=== PATIENT | male | born 1965 | race Caucasian/White ===

== ENCOUNTER 2022-07-31 21:56 | Emergency (ER) | payer MEDICAID, SELFPAY ==
[2022-07-31 21:57] VITALS: BP 114/75; PULSE 79; RESP 15; TEMP 36.1; O2SAT 96; BMI 28.0
--- NOTE | 2022-07-31 22:12 | CT_ITS ---
EXAM: CT ABDOMEN AND PELVIS WITHOUT INTRAVENOUS CONTRAST CLINICAL INDICATION: Kidney Stone TECHNIQUE: Helically acquired images were obtained of the abdomen and pelvis without intravenous contrast. This CT exam was performed using one or more of the following dose reduction techniques: automated exposure control, adjustment of the mA and/or kV according to patient size, and/or use of iterative reconstruction technique. This report was created using [employer] report generation technology. RADIATION DOSE: Total DLP: 338.61 mGy-cm. COMPARISON: None. FINDINGS: LOWER THORAX: Evaluation of lung bases shows bilateral peribronchial cuffing indicating bronchial wall inflammation. No acute basilar pulmonary infiltrates or pleural effusions. No coronary artery calcification or significant pericardial effusion. Mild thickening of the distal esophageal wall due to hiatal hernia and/or mild reflux esophagitis. ABDOMEN: LIVER: Unremarkable. Homogeneous. GALLBLADDER AND BILE DUCTS: Rounded area of slightly increased attenuation within the dependent portion of the gallbladder. No gallbladder wall thickening or pericholecystic stranding. No biliary duct dilatation is visualized. PANCREAS: Unremarkable. No focal cystic mass. SPLEEN: Unremarkable. Normal size without focal cystic or solid mass. ADRENALS: 10 x 18 mm ovoid hypoattenuating right adrenal nodule showing CT attenuation near water, consistent with a benign adrenal adenoma which requires no follow-up. Unremarkable left adrenal gland. KIDNEYS AND URETERS: Unremarkable. Normal renal size and position. No hydronephrosis. No renal or ureteral stones. No perirenal stranding. STOMACH AND BOWEL: Unremarkable. No stomach or bowel distention. No focal inflammatory change. PELVIS: APPENDIX: Not well seen. No evidence of acute appendicitis. BLADDER: Urinary bladder is nearly empty. REPRODUCTIVE: Unremarkable as visualized. No mass. ABDOMEN and PELVIS: INTRAPERITONEAL SPACE: Unremarkable. No ascites or other fluid collection. No free air. BONES/JOINTS: Degenerative spurring about the lower thoracic and lumbar disc spaces. No compression fracture. Degenerative sclerosis about the SI joints, without erosions. No suspicious lytic or blastic abnormality. SOFT TISSUES: Minimal fat-filled left inguinal hernia. VASCULATURE: Mildly calcific abdominal aorta and its branches. Abdominal aorta is non-dilated. LYMPH NODES: Unremarkable. No enlarged lymph nodes. CT/Abdomen/Pelvis without Cont IMPRESSION: No renal or obstructing ureteral stones. Slightly increased density in the dependent portion of the gallbladder which could be due to sludge or noncalcified stones. Correlation with ultrasound may be of benefit, as clinically indicated. Mild thickening of the distal esophageal wall due to hiatal hernia and/or mild reflux esophagitis. No findings of diverticulitis, colitis or small bowel obstruction. Electronically Signed: Mitchel Reyes MD at 23:13 EDT ,
--- NOTE | 2022-07-31 22:13 | EDS_ITS ---
HPI History of Present Illness Chief Complaint: Flank Pain Narrative Narrative: Patient with past medical history of hypertension, coronary artery disease, hyperlipidemia, presents with left flank pain since yesterday evening. It is slowly progressed towards gotten worse. It is in his left flank and radiating towards his groin. He denies any fevers or chills. No loss of bowel or bladder. He did notice a pink tinge to his urine a few days ago. No exacerbating or alleviating factors. He currently denies any chest pain or shortness of breath. No other symptoms. No back pain. No injury. [facility] Medical History Anxiety and depression Atherosclerotic heart disease of [place] coronary artery without angina pectoris COPD (chronic obstructive pulmonary disease) Essential hypertension History of ST elevation myocardial infarction (STEMI) (05/11/11) Hyperlipidemia Tobacco abuse Home Medications albuterol sulfate 90 mcg/actuation aerosol inhaler (Ventolin HFA) 2 inh inhalation Q6H PRN 06/04/22 [History Last Taken Unknown] buspirone 10 mg tablet 10 mg PO BID 06/04/22 [History Last Taken Unknown] fluticasone propionate 230 mcg-salmeterol 21 mcg/actuation HFA inhaler 2 puff inhalation BID 06/04/22 [History Last Taken Unknown] lisinopril 2.5 mg tablet 2.5 mg PO DAILY 06/04/22 [History Last Taken Unknown] metoprolol succinate 25 mg tablet,extended release 24 hr 25 mg PO DAILY 06/04/22 [History Last Taken Unknown] nitroglycerin 0.4 mg sublingual tablet 0.4 mg sublingual Q5-15M PRN 06/04/22 [ History Last Taken Unknown] simvastatin 20 mg tablet 20 mg PO QHS 06/04/22 [History Last Taken Unknown] Allergy/AdvReac Type Severity Reaction Status Date / Time No Known Allergies Allergy Verified 07/31/22 22:00 Family History Other Heart disease Hypertension Surgical History History of appendectomy History of coronary artery stent placement (05/11/11) Social History Smoking Status: Current every day smoker tobacco type: cigarettes alcohol intake: current EXAM Physical Exam Narrative Exam Narrative: Afebrile. Vital signs noted. HEENT: Normocephalic. Atraumatic. PERRL, EOMI. Neck soft and supple. No point tenderness or step off. Cardiovascular: Regular rate and rhythm. No murmurs, rubs, or gallops appreciated. Respiratory: No tachypnea. Lungs clear to auscultation bilaterally. Gastrointestinal: Abdomen soft, nontender, with normoactive bowel sounds. No rebound or guarding. Neurological: Awake. Alert. Nonfocal, nonlateralizing. Skin: No rash. Normal color. No pallor. Musculoskeletal: No pedal edema. Full range of motion extremities. No lumbar tenderness. No vertebral point tenderness or bony step-off of lumbar spine. No CVA tenderness to percussion, left. Const Vital Signs: 07/31/22 21:57 Temperature 97.0 F L Temperature Source Temporal Pulse Rate 79 Respiratory Rate 15 Blood Pressure 114/75 Blood Pressure Mean 88 Pulse Ox 96 Oxygen Delivery Method Room Air MDM MDM MDM Narrative Medical decision making narrative: With suspicion for ureterolithiasis, comprehensive work-up was pursued. He was administered morphine and ondansetron along with a normal saline. CBC shows normal white count of 10.8, normal hemoglobin of 15.6, hematocrit 45.6, platelet count 313. Electrolyte panel is grossly unremarkable, glucose 84 with a normal anion gap of 6. Urinalysis shows no evidence of blood or infection. CT of the abdomen and pelvis shows no ureteral stone. Prior to discharge, I was informed that the patient had eloped before receiving any of his results, especially of the CT. He was in stable condition. Disposition is eloped from the emergency department Lab Data Attestation: I reviewed the patient's lab results. Labs: Laboratory Results - last 24 hr 07/31/22 07/31/22 07/31/22 22:14 22:15 22:15 WBC 10.8 RBC 4.96 Hgb 15.6 Hct 45.6 MCV 91.9 MCH 31.5 MCHC 34.2 RDW Std Deviation 42.6 RDW Coeff of Saul 12.6 Plt Count 313 MPV 9.4 Immature Gran % (Auto) 0.400 Neut % (Auto) 44.4 L Lymph % (Auto) 44.6 H Amelia % (Auto) 6.9 Eos % (Auto) 3.0 Baso % (Auto) 0.7 Absolute Neuts (auto) 4.8 Absolute Lymphs (auto) 4.83 H Nucleated RBC % 0 Sodium 140 Potassium 3.9 Chloride 103 Carbon Dioxide 31.0 Anion Gap 6 BUN 7 Creatinine 0.90 Estim Creat Clear Calc 88.38 Est GFR (MDRD) Af Amer 111 Est GFR (MDRD) Non-Af 92 BUN/Creatinine Ratio 7.8 L Glucose 84 Calcium 8.9 Urine Color Straw Urine Clarity Clear Urine pH 6.5 Ur Specific [place] 1.010 Urine Protein Negative Urine Glucose (UA) Normal Urine Ketones Negative Urine Occult Blood Negative Urine Nitrite Negative Urine Bilirubin Negative Urine Urobilinogen Normal Ur Leukocyte Esterase Negative Urine RBC 0 SEEN Urine WBC 0 SEEN Ur Squamous Epith Cells 0-5 SEEN Urine Bacteria RARE Urine Mucus 0 SEEN Radiography Diagnostic Testing: Clinical Impression(s) from Imaging Studies Abdomen/Pelvis CT 07/31/22 22:12 IMPRESSION: No renal or obstructing ureteral stones. Slightly increased density in the dependent portion of the gallbladder which could be due to sludge or noncalcified stones. Correlation with ultrasound may be of benefit, as clinically indicated. Mild thickening of the distal esophageal wall due to hiatal hernia and/or mild reflux esophagitis. No findings of diverticulitis, colitis or small bowel obstruction. Electronically Signed: Mitchel Reyes MD at 23:13 EDT Reading Location ID and State: [facility] / [place] Tel , Service support , Discharge Plan Triage Chief Complaint: Flank Pain ED Provider: Tylor Castillo Dx/Rx/DC Orders Clinical Impression: Acute left flank pain, Eloped from emergency department Instructions: ED Flank Pain, Uncertain Cause Prescriptions: No Action albuterol sulfate [Ventolin HFA] 90 mcg/actuation HFA aerosol inhaler 2 inh inhalation Q6H PRN simvastatin 20 mg tablet 20 mg PO QHS lisinopril 2.5 mg tablet 2.5 mg PO DAILY metoprolol succinate 25 mg tablet extended release 24 hr 25 mg PO DAILY buspirone 10 mg tablet 10 mg PO BID fluticasone propion-salmeterol 230-21 mcg/actuation HFA aerosol inhaler 2 puff inhalation BID nitroglycerin 0.4 mg tablet, sublingual 0.4 mg sublingual Q5-15M PRN Rx Instructions: do not exceed 3 doses per episode Primary Care Provider: Care Physician,No Primary Referrals: Care Physician,No Primary [Primary Care Provider] - Disposition Disposition: Elopement
[2022-07-31] MEDS: 0.9% Normal Saline 1,000 ML 250 ML IV (22:20)
[2022-07-31 22:26] LABS: Absolute Lymphocyte Count 4.83 X10^3/uL (0.83-4.51); Absolute Neutrophil Count 4.8 X10^3/uL (2.0-7.7); Basophil# 0.08 X10^3/uL; Basophil% 0.7 % (0-1); Eosinophil# 0.32 X10^3/uL; Hematocrit 45.6 % (40-54); Hemoglobin 15.6 g/dL (13.0-16.5); Lymphocyte # 4.83 X10^3/ul (0.83-4.51); Lymphocyte % 44.6 % (19-41); Mean Corp Hgb Conc 34.2 g/dL (32-36); Mean Corpuscular Hgb 31.5 pg (27.0-32.0); Mean Corpuscular Volume 91.9 fL (80-94); Mean Platelet Vol. 9.4 fl (6.2-12.0); Monocyte# 0.75 X10^3/uL; Monocyte% 6.9 % (0-10); NRBC Flagged by Analyzer 0 % (0-5); Neutrophil # 4.81 X10^3/uL (2.7-7.7); Neutrophil % 44.4 % (47-70); Platelet Count 313 K/mm3 (150-450); RBC Distribution Width CV 12.6 % (11.6-14.6); RBC Distribution Width SD 42.6 fl (35.1-43.9); Red Blood Count 4.96 M/mm3 (4.6-6.2); White Blood Count 10.8 K/mm3 (4.4-11.0)
[2022-07-31] MEDS: Ondansetron 4 MG/2 ML Vial IV (22:26)
[2022-07-31] MEDS: Morphine 4 MG/ML Syringe IV (22:26)
[2022-07-31 22:38] LABS: Color, Urine Straw (Yellow); Glucose, Dipstick Normal (Normal); Ketone-Dipstick Negative (Negative); Leukocyte Esterase-Dipstick Negative /ul (Negative); Mucous, Urine 0 SEEN /hpf (<or=2+); Nitrite-Dipstick Negative (Negative); Occult Blood-Urine Negative /ul (Negative); Protein-Dipstick Negative (Negative); Red Blood Cells-Urine 0 SEEN /hpf (0-5); Urine Bilirubin Dipstick Negative (Negative); Urine Clarity Clear (Clear); Urine Urobilinogen Normal (Normal); Urine pH 6.5 (5.0 - 8.0); White Blood Cells 0 SEEN /hpf (0-5)
[2022-07-31 22:52] LABS: Anion Gap 6 (5-15); BUN 7 mg/dL (7-18); BUN/Creat Ratio 7.8 RATIO (10-20); Calcium,Total 8.9 mg/dL (8.5-10.1); Chloride 103 mmol/L (98-107); EST Glomerular Filtration Rate 92 mL/min (>60); Est Glom Filt Rate - Afr Amer 111 mL/min (>60); Estimated Creatinine Clearance 88.38 ml/min; Glucose 84 mg/dL (74-106); Potassium 3.9 mmol/L (3.5-5.1); Sodium Level 140 mmol/L (136-145)
[2022-07-31 23:00] LABS: Bacteria RARE /hpf (None Seen); Squamous Epithelial Cells - UA 0-5 SEEN /hpf (0-5)
== END 2022-07-31 23:11 | disposition left against medical advice (07) ==
PROVIDERS: Emergency Provider Emergency Medicine; Visit Provider Emergency Medicine
DX: R10.9 Unspecified abdominal pain (principal); J44.9 Chronic obstructive pulmonary disease, unspecified; I25.10 Atherosclerotic heart disease of native coronary artery without angina pectoris; I25.2 Old myocardial infarction; I10 Essential (primary) hypertension; E78.5 Hyperlipidemia, unspecified; F17.210 Nicotine dependence, cigarettes, uncomplicated; Z95.5 Presence of coronary angioplasty implant and graft; Z90.49 Acquired absence of other specified parts of digestive tract; Z79.899 Other long term (current) drug therapy
CPT/HCPCS: 74176; 80048; 81001; 85025; 96361; 96374; 96375; 99283; J7030; A4216; J2405

== ENCOUNTER 2022-08-03 12:29 | Emergency (ER) | payer MEDICAID, SELFPAY ==
[2022-08-03 12:30] VITALS: BP 168/100; PULSE 57; RESP 16; TEMP 36.6; O2SAT 100; BMI 27.1
[2022-08-03] MEDS: 0.9% Normal Saline 1,000 ML 250 ML IV (13:16)
[2022-08-03] MEDS: Ketorolac 15 MG/ML Vial IV (13:17)
[2022-08-03] MEDS: Ondansetron 4 MG/2 ML Vial IV (13:18)
[2022-08-03] MEDS: Morphine 4 MG/ML Syringe IV (13:18)
[2022-08-03 13:22] LABS: Absolute Lymphocyte Count 2.55 X10^3/uL (0.83-4.51); Absolute Neutrophil Count 6.5 X10^3/uL (2.0-7.7); Basophil# 0.06 X10^3/uL; Basophil% 0.6 % (0-1); Eosinophil# 0.07 X10^3/uL; Eosinophils% 0.7 % (0-5); Hematocrit 49.8 % (40-54); Hemoglobin 16.9 g/dL (13.0-16.5); Lymphocyte # 2.55 X10^3/ul (0.83-4.51); Lymphocyte % 25.9 % (19-41); Mean Corp Hgb Conc 33.9 g/dL (32-36); Mean Corpuscular Hgb 31.1 pg (27.0-32.0); Mean Corpuscular Volume 91.7 fL (80-94); Mean Platelet Vol. 9.6 fl (6.2-12.0); Monocyte# 0.61 X10^3/uL; Monocyte% 6.2 % (0-10); NRBC Flagged by Analyzer 0 % (0-5); Neutrophil # 6.52 X10^3/uL (2.7-7.7); Neutrophil % 66.2 % (47-70); Platelet Count 262 K/mm3 (150-450); RBC Distribution Width CV 12.4 % (11.6-14.6); RBC Distribution Width SD 41.9 fl (35.1-43.9); Red Blood Count 5.43 M/mm3 (4.6-6.2); White Blood Count 9.9 K/mm3 (4.4-11.0)
[2022-08-03 13:27] LABS: Anion Gap 4 (5-15); BUN 8 mg/dL (7-18); BUN/Creat Ratio 8.6 RATIO (10-20); Calcium,Total 9.1 mg/dL (8.5-10.1); Chloride 105 mmol/L (98-107); Creatinine, Serum 0.93 mg/dL (0.70-1.30); EST Glomerular Filtration Rate 88 mL/min (>60); Est Glom Filt Rate - Afr Amer 107 mL/min (>60); Estimated Creatinine Clearance 85.52 ml/min; Glucose 108 mg/dL (74-106); Potassium 3.8 mmol/L (3.5-5.1); Sodium Level 139 mmol/L (136-145)
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
[2022-08-03 14:06] LABS: Bacteria 0 SEEN /hpf (None Seen); Mucous, Urine 0 SEEN /hpf (<or=2+); Red Blood Cells-Urine 0 SEEN /hpf (0-5)
[2022-08-03 14:12] LABS: Color, Urine Yellow (Yellow); Glucose, Dipstick Normal (Normal); Ketone-Dipstick Negative (Negative); Leukocyte Esterase-Dipstick Negative /ul (Negative); Nitrite-Dipstick Negative (Negative); Occult Blood-Urine Negative /ul (Negative); Protein-Dipstick Negative (Negative); Urine Bilirubin Dipstick Negative (Negative); Urine Clarity Clear (Clear); Urine Urobilinogen Normal (Normal)
[2022-08-03 14:31] VITALS: BP 152/86; PULSE 51; RESP 16; O2SAT 98
[2022-08-03 14:38] LABS: Squamous Epithelial Cells - UA 0-5 SEEN /hpf (0-5); White Blood Cells 0-5 SEEN /hpf (0-5)
[2022-08-03 14:57] VITALS: BP 162/102; PULSE 91; RESP 15; O2SAT 99
== END 2022-08-03 14:58 | disposition home or self-care (01) ==
PROVIDERS: Emergency Provider Emergency Medicine; Visit Provider Emergency Medicine
DX: N50.812 Left testicular pain (principal); J44.9 Chronic obstructive pulmonary disease, unspecified; I25.10 Atherosclerotic heart disease of native coronary artery without angina pectoris; I25.2 Old myocardial infarction; I10 Essential (primary) hypertension; E78.5 Hyperlipidemia, unspecified; F17.210 Nicotine dependence, cigarettes, uncomplicated; Z95.5 Presence of coronary angioplasty implant and graft; Z90.49 Acquired absence of other specified parts of digestive tract; Z79.899 Other long term (current) drug therapy
CPT/HCPCS: 80048; 81001; 85025; 96361; 96374; 96375; 99285; J7030; A4216; J2405

== ENCOUNTER 2024-02-23 12:31 | Emergency (ER) | payer MEDICAID, SELFPAY ==
[2024-02-23 12:33] VITALS: BP 152/94; PULSE 64; RESP 16; TEMP 36.7; O2SAT 97; BMI 23.3
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
[2024-02-23 14:39] VITALS: BP 152/99; PULSE 84; RESP 18; O2SAT 98
[2024-02-23 14:54] VITALS: BP 174/89; PULSE 59; RESP 14; TEMP 35.5; O2SAT 100
== END 2024-02-23 15:03 | disposition home or self-care (01) ==
PROVIDERS: Emergency Provider Emergency Medicine; Visit Provider Emergency Medicine
DX: S09.90XA Unspecified injury of head, initial encounter (principal); J44.9 Chronic obstructive pulmonary disease, unspecified; F17.200 Nicotine dependence, unspecified, uncomplicated; I25.10 Atherosclerotic heart disease of native coronary artery without angina pectoris; I25.2 Old myocardial infarction; Y04.8XXA Assault by other bodily force, initial encounter
CPT/HCPCS: 70450; 74176; 99282

== ENCOUNTER → 2025-02-01 | Outpatient (CLI) | payer MEDICAID, SELFPAY ==
[2025-02-01 08:51] LABS: Hematocrit 43.8 % (40-54); Hemoglobin 15.7 g/dL (13.0-16.5); Mean Corp Hgb Conc 35.8 g/dL (32-36); Mean Corpuscular Hgb 31.7 pg (27.0-32.0); Mean Corpuscular Volume 88.3 fL (80-94); Mean Platelet Vol. 9.9 fl (6.2-12.0); Platelet Count 196 K/mm3 (150-450); RBC Distribution Width CV 12.6 % (11.6-14.6); RBC Distribution Width SD 40.8 fl (35.1-43.9); Red Blood Count 4.96 M/mm3 (4.6-6.2); White Blood Count 7.2 K/mm3 (4.4-11.0)
[2025-02-01 12:20] LABS: AST(SGOT) 76 U/L (<=37); Alanine Aminotransfer ALT/SGPT 88 U/L (<=46); Albumin, Serum 3.8 g/dL (3.4-4.8); Alkaline Phosphatase 124 U/L (40-129); Anion Gap 12 (5-15); BUN 13 mg/dL (4-19); BUN/Creat Ratio 14.6 RATIO (10-20); Calcium,Total 9.2 mg/dL (7.6-11.0); Carbon Dioxide 21.8 mmol/L (21.0-32.0); Chloride 104 mmol/L (98-108); Cholesterol 146 mg/dL (<=200); Creatinine, Serum 0.89 mg/dL (0.70-1.20); EST Glomerular Filtration Rate 97 (>60); Globulin 3.7 g/dL (2.2-4.2); Glucose 124 mg/dL (70-99); High Density Lipoprotein 38 mg/dL; Low Density Lipoprotein Calc. 81 mg/dL; Potassium 4.3 mmol/L (3.3-5.1); Protein, Total 7.5 g/dL (5.9-8.4); Sodium Level 138 mmol/L (133-145); Total Bilirubin 0.49 mg/dL (0.00-1.30); Triglycerides 135 mg/dL; Very Low Density Lipoprotein 27 mg/dL (5-40); cholesterol:hdl ratio screen 3.86
== END | disposition home or self-care (01) ==
LOC: LAB 08:29
PROVIDERS: Referring Provider Internal Medicine Cardiovascular Disease; Visit Provider Internal Medicine Cardiovascular Disease
DX: R53.83 Other fatigue (principal); R06.09 Other forms of dyspnea
CPT/HCPCS: 36415; 80053; 80061; 84443; 85027

== ENCOUNTER 2025-04-15 19:27 | Emergency (ER) | payer MEDICAID, SELFPAY ==
[2025-04-15 19:28] VITALS: BP 136/78; PULSE 83; RESP 18; TEMP 36.2; O2SAT 99; BMI 26.3
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
--- OUTSIDE RECORDS SUMMARY | 2025-04-15 20:07 | XMS RPT_ITS | CCD ---
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 02-01-2025 Cholesterol.total/Choles terol in HDL [Mass ratio] 3.86 {ratio} [facility] Serum creatinine measurement (mass/volume)Ordered By: Nati Alston on 02-01-2025 Creatinine [Mass/Vol] 0.89 mg/dL 0.70-1.20 [facility] Serum globulin measurementOr dered By: Nati Alston on 02-01-2025 Globulin (S) [Mass/Vol] 3.7 g/dL 2.2-4.2 [facility] Serum glucose measurement (m ass/volume)Ordered By: Nati Alston on 02-01-2025 Glucose [Mass/Vol] 124 mg/dL High 70-99 [facility] Serum or plasma alanine rincon otransferase (ALT) measurementOrdered By: Nati Alston on 02-01-2025 ALT [Catalytic activity/Vol] 88 U/L High <47 [facility] Serum or plasma albumin kevin urement (mass/volume)Ordered By: Nati Alston on 02-01-2025 Albumin [Mass/Vol] 3.8 g/dL 3.4-4.8 [facility] Serum or plasma albumin/glob ulin mass ratioOrdered By: Nati Gamaliel on 02-01-2025 Albumin/Globulin [Mass ratio] 1.0 {ratio} 0.9-2.4 [facility] Serum or plasma alkaline axel sphatase measurementOrdered By: Nati Gamaliel on 02-01-2025 ALP [Catalytic activity/Vol] 124 U/L 40-129 [facility] Serum or plasma calcium kevin urement (mass/volume)Ordered By: Nati Alston on 02-01-2025 Calcium [Mass/Vol] 9.2 mg/dL 7.6-11.0 [facility] Serum or plasma cholesterol in HDL measurement (mass/volume)Ordered By: Nati Alston on 02-01-2025 Cholesterol in HDL [Mass/Vol] 38 mg/dL Low >40 [facility] Comment on above: National Cholesterol Education Program (NCEP) guidelines:<40 mg/dL: Low HDL-cholesterol (major risk factor for CHD)>= 60 mg/dL: High HDL-cholesterol (negative risk factor for CHD)HDL-cholesterol is affected by a number of factors, e.g. smoking, exercise, hormones, sex and age. Serum or plasma cholesterol measurement (mass/volume)Ordered By: Nati Alston on 02-01-2025 Cholesterol [Mass/Vol] 146 mg/dL <201 [facility] Comment on above: Cholesterol level, D esirable <200 mg/dLBorderline high cholesterol 200-239 mg/dLHigh cholesterol >=240 mg/dLRecommendations of the NCEP Adult Treatment Panel for the following risk-cutoff thresholds for the [place] population. Serum or plasma urea nitroge n measurement (mass/volume)Ordered By: Nati Alston on 02-01-2025 Urea nitrogen [Mass/Vol] 13 mg/dL 4-19 [facility] Sodium levelOrdered By: Juan Alston on 02-01-2025 Sodium [Moles/Vol] 138 mmol/L 133-145 [facility] TSH DL <= 0.005 mIU/L QnOrde red By: Nati Alston on 02-01-2025 Thyroid Stimulating Hormone (TSH) 1.140 uIU/mL 0.300-4.200 [facility] Thyroid Stim Hormone (TSH)on 02-01-2025 TSH 1.140 uIU/mL Normal 0.300-4.200 [facility] Comment on above: Performed By: #### L 500.4050, L501.9520, L500.4100 #### [facility] [address] [place], [address] TSH 1.140 uIU/mL Normal 0.300-4.200 [facility] Comment on above: Order Comment: will reorder Result Comment: will reorder Performed By: #### L 500.4100, L500.4050, L501.9520, L100.0500 #### [facility] [address] [place], [address] Total proteinOrdered By: Eleni Alston on 02-01-2025 Protein [Mass/Vol] 7.5 g/dL 5.9-8.4 [facility] Triglycerides measurementOrd ered By: Nati Alston on 02-01-2025 Triglyceride [Mass/Vol] 135 mg/dL <199 [facility] Comment on above: The drugs N-Acetylcy steine and Metamizole may falsely depress this assay. Normal range: <150 mg/dLBorderline High: 150-199 mg/dLHigh: 200-499 mg/dLVery High: >500 mg/dL White blood cell (WBC) count Ordered By: Nati Alston on 02-01-2025 WBC (Bld) [#/Vol] 7.2 10*3/uL 4.4-11.0 [facility] 12 Lead EKG performed by [facility] on 01-30-2025 12 Lead EKG performed by [facility] [address] [place] [address] 12 Lead EKG performed by [facility] 01/30/25 0833 MR#: [id number] Acct: [id number] Name: RAISA ESTRADA Rep #: [id number] : 1965 59 From: Nati Alston MD Attending Dr: Dr. Nati Alston MD Status: DEP AMB Ordering Dr: Nati Alston MD Date: 01/30/25 Location: [facility] Sex: M C Admitted: BMS/12 Lead EKG performed by [facility] ECG Report Interpretation -------Sinus Rhythm -Left axis -anterior fascicular block. ABNORMAL Electronically signed on 03/28/2025 at 13:[address] Nati Alston [employer] Version [id number] 03/28/25 1332 Date Nati Alston MD CC: No Primary Care Physician Date Dictated: 01/30/25832 Date Transcribed: 01/30/25832 [employer] Commun[employer] Designer: KENNETH Signed Normal [facility] Cardiology Visit Reporton Cardiology Visit Report [facility] [address] [place] [address] OFFICE VISIT Date of Service: 01/30/25 MR#: [id number] Acct: [id number] Name: RAISA ESTRADA Rep #: [id number] : 1965 Provider: Dr. Nati Alston MD Age/Sex: 59/M Location: [facility] Status: Signed HPI HPI History of Present Illness Details: This gentleman describes a past medical history significant for coronary artery disease. According to him, he has had percutaneous intervention done with 2 stents to his coronary arteries in 2018 at [facility]. He has not followed up with cardiology at least over the last 5 years. Here to establish care. Patient denies any chest pains either at rest or with exertion. Over the last 1 year, he has been complaining of increasing shortness of breath with exertion. Denies any palpitations. No orthopnea. No PND. No ankle edema. Patient complains of being tired and fatigued most of the time. According to his girlfriend, he snores loudly at night. No abdominal pain. Occasional lightheadedness. Patient continues to smoke. He has history of EtOH abuse in the past but has been abstinent over the last 4 or 5 months. 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 Required: No Accompanied by: Other Allergies No Known Allergies Allergy (Verified 01/30/25 09:05) Have you fallen in the past year?: No [facility] Medical History Anxiety and depression Atherosclerotic heart disease of [place] coronary artery without angina pectoris COPD (chronic obstructive pulmonary disease) Essential hypertension History of ST elevation myocardial infarction (STEMI) (05/11/11) Hyperlipidemia Tobacco abuse Surgical History History of appendectomy History of coronary artery stent placement (05/11/11) Family History Other Heart disease Hypertension Social History household members: significant other Smoking Status: Current every day smoker tobacco type: cigarettes alcohol intake: current substance use type: does not use ROS Const Const: Positive for fatigue, weakness, headache(s), daytime sleepiness and excessive sweating; Negative for weight gain ENT ENT: Positive for headache(s) and dizziness (positional); Negative for Nosebleed/epistaxis or balance problems Cardio Chest Pain: No Palpitations: No Muscle aches with walking: None Resp Respiratory: Positive for SOB with activity, SOB at rest and SOB orthopnea SOB lying down GI GI: Positive for heartburn (daily); Negative nausea or vomiting Musc Musc: Positive for muscle aches/ myalgia and joint pain; Negative for muscle weakness or balance problems Skin Skin: Positive for redness (extremities) and other (burning sensation on BUE) Neuro Neuro: Positive for dizziness (positional), lightheadedness (positional w/ dizziness), near syncope, headache(s), weakness and other (numbness/tingling in LLE); Negative for syncope Endo Endo: Positive for fatigue and excessive sweating Cardiology Exam Const Appearance: comfortable and no acute distress Nutritional Appearance: well nourished Neck Neck: no JVD Carotids: Negative bruit Chest Auscultation: Bilateral: Clear to Auscultation Cardio Rate: regular rate Rhythm: regular rhythm Heart sounds: S1 normal and S2 normal Neuro General: patient alert, patient awake and patient oriented x3 Extremities Lower Extremity Edema: None: Bilateral Supplemental Info Supplemental Information Stress Test 01/24/2015: Findings: Stress Protocol: 0.4mg Lexiscan Stress and rest tomographic images demonstrate normal activity throughout the LEFT ventricular myocardium. Left ventricle is normal in size. The gated portion examination demonstrates normal LEFT ventricular contractility, wall motion and thickening. Ejection fraction normal at 68%. Impression: No infract or stress-induced ischemia. CT Chest w/ Contrast 04/27/2018: Indications: Chest Pain Conclusions: 1. No pulmonary embolism or acute pulmonary parenchymal abnormality. 2. No hiatal hernia. 3. Indeterminate right Other: Negative Conclusion: 1. Mild hyperaeration of the lung [place]. Otherwise no acute pulmonary parenchymal abnormality. Assessment and Plan Assessment and Plan (1) Dyspnea on exertion: Status: Chronic Plan: Check exercise str (more content not included)... Normal [facility] Absolute lymphocyte counton 08-03-2022 Lymphocytes Auto (Unsp spec) [#/Vol] 2.55 10*3/uL 0.83-4.51 [facility] Work Phone: Basophil percentageon 2021 Basophil percentage 0-5 SEEN /hpf 0-5 [facility] Work Phone: Basophils/100 WBC (Bld) 0.6 % 0-1 [facility] Work Phone: Chloride [Moles/Vol] 105 mmol/L 98-107 [facility] Work Phone: Eosinophils/100 WBC (Bld) 0.7 % 0-5 [facility] Work Phone: Glucose [Mass/Vol] 108 mg/dL 74-106 [facility] Work Phone: Comment on above: Fasting Glucose resu lt from 100 to 125 mg/dL suggests IMPAIRED HOMEOSTASIS per A.D.A. criteria. Neutrophils (Bld) [#/Vol] 6.5 10*3/uL 2.0-7.7 [facility] Work Phone: Neutrophils/100 WBC (Bld) 66.2 % 47-70 [facility] Work Phone: Potassium [Moles/Vol] 3.8 mmol/L 3.5-5.1 [facility] Work Phone: Sodium [Moles/Vol] 139 mmol/L 136-145 [facility] Work Phone: WBC (Bld) [#/Vol] 9.9 10*3/uL 4.4-11.0 [facility] Work Phone: Bilirubin Test strip Ql (U)o n 08-03-2022 Bilirubin Ql (U) Negative Negative [facility] Work Phone: Blood erythrocytes count (nu mber/volume)on 08-03-2022 RBC (Bld) [#/Vol] 5.43 10*6/uL 4.6-6.2 [facility] Work Phone: Blood hemoglobin measurement (mass/volume)on 08-03-2022 Hemoglobin (Bld) [Mass/Vol] 16.9 g/dL 13.0-16.5 [facility] Work Phone: Blood lymphocytes/100 leukoc yteson 10-03-2022 Lymphocytes/100 WBC (Bld) 25.9 % 19-41 [facility] Work Phone: Blood monocytes/100 leukocyt eson 08-03-2022 Monocytes/100 WBC (Bld) 6.2 % 0-10 [facility] Work Phone: Blood platelet mean volumeon 08-03-2022 Platelet mean volume (Bld) [Entitic vol] 9.6 fL 6.2-12.0 [facility] Work Phone: Determination of erythrocyte mean corpuscular volume (MCV)on 08-03-2022 MCV (RBC) [Entitic vol] 91.7 fL 80-94 [facility] Work Phone: Hematocrit Auto (Bld) [Volum e fraction]on 08-03-2022 Hematocrit (Bld) [Volume fraction] 49.8 % 40-54 [facility] Work Phone: Ketones Test strip Ql (U)on 08-03-2022 Ketones Ql (U) Negative Negative [facility] Work Phone: Laboratory - Chemistry and C hemistry - challengeon 08-03-2022 CO2 [Moles/Vol] 30.0 mmol/L 21.0-32.0 [facility] Work Phone: Urea nitrogen/Creatinine [Mass ratio] 8.6 mg/mg 10-20 [facility] Work Phone: Laboratory - Hematology and Cell countson 08-03-2022 Erythrocyte distribution width (RBC) [Entitic vol] 41.9 fL 35.1-43.9 [facility] Work Phone: Erythrocyte distribution width (RBC) [Ratio] 12.4 % 11.6-14.6 [facility] Work Phone: Immature granulocytes/100 WBC (Bld) 0.400 % 0.0-0.9 [facility] Work Phone: Comment on above: IG% - Immature Granu locytes (promyelocytes, myelocytes and metamyelocytes) > 1% indicates that a LEFT SHIFT is Present. MCH (RBC) [Entitic mass] 31.1 pg 27.0-32.0 [facility] Work Phone: Nucleated RBC/100 WBC (Bld) [Ratio] 0 % 0-5 [facility] Work Phone: MCHC Auto (RBC) [Mass/Vol]on 08-03-2022 MCHC (RBC) [Mass/Vol] 33.9 g/dL 32-36 [facility] Work Phone: Mucus LM Ql (Urine sed)on Mucus Ql (Urine sed) 0 SEEN /hpf [facility] Work Phone: Nitrite Test strip Ql (U)on 08-03-2022 Nitrite Ql (U) Negative Negative [facility] Work Phone: No Panel Informationon 08-03 Estimated Creatinine Clearance Calc 85.52 ml/min [facility] Work Phone: Estimated GFR (MDRD) Amer 107 mL/min >60 [facility] Work Phone: Comment on above: GFR Calc Estimated GFR (MDRD) Non-Af Amer 88 mL/min >60 [facility] Work Phone: Comment on above: Non- GFR Calc Platelets bldon 08-03-2022 Platelets (Bld) [#/Vol] 262 10*3/uL 150-450 [facility] Work Phone: Protein Test strip Ql (U)on 08-03-2022 Protein Ql (U) Negative Negative [facility] Work Phone: Serum or plasma calcium kevin urement (mass/volume)on 08-03-2022 Calcium [Mass/Vol] 9.1 mg/dL 8.5-10.1 [facility] Work Phone: Serum or plasma creatinine m easurement (mass/volume)on 08-03-2022 Creatinine [Mass/Vol] 0.93 mg/dL 0.70-1.30 [facility] Work Phone: Comment on above: The validity of the calculated GFR & GFRAA in patients over 70 years has not been determined. Clinical correlation is essential. Serum or plasma urea nitroge n measurement (mass/volume)on 08-03-2022 Urea nitrogen [Mass/Vol] 8 mg/dL 7-18 [facility] Work Phone: Squamous epithelial cells de tection in urine sediment by light microscopyon 08-03-2022 Epithelial cells.squamous LM Ql (Urine sed) 0-5 SEEN /hpf 0-5 [facility] Work Phone: Thin prep Papanicolaou smear with manual screeningon 08-03-2022 Thin prep Papanicolaou smear with manual screening 4 5-15 [facility] Work Phone: Urine blood detectionon RBC Ql (U) Negative Negative [facility] Work Phone: RBC Ql (U) 0 SEEN /hpf 0-5 [facility] Work Phone: Urine clarityon 08-03-2022 Clarity (U) Clear Clear [facility] Work Phone: Urine color determinationon 08-03-2022 Color (U) Yellow Yellow [facility] Work Phone: Urine glucose detectionon Glucose Ql (U) Normal mg/dl Normal [facility] Work Phone: Urine leukocyte esterase det ection by dipstickon 08-03-2022 Leukocyte esterase Test strip Ql (U) Negative Negative [facility] Work Phone: Urine pHon 08-03-2022 pH (U) 7.0 [pH] 5.0 - 8.0 [facility] Work Phone: Urine sediment bacteria coun t by microscopy (number/high power field)on 08-03-2022 Bacteria LM.HPF (Urine sed) [#/Area] 0 /[HPF] None Seen [facility] Work Phone: Urine specific gravity measu rementon 08-03-2022 Specific gravity (U) [Rel density] 1.010 1.002-1.030 [facility] Work Phone: Urobilinogen Auto test strip Ql (U)on 08-03-2022 Urobilinogen Ql (U) Normal mg/dl Normal [facility] Work Phone: .Auto Diffon 08-01-2022 Basophil, Absolute 0.1 10 3/mcL Normal 0.0-0.2 [facility] ([place]) Comment on above: Performed By: #### B MP, GFR #### [address] [address] Basophils/100 WBC (Bld) 0.8 % Normal 0.0-2.5 A [facility] ([place]) Comment on above: Performed By: #### B MP, GFR #### [address] [address] Eosinophil, Absolute 0.2 10 3/mcL Normal 0.0-0.4 [facility] ([place]) Comment on above: Performed By: #### B MP, GFR #### [address] [address] Eosinophils/100 WBC (Bld) 1.6 % Normal 0.0-7.0 [facility] ([place]) Comment on above: Performed By: #### B MP, GFR #### [address] [address] Lymphocyte, Absolute 2.2 10 3/mcL Normal 0.8-3.9 [facility] ([place]) Comment on above: Performed By: #### B MP, GFR #### [address] [address] Lymphocytes/100 WBC (Bld) 21.8 % Normal 10.0-50.0 [facility] ([place]) Comment on above: Performed By: #### B MP, GFR #### [address] [address] Monocyte, Absolute 0.9 10 3/mcL Normal 0.2-1.0 [facility] ([place]) Comment on above: Performed By: #### B MP, GFR #### [address] [address] Monocytes/100 WBC (Bld) 9.2 % Normal 1.7-13.0 A [facility] ([place]) Comment on above: Performed By: #### B MP, GFR #### [address] [address] Neutrophils/100 WBC (Bld) 66.6 % Normal 37.0-80.0 [facility] ([place]) Comment on above: Performed By: #### B MP, GFR #### [address] [address] .GFRon 08-01-2022 GFR 90 ml/min/1.73sqm Normal [facility] ([place]) Comment on above: Result Comment: GFR Population mean for , Non- Americans Ages 20-29 = 116 mL/min/1.73 sq.m. Ages 30-39 = 107 mL/min/1.73 sq.m. Ages 40-49 = 99 mL/min/1.73 sq.m. Ages 50-59 = 93 mL/min/1.73 sq.m. Ages 60-69 = 85 mL/min/1.73 sq.m. Ages 70+ = 75 mL/min/1.73 sq.m. Chronic Kidney Disease: Less than 60 mL/min/1.73 square meters End Stage Renal Disease: Less than 15 mL/min/1.73 square meters Performed By: #### B MP, GFR #### [address] [address] GFR Non- 74 ml/min/1.73sqm Normal [facility] ([place]) Comment on above: Result Comment: GFR Population mean for , Non- Americans Ages 20-29 = 116 mL/min/1.73 sq.m. Ages 30-39 = 107 mL/min/1.73 sq.m. Ages 40-49 = 99 mL/min/1.73 sq.m. Ages 50-59 = 93 mL/min/1.73 sq.m. Ages 60-69 = 85 mL/min/1.73 sq.m. Ages 70+ = 75 mL/min/1.73 sq.m. Chronic Kidney Disease: Less than 60 mL/min/1.73 square meters End Stage Renal Disease: Less than 15 mL/min/1.73 square meters Performed By: #### B MP, GFR #### [address] [address] .MDWon 08-01-2022 Monocyte Distribution Width 20.30 High 0.00-20.00 [facility] ([place]) Comment on above: Result Comment: For adults in ED, MDW>20.0 may be associated with a higher risk of sepsis during the first 12hrs of hospital admission Performed By: #### B MP, GFR #### [place] [address] [address] .NEUABSon 08-01-2022 Neutrophil, Absolute 6.7 10 3/mcL High 2.9-6.2 [facility] ([place]) Comment on above: Performed By: #### B MP, GFR #### [address] [address] BMPon 08-01-2022 BUN/Creatinine Ratio 14 ratio Normal 7-27 [facility] ([place]) Comment on above: Performed By: #### B MP, GFR #### [address] [address] Calcium [Mass/Vol] 8.5 mg/dL Normal 8.4-10.2 [facility] ([place]) Comment on above: Performed By: #### B MP, GFR #### [address] [address] Chloride [Moles/Vol] 103 mmol/L Normal 98-107 [facility] ([place]) Comment on above: Performed By: #### B MP, GFR #### [address] [address] CO2 [Moles/Vol] 27 mmol/L Normal 22-29 [facility] ([place]) Comment on above: Performed By: #### B MP, GFR #### [address] [address] Creatinine [Mass/Vol] 1.03 mg/dL Normal 0.70-1.30 [facility] ([place]) Comment on above: Performed By: #### B MP, GFR #### [address] [address] Electrolyte Balance 10.0 mEq/L Normal 4.0-15.0 [facility] ([place]) Comment on above: Performed By: #### B MP, GFR #### [address] [address] Glucose [Mass/Vol] 102 mg/dL Normal 70-105 [facility] ([place]) Comment on above: Performed By: #### B MP, GFR #### [address] [address] Potassium [Moles/Vol] 4.1 mmol/L Normal 3.5-5.1 [facility] ([place]) Comment on above: Performed By: #### B MP, GFR #### [address] [address] Sodium [Moles/Vol] 140 mmol/L Normal 136-145 [facility] ([place]) Comment on above: Performed By: #### B MP, GFR #### [address] [address] Urea nitrogen [Mass/Vol] 14 mg/dL Normal 7-18 [facility] ([place]) Comment on above: Performed By: #### B MP, GFR #### [address] [address] CBCon 08-01-2022 Erythrocyte distribution width (RBC) [Ratio] 13.4 % Normal 11.5-14.5 [facility] ([place]) Comment on above: Performed By: #### B MP, GFR #### [address] [address] Hematocrit (Bld) [Volume fraction] 43.3 % Normal 42.0-52.0 [facility] ([place]) Comment on above: Performed By: #### B MP, GFR #### [place] [address] [address] Hgb 15.1 G/dL Normal 14.0-18.0 [facility] ([place]) Comment on above: Performed By: #### B MP, GFR #### [place] [address] [address] MCH (RBC) [Entitic mass] 31.6 pg High 27.0-31.2 [facility] ([place]) Comment on above: Performed By: #### B MP, GFR #### [place] [address] [address] MCHC 34.8 G/dL Normal 31.8-35.4 [facility] ([place]) Comment on above: Performed By: #### B MP, GFR #### [place] [address] [address] MCV (RBC) [Entitic vol] 90.8 fL Normal 80.0-94.0 [facility] ([place]) Comment on above: Performed By: #### B MP, GFR #### [address] [address] Platelet 246 10 3/mcL Normal 130-400 [facility] ([place]) Comment on above: Performed By: #### B MP, GFR #### [address] [address] Platelet mean volume (Bld) [Entitic vol] 7.3 fL Low 7.4-10.4 [facility] ([place]) Comment on above: Performed By: #### B MP, GFR #### [place] [address] [address] RBC 4.77 10 6/mcL Normal 4.04-6.13 [facility] ([place]) Comment on above: Performed By: #### B MP, GFR #### [place] [address] [address] WBC 10.0 10 3/mcL Normal 4.6-10.8 [facility] ([place]) Comment on above: Performed By: #### B MP, GFR #### [place] [id number] [place], [place] [address] LABORATORYOrdered By: Tiera Rehman on 08-01-2022 Basophil, Absolute 0.1 103/mcL Invalid Interpretation Code 0.0 - 0.2 10^3/mcL AO Workflow SS Basophils/100 WBC (Bld) 0.8 % Invalid Interpretation Code 0.0 - 2.5 % AO Workflow SS Calcium [Mass/Vol] 8.5 mg/dL Invalid Interpretation Code 8.4 - 10.2 mg/dL AO ADM SS Chloride [Moles/Vol] 103 mmol/L Invalid Interpretation Code 98 - 107 mmol/L AO ADM SS CO2 [Moles/Vol] 27 mmol/L Invalid Interpretation Code 22 - 29 mmol/L AO ADM SS Creatinine [Mass/Vol] 1.03 mg/dL Invalid Interpretation Code 0.70 - 1.30 mg/dL AO ADM SS Electrolyte Balance 10.0 mEq/L Invalid Interpretation Code 4.0 - 15.0 mEq/L AO ADM SS Eosinophil, Absolute 0.2 103/mcL Invalid Interpretation Code 0.0 - 0.4 10^3/mcL AO Workflow SS Eosinophils/100 WBC (Bld) 1.6 % Invalid Interpretation Code 0.0 - 7.0 % AO Workflow SS Erythrocyte distribution width (RBC) [Ratio] 13.4 % Invalid Interpretation Code 11.5 - 14.5 % AO Workflow SS Glucose [Mass/Vol] 102 mg/dL Invalid Interpretation Code 70 - 105 mg/dL AO ADM SS Hematocrit (Bld) [Volume fraction] 43.3 % Invalid Interpretation Code 42.0 - 52.0 % AO Workflow SS Hemoglobin (Bld) [Mass/Vol] 15.1 G/dL Invalid Interpretation Code 14.0 - 18.0 G/dL AO Workflow SS Lymphocyte, Absolute 2.2 103/mcL Invalid Interpretation Code 0.8 - 3.9 10^3/mcL AO Workflow SS Lymphocytes/100 WBC (Bld) 21.8 % Invalid Interpretation Code 10.0 - 50.0 % AO Workflow SS MCH (RBC) [Entitic mass] 31.6 pg Invalid Interpretation Code 27.0 - 31.2 pg AO Workflow SS MCHC 34.8 G/dL Invalid Interpretation Code 31.8 - 35.4 G/dL AO Workflow SS MCV (RBC) [Entitic vol] 90.8 fL Invalid Interpretation Code 80.0 - 94.0 fL AO Workflow SS Monocyte distribution width Auto (Bld) [Entitic vol] 20.30 Invalid Interpretation Code 0.00 - 20.00 AO Workflow SS Comment on above: Result Comment: For adults in ED, MDW>20.0 may be associated with a higher risk of sepsis during the first 12hrs of hospital admission Monocyte, Absolute 0.9 103/mcL Invalid Interpretation Code 0.2 - 1.0 10^3/mcL AO Workflow SS Monocytes/100 WBC (Bld) 9.2 % Invalid Interpretation Code 1.7 - 13.0 % AO Workflow SS Neutrophil, Absolute 6.7 103/mcL Invalid Interpretation Code 2.9 - 6.2 10^3/mcL AO Workflow SS Neutrophils/100 WBC (Bld) 66.6 % Invalid Interpretation Code 37.0 - 80.0 % AO Workflow SS Platelet mean volume (Bld) [Entitic vol] 7.3 fL Invalid Interpretation Code 7.4 - 10.4 fL AO Workflow SS Platelets (Bld) [#/Vol] 246 103/mcL Invalid Interpretation Code 130 - 400 10^3/mcL AO Workflow SS Potassium [Moles/Vol] 4.1 mmol/L Invalid Interpretation Code 3.5 - 5.1 mmol/L AO ADM SS RBC (Bld) [#/Vol] 4.77 106/mcL Invalid Interpretation Code 4.04 - 6.13 10^6/mcL AO Workflow SS Sodium [Moles/Vol] 140 mmol/L Invalid Interpretation Code 136 - 145 mmol/L AO ADM SS Urea nitrogen [Mass/Vol] 14 mg/dL Invalid Interpretation Code 7 - 18 mg/dL AO ADM SS Urea nitrogen/Creatinine [Mass ratio] 14 ratio Invalid Interpretation Code 7 - 27 ratio AO ADM SS WBC (Bld) [#/Vol] 10.0 103/mcL Invalid Interpretation Code 4.6 - 10.8 10^3/mcL AO Workflow SS LABORATORYOrdered By: SYSTEM SYSTEM on 08-01-2022 GFR 90 ml/min/1.73sqm Invalid Interpretation Code AO Chemistry S GFR Non- 74 ml/min/1.73sqm Inval id Interpretation Code AO Chemistry S US SCROTUM CONTENTSon 2021 US SCROTUM CONTENTS ORIGINAL EXAMINATION: ULTRASOUND OF THE SCROTUM/TESTICLES WITH COLOR DOPPLER FLOW [id number]/1/2022 2:53 pm Scrotal Ultrasound with Duplex Doppler evaluation TECHNIQUE: Duplex ultrasound using B-mode/cruz scaled imaging, Doppler spectral analysis and color flow Doppler was obtained of the testicles. Grayscale, color Doppler and spectral waveform evaluation COMPARISON: None HISTORY: ORDERING SYSTEM PROVIDED HISTORY: Reason for Exam: Left sided pain for 2-3 days FINDINGS: Right testicle: 4.7 x 2.8 x 2.7 cm Left testicle: 4.6 x 2.3 x 2.4 cm No focal nor diffuse abnormalities are seen. Color Doppler flow is seen in both testicles in a symmetric fashion. Spectral waveform analysis of the testicles shows arterial and venous waveforms in both testicles. Small left varicocele is suspected. Small bilateral hydroceles noted.. Prominent left venous system measuring up to 2 mm upon Valsalva. The epididymi are symmetric in size and echogenicity. There is a 2 mm simple left epididymal cyst. IMPRESSION: No acute sonographic abnormalities of the testes Suspected small left-sided varicocele and small bilateral hydroceles 2 mm left epididymal cyst. I have personally reviewed the images of this examination and agree with the resident's findings and interpretation. Interpreted by: Harjit Mak MD Preliminary Report By: Matthew Morris Electronically signed By Harjit Mak MD Dictated Date: 08/01/2022 3:05:19 PM Prelim Date: 08/01/2022 3:14:59 PM Sign Date: 08/01/2022 3:22:15 PM Ordering Provider: JANELLE QUACH [facility] ([place]) Absolute lymphocyte counton 07-31-2022 Lymphocytes Auto (Unsp spec) [#/Vol] 4.83 10*3/uL 0.83-4.51 [facility] Work Phone: Basophil percentageon 2021 Basophils/100 WBC (Bld) 0.7 % 0-1 [facility] Work Phone: Chloride [Moles/Vol] 103 mmol/L 98-107 [facility] Work Phone: [phone] Eosinophils/100 WBC (Bld) 3.0 % 0-5 [facility] Work Phone: Glucose [Mass/Vol] 84 mg/dL 74-106 [facility] Work Phone: [phone] Neutrophils (Bld) [#/Vol] 4.8 10*3/uL 2.0-7.7 [facility] Work Phone: Neutrophils/100 WBC (Bld) 44.4 % 47-70 [facility] Work Phone: Potassium [Moles/Vol] 3.9 mmol/L 3.5-5.1 [facility] Work Phone: [phone] Sodium [Moles/Vol] 140 mmol/L 136-145 [facility] Work Phone: [phone] WBC (Bld) [#/Vol] 10.8 10*3/uL 4.4-11.0 [facility] Work Phone: Basophil percentage 0 SEEN /hpf 0-5 [facility] Work Phone: Bilirubin Test strip Ql (U)o n 07-31-2022 Bilirubin Ql (U) Negative Negative [facility] Work Phone: Blood erythrocytes count (nu mber/volume)on 07-31-2022 RBC (Bld) [#/Vol] 4.96 10*6/uL 4.6-6.2 [facility] Work Phone: Blood hemoglobin measurement (mass/volume)on 07-31-2022 Hemoglobin (Bld) [Mass/Vol] 15.6 g/dL 13.0-16.5 [facility] Work Phone: Blood lymphocytes/100 leukoc yteson 07-31-2022 Lymphocytes/100 WBC (Bld) 44.6 % 19-41 [facility] Work Phone: Blood monocytes/100 leukocyt eson 07-31-2022 Monocytes/100 WBC (Bld) 6.9 % 0-10 [facility] Work Phone: Blood platelet mean volumeon 07-31-2022 Platelet mean volume (Bld) [Entitic vol] 9.4 fL 6.2-12.0 [facility] Work Phone: Determination of erythrocyte mean corpuscular volume (MCV)on 07-31-2022 MCV (RBC) [Entitic vol] 91.9 fL 80-94 [facility] Work Phone: Hematocrit Auto (Bld) [Volum e fraction]on 07-31-2022 Hematocrit (Bld) [Volume fraction] 45.6 % 40-54 [facility] Work Phone: Ketones Test strip Ql (U)on 07-31-2022 Ketones Ql (U) Negative Negative [facility] Work Phone: Laboratory - Chemistry and C hemistry - challengeon 07-31-2022 CO2 [Moles/Vol] 31.0 mmol/L 21.0-32.0 [facility] Work Phone: Urea nitrogen/Creatinine [Mass ratio] 7.8 mg/mg 10-20 [facility] Work Phone: Laboratory - Hematology and Cell countson 07-31-2022 Erythrocyte distribution width (RBC) [Entitic vol] 42.6 fL 35.1-43.9 [facility] Work Phone: Erythrocyte distribution width (RBC) [Ratio] 12.6 % 11.6-14.6 [facility] Work Phone: Immature granulocytes/100 WBC (Bld) 0.400 % 0.0-0.9 [facility] Work Phone: Comment on above: IG% - Immature Granu locytes (promyelocytes, myelocytes and metamyelocytes) > 1% indicates that a LEFT SHIFT is Present. MCH (RBC) [Entitic mass] 31.5 pg 27.0-32.0 [facility] Work Phone: Nucleated RBC/100 WBC (Bld) [Ratio] 0 % 0-5 [facility] Work Phone: MCHC Auto (RBC) [Mass/Vol]on 07-31-2022 MCHC (RBC) [Mass/Vol] 34.2 g/dL 32-36 [facility] Work Phone: Mucus LM Ql (Urine sed)on Mucus Ql (Urine sed) 0 SEEN /hpf [facility] Work Phone: Nitrite Test strip Ql (U)on 07-31-2022 Nitrite Ql (U) Negative Negative [facility] Work Phone: No Panel Informationon 07-31 Estimated Creatinine Clearance Calc 88.38 ml/min [facility] Work Phone: Estimated GFR (MDRD) Amer 111 mL/min >60 [facility] Work Phone: Comment on above: GFR Calc Estimated GFR (MDRD) Non-Af Amer 92 mL/min >60 [facility] Work Phone: Comment on above: Non- GFR Calc Platelets bldon 07-31-2022 Platelets (Bld) [#/Vol] 313 10*3/uL 150-450 [facility] Work Phone: Protein Test strip Ql (U)on 07-31-2022 Protein Ql (U) Negative Negative [facility] Work Phone: Serum or plasma calcium kevin urement (mass/volume)on 07-31-2022 Calcium [Mass/Vol] 8.9 mg/dL 8.5-10.1 [facility] Work Phone: Serum or plasma creatinine m easurement (mass/volume)on 07-31-2022 Creatinine [Mass/Vol] 0.90 mg/dL 0.70-1.30 [facility] Work Phone: Comment on above: The validity of the calculated GFR & GFRAA in patients over 70 years has not been determined. Clinical correlation is essential. Serum or plasma urea nitroge n measurement (mass/volume)on 07-31-2022 Urea nitrogen [Mass/Vol] 7 mg/dL 7-18 [facility] Work Phone: Squamous epithelial cells de tection in urine sediment by light microscopyon 07-31-2022 Epithelial cells.squamous LM Ql (Urine sed) 0-5 SEEN /hpf 0-5 [facility] Work Phone: Thin prep Papanicolaou smear with manual screeningon 07-31-2022 Thin prep Papanicolaou smear with manual screening 6 5-15 [facility] Work Phone: Urine blood detectionon 07-04 RBC Ql (U) Negative Negative [facility] Work Phone: RBC Ql (U) 0 SEEN /hpf 0-5 [facility] Work Phone: Urine clarityon 07-31-2022 Clarity (U) Clear Clear [facility] Work Phone: Urine color determinationon 07-31-2022 Color (U) Straw Yellow [facility] Work Phone: Urine glucose detectionon Glucose Ql (U) Normal mg/dl Normal [facility] Work Phone: Urine leukocyte esterase det ection by dipstickon 07-31-2022 Leukocyte esterase Test strip Ql (U) Negative Negative [facility] Work Phone: Urine pHon 07-31-2022 pH (U) 6.5 [pH] 5.0 - 8.0 [facility] Work Phone: Urine sediment bacteria coun t by microscopy (number/high power field)on 07-31-2022 Bacteria LM.HPF (Urine sed) [#/Area] RARE /hpf None Seen [facility] Work Phone: Urine specific gravity measu rementon 07-31-2022 Specific gravity (U) [Rel density] 1.010 1.002-1.030 [facility] Work Phone: Urobilinogen Auto test strip Ql (U)on 07-31-2022 Urobilinogen Ql (U) Normal mg/dl Normal [facility] Work Phone: [id number] 09-24-2020 COVID19 SEE SEPARATE REPORT [facility] Comment on above: Result Comment: SPEC IMEN SENT TO A MISCELLANEOUS LAB SEE SCANNED RESULTS FOR TESTING FACILITY INFORMATION [id number] 09-10-2020 COVID19 SEE SEPARATE REPORT [facility] Comment on above: Result Comment: SPEC IMEN SENT TO A MISCELLANEOUS LAB SEE SCANNED RESULTS FOR TESTING FACILITY INFORMATION EMERGENCY REPORTon 8 EMERGENCY REPORT [facility] EMERGENCY ROOM REPORT NAME ACCOUNT SEX AGE ADMIT DISCHARGE PT MED. RECORD# NUMBER DATE DATE TYPE SEAN, [id number] April 53 04/27/18 04/27/18 3 CHRISTINE Mittal [id number] ROOM: ER DATE OF : 1965 DICTATING PHYSICIAN: Marta Echevarria CHIEF COMPLAINT: Patient came in complaining of a lot of chest discomfort which started last night. HISTORY OF PRESENT ILLNESS: It felt like a burning tightness on top of his chest. It was a 4 out of 10. He has also had a cough for a couple of weeks. He has had no fever. He is just not feeling well and presents to the emergency department. He also vomited this morning, felt weak and tired. He has a history of coronary artery disease and LAD which he has had stenting in the past. His last stress test was over a year ago. PAST MEDICAL HISTORY: He has COPD, hypertension, hyperlipidemia. He also has as history of depression and stress anxiety. PAST SURGICAL HISTORY: He has had appendectomy. He has had 2 stents. SOCIAL HISTORY: He does occasionally drink alcohol. He smokes. REVIEW OF SYSTEMS: Ten systems were reviewed and negative except as mentioned above. PHYSICAL EXAMINATION: He is an awake, alert and oriented male in no acute distress. Patient is afebrile, blood pressure 140/88, pulse 66, respirations 20, pulse ox 99% on room air. Head is normocephalic, atraumatic. Eyes: Pupils are equal, round, and reactive to light. Extraocular muscles are intact. Nares are patent. Throat has adequate moisture. Uvula is midline. Neck is supple without petechiae or rash. Heart without murmur. S1 equal to S2. No S3 or S4 appreciated. Lungs are clear to auscultation bilaterally. No rales, rhonchi, or retractions. Abdomen is soft, nontender, nondistended. Skin is warm and dry. DIAGNOSTIC DATA: His EKG showed a rate of 57, left axis deviation. No ST elevation or depression. This was compared to an EKG from a couple of years ago showing no obvious changes. His CT shows he has an internal right adrenal nodule. No pulmonary embolism. He has hiatal hernia. His D-dimer was elevated and that is why we did the CT. Chemistries were unremarkable. Magnesium 1.8. Troponin was negative. Page 1 of 2 [facility] ESTRADA Emergency Room Report EMERGENCY DEPARTMENT COURSE AND TREATMENT: He will be discharged to home. I do want him to stay in the hospital. He was given a breathing treatment. With chest pain want to rule out myocardial infarction. Also, shortness of breath could also be COPD flare. He refused this, signing leaving against medical advice. Will give him the name of family physicians as he does not have a family physician. He has a nurse private duty, Dr. Grigsby, at [place] [facility]. DIAGNOSIS: PLAN/DISPOSITION: He will be discharged in stable condition. Dictated By: Marta Echevarria DO 05/06/18 21:44 JOB #: [id number] Transcribed By: ezio 05/06/18 21:56 Electronically signed by: LUIS FELIPE Echevarria D.O. 05/07/18 23:38 Page 2 of 2 [facility] ESTRADA Emergency Room Report Normal [facility] CBCon 04-27-2018 Basophils Auto #/vol (Bld) 0.00 x10EE3/UL Normal 0.00 - 0.10 [facility] Comment on above: Performed By: #### 2 [id number] ####[place] [address] Basophils/100 WBC Auto (Bld) 0.2 % Normal 0.0 - 2.0 [facility] Comment on above: Performed By: #### 2 [address]3352 ####[place] [address] Blood morphology N/A Normal [facility] Comment on above: Result Comment: {CD] Performed By: #### 2 39742 ####[facility],[address] [place] [address] CBC Normal [facility] Comment on above: Result Comment: CBC- COMPLETE BLOOD COUNT Performed By: #### 2 92949 ####[facility],[address] [place] [address] Eosinophils 0.30 x10EE3/UL Normal 0.00 - 0.50 [facility] Comment on above: Performed By: #### 2 62200 ####[facility],[address] [place] [address] Eosinophils/100 leukocytes 4.0 % Normal 0.0 - 7.0 [facility] Comment on above: Performed By: #### 2 12454 ####[facility],[address] [place] [address] Erythrocyte distribution width Auto Ratio (RBC) 13.6 % Normal 12.0 - 15.6 [facility] Comment on above: Performed By: #### 2 91625 ####[facility],[address] [place] [address] Erythrocytes (RBC) 4.58 x 10EE6/UL Normal 4.50 - 6.00 [facility] Comment on above: Performed By: #### 2 76709 ####[facility],[address] [place] [address] Hematocrit (HCT) 41.0 % Normal 40.0 - 52.0 [facility] Comment on above: Performed By: #### 2 31139 ####[facility],[address] [place] [address] Hemoglobin mass conc (Bld) 14.3 g/dL Normal 13.0 - 17.5 [facility] Comment on above: Performed By: #### 2 99115 ####[facility],[address] [place] [address] Lymphocytes 2.40 x10EE3/UL Normal 0.80 - 2.80 [facility] Comment on above: Performed By: #### 2 34930 ####[facility],[address],[place] [address] Lymphocytes/100 leukocytes 34.0 % Normal 20.0 - 45.0 [facility] Comment on above: Performed By: #### 2 50940 ####[facility],[address] [place] [address] MANUAL DIFF N/A Normal [facility] Comment on above: Performed By: #### 2 37781 ####[facility],[address] [place] [address] MCH 31 pg Normal 27 - 33 [facility] Comment on above: Performed By: #### 2 64840 ####[facility],[address] [place] [address] MCHC mass conc (RBC) 35 X10 3 Normal 32 - 36 [facility] Comment on above: Performed By: #### 2 73519 ####[facility],[address] [place], [place] [id number] MCV 90 fL Normal 81 - 98 [facility] Comment on above: Performed By: #### 2 02554 ####[facility],[address] [place] [address] Monocytes 0.80 x10EE3/UL Normal 0.20 - 1.00 [facility] Comment on above: Performed By: #### 2 53196 ####[facility],[address] [place], [place] [id number] MONOS % 11.4 % High 0.0 - 10.0 [facility] Comment on above: Performed By: #### 2 96265 ####[facility],[address] [place] [address] Neutrophils 3.60 x10EE3/UL Normal 1.50 - 7.10 [facility] Comment on above: Performed By: #### 2 09732 ####[facility],[address] [place] [address] Neutrophils/100 WBC Auto (Bld) 50.4 % Normal 46.0 - 76.0 [facility] Comment on above: Performed By: #### 2 37693 ####[facility],[address] [place] [address] Platelet mean volume (PMV) 7.8 fL Normal 6.4 - 10.5 [facility] Comment on above: Result Comment: AUTO MATED DIFFERENTIAL Performed By: #### 2 68941 ####[facility],[address] [place] [address] Platelets 254 x10EE3/UL Normal 150 - 450 [facility] Comment on above: Performed By: #### 2 [id number] ####[facility],[address] [place] [address] 70011 WBC (Leukocytes) 7.2 x 10EE3/UL Normal 4.5 - 10.8 [facility] Comment on above: Performed By: #### 2 [id number] ####[facility],[address] [place] [address] 60058 CHEST 1 VIEWon 04-27-2018 CHEST 1 VIEW [place] [address] Patient: CHRISTINE ESTRADA Phone#: : 1965 Age: 53 Gender: M Pt. Type: ER Account: [id number] Location: [facility] Ordering: MARTA ECHEVARRIA Exam Date: 04/27/2018/10:21 Family Phys: NO DOCTOR Charge Code: 484597 Physician: [place] Order #: [id number] DLP Dose#: PROCEDURE: X-RAY CHEST 1 VIEW COMPARISON: None. INDICATIONS: Cough FINDINGS: LUNGS: Mild hyperaeration of the lung fairchild. No significant pulmonary parenchymal abnormalities. VASCULATURE: Normal. Unremarkable pulmonary vasculature. CARDIAC: Normal. No cardiac silhouette abnormality or cardiomegaly. MEDIASTINUM: There are atherosclerotic calcifications of the aorta. PLEURA: Normal. No effusion or pleural thickening. BONES: There are degenerative changes of the spine. OTHER: Negative. CONCLUSION: 1. Mild hyperaeration of the lung fairchild. Otherwise no acute pulmonary parenchymal abnormality. Dictated by: Stefania Nicolas MD on 04/27/2018 at 10:50 Approved by: Stefania Nicolas MD on 04/27/2018 at 10:50 Normal [facility] CMP with eGFRon 04-27-2018 Age 53 years Normal [facility] Comment on above: Performed By: #### 2 [id number] ####[facility],[address] [place] [address] 34450 Albumin 4.1 g/dL Normal 3.4 - 4.8 [facility] Comment on above: Performed By: #### 2 21173 ####[facility],[address] [place] [address] 34458 Albumin/Globulin Ratio 1.1 {ratio} Normal 0.9 - 1.6 [facility] Comment on above: Performed By: #### 2 45285 ####[facility],[address] [place] [address] 79794 ALK PHOS 106 U/L Normal 38 - 126 [facility] Comment on above: Performed By: #### 2 18379 ####[facility],[address] [place] [address] 71449 ALT/SGPT 68 U/L High 10 - 40 [facility] Comment on above: Performed By: #### 2 05092 ####[facility],[address] [place] [address] 97182 Anion gap 4 mmol/L Low 10 - 20 [facility] Comment on above: Performed By: #### 2 57996 ####[facility],[address] [place] [address] 13228 AST/SGOT 60 U/L High 13 - 39 [facility] Comment on above: Performed By: #### 2 54254 ####[facility],[address] [place] [address] 20742 B/C RATIO 14 ratio Normal 0 - 30 [facility] Comment on above: Performed By: #### 2 [id number] ####[facility],[address] [place] [address] 94388 Bilirubin (total) 0.4 mg/dL Normal 0.0 - 1.5 [facility] Comment on above: Performed By: #### 2 33370 ####[facility],[address] [place] [address] 33575 Calcium 9.7 mg/dL Normal 8.6 - 10.2 [facility] Comment on above: Performed By: #### 2 15089 ####[facility],[address] [place] [address] 33011 Chloride 106 mmol/L Normal 98 - 107 [facility] Comment on above: Performed By: #### 2 59471 ####[facility],[address] [place], [place] [id number] CO2 28.9 mmol/L Normal 21.0 - 31.0 [facility] Comment on above: Performed By: #### 2 17628 ####[facility],[address] [place] [address] 28828 Creatinine 0.9 mg/dL Normal 0.7 - 1.3 [facility] Comment on above: Performed By: #### 2 39041 ####[facility],[address] [place] [address] 16512 eGFR (non-black) mL/min/{1.73_m2} Normal 60 - 999 [facility] Comment on above: Result Comment: ACCO RDING TO THE NATIONAL KIDNEY DISEASE EDUCATION PROGRAM(NKDE), A NORMAL eGFRIS A VALUE GREATER THAN OR EQUAL TO 60 ML/MIN/1.73 SQ METERS.CHRONIC KIDNEY DISEASE: <60mL/MIN/1.73 SQ METERSKIDNEY FAILURE: <15mL/MIN/1.73 SQ METERSTHIS TEST SHOULD ONLY BE USED FOR PATIENTS 18 YEARS OF AGE AND OLDER. Performed By: #### 2 53890 ####[facility],[address] [place] [address] 21795 eGFR (non-black) Normal [facility] Comment on above: Result Comment: COMP REHENSIVE METABOLIC PANEL Performed By: #### 2 78907 ####[facility],[address] [place] [address] 37811 Globulin 3.6 g/dL Normal 1.5 - 3.8 [facility] Comment on above: Performed By: #### 2 68307 ####[facility],[address] [place] [address] 13525 Glucose mass conc 123 mg/dL High 74 - 106 [facility] Comment on above: Performed By: #### 2 91112 ####[facility],[address] [place] [address] 14524 Potassium molar conc 4.0 mmol/L Normal 3.5 - 5.1 [facility] Comment on above: Performed By: #### 2 99483 ####[facility],[address] [place] [address] 80066 Protein 7.7 g/dL Normal 6.4 - 8.3 [facility] Comment on above: Performed By: #### 2 88025 ####[facility],[address] [place] [address] 62284 Sodium 135 mmol/L Low 136 - 145 [facility] Comment on above: Performed By: #### 2 86840 ####[facility],[address] [place] [address] 49618 Urea nitrogen 13 mg/dL Normal 6 - 20 [facility] Comment on above: Performed By: #### 2 46084 ####[facility],[address] [place] [address] CHEST (PE PROTOCOL)on [place] [address] Patient: CHRISTINE ESTRADA Phone#: : 1965 Age: 53 Gender: M Pt. Type: ER Account: [id number] Location: 052 Ordering: [facility] Exam Date: 04/27/2018/11:16 Family Phys: NO DOCTOR Charge Code: 795381 Physician: [place] Order #: [id number] DLP Dose#: 8.60 PROCEDURE: CT CHEST WITH CONTRAST FOR PE COMPARISON: None. INDICATIONS: Chest pain TECHNIQUE: After obtaining the patient's consent, CT images were obtained with non-ionic intravenous contrast material. Multi-planar images were created to optimize visualization of vascular anatomy with MPR/MIPS and 3D imaging. All CT scans at this facility use dose modulation, iterative reconstruction, and/or weight based dosing when appropriate to reduce radiation dose to as low as reasonably achievable. IV CONTRAST: Omnipaque 350,80ml TOTAL DOSE: 8.60 CTDIvol(mGy) FINDINGS: VASCULATURE: Normal. No visible pulmonary arterial thrombus or attenuation. AORTA: Normal. No aneurysm or dissection. LUNGS: Normal. No visible pulmonary disease. VALENCIA: Normal. No mass or adenopathy. MEDIASTINUM: Normal. No mass or adenopathy. CARDIAC: No enlargement, pericardial thickening. There are coronary artery calcifications. PLEURA: Normal. No mass or effusion. CHEST WALL: Normal. No mass or axillary adenopathy. LIMITED ABDOMEN: There is a moderate-sized hiatal hernia. Splenule is noted adjacent to the splenic hilum. There is a indeterminate nodule in the right adrenal gland measuring 1.1 x 1.6 cm. BONES: There is mild curvature of the thoracic spine with associated degenerative changes. There are bilateral remote rib fractures. OTHER: Negative. CONCLUSION: Continued Report - Page 2 of 2 Patient: CHRISTINE ESTRADA Phone#: : 1965 Age: 53 Gender: M Pt. Type: ER Account: [id number] Location: 052 Ordering: [facility] Exam Date: 04/27/2018/11:16 Family Phys: NO DOCTOR Charge Code: [id number] Physician: [place] Order #: [id number] DLP Dose#: 8.60 1. No pulmonary embolism or acute pulmonary parenchymal abnormality. 2. Hiatal hernia. 3. Indeterminate right adrenal nodule. Dictated by: Stefania Nicolas MD on 04/27/2018 at 12:06 Approved by: Stefania Nicolas MD on 04/27/2018 at 12:06 Normal [facility] D-DIMER, QUANTITATIVEon 04-02 D-DIMER QUANT 505 ng/ml High 0 - 230 [facility] Comment on above: Performed By: #### 2 87318 ####[facility],[address] [place] [address] 40473 D-DIMER, QUANTITATIVE Normal [facility] Comment on above: Result Comment: ELEONORA T D-DIMER Performed By: #### 2 75430 ####[facility],[address] [place] [address] 62172 MAGNESIUMon 04-27-2018 Magnesium 1.8 mg/dL Normal 1.6 - 2.6 [facility] Comment on above: Performed By: #### 2 06716 ####[facility],[address] [place] [address] 23350 TROPONINon 04-27-2018 Troponin I.cardiac mass conc ng/mL Normal 0.00 - 0.05 [facility] Comment on above: Result Comment: Elev ated troponin (above the 99th percentile) usually indicates myocardialischemia. Results must be interpreted within the clinical setting.1.Non-ischemic pathology can also cause elevated troponin levels (e.g., acute pulmonary embolism, myocarditis, pericarditis, heart failure, intracranial injury, rhabdomyolisis, sepsis, shock and renal insufficiency).2.Approximately 1% of healthy adults have elevated troponin levels.3.Analytical false positive results rarely occur(due to multiple interferences such as heterophile antibodies). Performed By: #### 2 84435 ####[facility],[address] [place] [address] 66332 Vital Signs Date Time Vital Sign Value Performing Clinician Facility 01-30-2025 08:32-0400 Body height 175.26 cm No Primary Care Physician [facility] 01-30-2025 08:32-0400 Body mass index (BMI) [Ratio] 29.9 kg/m2 No Primary Care Physician [facility] 01-30-2025 08:32-0400 Body weight 92.07 kg No Primary Care Physician [facility] 01-30-2025 08:32-0400 Diastolic blood pressure 75 mm[Hg] No Primary Care Physician [facility] 01-30-2025 08:32-0400 Heart rate 63 /min No Primary Care Physician [facility] 01-30-2025 08:32-0400 Respiratory rate 18 /min No Primary Care Physician [facility] 01-30-2025 08:32-0400 SaO2% (BldA) [Mass fraction] 98 % No Primary Care Physician [facility] 01-30-2025 08:32-0400 Systolic blood pressure 125 mm[Hg] No Primary Care Physician [facility] 02-23-2024 14:54-0400 Body temperature 96 [degF] [facility] 02-23-2024 14:54-0400 Diastolic blood pressure 89 mm[Hg] [facility] 02-23-2024 14:54-0400 Heart rate 59 /min [facility] 02-23-2024 14:54-0400 Respiratory rate 14 /min [facility] 02-23-2024 14:54-0400 SaO2% (BldA) [Mass fraction] 100 % [facility] 02-23-2024 14:54-0400 Systolic blood pressure 174 mm[Hg] [facility] 02-23-2024 12:33-0400 Body height 175.26 cm [facility] 02-23-2024 12:33-0400 Body mass index (BMI) [Ratio] 23.3 kg/m2 [facility] 02-23-2024 12:33-0400 Body weight 71.66 kg [facility] 08-03-2022 14:57-0400 Diastolic blood pressure 102 mm[Hg] [facility] Work Phone: 08-03-2022 14:57-0400 Heart rate 91 /min [facility] Work Phone: 08-03-2022 14:57-0400 Respiratory rate 15 /min [facility] Work Phone: 08-03-2022 14:57-0400 SaO2% (BldA) [Mass fraction] 99 % [facility] Work Phone: 08-03-2022 14:57-0400 Systolic blood pressure 162 mm[Hg] [facility] Work Phone: 08-03-2022 12:30-0400 Body height 175.26 cm [facility] Work Phone: 08-03-2022 12:30-0400 Body mass index (BMI) [Ratio] 27.1 kg/m2 [facility] Work Phone: 08-03-2022 12:30-0400 Body temperature 97.9 [degF] [facility] Work Phone: 08-03-2022 12:30-0400 Body weight 83.4 kg [facility] Work Phone: 08-01-2022 12:58-0400 Body temperature 97.52 [degF] JANELLE QUACH MD [facility] 08-01-2022 12:58-0400 Diastolic blood pressure 79 mm[Hg] JANELLE QUACH MD [facility] 08-01-2022 12:58-0400 Heart rate 61 /min JANELLE QUACH MD [facility] 08-01-2022 12:58-0400 Respiratory rate 16 /min JANELLE QUACH MD [facility] 08-01-2022 12:58-0400 Systolic blood pressure 171 mm[Hg] JANELLE QUACH MD [facility] 07-31-2022 21:57-0400 Body height 175.26 cm [facility] Work Phone: 07-31-2022 21:57-0400 Body mass index (BMI) [Ratio] 28 kg/m2 [facility] Work Phone: 07-31-2022 21:57-0400 Body temperature 97 [degF] [facility] Work Phone: 07-31-2022 21:57-0400 Body weight 86.18 kg [facility] Work Phone: 07-31-2022 21:57-0400 Diastolic blood pressure 75 mm[Hg] [facility] Work Phone: 07-31-2022 21:57-0400 Heart rate 79 /min [facility] Work Phone: 07-31-2022 21:57-0400 Respiratory rate 15 /min [facility] Work Phone: 07-31-2022 21:57-0400 SaO2% (BldA) [Mass fraction] 96 % [facility] Work Phone: 07-31-2022 21:57-0400 Systolic blood pressure 114 mm[Hg] [facility] Work Phone: Encounters Encounter Date Encounter Type Care Provider Facility [facility]: [facility] Start: 02-12-2025 ambulatory No Primary Car e Physician Facility:[facility] Start: 02-01-2025 End: 02-01-2025 ambulatory No Primary Care Physician [facility] Work Phone: Start: 02-01-2025 End: 02-01-[address] Nati Alston MD -Laboratory Work Phone: Start: 02-01-2025 End: 02-01-2025 ambulatory Nati Gamaliel Facility:[facility] Start: 01-30-2025 End: 01-30-[address] 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 Comment on above: Referral Request Start: 08-03-2022 End: 08-03-2022 Emergency department patient visit [facility]gency [facility] Start: 08-01-2022 End: 08-01-2022 Emergency department patient visit JANELLE QUACH MD Facility:B Start: 08-01-2022 End: 08-01-2022 Emergency department patient visit JANELLE QUACH MD [facility] Start: 07-31-2022 End: 07-31-2022 Emergency department patient visit [facility]Emergency Department Start: 04-27-2018 End: 04-27-2018 Emergency department patient visit [facility] Carlos Eduardo [facility] Procedures Date Procedure Procedure Detail Performing Clinician Start: 02-23-2024 CT of abdomen and pelvis without contrast Start: 02-23-2024 CT of head without contrast Start: 07-31-2022 CT of abdomen and pelvis without contrast Start: 05-11-2011 History of placement of stent for coronary artery disease History of coronary artery stent placement Dr. Nati Alston MD Placement of stent JANELLE FLETCHER MD Plan of Treatment Date Care Activity Detail Author Start: 01-30-2025 Evaluation of diagno stic study results 12 Lead EKG performed by [facility] Start: 02-23-2024 [facility] Start: 02-23-2024 Consultation [facility] Bilirubin measuremen t, urine [facility] Hemoglobin [Presence ] in Urine [facility] Measurement of keton es in urine using dipstick [facility] Microscopic urinalysis [facility] Patient Education [facility] Work Phone: Patient referral [facility] Work Phone: pH of Urine [facility] Radionuclide imaging of perfusion of myocardium under exercise stress [facility] Specific gravity of Urine [facility] Urinalysis, blood, qualitative [facility] Urine dipstick for glucose [facility] Urine dipstick for leukocyte esterase [facility] Urine dipstick for nitrite [facility] Urine dipstick for protein [facility] Urine examination [facility] Urine microscopy: epithelial cells [facility] Urine Microscopy: wh ite cells [facility] Urobilinogen [Presen ce] in Urine [facility] Payers Date Payer Category Payer Self-pay 2020 Medicaid [employer] [id number] 2020-Present [phone] [address] [place] [address] Medicaid [id number] 2014 Unknown [id number] 1965 Unknown [id number] Unknown [employer] [id number] Unknown [id number] Unknown [id number] Unknown [id number] Unknown [id number] Unknown [id number] Social History Date Type Detail Facility Start: 07-31-2022 End: 02-23-2024 Tobacco smoking status DCIS Unknown if ever smoked [facility] Start: 1965 Sex Assigned At Male [facility] Tobacco smoking status [facility] Start: 1965 Sex Assigned At Not on file [facility] Start: 02-23-2024 [facility] Start: 02-07-2025 Sex Male (finding) [facility] Functional Status Date Assessment Result Facility 08-01-2022 Functional Status Independent [facility] Mental Status Date Assessment Result Facility 02-23-2024 Cognitive function Level Of Cons ciousness Awake;Alert;Appropriate;Follow s Commands [facility] Work Phone: 08-01-2022 Mental Status Orientation Oriented x 4 [facility] Clinical Notes 08-01-2022 to 01-30-2025 Note Date & Type Note Facility 01-30-2025 Evaluation note Diagnosis Onset Date Resolution Coronary artery disease chronic January 30, 2025 8:52am Dyspnea on exertion chronic January 30, 2025 8:52am Fatigue chronic January 30 8:52am History of coronary artery stent placement May 11, 2011 chronic January 30, 2025 8:52am Nicotine dependence chronic January 30, 2025 8:52am [facility] Work Phone: [phone] 509-761910-04-2022 Miscellaneous Notes* Telephone Encounter - Alice Fernandes RN - 08/04/2022 11:24 AM EDT Reason for call: Patient calling with request for physician referral: Patient referred to urology Department. . Patient denies any new or worsening symptoms of which a provider is not aware: Yes. Patient was seen in local ED multiple times for left flank and groin pain and was told he needs to be seen in Urology for Kidney stone. Outcome: Conferenced to appointment center for scheduling [facility] Discharge instructions Additional Instructions 1. Recommend drinking as much fluid as possible 2. Take 4 Advil tablets every 8 hours or 2 Aleve tablets every 12 hours for the next 3 to 5 days for your pain. 3. Because your pain is unknown. Your work-up was negative. Records from July 31 were reviewed as well as CAT scan and no abdomen was noted. They do have a negative work-up at [facility] on July 31 and negative work-up at outside facility the cause of your pain is unknown. Because of the symptoms you are reported you were referred to a urologist.[facility] Work Phone: 1([phone]) 376-588810-01-2022 Hospital Discharge instructions Patient Education 08/01/2022 15:22:55 Abdominal Pain Abdominal Pain Abdominal pain is pain in the stomach or belly area. Everyone has this pain from time to time. In many cases it goes away on its own. But abdominal pain can sometimes be due to a serious problem, such as appendicitis. So it s important to know when to get help. Causes of abdominal pain There are many possible causes of abdominal pain. Common causes in adults include: Constipation, diarrhea, or gas Stomach acid flowing back up into the esophagus (acid reflux or heartburn) Severe acid reflux, called GERD (gastroesophageal reflux disease) A sore in the lining of the stomach or small intestine (peptic ulcer) Inflammation of the gallbladder, liver, or pancreas Gallstones or kidney stones Appendicitis Intestinal blockage An internal organ pushing through a muscle or other tissue (hernia) Urinary tract infections In women, menstrual cramps, fibroids, ovarian cysts, pelvic inflammatory disease, or endometriosis Inflammation or infection of the intestines, including Crohn's disease and ulcerative colitis Irritable bowel syndrome Diagnosing the cause of abdominal pain Your healthcare provider will give you a physical exam help find the cause of your pain. If needed,you will have tests. Belly pain has many possible causes. So it can be hard to find the reason for your pain. Giving details about your pain can help. Tell your provider where and when you feel the pain, and what makes it better or worse. Also let your provider know if you have other symptoms such as: Fever Tiredness Upset stomach (nausea) Vomiting Changes in bathroom habits Blood in the stool or black, tarry stool Weight loss that you can't explain (involuntary weight loss?) Also report any family history of stomach or intestinal problems, or cancers. Tell your provider about all your alcohol use and drug use. Tell your provider about all medicines you use, including herbs, vitamins, and supplements. Treating abdominal pain Some causes of pain need emergency medical treatment right away. These include appendicitis or a bowel blockage. Other problems can be treated with rest, fluids, or medicines. Your healthcare provider can give you specific instructions for treatment or self-care based on what is causing your pain. If you have vomiting or diarrhea, sip water or other clear fluids. When you are ready to eat solid foods again, start with small amounts of veqg-og-bjuref, low- fat foods. These include apple sauce, toast, or crackers. When to get medical care Call 911 or go to the hospital right away if you: Can t pass stool and are vomiting Are vomiting blood or have bloody diarrhea or black, tarry diarrhea Have chest, neck, or shoulder pain Feel like you might pass out Have pain in your shoulder blades with nausea Have sudden, severe belly pain Have new, severe pain unlike any you have felt before Have a belly that is rigid, hard, and hurts to touch Call your healthcare provider if you have: Pain for more than 5 days Bloating for more than 2 days Diarrhea for more than 5 days A fever of 100.4 F (38 C) or higher, or as directed by your healthcare provider Pain that gets worse Weight loss for no reason Continued lack of appetite Blood in your stool How to prevent abdominal pain Here are some tips to help prevent abdominal pain: Eat smaller amounts of food at each meal. Don't eat greasy, fried, or other high-fat foods. Don't eat foods that give you gas. Exercise regularly. Drink plenty of fluids. To help prevent GERD symptoms: Quit smoking. Reduce alcohol and foods that increase stomach acid. Don't use aspirin or atwz-iyx-utvhrdx pain and fever medicines, if possible. This includes nonsteroidal anti-inflammatory drugs (NSAIDs). Lose excess weight. Finish eating at least 2 hours before you go to bed or lie down. Raise the head of your bed. [id number] [employer]. [address] [place] [address]. All rights reserved. This information is not intended as a substitute for professional medical care. Always follow yourhealthcare professional's instructions. Follow Up Care 08/01/2022 12:39:59 With:MAEVE TURNER DO Address: [address] [place] [address] [place] [address]- [phone] When:2-4 days [facility] 10-01-2022 Note Discharge Instructions Thank you for allowing [facility] to assist you with your healthcare needs. The following is importantdischarge information regarding your hospital visit. Diagnosis from Today's Visit Abdominal pain Abdominal pain/groin pain What to Do Next Instructions from Your Care Team No qualifying data available. Post Acute Orders No qualifying data available. You Need to Schedule the Following Appointments Follow Up with MAEVE TURNER DO When Within 2-4 days Where: [address] [facility] [place] [address] [phone] Allergies NKA Medications Please ask your primary doctor or pharmacist before taking any other medication not listed, including over the counter drugs, herbal medications, vitamins and or supplements as they may interact withyour home medications. What How Much When Instructions Last Dose Unchanged aspirin (aspirin 81 mg oral tablet) 1 tab(s) by mouth Every day Unchanged carvedilol (Coreg 3.125 mg oral tablet) 1 tab(s) by mouth Two (2) times a day Unchanged clopidogrel (Plavix 75 mg oral tablet) 1 tab(s) by mouth Once a day Unchanged lisinopril (Zestril 2.5 mg oral tablet) 1 tab(s) by mouth Once a day Unchanged LORAZEPam (Ativan) 0.25 Milligram by mouth Every 6 hours as needed for as needed for anxiety Unchanged nitroGLYcerin (Nitrostat 0.4 mg sublingual tablet) 1 tab(s) under the tongue Every 5 minutes as needed for for chest pain (not to exceed 3 doses/ 15 min--if pain persists, seek medical attention) Unchanged pantoprazole (Protonix) 40 Milligram by mouth Once a day Unchanged simvastatin (Zocor 20 mg oral tablet) 1 tab(s) by mouth Daily at bedtime Please take this list to your next doctor s visit. Bring all medications you take, including over the counter medications, herbals and other supplements with you to your doctor s visit. Patients and families are reminded to discard old lists and to update any records with all medication providers or retail pharmacies. Education Materials Abdominal Pain Abdominal pain is pain in the stomach or belly area. Everyone has this pain from time to time. In many cases it goes away on its own. But abdominal pain can sometimes be due to a serious problem, such as appendicitis. So it s important to know when to get help. Causes of abdominal pain There are many possible causes of abdominal pain. Common causes in adults include: Constipation, diarrhea, or gas Stomach acid flowing back up into the esophagus (acid reflux or heartburn) Severe acid reflux, called GERD (gastroesophageal reflux disease) A sore in the lining of the stomach or small intestine (peptic ulcer) Inflammation of the gallbladder, liver, or pancreas Gallstones or kidney stones Appendicitis Intestinal blockage An internal organ pushing through a muscle or other tissue (hernia) Urinary tract infections In women, menstrual cramps, fibroids, ovarian cysts, pelvic inflammatory disease, or endometriosis Inflammation or infection of the intestines, including Crohn's disease and ulcerative colitis Irritable bowel syndrome Diagnosing the cause of abdominal pain Your healthcare provider will give you a physical exam help find the cause of your pain. If needed,you will have tests. Belly pain has many possible causes. So it can be hard to find the reason for your pain. Giving details about your pain can help. Tell your provider where and when you feel the pain, and what makes it better or worse. Also let your provider know if you have other symptoms such as: Fever Tiredness Upset stomach (nausea) Vomiting Changes in bathroom habits Blood in the stool or black, tarry stool Weight loss that you can't explain (involuntary weight loss?) Also report any family history of stomach or intestinal problems, or cancers. Tell your provider about all your alcohol use and drug use. Tell your provider about all medicines you use, including herbs, vitamins, and supplements. Treating abdominal pain Some causes of pain need emergency medical treatment right away. These include appendicitis or a bowel blockage. Other problems can be treated with rest, fluids, or medicines. Your healthcare provider can give you specific instructions for treatment or self-care based on what is causing your pain. If you have vomiting or diarrhea, sip water or other clear fluids. When you are ready to eat solid foods again, start with small amounts of eefu-dj-fsqdnr, low- fat foods. These include apple sauce, toast, or crackers. When to get medical care Call 911 or go to the hospital right away if you: Can t pass stool and are vomiting Are vomiting blood or have bloody diarrhea or black, tarry diarrhea Have chest, neck, or shoulder pain Feel like you might pass out Have pain in your shoulder blades with nausea Have sudden, severe belly pain Have new, severe pain unlike any you have felt before Have a belly that is rigid, hard, and hurts to touch Call your healthcare provider if you have: Pain for more than 5 days Bloating for more than 2 days Diarrhea for more than 5 days A fever of 100.4 F (38 C) or higher, or as directed by your healthcare provider Pain that gets worse Weight loss for no reason Continued lack of appetite Blood in your stool How to prevent abdominal pain Here are some tips to help prevent abdominal pain: Eat smaller amounts of food at each meal. Don't eat greasy, fried, or other high-fat foods. Don't eat foods that give you gas. Exercise regularly. Drink plenty of fluids. To help prevent GERD symptoms: Quit smoking. Reduce alcohol and foods that increase stomach acid. Don't use aspirin or fiyy-tsf-yxdtxhe pain and fever medicines, if possible. This includes nonsteroidal anti-inflammatory drugs (NSAIDs). Lose excess weight. Finish eating at least 2 hours before you go to bed or lie down. Raise the head of your bed. [phone] [employer]. [address] [place] [address]. All rights reserved. This information is not intended as a substitute for professional medical care. Always follow yourhealthcare professional's instructions. Additional Information VACCINATE! IT SAVES LIVES! Members of the community who have not yet received the COVID-19 vaccine and would like to receive it can visit one of [facility] vaccine clinics. There are many vaccine clinic locations within the [facility]. For locations and available times, please visit [email or web address]. It is important to note that some COVID mobile vaccine clinics are held outdoors and may be canceled in rainy orstormy conditions. To learn more about pediatric vaccinations (ages 5-11), we invite you to visit the [facility] webpage. [email or web address]/[email or web address] [email or web address] learn more about the COVID-19 vaccine, we invite you to visit the [facility] website for a list of frequently asked questions. [email or web address] [email or web address].pdf [facility] Patient Portal Access Instructions: Stay connected with your healthcare team and access your personal medical information anytime with the [facility] Patient Portal. If you would like a full copy of your medical records please contact the [facility] Medical Records Department Wednesday through Wednesday between 8a.m. and 4:30p.m. Please follow the directions below to access the portal: 1.Access the email account you provided upon registration to the [facility].2.Look for an invitation email from [facility].3.Open the email and access the invitation link: Accept Invitation to [facility]4.Fill in the required fairchild to create your account. Sign into [email or web address] with your username and password that you created in the above steps to stay up to date. You can then view a summary of results, a summary of your visits, and the ability to download your summaries to your computer or send the information securely to a physician. Remember that your healthcare information is confidential, so carefully consider who you will allow to register on the [facility] Patient Portal for access to your information. You can also access the [facility] Patient Portal on the [employer]. Simply click on Health Records under [employer] and then click on the [facility] logo. HOW TO SAFELY DISPOSE OF PRESCRIPTION MEDICATIONS Please use one of the following methods to safely dispose of your unused medications. 1.Use a drug disposal kit: the drug disposal pouch allows you to safely discard your old and unuseddrugs. Ask your nurse to give you one when you are discharged.2.Visit a local take-back location: Many local pharmacies and police departments have programs that collect old and unwanted prescriptiondrugs. Call your local pharmacy or go to http://Epyon.GetMaid/5P1Ss7g to find one close to you.3.Make use of household items: Use cat litter or old coffee grounds to dispose medications if other options arenot available. Mix your drugs with these household products, seal them in an airtight container andthrow it into the garbage. Call [facility]: [phone] to be sure your drugs can be disposed of in this way. Some medicines may require a different approach.4.Never flush your medications down the toilet. IF YOU HAVE BEEN PRESCRIBED AN OPIOIDS FOR PAIN If you have been prescribed an opioid (such as hydrocodone, oxycodone or morphine), it is critical to understand the possible side effects and risks of opioid pain medications. Even when taken as directed, opioids can have several side effects including: Tolerance, meaning you might need to take more of a medication for the same pain relief. Nausea, vomiting and/or constipation. Sleepiness, dizziness, dry mouth, confusion, depression or itching. Physical dependence, meaning you have withdrawal symptoms when a medication is stopped ? this can develop within a few days. KNOW YOUR RESPONSIBILITIES It is important to know exactly how much and how often to take the opioid pain medications you are prescribed. Never take opioids in higher amounts or more often than prescribed. Do not combine opioids with alcohol or other drugs that cause drowsiness, such as benzodiazepines, also known as benzos,including diazepam and alprazolam, muscle relaxants or sleep aids. Never sell or share prescriptionopioids. This is illegal. Store opioids in a secure place and out of reach of others (including children, family, friends and visitors). The last page(s) of this document has been signed and retained as a CHART COPY Signatures Patient Education Materials Abdominal Pain Medication Leaflets My discharge plan and instructions have been reviewed and explained to me and I,CHRISTINE ESTRADA understand my current condition and have read and understand these discharge instructions. I have received a written copy of the plan/instructions. If I have questions, I am aware that I should contact my doctor. 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 Grayscale, color Doppler and spectral waveform evaluation COMPARISON: None HISTORY: ORDERING SYSTEM PROVIDED HISTORY: Reason for Exam: Left sided pain for 2-3 days FINDINGS: Right testicle: 4.7 x 2.8 x 2.7 cm Left testicle: 4.6 x 2.3 x 2.4 cm No focal nor diffuse abnormalities are seen. Color Doppler flow is seen in both testicles in a symmetric fashion. Spectral waveform analysis of the testicles shows arterial and venous waveforms in both testicles. Small left varicocele is suspected. Small bilateral hydroceles noted.. Prominent left venous system measuring up to 2 mm upon Valsalva. The epididymi are symmetric in size and echogenicity. There is a 2 mm simple left epididymal cyst. IMPRESSION: No acute sonographic abnormalities of the testes Suspected small left-sided varicocele and small bilateral hydroceles 2 mm left epididymal cyst. I have personally reviewed the images of this examination and agree with the resident's findings and interpretation. Interpreted by: Harjit Mak MD Preliminary Report By: Matthew Morris Electronically signed By Harjit Mak MD Dictated Date: 08/01/2022 3:05:19 PM Prelim Date: 08/01/2022 3:14:59 PM Sign Date: 08/01/2022 3:22:15 PM [facility]ing [facility] Note ORIGINAL EXAMINATION: ULTRASOUND OF THE SCROTUM/TESTICLES WITH COLOR DOPPLER FLOW [id number]/1/2022 2:53 pm Scrotal Ultrasound with Duplex Doppler evaluation TECHNIQUE: Duplex ultrasound using B-mode/cruz scaled imaging, Doppler spectral analysis and color flow Doppler was obtained of the testicles. Grayscale, color Doppler and spectral waveform evaluation COMPARISON: None HISTORY: ORDERING SYSTEM PROVIDED HISTORY: Reason for Exam: Left sided pain for 2-3 days FINDINGS: Right testicle: 4.7 x 2.8 x 2.7 cm Left testicle: 4.6 x 2.3 x 2.4 cm No focal nor diffuse abnormalities are seen. Color Doppler flow is seen in both testicles in a symmetric fashion. Spectral waveform analysis of the testicles shows arterial and venous waveforms in both testicles. Small left varicocele is suspected. Small bilateral hydroceles noted.. Prominent left venous system measuring up to 2 mm upon Valsalva. The epididymi are symmetric in size and echogenicity. There is a 2 mm simple left epididymal cyst. IMPRESSION: No acute sonographic abnormalities of the testes Suspected small left-sided varicocele and small bilateral hydroceles 2 mm left epididymal cyst. I have personally reviewed the images of this examination and agree with the resident's findings and interpretation. Interpreted by: Harjit Mak MD Preliminary Report By: Matthew Morris Electronically signed By Harjit Mak MD Dictated Date: 08/01/2022 3:05:19 PM Prelim Date: 08/01/2022 3:14:59 PM Sign Date: 08/01/2022 3:22:15 PM Ordering Provider[facility] No data available for this section [facility] Evaluation noteNo assessment information available [facility] Work Phone: Hospital Discharge instructions Additional Instructions Social work has also given you information regarding local primary care physicians in the area that you can establish with for further care.[facility] Work Phone: Reason for referral (narrative)No reason for referral information availableWLancaster Municipal Hospital Work Phone: Summary Purpose Family History No Family History Records Found Relationship Condition Age at Onset Recorded Date/T ashish Not Specified Cardiac disease Unknown Hypertension Unknown Advance Directives No Advanced Directives Records Found Advance Directive Response Recorded Date/ Time Living Will No July 31, 2022 10:14pm Power of Back Tufter No July 10:14pm Advance Directive Response Recorded Date/ Time Living Will No August 03 12:33pm Power of Back Tufter No August 03 12:33pm Advance Directive Response Recorded Date/ Time Living Will No February 23, 2024 12:39pm Power of Back Tufter No February 22 12:39pm Chief Complaint and Reason for Visit Chief Complaint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
[2025-04-15 20:15] LABS: Absolute Lymphocyte Count 3.03 X10^3/uL (0.83-4.51); Absolute Neutrophil Count 6.9 X10^3/uL (2.0-7.7); Basophil# 0.07 X10^3/uL; Basophil% 0.6 % (0-1); Eosinophil# 0.23 X10^3/uL; Hematocrit 41.7 % (40-54); Hemoglobin 14.5 g/dL (13.0-16.5); Lymphocyte # 3.03 X10^3/ul (0.83-4.51); Lymphocyte % 26.4 % (19-41); Mean Corp Hgb Conc 34.8 g/dL (32-36); Mean Corpuscular Hgb 31.7 pg (27.0-32.0); Mean Platelet Vol. 9.7 fl (6.2-12.0); Monocyte# 1.25 X10^3/uL; Monocyte% 10.9 % (0-10); NRBC Flagged by Analyzer 0 % (0-5); Neutrophil # 6.85 X10^3/uL (2.7-7.7); Neutrophil % 59.8 % (47-70); Platelet Count 214 K/mm3 (150-450); RBC Distribution Width CV 13.2 % (11.6-14.6); RBC Distribution Width SD 44.2 fl (35.1-43.9); Red Blood Count 4.58 M/mm3 (4.6-6.2); White Blood Count 11.5 K/mm3 (4.4-11.0)
[2025-04-15] MEDS: Cefazolin 1 GM/50 ML BAG IV (20:18)
[2025-04-15 20:24] LABS: International Normalized Ratio 1.1; Partial Thromboplast Time 28.4 Seconds (24.1-36.2); Prothrombin Time (Protime)PT. 14.1 SECONDS (11.7-14.9)
[2025-04-15 20:43] LABS: Lactic Acid 1.7 mmol/L (0.0-2.0)
[2025-04-15 20:44] LABS: Anion Gap 14 (5-15); BUN 8 mg/dL (4-19); BUN/Creat Ratio 10.4 RATIO (10-20); Calcium,Total 8.9 mg/dL (7.6-11.0); Carbon Dioxide 21.5 mmol/L (21.0-32.0); Chloride 97 mmol/L (98-108); Creatinine, Serum 0.76 mg/dL (0.70-1.20); EST Glomerular Filtration Rate 102 (>60); Estimated Creatinine Clearance 102.07 ml/min (50-250); Glucose 84 mg/dL (70-99); Potassium 4.3 mmol/L (3.3-5.1); Sodium Level 132 mmol/L (133-145)
[2025-04-15] MEDS: Diphth,Pertuss(Acell),Tet Vac 0.5 ML Vial IM (21:06)
[2025-04-15] MEDS: Morphine 4 MG/ML Syringe IV (21:07)
--- NOTE | 2025-04-15 21:10 | RAD_ITS ---
PROCEDURE: KNEE 4 OR MORE VIEWS 04/15/2025 REASON FOR EXAM: INJURY/PAIN TECHNIQUE: KNEE 4 OR MORE VIEWS COMPARISON: None. FINDINGS: Well-defined benign chronic osteochondroma arising from the proximal/medial aspect of the tibial diaphysis measuring 1.8 cm. Mild osteopenia of the visualized bones. Degenerative joint disease. No fracture or dislocation is seen. No lytic or blastic bone lesion is noted. RAD/Knee 4 or More Views IMPRESSION: No evidence for acute abnormality. Reading [facility]
[2025-04-15 21:21] VITALS: TEMP 36.7
[2025-04-15 21:45] VITALS: BP 177/87; PULSE 68; RESP 16; TEMP 36.7; O2SAT 100
[2025-04-15 23:04] VITALS: BP 153/78; PULSE 67; RESP 16; TEMP 36.7; O2SAT 100
== END 2025-04-15 23:10 | disposition home or self-care (01) ==
PROVIDERS: Emergency Provider Emergency Medicine; PCP Internal Medicine; Visit Provider Emergency Medicine
DX: L03.115 Cellulitis of right lower limb (principal); J44.9 Chronic obstructive pulmonary disease, unspecified; S80.211A Abrasion, right knee, initial encounter; V18.4XXA Pedal cycle driver injured in noncollision transport accident in traffic accident, initial encounter; Y93.55 Activity, bike riding; E78.5 Hyperlipidemia, unspecified; I10 Essential (primary) hypertension; I25.10 Atherosclerotic heart disease of native coronary artery without angina pectoris; F17.210 Nicotine dependence, cigarettes, uncomplicated; I25.2 Old myocardial infarction; Z79.82 Long term (current) use of aspirin; Z79.899 Other long term (current) drug therapy; Z23 Encounter for immunization
CPT/HCPCS: 73564; 80048; 83605; 85025; 85610; 85730; 90715; 96365; 96375; 99283

== ENCOUNTER 2025-08-14 16:06 | Inpatient (IN) | payer MEDICAID, SELFPAY ==
[2025-08-14 16:07] VITALS: BP 130/103; PULSE 80; RESP 18; TEMP 36.6; O2SAT 98; BMI 27.0
--- NOTE | 2025-08-14 16:27 | EDS_ITS ---
HPI History of Present Illness Chief Complaint: ETOH Intox Informant: patient Narrative Narrative: Patient is a 60-year-old male with a history of CAD and polysubstance use presenting for assistance with alcohol detoxification. - Reports daily alcohol consumption, starting at [id number] each morning; typically consumes a 6-pack of Budweiser Ice - Last consumed alcohol today prior to arrival. - Experiences tremors in the mornings. - Denies use of liquor, methamphetamines, cocaine, or crack. - Reports feeling weak and fatigued. Typically feels shaky in the mornings. - Denies hematemesis, melena, or hemorrhoids. - Has not been taking cardiac medications for several years due to homelessness and difficulty managing multiple prescriptions. - Has 4 coronary stents placed by Dr. Grigsby in [place], [place]; denies history of CABG. - Denies chest pain or dyspnea. [facility] Medical History History of ST elevation myocardial infarction (STEMI) (05/11/11) Anxiety and depression Atherosclerotic heart disease of [place] coronary artery without angina pectoris Essential hypertension Hyperlipidemia COPD (chronic obstructive pulmonary disease) Tobacco abuse Home Medications ?Medication ?Instructions ?Recorded ?Last Taken ?Type NK 08/14/25 Unknown History Allergy/AdvReac Type Severity Reaction Status Date / Time No Known Allergies Allergy Verified 08/14/25 16:09 Family History Other Heart disease Hypertension Surgical History History of appendectomy History of coronary artery stent placement (05/11/11) Social History household members: significant other Smoking Status: Current every day smoker tobacco type: cigarettes alcohol intake: current substance use type: does not use ROS ROS ED Constitutional Constitutional ED: Denies chills or fever(s) Eyes Eyes: Denies change in vision or diplopia ENT ENT ED: Denies rhinorrhea or sore throat Cardiovascular Cardiovascular: Denies chest pain or palpitations Respiratory/Chest Respiratory/Chest: Denies cough or dyspnea Gastrointestinal Gastrointestinal: Denies abdominal pain, diarrhea, nausea or vomiting Genitourinary Genitourinary ED: Denies dysuria or hematuria Musculoskeletal Musculoskeletal: Denies back pain or neck pain Integumentary Denies abscess or rash Neurologic Neurologic: Denies headache(s), paresthesias or weakness Psychiatric Psychiatric: Reports anxiety; Denies suicidal thoughts EXAM Physical Exam Const Vital Signs: 08/14/25 16:07 08/14/25 16:44 Temperature 97.9 F 97.9 F Temperature Source Oral Temporal Pulse Rate 80 80 Respiratory Rate 18 18 Blood Pressure 130/103 H 130/103 H Blood Pressure Mean 112 112 Blood Pressure Source Monitor Blood Pressure Position Semi-Fowlers Blood Pressure Location Right Arm Pulse Ox 98 98 Oxygen Delivery Method Room Air Room Air Positive well nourished and well developed Constitutional Narrative: Pleasantly intoxicated. Ambulatory. General Appearance ED: well developed and NAD HEENT Reports moist mucous membranes normocephalic and atraumatic Eyes PERRL and EOMs intact bilaterally Neck full ROM and supple Resp normal respiratory effort and clear to auscultation bilaterally Cardio regular rate, regular rhythm and no murmurs GI non-tender and non-distended Auscultation: normoactive bowel sounds Palpation: soft Back/Spine no CVA tenderness General Back: other FROM Extremity normal to inspection General Extremety ED: Negative for edema, pulses abnormal or tenderness General Extremity: Negative for edema or pulses abnormal Neuro oriented x3, CN's II-XII intact bilaterally and no sensory deficits noted Sensorium / Orientation: awake and alert Motor Exam: strength 5/5 throughout Skin no rashes or lesions noted and no wounds MDM MDM MDM Narrative Medical decision making narrative: Assessment: The patient is a 60-year-old male with PMH of coronary artery disease status post four stents presenting for assistance with alcohol cessation/detox. He reports daily beer consumption beginning early each morning with morning shakes and intense cravings, last drink shortly before arrival; denies chest pain, GI bleeding, or other acute complaints. Labs show mild AST/ALT elevation consistent with chronic alcohol use, normal PT/INR, ethanol level 248, urine drug screen positive only for THC. Vital signs are stable and he appears anxious but clinically sober enough for interview. Given the clinical picture and lab results, uncomplicated alcohol dependence with acute intoxication is the primary diagnosis; no evidence of withdrawal complications or acute cardiac issues. He states he dumped all of his medications in a dumpster due to being homeless couple years ago, and is interested in getting back on his medications so that he does not have any further heart issues. Gave him an aspirin here today while he was waiting for admission as well. Plan: - Administered phenobarbital for cravings/anxiolysis in ED - Accepted for inpatient medical detox under hospitalist service - Discussed risks/benefits and patient agrees to admission for supervised withdrawal Diagnostics: - Labs: mild elevation AST/ALT; PT/INR normal; ethanol level 248; urine drug screen positive for THC, otherwise negative Consultations: - Hospitalist consulted for admission; agreed to accept patient for inpatient detox Diagnoses: Alcohol dependence, uncomplicated; Cannabis use, uncomplicated; Alcohol use Lab Data Attestation: I reviewed the patient's lab results. Labs: Laboratory Results - last 24 hr 08/14/25 16:18 WBC 11.8 H RBC 4.80 Hgb 15.7 Hct 43.9 MCV 91.5 MCH 32.7 H MCHC 35.8 RDW Std Deviation 43.1 RDW Coeff of Saul 12.8 Plt Count 218 MPV 9.6 Immature Gran % (Auto) 0.400 Neut % (Auto) 44.8 L Lymph % (Auto) 43.6 H [place] % (Auto) 9.4 Eos % (Auto) 1.0 Baso % (Auto) 0.8 Absolute Neuts (auto) 5.3 Absolute Lymphs (auto) 5.14 H Nucleated RBC % 0 Sodium 133 Potassium 3.8 Chloride 96 L Carbon Dioxide 21.0 Anion Gap 16 H BUN 5 Creatinine 0.75 Estim Creat Clear Calc 102.12 Est GFR (MDRD) Non-Af 102 BUN/Creatinine Ratio 7.0 L Glucose 99 Calcium 8.9 Total Bilirubin 0.57 AST 80 H ALT 54 H Alkaline Phosphatase 88 Total Protein 7.8 Albumin 4.3 Globulin 3.4 Albumin/Globulin Ratio 1.3 Urine Opiates Screen NEGATIVE U Buprenorphine Qual NEGATIVE Ur Oxycodone Screen NEGATIVE Urine Methadone Screen NEGATIVE Urine Fentanyl Screen NEGATIVE Ur Barbiturates Screen NEGATIVE Ur Phencyclidine Scrn NEGATIVE Ur Amphetamines Screen NEGATIVE U Benzodiazepines Scrn NEGATIVE Urine Cocaine Screen NEGATIVE U Cannabinoids Screen PRESUMPTIVE POSITIVE Ethyl Alcohol 248.0 H Management Discussion w/another healthcare provider: Hospitalist Discharge Plan Dx/Rx/DC Orders Clinical Impression: Alcohol dependence with acute intoxication, continuous, Cannabis use, uncomplicated, Noncompliance with medication regimen, History of coronary artery stent placement, Atherosclerotic heart disease of [place] coronary artery without angina pectoris Disposition Disposition: Acute Care Hospital [facility]
[2025-08-14 16:40] LABS: Hematocrit 43.9 % (40-54); Hemoglobin 15.7 g/dL (13.0-16.5); Immature Granulocytes Count 0.050 X10^3/uL (0.0-0.0); Mean Corp Hgb Conc 35.8 g/dL (32-36); Mean Corpuscular Volume 91.5 fL (80-94); Mean Platelet Vol. 9.6 fl (6.2-12.0); NRBC Flagged by Analyzer 0 % (0-5); POSITIVE DIFFERENTIAL YES; Platelet Count 218 K/mm3 (150-450); RBC Distribution Width CV 12.8 % (11.6-14.6); RBC Distribution Width SD 43.1 fl (35.1-43.9); Red Blood Count 4.80 M/mm3 (4.6-6.2); White Blood Count 11.8 K/mm3 (4.4-11.0)
[2025-08-14 16:41] LABS: Differential Indicated SCAN CRITERIA MET
[2025-08-14 16:44] VITALS: BP 130/103; PULSE 80; RESP 18; TEMP 36.6; O2SAT 98
[2025-08-14 17:05] LABS: Barbiturate Urine NEGATIVE (< 200 ng/mL); Benzodiazepine Urine NEGATIVE (< 200 ng/mL); PCP Urine NEGATIVE (< 25 ng/mL); THC Urine PRESUMPTIVE POSITIVE (< 50 ng/mL)
[2025-08-14 17:07] VITALS: BP 103/64; PULSE 63; RESP 15; O2SAT 97
[2025-08-14 17:20] LABS: Alcohol, Blood (Medical)-Serum 248.0 mg/dL (<=10.0)
[2025-08-14 17:21] LABS: AST(SGOT) 80 U/L (<=37); Alanine Aminotransfer ALT/SGPT 54 U/L (<=46); Albumin, Serum 4.3 g/dL (3.4-4.8); Alkaline Phosphatase 88 U/L (40-129); Anion Gap 16 (5-15); BUN 5 mg/dL (4-19); BUN/Creat Ratio 7.0 RATIO (10-20); Calcium,Total 8.9 mg/dL (7.6-11.0); Carbon Dioxide 21.0 mmol/L (21.0-32.0); Chloride 96 mmol/L (98-108); Estimated Creatinine Clearance 102.12 ml/min (50-250); Globulin 3.4 g/dL (2.2-4.2); Glucose 99 mg/dL (70-99); Potassium 3.8 mmol/L (3.3-5.1)
[2025-08-14 17:40] LABS: Differential Comment SCANNED
[2025-08-14 17:41] LABS: Prothrombin Time (Protime)PT. 15.9 SECONDS (11.7-14.9)
[2025-08-14 18:22] VITALS: BP 117/67; PULSE 60; RESP 15; TEMP 36.9; O2SAT 97
--- NOTE | 2025-08-14 18:22 | PCM.HP.STD ---
HPI - General General Date of Admission: 08/14/25 Date of Service: 08/14/25 Chief Complaint: Alcohol detox HPI Narrative RAISA ESTRADA, is a 60 M who presented to the emergency department on 08/14/2025 requesting detox from alcohol. Patient states has been a longtime drinker but over the past couple years he has been drinking pretty excessively at least a 12 pack of beer daily. He states he has tremors in the morning and drinks to take care of his tremors. He is currently unemployed. He states he had STEMI x 2 previously and is on disability for this. He does smoke but declines nicotine patch. He also smokes a considerable amount of marijuana. He has never been through alcohol detox before. Complains of some mild tremors at this time. His last drink was just before arrival. Vital signs on presentation Vital signs on presentation showed temperature of 97.9, heart rate 80, blood pressure 130/103, respiratory rate 18 and pulse ox was 98% room air. CBC showed a mild leukocytosis with a white count of 11.8 but was otherwise unremarkable. He does have a mild lymphocytosis. Coags were essentially unremarkable. Chemistry panel was essentially unremarkable. LFTs were mildly elevated with an AST of 80 and a ALT of 54 bilirubin was normal. Toxicology screen was positive for cannabinoids and his alcohol level was 248. He will be admitted for expected greater than 2 midnights for alcohol detox. In the emergency department he was given IV fluids and phenobarb. [facility] Medical History History of ST elevation myocardial infarction (STEMI) (05/11/11) Anxiety and depression Atherosclerotic heart disease of [place] coronary artery without angina pectoris Essential hypertension Hyperlipidemia COPD (chronic obstructive pulmonary disease) Tobacco abuse Home Medications ?Medication ?Instructions ?Recorded ?Last Taken ?Type NK 08/14/25 Unknown History Allergy/AdvReac Type Severity Reaction Status Date / Time No Known Allergies Allergy Verified 08/14/25 16:09 Family History Other Heart disease Hypertension Surgical History History of appendectomy History of coronary artery stent placement (05/11/11) Social History (Updated 08/14/25 @ 21:[address] Belinda Hensley DO) household members: significant other Smoking Status: Current every day smoker tobacco type: cigarettes alcohol intake: current alcohol intake frequency: 3 or more drinks per day Alcohol type: beer substance use type: marijuana ROS Constitutional Constitutional: Denies anorexia, change in weight, chills, fatigue, fever(s), malaise, night sweats, weakness or other Eyes Eyes: Denies blurry vision, change in eye color, change in vision, discharge from eye(s), double vision, erythema, eye pain, loss of vision or other ENT HEENT: Denies abnormal hearing, dysphagia, ear pain, epistaxis, headache(s), hearing loss, nasal congestion, nasal discharge, post nasal drip, sinus pressure, sore throat or other Cardiovascular Cardiovascular: Denies chest pain, claudication, dyspnea on exertion, edema, lightheadedness, orthopnea, palpitations, paroxysmal nocturnal dyspnea, rapid heart rate, syncope or other Respiratory/Chest Respiratory/Chest: Denies cough, dyspnea, excessive phlegm production, hemoptysis, productive cough, shortness of breath at rest, shortness of breath with exertion, wheezing or other Gastrointestinal Gastrointestinal: Denies abdominal pain, coffee ground emesis, constipation, diarrhea, dyspepsia, hematemesis, hematochezia, loose stools, melena, nausea, vomiting or other Genitourinary Genitourinary: Denies burning urination, difficulty urinating, dysuria, hematuria, nocturia, urinary frequency, urinary hesitancy, urinary incontinence, urinary urgency or other Musculoskeletal Musculoskeletal: Denies arthralgias, back pain, joint pain, joint stiffness, joint swelling, myalgias, neck pain or other Neurologic Neurologic: Reports tremor(s); Denies abnormal gait, abnormal speech, confusion, disequilibrium, dizziness, focal weakness, headache(s), numbness, paresthesias, seizure-like activity, seizures, syncope, tingling or other Psychiatric Psychiatric: Denies anxiety, depression, homicidal ideation, suicidal ideation or other Endocrine Endocrinology: Denies change in body appearance, cold intolerance, excessive sweating, heat intolerance, polydipsia, polyuria or other Hematologic/Lymphatic Hematologic/Lymphatic: Denies anemia, easy bleeding, easy bruising, lymphadenopathy or other Allergic/Immunologic Allergic/Immunologic: Denies rhinitis, hives, eczemia, asthma or other Vital Signs Vital Signs Vital Signs: 08/14/25 16:07 08/14/25 16:44 08/14/25 17:07 Temperature 97.9 F 97.9 F Temperature Source Oral Temporal Pulse Rate 80 80 63 Respiratory Rate 18 18 15 Blood Pressure 130/103 H 130/103 H 103/64 Blood Pressure Mean 112 112 77 Blood Pressure Source Monitor Blood Pressure Position Semi-Fowlers Blood Pressure Location Right Arm Pulse Ox 98 98 97 Oxygen Delivery Method Room Air Room Air Room Air Weight Weight: 82.962 kg Body Mass Index (BMI) 27.0 Physical Exam Const alert, oriented x3, no apparent distress, average body habitus and well nourished; Negative for healthy appearing Constitutional Narrative: Upper middle-aged, white male, sitting up in bed, appears older than stated age, appears comfortable currently nontoxic General Appearance: cooperative HEENT normocephalic, head/scalp atraumatic, hearing grossly normal bilaterally and moist oral mucous membranes HEENT Narrative: Edentulous, Mallampati is 2, no thrush Resp normal respiratory effort, no retractions, no use of accessory muscles and clear to auscultation bilaterally Resp Narrative: Diminished but clear Auscultation: Negative for crackles, rhonchi or wheezes Cardio regular rate, regular rhythm, S1 normal heart sound, S2 normal heart sound, no murmurs, no rub, no gallops and no clicks GI normal to inspection, nondistended, normoactive bowel sounds, soft to palpation and non-tender Extremity no clubbing, cyanosis or edema Extremity Narrative: Pedal pulses are 1+, radial pulses are 2+ Neuro moves all extremities and no focal motor deficits Neuro Narrative: Mild fine tremor Speech: speech normal Psych Psych Narrative: Affect is flat the patient interacts appropriately Results Lab / Micro Data 08/14/25 16:18 08/14/25 16:18 Labs: Laboratory Results - last 24 hr 08/14/25 16:18: WBC 11.8 H, RBC 4.80, Hgb 15.7, Hct 43.9, MCV 91.5, MCH 32.7 H, MCHC 35.8, RDW Std Deviation 43.1, RDW Coeff of Saul 12.8, Plt Count 218, MPV 9.6, Immature Gran % (Auto) 0.400, Neut % (Auto) 44.8 L, Lymph % (Auto) 43.6 H, [place] % (Auto) 9.4, Eos % (Auto) 1.0, Baso % (Auto) 0.8, Absolute Neuts (auto) 5.3, Absolute Lymphs (auto) 5.14 H, Nucleated RBC % 0, Differential Comment SCANNED, Platelet Estimate ADEQUATE, PT 15.9 H, INR 1.3, Sodium 133, Potassium 3.8, Chloride 96 L, Carbon Dioxide 21.0, Anion Gap 16 H, BUN 5, Creatinine 0.75, Estim Creat Clear Calc 102.12, Est GFR (MDRD) Non-Af 102, BUN/Creatinine Ratio 7.0 L, Glucose 99, Calcium 8.9, Total Bilirubin 0.57, AST 80 H, ALT 54 H, Alkaline Phosphatase 88, Total Protein 7.8, Albumin 4.3, Globulin 3.4, Albumin/Globulin Ratio 1.3, Urine Opiates Screen NEGATIVE, U Buprenorphine Qual NEGATIVE, Ur Oxycodone Screen NEGATIVE, Urine Methadone Screen NEGATIVE, Urine Fentanyl Screen NEGATIVE, Ur Barbiturates Screen NEGATIVE, Ur Phencyclidine Scrn NEGATIVE, Ur Amphetamines Screen NEGATIVE, U Benzodiazepines Scrn NEGATIVE, Urine Cocaine Screen NEGATIVE, U Cannabinoids Screen PRESUMPTIVE POSITIVE, Ethyl Alcohol 248.0 H Assessment & Plan Assessment/Plan (1) Cannabis use, uncomplicated: (2) Alcohol dependence with acute intoxication, continuous: (3) Admitted to alcohol detoxification center: (4) Transaminitis: (5) Intoxication: PLAN: Plan Alcohol abuse with acute intoxication requesting detox - Last drink was just prior to arrival - Drinks about a 12 pack of beer daily - Start phenobarbital taper - Thiamine and folate - Supportive medication for assistance with managing withdrawal symptoms - Case management consultation for assistance with discharge planning - 180 consultation for assistance with discharge planning Transaminitis - Consistent with alcohol abuse - Mild - Should trend down with cessation - No need for consistent follow-up Cannabis abuse - Recommend cessation CAD/HPL/essential hypertension - Patient is noncompliant with home medication regiment - Will start aspirin 81 mg daily - Recently saw [facility] and continue to recommend ongoing outpatient follow-up - No acute issues at this time - Monitor blood pressure Tobacco abuse - Recommend cessation - Patch offered and patient declined DVT prophylaxis - Low risk - Encouraged frequent and early ambulation CODE STATUS - Full code Charges/Coding Visit Charges Inpatient E&M: 73685 Init Hosp L2
--- NOTE | 2025-08-14 18:23 | CM.ED ---
Social Work Patient had called prior to coming to ED to ask about the RAMP program, patient states he promised his he would be in today. Patient reports he has never tried to detox in the past. Patient presents to the ED wishing to detox from alcohol. Treatment navigator notified of patient being admitted to RAMP. Jina Robert, DRESSING ROOM PORTER, CREDIT NEGOTIATOR
[2025-08-14 19:24] VITALS: BMI 25.4
[2025-08-14 20:45] VITALS: BP 123/82; PULSE 67; RESP 18; TEMP 36.7; O2SAT 97
[2025-08-14] MEDS: 0.9% Saline Lock 10 ML Syringe IV (20:48)
[2025-08-15 00:23] VITALS: BP 146/83; PULSE 61; RESP 18; TEMP 36.6; O2SAT 67
[2025-08-15 04:18] VITALS: BP 123/63; PULSE 64; RESP 18; TEMP 36.6; O2SAT 98
[2025-08-15 06:00] VITALS: BMI 25.5
[2025-08-15 07:38] LABS: Hematocrit 45.4 % (40-54); Hemoglobin 15.6 g/dL (13.0-16.5); Immature Granulocytes Count 0.030 X10^3/uL (0.0-0.0); Mean Corp Hgb Conc 34.4 g/dL (32-36); Mean Corpuscular Volume 92.5 fL (80-94); Mean Platelet Vol. 10.0 fl (6.2-12.0); NRBC Flagged by Analyzer 0 % (0-5); Platelet Count 188 K/mm3 (150-450); RBC Distribution Width CV 12.9 % (11.6-14.6); RBC Distribution Width SD 44.0 fl (35.1-43.9); Red Blood Count 4.91 M/mm3 (4.6-6.2); White Blood Count 7.1 K/mm3 (4.4-11.0)
[2025-08-15 08:25] VITALS: BP 140/89; PULSE 54; RESP 16; TEMP 36.6; O2SAT 98
[2025-08-15] MEDS: Thiamine Hydrochloride 100 MG Tablet PO (08:36)
[2025-08-15 08:42] LABS: AST(SGOT) 81 U/L (<=37); Alanine Aminotransfer ALT/SGPT 50 U/L (<=46); Albumin, Serum 4.0 g/dL (3.4-4.8); Alkaline Phosphatase 78 U/L (40-129); Anion Gap 10 (5-15); BUN 7 mg/dL (4-19); BUN/Creat Ratio 8.6 RATIO (10-20); Calcium,Total 9.1 mg/dL (7.6-11.0); Carbon Dioxide 25.2 mmol/L (21.0-32.0); Chloride 102 mmol/L (98-108); Estimated Creatinine Clearance 95.74 ml/min (50-250); Globulin 3.3 g/dL (2.2-4.2); Glucose 109 mg/dL (70-99); Magnesium 2.0 mg/dL (1.5-2.2); Potassium 4.3 mmol/L (3.3-5.1)
--- NOTE | 2025-08-15 09:42 | PCM.PN.HOSP ---
Subjective Subjective CIWA score of 2 Objective Data Objective Data Vital Signs: Vital Signs Temp Pulse Resp BP Pulse Ox O2 Del Method 98 F 54 L 16 140/89 H 98 Room Air 08/15/25 08:25 08/15/25 08:25 08/15/25 08:25 08/15/25 08:25 08/15/25 08:25 08/15/25 08:42 Oxygen Delivery Method Room Air Weight: 172 lb 6.424 oz Body Mass Index (BMI) 25.5 Intake & Output: Intake and Output for Last 24 Hours 08/14/25 08/15/25 08/16/25 03:59 03:59 03:59 Intake Total 150 / 150 200 / 200 Balance 150 / 150 200 / 200 Lab / Micro Data 08/15/25 07:01 08/15/25 07:01 Labs: Laboratory Results - last 24 hr 08/14/25 16:18: WBC 11.8 H, RBC 4.80, Hgb 15.7, Hct 43.9, MCV 91.5, MCH 32.7 H, MCHC 35.8, RDW Std Deviation 43.1, RDW Coeff of Saul 12.8, Plt Count 218, MPV 9.6, Immature Gran % (Auto) 0.400, Neut % (Auto) 44.8 L, Lymph % (Auto) 43.6 H, [place] % (Auto) 9.4, Eos % (Auto) 1.0, Baso % (Auto) 0.8, Absolute Neuts (auto) 5.3, Absolute Lymphs (auto) 5.14 H, Nucleated RBC % 0, Differential Comment SCANNED, Platelet Estimate ADEQUATE, PT 15.9 H, INR 1.3, Sodium 133, Potassium 3.8, Chloride 96 L, Carbon Dioxide 21.0, Anion Gap 16 H, BUN 5, Creatinine 0.75, Estim Creat Clear Calc 102.12, Est GFR (MDRD) Non-Af 102, BUN/Creatinine Ratio 7.0 L, Glucose 99, Calcium 8.9, Total Bilirubin 0.57, AST 80 H, ALT 54 H, Alkaline Phosphatase 88, Total Protein 7.8, Albumin 4.3, Globulin 3.4, Albumin/Globulin Ratio 1.3, Urine Opiates Screen NEGATIVE, U Buprenorphine Qual NEGATIVE, Ur Oxycodone Screen NEGATIVE, Urine Methadone Screen NEGATIVE, Urine Fentanyl Screen NEGATIVE, Ur Barbiturates Screen NEGATIVE, Ur Phencyclidine Scrn NEGATIVE, Ur Amphetamines Screen NEGATIVE, U Benzodiazepines Scrn NEGATIVE, Urine Cocaine Screen NEGATIVE, U Cannabinoids Screen PRESUMPTIVE POSITIVE, Ethyl Alcohol 248.0 H 08/15/25 07:01: WBC 7.1, RBC 4.91, Hgb 15.6, Hct 45.4, MCV 92.5, MCH 31.8, MCHC 34.4, RDW Std Deviation 44.0 H, RDW Coeff of Saul 12.9, Plt Count 188, MPV 10.0, Immature Gran % (Auto) 0.400, Neut % (Auto) 47.3, Lymph % (Auto) 37.5, [place] % (Auto) 11.4 H, Eos % (Auto) 2.0, Baso % (Auto) 1.4 H, Absolute Neuts (auto) 3.4, Absolute Lymphs (auto) 2.66, Nucleated RBC % 0, Sodium 136, Potassium 4.3, Chloride 102, Carbon Dioxide 25.2, Anion Gap 10, BUN 7, Creatinine 0.80, Estim Creat Clear Calc 95.74, Est GFR (MDRD) Non-Af 100, BUN/Creatinine Ratio 8.6 L, Glucose 109 H, Calcium 9.1, Phosphorus 3.4, Magnesium 2.0, Total Bilirubin 0.82, AST 81 H, ALT 50 H, Alkaline Phosphatase 78, Total Protein 7.3, Albumin 4.0, Globulin 3.3, Albumin/Globulin Ratio 1.2 Physical Exam Narrative general: Alert, Oriented x3, Cooperative, No apparent distress HEENT: Atraumatic, PERRLA, EOMI, Normocephalic Oral: Moist Mucosa Neck: Supple, No JVD Lungs: Clear to auscultation, Normal air movement, No rhonchi, No wheeze, No rales Cardiovascular: Regular rate, Regular Rhythm, Normal S1, Normal S2, No murmurs Abdomen: Soft, Non Tender, Non-Distended, No Hepato-splenomegaly Extremities: No edema, Capillary Refill Less than 3 Seconds Skin: No rashes, No breakdown Musculoskeletal: No Tenderness to Palpation of Joints or Extremities Neurological: No focal neurological deficits, moves all extremities Psych/Mental Status: Normal Affect, Appropriate Assessment & Plan Assessment/Plan (1) Alcohol dependence with acute intoxication, continuous: (2) Transaminitis: PLAN: Plan 1. Alcohol abuse requesting detox with transaminitis/cannabis use/tobacco abuse ? Elevated LFTs due to alcohol use can follow as an outpatient ? Continue with the alcohol withdrawal protocol ? Will have him follow-up with 180 to develop a discharge plan ? Discussed cessation of cannabis and tobacco 2. Essential HTN/HLD/CAD status post stent ? Continue with his home medications ? Blood pressures stable ? She was started on aspirin on this admission, stent was placed in 2010 DVT: Ambulation Charges/Coding Visit Charges Inpatient E&M: 16653 Subs Hosp L2
--- NOTE | 2025-08-15 11:20 | ADDICTION ---
Met with pt to complete RAMP assessments and discuss d/c planning. Pt reports this is the first time attempting to quit. He was open to discussing tx options. [facility] Clinician offered other resources and will follow up again tomorrow 08/16.
[2025-08-15 14:10] VITALS: BP 144/74; PULSE 53; RESP 18; TEMP 37.1; O2SAT 99
--- NOTE | 2025-08-15 14:38 | CASEMGMT ---
Social Work- SW met with pt to complete SDOH assessment. SW introduced self and role; pt agreeable to meeting. Pt reports that he lives with girlfriend in residence. Pt reports new roof, furnace, etc. Pt reports that transportation is an issue. Pt reports that he utilizes food pantries and will be losing his food card next month due to allowing his girlfriend to use the card while pt was in detention. Pt reports no utilities issues and no safety issues. Pt reports no PCP and has not seen a dr since 2018 when he had stents placed. Pt provided with PCP list and Alicia Newberry information. Pt will review and if interested, will let SW know to set appointment and transportation for initial visit. SW provided with printables for: [facility], PCP, [facility] [employer], Alicia Dumont, [place], food list, [facility] transportation list, [employer], [facility] [employer] transportation. Pt reports no other needs or concerns. SW remains available to follow. EMMANUEL Matthews
[2025-08-15 20:55] VITALS: BP 145/73; PULSE 52; RESP 16; TEMP 36.6; O2SAT 98
[2025-08-15] MEDS: 0.9% Saline Lock 10 ML Syringe IV (20:59)
[2025-08-15 23:34] VITALS: BP 134/66; PULSE 53; RESP 16; TEMP 36.6; O2SAT 97
[2025-08-16 03:53] VITALS: BP 154/79; PULSE 54; RESP 16; TEMP 36.5; O2SAT 98
[2025-08-16 06:00] VITALS: BMI 25.3
[2025-08-16 07:40] VITALS: PULSE 50
[2025-08-16] MEDS: Thiamine Hydrochloride 100 MG Tablet PO (07:43)
[2025-08-16 07:45] VITALS: BP 157/88; PULSE 50; RESP 17; TEMP 36.4; O2SAT 98
--- NOTE | 2025-08-16 10:48 | PCM.PN.HOSP ---
Subjective Subjective CIWA score of 1 Objective Data Objective Data Vital Signs: Vital Signs Temp Pulse Resp BP Pulse Ox O2 Del Method 97.6 F L 50 L 17 157/88 H 98 Room Air 08/16/25 07:45 08/16/25 07:45 08/16/25 07:45 08/16/25 07:45 08/16/25 07:45 08/16/25 07:45 Oxygen Delivery Method Room Air Weight: 171 lb 4.787 oz Body Mass Index (BMI) 25.3 Intake & Output: Intake and Output for Last 24 Hours 08/15/25 08/16/25 08/17/25 03:59 03:59 03:59 Intake Total 150 / 150 560 / 560 240 / 240 Balance 150 / 150 560 / 560 240 / 240 Lab / Micro Data 08/15/25 07:01 08/15/25 07:01 Physical Exam Narrative general: Alert, Oriented x3, Cooperative, No apparent distress HEENT: Atraumatic, PERRLA, EOMI, Normocephalic Oral: Moist Mucosa Neck: Supple, No JVD Lungs: Clear to auscultation, Normal air movement, No rhonchi, No wheeze, No rales Cardiovascular: Regular rate, Regular Rhythm, Normal S1, Normal S2, No murmurs Abdomen: Soft, Non Tender, Non-Distended, No Hepato-splenomegaly Extremities: No edema, Capillary Refill Less than 3 Seconds Skin: No rashes, No breakdown Musculoskeletal: No Tenderness to Palpation of Joints or Extremities Neurological: No focal neurological deficits, moves all extremities Psych/Mental Status: Normal Affect, Appropriate Assessment & Plan Assessment/Plan (1) Alcohol dependence with acute intoxication, continuous: (2) Transaminitis: PLAN: Plan 1. Alcohol abuse requesting detox with transaminitis/cannabis use/tobacco abuse ? Elevated LFTs due to alcohol use can follow as an outpatient ? Continue with the alcohol withdrawal protocol ? Will have him follow-up with 180 to develop a discharge plan ? Discussed cessation of cannabis and tobacco 2. Essential HTN/HLD/CAD status post stent ? Continue with his home medications ? Blood pressures stable ? Continue with aspirin DVT: Ambulation Charges/Coding Visit Charges Inpatient E&M: 31154 Subs Hosp L2
--- NOTE | 2025-08-16 12:48 | NURSING ---
aware primary EMMANUEL Manuel informed Dr. Dukes patient leaving AMA
--- NOTE | 2025-08-16 12:53 | NURSING ---
This RN was notified that pt called out and said he needed to leave. This RN talked to pt and verified that pt was aware that it would be considered AMA since pt had not completed RAMP program yet. Pt agreeable to leaving AMA. Forms signed and belongings tote unlocked.
== END 2025-08-16 13:15 | disposition left against medical advice (07) | DRG 770 ==
LOC: ED 16:35 → MS3 18:38
PROVIDERS: Admitting Provider Internal Medicine; Emergency Provider Emergency Medicine; Visit Provider Family Medicine
DX: F10.229 Alcohol dependence with intoxication, unspecified (principal); E78.5 Hyperlipidemia, unspecified; J44.9 Chronic obstructive pulmonary disease, unspecified; I25.10 Atherosclerotic heart disease of native coronary artery without angina pectoris; F12.90 Cannabis use, unspecified, uncomplicated; F17.210 Nicotine dependence, cigarettes, uncomplicated; I25.2 Old myocardial infarction; R74.01 Elevation of levels of liver transaminase levels; Z79.82 Long term (current) use of aspirin; Z79.899 Other long term (current) drug therapy; Z95.5 Presence of coronary angioplasty implant and graft; Y90.8 Blood alcohol level of 240 mg/100 ml or more; Z53.29 Procedure and treatment not carried out because of patient's decision for other reasons
CPT/HCPCS: 36415; 80053; 80307; 82077; 83735; 84100; 85025; 85610; 99285; 99406; A4216

== ENCOUNTER 2025-09-24 17:48 | Emergency (ER) | payer MEDICAID, SELFPAY ==
[2025-09-24 17:49] VITALS: BP 109/78; PULSE 76; RESP 16; TEMP 36.3; O2SAT 97; BMI 27.2
--- NOTE | 2025-09-24 18:20 | EDS_ITS ---
HPI History of Present Illness Chief Complaint: Rash Informant: patient Narrative Narrative: Very pleasant 60-year-old male history of coronary artery disease presenting to the emergency room with chief complaint of rash and eczema. Patient states that on Wednesday he woke and had a stiff neck. He states that he began to feel some bumps on the back of his head and wondered if he had razor burn from shaving his head. He had his significant other take a photo of the rash today as it seems worse and he developed a headache and he wonders if he has shingles. He denies any fevers. He denies any ocular symptoms. He denies any ear symptoms. [facility] Medical History History of ST elevation myocardial infarction (STEMI) (05/11/11) Anxiety and depression Atherosclerotic heart disease of [place] coronary artery without angina pectoris Essential hypertension Hyperlipidemia COPD (chronic obstructive pulmonary disease) Tobacco abuse Home Medications Medication Instructions Recorded Last Taken Type aspirin 81 mg tablet,delayed 81 mg PO DAILY heart heal th 08/15/25 Unknown History release atorvastatin 20 mg tablet 20 mg PO DAILY cholesterol 1 Unknown History pantoprazole 20 mg tablet,delayed 20 mg PO DAILY gerd 08/15/25 Unknown History release oxycodone-acetaminophen 5 mg-325 1 tab PO Q6H PRN PRN Pain 3 days 09/24/25 Unknown Rx mg tablet #12 TABLETS prednisone 20 mg tablet 60 mg (3 x 20 mg) PO DAILY # 15 09/24/25 Unknown Rx TABLETS valacyclovir 1 gram tablet 1,000 mg PO TID 7 days #21 tabs 09/24/25 Unknown Rx Allergy/AdvReac Type Severity Reaction Status Date / Time No Known Allergies Allergy Verified 09/24/25 17:52 Family History Other Heart disease Hypertension Surgical History History of appendectomy History of coronary artery stent placement (05/11/11) Social History household members: significant other Smoking Status: Current every day smoker tobacco type: cigarettes alcohol intake: current alcohol intake frequency: 3 or more drinks per day [place] type: beer substance use type: marijuana ROS ROS ED Constitutional Constitutional ED: Denies chills, fever(s) or weight loss Eyes Eyes: Denies blurry vision, change in vision or diplopia ENT ENT ED: Denies ear pain, rhinorrhea or sore throat Cardiovascular Cardiovascular: Denies chest pain, orthopnea, palpitations or racing heartbeat Respiratory/Chest Respiratory/Chest: Denies cough, dyspnea or orthopnea Gastrointestinal Gastrointestinal: Denies abdominal pain, diarrhea, nausea or vomiting Genitourinary Genitourinary ED: Denies dysuria, hematuria or urinary frequency Musculoskeletal Musculoskeletal: Reports neck pain; Denies arthralgias or myalgias Integumentary Reports rash; Denies abscess Neurologic Neurologic: Reports headache(s) and paresthesias; Denies weakness Psychiatric Psychiatric: Denies anxiety, depression, suicidal ideation or suicidal thoughts Endocrine Endocrinology: Denies polydipsia, polyphagia or polyuria Allergic/Immunologic Allergic/Immunologic ED: Denies mouth swelling, tongue swelling or urticaria EXAM Physical Exam Const Vital Signs: 09/24/25 17:49 Temperature 97.3 F L Temperature Source Temporal Pulse Rate 76 Respiratory Rate 16 Blood Pressure 109/78 Blood Pressure Mean 88 Pulse Ox 97 Oxygen Delivery Method Room Air Positive well nourished and well developed General Appearance ED: well developed and NAD HEENT Reports normocephalic, head/scalp atraumatic, TM's clear and moist mucous membranes Tympanic Membrane ED: Yes TM's clear Eyes PERRL and EOMs intact bilaterally Neck no lymphadenopathy, supple and no JVD Neck Narrative: No meningeal signs Resp normal respiratory effort and clear to auscultation bilaterally Cardio regular rate, regular rhythm and no murmurs GI normal to inspection, nondistended, normoactive bowel sounds and non-tender Palpation: soft Back/Spine no CVA tenderness and normal ROM Extremity normal to inspection General Extremety ED: Negative for edema General Extremity: Negative for edema Neuro oriented x3 and CN's II-XII intact bilaterally Sensorium / Orientation: alert Motor Exam: strength 5/5 throughout Psych mental status grossly normal Mood & Affect: Negative for depressed or tearful Skin no wounds Skin Narrative: There is a vesicular rash starting in the midline at the occiput extending into the preauricular area and down onto the lateral neck. This can be described as a dewdrop on agnes petal rash. Complaints are isolated lesions. Few lesions are right next to others. This appears consistent with shingles. MDM MDM MDM Narrative Medical decision making narrative: Differential diagnosis includes but not limited to shingles, folliculitis dermatitis allergic reaction meningitis herpes zoster ophthalmicus. I do not see any lesions on the tympanic membranes or around the eye or on the eye. I do not see any lesions on the nose. Patient I believe has shingles. I do not believe he was in acute meningitis or encephalitis. Patient to be started on prednisone valacyclovir as well as Percocet. Patient understands home care. He understands return instructions. Follow-up as needed History & Record Review Discussion w/independent historian: Patient Discharge Plan Triage Chief Complaint: Rash ED Provider: José Antonio Serrano Dx/Rx/DC Orders Clinical Impression: Shingles outbreak, Neck pain Instructions: ED Shingles (Herpes Zoster) Prescriptions: New oxycodone-acetaminophen 5-325 mg tablet 1 tab PO Q6H PRN PRN (Reason: Pain) 3 Days Qty: 12 0RF prednisone 20 mg tablet 60 mg PO DAILY Qty: 15 0RF valacyclovir 1 gram tablet 1,000 mg PO TID 7 Days Qty: 21 0RF No Action aspirin 81 mg tablet,delayed release (DR/EC) 81 mg PO DAILY atorvastatin 20 mg tablet 20 mg PO DAILY pantoprazole 20 mg tablet,delayed release (DR/EC) 20 mg PO DAILY Primary Care Provider: Care Physician,No Primary Referrals: Care Physician,No Primary [Primary Care Provider, Medical] Print Language: Citizen Of [place] Disposition Disposition: Home, Self Care
[2025-09-24 18:23] VITALS: BP 106/71; PULSE 75; RESP 16; TEMP 36.6; O2SAT 97
== END 2025-09-24 18:28 | disposition home or self-care (01) ==
LOC: ED 18:25
PROVIDERS: Emergency Provider Emergency Medicine; Visit Provider Emergency Medicine
DX: B02.9 Zoster without complications (principal); J44.9 Chronic obstructive pulmonary disease, unspecified; M54.2 Cervicalgia; F17.210 Nicotine dependence, cigarettes, uncomplicated; I25.10 Atherosclerotic heart disease of native coronary artery without angina pectoris; I25.2 Old myocardial infarction; Z95.5 Presence of coronary angioplasty implant and graft
CPT/HCPCS: 99282

== ENCOUNTER 2025-10-09 11:30 | Emergency (ER) | payer MEDICAID, SELFPAY ==
[2025-10-09 11:32] VITALS: BP 137/85; PULSE 67; RESP 16; TEMP 36.9; O2SAT 99; BMI 27.3
--- NOTE | 2025-10-09 15:27 | EDS_ITS ---
HPI History of Present Illness Chief Complaint: Rash Informant: patient Narrative Narrative: 60-year-old male recently diagnosed with shingles of the scalp. He states that he took valacyclovir and prednisone had been doing much better. Today he woke and he has burning pain same distribution as his rash was again. He is worried that his shingles is coming back. He states that the lesions did infect crust over and were improving. He does not recall us talking about postherpetic neuralgia during his last visit. He does not have a PCP. [facility] Medical History History of ST elevation myocardial infarction (STEMI) (05/11/11) Anxiety and depression Atherosclerotic heart disease of [place] coronary artery without angina pectoris Essential hypertension Hyperlipidemia COPD (chronic obstructive pulmonary disease) Tobacco abuse Medical History no medical history Home Medications ?Medication ?Instructions ?Recorded ?Last Taken ?Type aspirin 81 mg tablet,delayed 81 mg PO DAILY heart heal th 08/15/25 Unknown History release atorvastatin 20 mg tablet 20 mg PO DAILY cholesterol 1 Unknown History pantoprazole 20 mg tablet,delayed 20 mg PO DAILY gerd 08/15/25 Unknown History release oxycodone-acetaminophen 5 mg-325 1 tab PO Q6H PRN PRN Pain 3 days 09/24/25 Unknown Rx mg tablet #12 TABLETS prednisone 20 mg tablet 60 mg (3 x 20 mg) PO DAILY # 15 09/24/25 Unknown Rx TABLETS valacyclovir 1 gram tablet 1,000 mg PO TID 7 days #21 tabs 09/24/25 Unknown Rx gabapentin 300 mg capsule 300 mg PO TID pain 7 days #2 1 caps 10/09/25 Unknown Rx prednisone 20 mg tablet See Rx Instructions .Route 1 12/10/24 Unknown Rx .COMPLEX #24 tabs valacyclovir 1 gram tablet 1,000 mg PO TID 7 days #21 tabs 10/09/25 Unknown Rx Allergy/AdvReac Type Severity Reaction Status Date / Time No Known Allergies Allergy Verified 10/09/25 11:34 Family History Other Heart disease Hypertension Family History no significant family his Surgical History History of appendectomy History of coronary artery stent placement (05/11/11) Surgical History no surgical history Social History household members: significant other Smoking Status: Current every day smoker tobacco type: cigarettes alcohol intake: current alcohol intake frequency: 3 or more drinks per day Alcohol type: beer substance use type: marijuana ROS ROS ED Constitutional Constitutional ED: Denies chills or weight loss Eyes Eyes: Denies change in vision or diplopia ENT ENT ED: Denies ear pain, rhinorrhea or sore throat Cardiovascular Cardiovascular: Denies chest pain, orthopnea, palpitations or racing heartbeat Respiratory/Chest Respiratory/Chest: Denies cough, dyspnea or orthopnea Gastrointestinal Gastrointestinal: Denies abdominal pain, diarrhea, nausea or vomiting Genitourinary Genitourinary ED: Denies dysuria, hematuria or urinary frequency Musculoskeletal Musculoskeletal: Reports neck pain; Denies arthralgias or myalgias Integumentary Denies abscess or rash Neurologic Neurologic: Reports paresthesias; Denies headache(s) or weakness Psychiatric Psychiatric: Denies anxiety, depression, suicidal ideation or suicidal thoughts Endocrine Endocrinology: Denies polydipsia, polyphagia or polyuria Allergic/Immunologic Allergic/Immunologic ED: Denies mouth swelling, tongue swelling or urticaria EXAM Physical Exam Const Vital Signs: 10/09/25 11:32 Temperature 98.5 F Temperature Source Oral Pulse Rate 67 Respiratory Rate 16 Blood Pressure 137/85 H Blood Pressure Mean 102 Pulse Ox 99 Oxygen Delivery Method Room Air Positive well nourished and well developed General Appearance ED: well developed and NAD HEENT Reports normocephalic, head/scalp atraumatic and moist mucous membranes Eyes PERRL and EOMs intact bilaterally Neck no lymphadenopathy, supple and no JVD Resp normal respiratory effort and clear to auscultation bilaterally Cardio regular rate, regular rhythm and no murmurs GI normal to inspection, nondistended, normoactive bowel sounds and non-tender Palpation: soft Back/Spine no CVA tenderness and normal ROM Extremity normal to inspection General Extremety ED: Negative for edema General Extremity: Negative for edema Neuro oriented x3 and CN's II-XII intact bilaterally Sensorium / Orientation: alert Motor Exam: strength 5/5 throughout Psych mental status grossly normal Mood & Affect: Negative for depressed or tearful Skin no wounds Skin Narrative: There is a healing lesions in the occiput periauricular area on the left. I do not see any vesicular lesions. MDM MDM MDM Narrative Medical decision making narrative: Differential diagnosis includes but not limited to cellulitis folliculitis shingles postherpetic neuralgia I spoke with the patient and stated that this would remind me more of postherpetic neuralgia and the gabapentin may be a good option. He is concerned that his shingles is coming back and points to several lesions which I did again do not see a as vesicular and they appear to have already scabbed and are now in a healing state. He would like to try prednisone and valacyclovir again. I am going to refer him to primary care and he understands that postherpetic neuralgia can become chronic. History & Record Review Discussion w/independent historian: Patient Additional record(s) reviewed:: Prior ED visit Discharge Plan Triage Chief Complaint: Rash ED Provider: José Antonio Serrano Dx/Rx/DC Orders Clinical Impression: Post herpetic neuralgia Instructions: ED Shingles (Herpes Zoster) Prescriptions: New prednisone 20 mg tablet See Rx Instructions .ROUTE .COMPLEX Qty: 24 0RF Rx Instructions: 3 tabs p.o. daily x 4 days then 2 tabs p.o. daily x 4 days then 1 tab p.o. daily x 4 days gabapentin 300 mg capsule 300 mg PO TID 7 Days Qty: 21 0RF valacyclovir 1 gram tablet 1,000 mg PO TID 7 Days Qty: 21 0RF No Action oxycodone-acetaminophen 5-325 mg tablet 1 tab PO Q6H PRN PRN (Reason: Pain) 3 Days Qty: 12 0RF prednisone 20 mg tablet 60 mg PO DAILY Qty: 15 0RF valacyclovir 1 gram tablet 1,000 mg PO TID 7 Days Qty: 21 0RF aspirin 81 mg tablet,delayed release (DR/EC) 81 mg PO DAILY atorvastatin 20 mg tablet 20 mg PO DAILY pantoprazole 20 mg tablet,delayed release (DR/EC) 20 mg PO DAILY Primary Care Provider: Care Physician,No Primary Referrals: Laureano Zacarias MD [Med Staff - Active Staff, Family Practice] - 1-2 Weeks Care Physician,No Primary [Primary Care Provider, Medical] Print Language: [place] Disposition Disposition: Home, Self Care Discharge Date/Time: 12/09/25 12:44
== END 2025-10-09 12:44 | disposition home or self-care (01) ==
LOC: ED 12:14
PROVIDERS: Emergency Provider Emergency Medicine; Visit Provider Emergency Medicine
DX: B02.29 Other postherpetic nervous system involvement (principal); J44.9 Chronic obstructive pulmonary disease, unspecified; I10 Essential (primary) hypertension; I25.2 Old myocardial infarction; F32.A Depression, unspecified; F41.9 Anxiety disorder, unspecified; I25.10 Atherosclerotic heart disease of native coronary artery without angina pectoris; E78.5 Hyperlipidemia, unspecified; F17.210 Nicotine dependence, cigarettes, uncomplicated; Z95.5 Presence of coronary angioplasty implant and graft; Z79.82 Long term (current) use of aspirin; Z79.899 Other long term (current) drug therapy
CPT/HCPCS: 99283

== ENCOUNTER 2025-10-16 21:14 | Emergency (ER) | payer MEDICAID, SELFPAY ==
[2025-10-16 21:15] VITALS: BP 108/70; PULSE 69; RESP 18; TEMP 36.4; O2SAT 96; BMI 28.3
--- OUTSIDE RECORDS SUMMARY | 2025-10-16 22:57 | XMS RPT_ITS | CCD ---
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 [place], [id number] SMEAR COMMENT SCANNED Normal [facility] Comment on above: Performed By: #### L 500.4050, L100.0100, L501.9100, L505.5000, L300.3900 ####[facility] [address] [place], [address] Comprehensive Metabolic Prof ilon 08-14-2025 Albumin [Mass/Vol] 4.3 g/dL Normal 3.4-4.8 [facility] Comment on above: Performed By: #### L 500.4050, L100.0100, L501.9100, L505.5000, L300.3900 ####[facility] [address] [place], [address] Albumin/Globulin [Mass ratio] 1.3 {ratio} Normal 0.9-2.4 [facility] Comment on above: Performed By: #### L 500.4050, L100.0100, L501.9100, L505.5000, L300.3900 ####[facility] [address] [place], [address] ALK PHOS 88 U/L Normal 40-129 [facility] Comment on above: Performed By: #### L 500.4050, L100.0100, L501.9100, L505.5000, L300.3900 ####[facility] [address] [place], [address] ALT [Catalytic activity/Vol] 54 U/L High <=46 [facility] Comment on above: Performed By: #### L 500.4050, L100.0100, L501.9100, L505.5000, L300.3900 ####[facility] [address] [place], [address] AST [Catalytic activity/Vol] 80 U/L High <=37 [facility] Comment on above: Performed By: #### L 500.4050, L100.0100, L501.9100, L505.5000, L300.3900 ####[facility] [address] [place], [address] Bilirubin [Mass/Vol] 0.57 mg/dL Normal 0.00-1.30 [facility] Comment on above: Performed By: #### L 500.4050, L100.0100, L501.9100, L505.5000, L300.3900 ####[facility] [address] [place], [address] BUN/CRE 7.0 RATIO Low 10-20 [facility] Comment on above: Performed By: #### L 500.4050, L100.0100, L501.9100, L505.5000, L300.3900 ####[facility] [address] [place], [address] Calcium [Mass/Vol] 8.9 mg/dL Normal 7.6-11.0 [facility] Comment on above: Performed By: #### L 500.4050, L100.0100, L501.9100, L505.5000, L300.3900 ####[facility] [address] [place], [address] Chloride [Moles/Vol] 96 mmol/L Low 98-108 [facility] Comment on above: Performed By: #### L 500.4050, L100.0100, L501.9100, L505.5000, L300.3900 ####[facility] [address] [place], [address] CO2 [Moles/Vol] 21.0 mmol/L Normal 21.0-32.0 [facility] Comment on above: Performed By: #### L 500.4050, L100.0100, L501.9100, L505.5000, L300.3900 ####[facility] [address] [place], [address] Creatinine [Mass/Vol] 0.75 mg/dL Normal 0.70-1.20 [facility] Comment on above: Performed By: #### L 500.4050, L100.0100, L501.9100, L505.5000, L300.3900 ####[facility] [address] [place], [address] ECRCL 102.12 ml/min Normal 50-250 [facility] Comment on above: Performed By: #### L 500.4050, L100.0100, L501.9100, L505.5000, L300.3900 ####[facility] [address] [place], [address] GAP 16 High 5-15 [facility] Comment on above: Performed By: #### L 500.4050, L100.0100, L501.9100, L505.5000, L300.3900 ####[facility] [address] [place], [address] GFR/1.73 sq M.predicted among non-blacks MDRD (S/P/Bld) [Vol rate/Area] 102 mL/min/{1.73_m2} Normal >60 [facility] Comment on above: Result Comment: mL/m in/1.73m2 CKD-EPI Creatinine Equation (2020) Performed By: #### L 500.4050, L100.0100, L501.9100, L505.5000, L300.3900 ####[facility] [address] [place], [address] Globulin (S) [Mass/Vol] 3.4 g/dL Normal 2.2-4.2 [facility] Comment on above: Performed By: #### L 500.4050, L100.0100, L501.9100, L505.5000, L300.3900 ####[facility] [address] [place], [address] Glucose [Mass/Vol] 99 mg/dL Normal 70-99 [facility] Comment on above: Performed By: #### L 500.4050, L100.0100, L501.9100, L505.5000, L300.3900 ####[facility] [address] [place], [address] Potassium [Moles/Vol] 3.8 mmol/L Normal 3.3-5.1 [facility] Comment on above: Performed By: #### L 500.4050, L100.0100, L501.9100, L505.5000, L300.3900 ####[facility] [address] [place], [address] Sodium [Moles/Vol] 133 mmol/L Normal 133-145 [facility] Comment on above: Performed By: #### L 500.4050, L100.0100, L501.9100, L505.5000, L300.3900 ####[facility] [address] [place], [address] T PROT 7.8 g/dL Normal 5.9-8.4 [facility] Comment on above: Performed By: #### L 500.4050, L100.0100, L501.9100, L505.5000, L300.3900 ####[facility] [address] [place], [address] Urea nitrogen [Mass/Vol] 5 mg/dL Normal 4-19 [facility] Comment on above: Performed By: #### L 500.4050, L100.0100, L501.9100, L505.5000, L300.3900 ####[facility] [address] [place], [address] Emergency Department Summary on 08-14-2025 Emergency Department Summary [facility] Medical Records Department [address] [place] [address] Emergency Department Summary 08/14/25 MR#: [id number] Acct: [id number] Name: RAISA ESTRADA Rep #: [id number] : 1965 60 From: Shaquille Yung MD PCP: Care Physician,No Primary Status:REG ER Location: ED HPI History of Present Illness Chief Complaint: ETOH Intox Informant: patient Narrative Narrative: Patient is a 60-year-old male with a history of CAD and polysubstance use presenting for assistance with alcohol detoxification. - Reports daily alcohol consumption, starting at 5149-9091 each morning; typically consumes a 6-pack of Budweiser Ice - Last consumed alcohol today prior to arrival. - Experiences tremors in the mornings. - Denies use of liquor, methamphetamines, cocaine, or crack. - Reports feeling weak and fatigued. Typically feels shaky in the mornings. - Denies hematemesis, melena, or hemorrhoids. - Has not been taking cardiac medications for several years due to homelessness and difficulty managing multiple prescriptions. - Has 4 coronary stents placed by Dr. Grigsby in [place], [place]; denies history of CABG. - Denies chest pain or dyspnea. [facility] Medical History History of ST elevation myocardial infarction (STEMI) (05/11/11) Anxiety and depression Atherosclerotic heart disease of [place] coronary artery without angina pectoris Essential hypertension Hyperlipidemia COPD (chronic obstructive pulmonary disease) Tobacco abuse Home Medications ???Medication ???Instructions ???Recorded ???Last Taken ???Type NK 08/14/25 Unknown History Allergy/AdvReac Type Severity Reaction Status Date / Time No Known Allergies Allergy Verified 08/14/25 16:09 Family History Other Heart disease Hypertension Surgical History History of appendectomy History of coronary artery stent placement (05/11/11) Social History household members: significant other Smoking Status: Current every day smoker tobacco type: cigarettes alcohol intake: current substance use type: does not use ROS ROS ED Constitutional Constitutional ED: Denies chills or fever(s) Eyes Eyes: Denies change in vision or diplopia ENT ENT ED: Denies rhinorrhea or sore throat Cardiovascular Cardiovascular: Denies chest pain or palpitations Respiratory/Chest Respiratory/Chest: Denies cough or dyspnea Gastrointestinal Gastrointestinal: Denies abdominal pain, diarrhea, nausea or vomiting Genitourinary Genitourinary ED: Denies dysuria or hematuria Musculoskeletal Musculoskeletal: Denies back pain or neck pain Integumentary Denies abscess or rash Neurologic Neurologic: Denies headache(s), paresthesias or weakness Psychiatric Psychiatric: Reports anxiety; Denies suicidal thoughts EXAM Physical Exam Const Vital Signs: 08/14/25 16:07 08/14/25 16:44 Temperature 97.9 F 97.9 F Temperature Source Oral Temporal Pulse Rate 80 80 Respiratory Rate 18 18 Blood Pressure 130/103 H 130/103 H Blood Pressure Mean 112 112 Blood Pressure Source Monitor Blood Pressure Position Semi-Fowlers Blood Pressure Location Right Arm Pulse Ox 98 98 Oxygen Delivery Method Room Air Room Air Positive well nourished and well developed Constitutional Narrative: Pleasantly intoxicated. Ambulatory. General Appearance ED: well developed and NAD HEENT Reports moist mucous membranes normocephalic and atraumatic Eyes PERRL and EOMs intact bilaterally Neck full ROM and supple Resp normal respiratory effort and clear to auscultation bilaterally Cardio regular rate, regular rhythm and no murmurs GI non-tender and non-distended Auscultation: normoactive bowel sounds Palpation: soft Back/Spine no CVA tenderness General Back: other FROM Extremity normal to inspection General Extremety ED: Negative for edema, pulses abnormal or tenderness General Extremity: Negative for edema or pulses abnormal Neuro oriented x3, CN's II-XII intact bilaterally and no sensory deficits noted Sensorium / Orientation: awake and alert Motor Exam: strength 5/5 throughout Skin no rashes or lesions noted and no wounds MDM MDM MDM Narrative Medical decision making narrative: Assessment: The patient is a 60-year-old male with PMH of coronary artery disease status post four stents presenting for assistance with alcohol cessation/detox. He reports daily beer consumption beginning early each morning with morning shakes and intense cravings, last drink shortly before arrival; denies chest pain, GI bleeding, or other acute complaints. Labs show (more content not included)... Normal [facility] H AND P Exam - Hospitaliston 08-14-2025 H&P Exam - Hospitalist [facility] Medical Records Department [address] [place] [address] H P Exam - Hospitalist 08/14/25 1822 MR#: [id number] Acct: [id number] Name: RAISA ESTRADA Rep #: [id number] : 1965 60 From: Belinda Hensley DO PCP: Care Physician,No Primary Status:ADM [place] [facility] [id number] HPI - General General Date of Admission: 08/14/25 Date of Service: 08/14/25 Chief Complaint: Alcohol detox HPI Narrative RAISA ESTRADA, is a 60 M who presented to the emergency department on 08/14/2025 requesting detox from alcohol. Patient states has been a longtime drinker but over the past couple years he has been drinking pretty excessively at least a 12 pack of beer daily. He states he has tremors in the morning and drinks to take care of his tremors. He is currently unemployed. He states he had STEMI x 2 previously and is on disability for this. He does smoke but declines nicotine patch. He also smokes a considerable amount of marijuana. He has never been through alcohol detox before. Complains of some mild tremors at this time. His last drink was just before arrival. Vital signs on presentation Vital signs on presentation showed temperature of 97.9, heart rate 80, blood pressure 130/103, respiratory rate 18 and pulse ox was 98% room air. CBC showed a mild leukocytosis with a white count of 11.8 but was otherwise unremarkable. He does have a mild lymphocytosis. Coags were essentially unremarkable. Chemistry panel was essentially unremarkable. LFTs were mildly elevated with an AST of 80 and a ALT of 54 bilirubin was normal. Toxicology screen was positive for cannabinoids and his alcohol level was 248. He will be admitted for expected greater than 2 midnights for alcohol detox. In the emergency department he was given IV fluids and phenobarb. [facility] Medical History History of ST elevation myocardial infarction (STEMI) (05/11/11) Anxiety and depression Atherosclerotic heart disease of [place] coronary artery without angina pectoris Essential hypertension Hyperlipidemia COPD (chronic obstructive pulmonary disease) Tobacco abuse Home Medications ???Medication ???Instructions ???Recorded ???Last Taken ???Type NK 08/14/25 Unknown History Allergy/AdvReac Type Severity Reaction Status Date / Time No Known Allergies Allergy Verified 08/14/25 16:09 Family History Other Heart disease Hypertension Surgical History History of appendectomy History of coronary artery stent placement (05/11/11) Social History (Updated 08/14/25 @ 21:[address] Belinda Hensley DO) household members: significant other Smoking Status: Current every day smoker tobacco type: cigarettes alcohol intake: current alcohol intake frequency: 3 or more drinks per day Alcohol type: beer substance use type: marijuana ROS Constitutional Constitutional: Denies anorexia, change in weight, chills, fatigue, fever(s), malaise, night sweats, weakness or other Eyes Eyes: Denies blurry vision, change in eye color, change in vision, discharge from eye(s), double vision, erythema, eye pain, loss of vision or other ENT HEENT: Denies abnormal hearing, dysphagia, ear pain, epistaxis, headache(s), hearing loss, nasal congestion, nasal discharge, post nasal drip, sinus pressure, sore throat or other Cardiovascular Cardiovascular: Denies chest pain, claudication, dyspnea on exertion, edema, lightheadedness, orthopnea, palpitations, paroxysmal nocturnal dyspnea, rapid heart rate, syncope or other Respiratory/Chest Respiratory/Chest: Denies cough, dyspnea, excessive phlegm production, hemoptysis, productive cough, shortness of breath at rest, shortness of breath with exertion, wheezing or other Gastrointestinal Gastrointestinal: Denies abdominal pain, coffee ground emesis, constipation, diarrhea, dyspepsia, hematemesis, hematochezia, loose stools, melena, nausea, vomiting or other Genitourinary Genitourinary: Denies burning urination, difficulty urinating, dysuria, hematuria, nocturia, urinary frequency, urinary hesitancy, urinary incontinence, urinary urgency or other Musculoskeletal Musculoskeletal: Denies arthralgias, back pain, joint pain, joint stiffness, joint swelling, myalgias, neck pain or other Neurologic Neurologic: Reports tremor(s); Denies abnormal gait, abnormal speech, confusion, disequilibrium, dizziness, focal weakness, headache(s), numbness, paresthesias, seizure-like activity, seizures, syncope, tingling or other Psychiatric Psychiatric: Denies anxiety, depression, homicidal ideation, suicidal ideation or other Endocrine Endocrinology: Denies change in body appearance, cold intolerance, excessive sweating, heat intolerance, polydipsia, polyuria (more content not included)... Normal [facility] International normalized rat io (INR) calculationOrdered By: Shaquille Yung on 08-14-2025 INR Coag (Bld) [Relative time] 1.3 {INR} [facility] No Panel InformationOrdered By: Shaquille Yung on 08-14-2025 Urine Buprenorphine Qualitative Negative < 200 ng/mL [facility] Urine Oxycodone Screen Negative < 100 ng/mL [facility] Platelet estimateOrdered By: Shaquille Yung on 08-14-2025 Platelets LM Ql (Bld) ADEQUATE ADEQ [facility] Prothrombin Time w/INRon INR Coag (PPP) [Relative time] 1.3 {INR} Normal [facility] Comment on above: Performed By: #### L 500.4050, L100.0100, L501.9100, L505.5000, L300.3900 ####[facility] [address] [place], [address] PT Coag (PPP) [Time] 15.9 s High 11.7-14.9 [facility] Comment on above: Performed By: #### L 500.4050, L100.0100, L501.9100, L505.5000, L300.3900 ####[facility] [address] [place], [address] Prothrombin timeOrdered By: Shaquille Yung on 08-14-2025 PT Coag (PPP) [Time] 15.9 s High 11.7-14.9 [facility] Quantitative urine opiates m easurementOrdered By: Shaquille Yung on 08-14-2025 Opiates Ql (U) Negative < 300 ng/mL [facility] Screening urine fentanyl gianna surementOrdered By: Shaquille Yung on 08-14-2025 fentaNYL Screen Ql (U) Negative <5 ng/mL [facility] Comment on above: CONFIRMATORY TESTING FOR ALL POSITIVE URINE DRUG SCREENRESULTS WILL ONLY BE SENT OUT UPON PHYSICIAN ORDER. Cristian Pro Urine Drug Screen methods provide only preliminaryanalytical test results. A more specific alternate chemicalmethod must be used in order to obtain a confirmedanalytical result. Gas chromatography/mass spectrometery(GC/MS) is the preferred confirmatory method. Clinicalconsideration and professional judgement should be appliedto any drug of abuse test result, particularly whenpreliminary positive results are used. Urine TCA testing must be ordered separately. Use test mnemonic: UTCA Serum or plasma ethanol kevin urement (mass/volume)Ordered By: Shaquille Yung on 08-14-2025 Ethanol [Mass/Vol] 248.0 mg/dL High <10.1 [facility] Comment on above: This test is for med ical purposes only. The legal definition of intoxication varies according to local law. Urine Drug Screen (VISTA)on 08-14-2025 AMPHETAMINES Negative Normal <1000 ng/mL [facility] Comment on above: Performed By: #### L 500.4050, L100.0100, L501.9100, L505.5000, L300.3900 ####[facility] [address] [place], [address] BARBITIURATES Negative Normal < 200 ng/mL [facility] Comment on above: Performed By: #### L 500.4050, L100.0100, L501.9100, L505.5000, L300.3900 ####[facility] [address] [place], [place], [phone] BENZODIAZIPINE Negative Normal < 200 ng/mL [facility] Comment on above: Performed By: #### L 500.4050, L100.0100, L501.9100, L505.5000, L300.3900 ####[facility] [address] [place], [place], [phone] BUP Ur Drug Scr Negative Normal < 200 ng/mL [facility] Comment on above: Performed By: #### L 500.4050, L100.0100, L501.9100, L505.5000, L300.3900 ####[facility] [address] [place], [phone] COCAINE Negative Normal < 300 ng/mL [facility] Comment on above: Performed By: #### L 500.4050, L100.0100, L501.9100, L505.5000, L300.3900 ####[facility] [address] [place], [place], [phone] Fentanyl Negative Normal <5 ng/mL [facility] Comment on above: Result Comment: CONF IRMATORY TESTING FOR ALL POSITIVE URINE DRUG SCREEN RESULTS WILL ONLY BE SENT OUT UPON PHYSICIAN ORDER. [facility] Urine Drug Screen methods provide only preliminary analytical test results. A more specific alternate chemical method must be used in order to obtain a confirmed analytical result. Gas chromatography/mass spectrometery (GC/MS) is the preferred confirmatory method. Clinical consideration and professional judgement should be applied to any drug of abuse test result, particularly when preliminary positive results are used. Urine TCA testing must be ordered separately. Use test mnemonic: UTCA Performed By: #### L 500.4050, L100.0100, L501.9100, L505.5000, L300.3900 ####[facility] [address] [place] [address] METHADONE Negative Normal < 300 ng/mL [facility] Comment on above: Performed By: #### L 500.4050, L100.0100, L501.9100, L505.5000, L300.3900 ####[facility] [address] [place] [address] OPIATES Negative Normal < 300 ng/mL [facility] Comment on above: Performed By: #### L 500.4050, L100.0100, L501.9100, L505.5000, L300.3900 ####[facility] [address] [place] [address] OXYCODONE Negative Normal < 100 ng/mL [facility] Comment on above: Performed By: #### L 500.4050, L100.0100, L501.9100, L505.5000, L300.3900 ####[facility] [address] [place] [address] PCP Negative Normal < 25 ng/mL [facility] Comment on above: Performed By: #### L 500.4050, L100.0100, L501.9100, L505.5000, L300.3900 ####[facility] [address] [place] [address] THC Positive Normal < 50 ng/mL [facility] Comment on above: Result Comment: If c onfirmation testing is needed, a separate order will be required to send out testing to the reference laboratory. Performed By: #### L 500.4050, L100.0100, L501.9100, L505.5000, L300.3900 ####[facility] [address] [place], [address] Urine benzodiazepine levelOr dered By: Shaquille Yung on 08-14-2025 Benzodiazepines Ql (U) Negative < 200 ng/mL [facility] Urine cocaine levelOrdered B y: Shaquille Yung on 08-14-2025 Cocaine Ql (U) Negative < 300 ng/mL [facility] Urine vhwiq-4-ojboowrhisznmd abinol (THC) measurementOrdered By: Shaquille Yung on 08-14-2025 Cannabinoids Screen Ql (U) Positive < 50 ng/mL [facility] Comment on above: If confirmation test ing is needed, a separate order will be required to send out testing to the reference laboratory. Urine phencyclidine (PCP) de tectionOrdered By: Shaquille Yung on 08-14-2025 Phencyclidine Ql (U) Negative < 25 ng/mL [facility] Absolute lymphocyte countOrd ered By: Nilson La on 04-15-2025 Lymphocytes Auto (Unsp spec) [#/Vol] 3.03 10*3/uL 0.83-4.51 [facility] Absolute neutrophil countOrd ered By: Nilson La on 04-15-2025 Neutrophils (Bld) [#/Vol] 6.9 10*3/uL 2.0-7.7 [facility] Activated partial thrombopla stin time (aPTT) in platelet poor plasma by coagulation aOrdered By: Nilson La on 04-15-2025 aPTT Coag (PPP) [Time] 28.4 s 24.1-36.2 [facility] Anion gap in Serum or Plasma Ordered By: Nilson La on 04-15-2025 Anion gap [Moles/Vol] 14 mmol/L 03-15 [facility] Automated lymphocyte count a s percentage of total leukocytesOrdered By: Nilson aL on 04-15-2025 Lymphocytes/100 WBC Auto (Unsp spec) 26.4 % 19-41 [facility] BUN/creatinine ratioOrdered By: Nilson La on 04-15-2025 Urea nitrogen/Creatinine [Mass ratio] 10.4 mg/mg 08-20 [facility] Basic Metabolic Profile (BMP )on 04-15-2025 BUN/CRE 10.4 RATIO Normal 08-20 [facility] Comment on above: Performed By: #### L 300.4310, L100.0100, L300.3900, L500.2500, L503.6005 ####[facility] [address] [place], [address] Calcium [Mass/Vol] 8.9 mg/dL Normal 7.6-11.0 [facility] Comment on above: Performed By: #### L 300.4310, L100.0100, L300.3900, L500.2500, L503.6005 ####[facility] [address] [place], [address] Chloride [Moles/Vol] 97 mmol/L Low 98-108 [facility] Comment on above: Performed By: #### L 300.4310, L100.0100, L300.3900, L500.2500, L503.6005 ####[facility] [address] [place], [address] CO2 [Moles/Vol] 21.5 mmol/L Normal 21.0-32.0 [facility] Comment on above: Performed By: #### L 300.4310, L100.0100, L300.3900, L500.2500, L503.6005 ####[facility] [address] [place], [address] Creatinine [Mass/Vol] 0.76 mg/dL Normal 0.70-1.20 [facility] Comment on above: Performed By: #### L 300.4310, L100.0100, L300.3900, L500.2500, L503.6005 ####[facility] [address] [place], [address] ECRCL 102.07 ml/min Normal 50-250 [facility] Comment on above: Performed By: #### L 300.4310, L100.0100, L300.3900, L500.2500, L503.6005 ####[facility] [address] [place], [address] GAP 14 Normal 5-15 [facility] Comment on above: Performed By: #### L 300.4310, L100.0100, L300.3900, L500.2500, L503.6005 ####[facility] [address] [place], [address] GFR/1.73 sq M.predicted among non-blacks MDRD (S/P/Bld) [Vol rate/Area] 102 mL/min/{1.73_m2} Normal >60 [facility] Comment on above: Result Comment: mL/m in/1.73m2 CKD-EPI Creatinine Equation (2020) Performed By: #### L 300.4310, L100.0100, L300.3900, L500.2500, L503.6005 ####[facility] [address] [place], [address] Glucose [Mass/Vol] 84 mg/dL Normal 70-99 [facility] Comment on above: Performed By: #### L 300.4310, L100.0100, L300.3900, L500.2500, L503.6005 ####[facility] [address] [place], [address] Potassium [Moles/Vol] 4.3 mmol/L Normal 3.3-5.1 [facility] Comment on above: Performed By: #### L 300.4310, L100.0100, L300.3900, L500.2500, L503.6005 ####[facility] [address] [place], [address] Sodium [Moles/Vol] 132 mmol/L Low 133-145 [facility] Comment on above: Performed By: #### L 300.4310, L100.0100, L300.3900, L500.2500, L503.6005 ####[facility] [address] [place], [address] Urea nitrogen [Mass/Vol] 8 mg/dL Normal 4-19 [facility] Comment on above: Performed By: #### L 300.4310, L100.0100, L300.3900, L500.2500, L503.6005 ####[facility] [address] [place], [address] Basophil percentageOrdered B y: Nilson La on 04-15-2025 Basophils/100 WBC (Bld) 0.6 % 0-1 [facility] CBC W/Diff, Automatedon 04-01 Absolute Lymph 3.03 X10 3/uL Normal 0.83-4.51 [facility] Comment on above: Performed By: #### L 300.4310, L100.0100, L300.3900, L500.2500, L503.6005 ####[facility] [address] [place], [address] Absolute Neut 6.9 X10 3/uL Normal 2.0-7.7 [facility] Comment on above: Performed By: #### L 300.4310, L100.0100, L300.3900, L500.2500, L503.6005 ####[facility] [address] [place], [address] Basophils/100 WBC (Bld) 0.6 % Normal 0-1 [facility] Comment on above: Performed By: #### L 300.4310, L100.0100, L300.3900, L500.2500, L503.6005 ####[facility] [address] [place], [address] Eosinophils/100 WBC (Bld) 2.0 % Normal 0-5 [facility] Comment on above: Performed By: #### L 300.4310, L100.0100, L300.3900, L500.2500, L503.6005 ####[facility] [address] [place], [address] Erythrocyte distribution width (RBC) [Ratio] 13.2 % Normal 11.6-14.6 [facility] Comment on above: Performed By: #### L 300.4310, L100.0100, L300.3900, L500.2500, L503.6005 ####[facility] [address] [place], [address] Hematocrit (Bld) [Volume fraction] 41.7 % Normal 40-54 [facility] Comment on above: Performed By: #### L 300.4310, L100.0100, L300.3900, L500.2500, L503.6005 ####[facility] [address] [place], [address] Hemoglobin (Bld) [Mass/Vol] 14.5 g/dL Normal 13.0-16.5 [facility] Comment on above: Performed By: #### L 300.4310, L100.0100, L300.3900, L500.2500, L503.6005 ####[facility] [address] [place], [address] IG% 0.300 Normal 0.0-0.9 [facility] Comment on above: Result Comment: IG% - Immature Granulocytes (promyelocytes, myelocytes and metamyelocytes) > 1% indicates that a LEFT SHIFT is Present. Performed By: #### L 300.4310, L100.0100, L300.3900, L500.2500, L503.6005 ####[facility] [address]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 Hemoglobin measurementOrdere d By: Nati Alston on 02-01-2025 Hemoglobin (Bld) [Mass/Vol] 15.7 g/dL 13.0-16.5 [facility] LDL calc ser/plasOrdered By: Nati Alston on 02-01-2025 Cholesterol in LDL [Mass/Vol] 81 mg/dL [facility] Comment on above: Wviblitloc=824-771 m g/dL & Higher Gmzk=724 mg/dL or greater LDL Cholesterol, Calculated 81 mg/dL [facility] Comment on above: Elaorktlvi=546-727 m g/dL & Higher Bczp=128 mg/dL or greater Laboratory - Chemistry and C hemistry - challengeOrdered By: Nati Alston on 02-01-2025 AST [Catalytic activity/Vol] 76 U/L High <38 [facility] Lipid Profileon 02-01-2025 CHOL:HDL 3.86 Normal [facility] Comment on above: Performed By: #### L 501.9520, L500.4100, L500.4050 ####[facility] [address] [place], [address] Cholesterol [Mass/Vol] 146 mg/dL Normal <=200 [facility] Comment on above: Result Comment: Chol esterol level, Desirable <200 mg/dL Borderline high cholesterol 200-239 mg/dL High cholesterol >=240 mg/dL Recommendations of the NCEP Adult Treatment Panel for the following risk-cutoff thresholds for the [place] population. Performed By: #### L 501.9520, L500.4100, L500.4050 ####[facility] [address] [place], [address] Cholesterol in HDL [Mass/Vol] 38 mg/dL Low [facility] Comment on above: Result Comment: Nessa onal Cholesterol Education Program (NCEP) guidelines: <40 mg/dL: Low HDL-cholesterol (major risk factor for CHD) >= 60 mg/dL: High HDL-cholesterol (negative risk factor for CHD) HDL-cholesterol is affected by a number of factors, e.g. smoking, exercise, hormones, sex and age. Performed By: #### L 501.9520, L500.4100, L500.4050 ####[facility] [address] [place], [address] Cholesterol in LDL [Mass/Vol] 81 mg/dL Normal [facility] Comment on above: Result Comment: Bord odbvgg=431-597 mg/dL Higher Yolz=206 mg/dL or greater Performed By: #### L 501.9520, L500.4100, L500.4050 ####[facility] [address] [place], [address] Cholesterol in VLDL [Mass/Vol] 27 mg/dL Normal 5-40 [facility] Comment on above: Performed By: #### L 501.9520, L500.4100, L500.4050 ####[facility] [address] [place], [address] Triglyceride [Mass/Vol] 135 mg/dL Normal [facility] Comment on above: Result Comment: The drugs N-Acetylcysteine and Metamizole may falsely depress this assay. Normal range: <150 mg/dL Borderline High: 150-199 mg/dL High: 200-499 mg/dL Very High: >500 mg/dL Performed By: #### L 501.9520, L500.4100, L500.4050 ####[facility] [address] [place], [address] CHOL:HDL 3.76 Normal [facility] Comment on above: Result Comment: will reorder Performed By: #### L 500.4050, L501.9520, L100.0500, L500.4100 ####[facility] [address] [place], [address] Cholesterol [Mass/Vol] 146 mg/dL Normal <=200 [facility] Comment on above: Result Comment: will reorder Cholesterol level, Desirable <200 mg/dL Borderline high cholesterol 200-239 mg/dL High cholesterol >=240 mg/dL Recommendations of the NCEP Adult Treatment Panel for the following risk-cutoff thresholds for the [place] population. Performed By: #### L 500.4050, L501.9520, L100.0500, L500.4100 ####[facility] [address] [place], [address] Cholesterol in HDL [Mass/Vol] 39 mg/dL Low [facility] Comment on above: Result Comment: will reorder National Cholesterol Education Program (NCEP) guidelines: <40 mg/dL: Low HDL-cholesterol (major risk factor for CHD) >= 60 mg/dL: High HDL-cholesterol (negative risk factor for CHD) HDL-cholesterol is affected by a number of factors, e.g. smoking, exercise, hormones, sex and age. Performed By: #### L 500.4050, L501.9520, L100.0500, L500.4100 ####[facility] [address] [place], [address] Cholesterol in LDL [Mass/Vol] 81 mg/dL Normal [facility] Comment on above: Result Comment: will reorder Fanskgzuiz=278-196 mg/dL Higher Mmpl=525 mg/dL or greater Performed By: #### L 500.4050, L501.9520, L100.0500, L500.4100 ####[facility] [address] [place], [address] Cholesterol in VLDL [Mass/Vol] 26 mg/dL Normal 5-40 [facility] Comment on above: Result Comment: will reorder Performed By: #### L 500.4050, L501.9520, L100.0500, L500.4100 ####[facility] [address] [place], [address] Triglyceride [Mass/Vol] 131 mg/dL Normal [facility] Comment on above: Result Comment: will reorder The drugs N-Acetylcysteine and Metamizole may falsely depress this assay. Normal range: <150 mg/dL Borderline High: 150-199 mg/dL High: 200-499 mg/dL Very High: >500 mg/dL Performed By: #### L 500.4050, L501.9520, L100.0500, L500.4100 ####[facility] [address] [place], [address] MCV (mean corpuscular volume ) determinationOrdered By: Nati Alston on 02-01-2025 MCV (RBC) [Entitic vol] 88.3 fL 80-94 [facility] Mean corpuscular hemoglobin (MCH) determinationOrdered By: Nati Alston on 02-01-2025 MCH (RBC) [Entitic mass] 31.7 pg 27.0-32.0 [facility] Mean corpuscular hemoglobin concentration (MCHC) determinationOrdered By: Nati Alston on 02-01-2025 MCHC (RBC) [Mass/Vol] 35.8 g/dL 32-36 [facility] Mean platelet volume determi nationOrdered By: Nati Alston on 02-01-2025 Platelet mean volume (Bld) [Entitic vol] 9.9 fL 6.2-12.0 [facility] Platelet countOrdered By: Kenneth Alston on 02-01-2025 Platelets (Bld) [#/Vol] 196 10*3/uL 150-450 [facility] Potassium (Unsp spec) [Mass/ Vol]Ordered By: Nati Alston on 02-01-2025 Potassium [Moles/Vol] 4.3 mmol/L 3.3-5.1 [facility] Potassium measurement (mass/ volume)Ordered By: Nati Alston on 02-01-2025 Potassium (Unsp spec) [Mass/Vol] 4.3 mmol/L 3.3-5.1 [facility] RBC Auto (Bld) [#/Vol]Ordere d By: Nati Alston on 02-01-2025 RBC (Bld) [#/Vol] 4.96 10*6/uL 4.6-6.2 [facility] Screening total cholesterol/ high density lipoprotein (HDL) cholesterol ratioOrdered By: Nati Alston on 02-01-2025 Cholesterol.total/Belinda sterol in HDL [Mass ratio] 3.86 {ratio} [facility] Serum creatinine measurement (mass/volume)Ordered By: aNti Alston on 02-01-2025 Creatinine [Mass/Vol] 0.89 mg/dL 0.70-1.20 [facility] Serum globulin measurementOr dered By: Nati Alston on 02-01-2025 Globulin (S) [Mass/Vol] 3.7 g/dL 2.2-4.2 [facility] Serum glucose measurement (m ass/volume)Ordered By: Nati Alston on 02-01-2025 Glucose [Mass/Vol] 124 mg/dL High 70-99 [facility] Serum or plasma alanine rincon otransferase (ALT) measurementOrdered By: Nati Alston on 02-01-2025 ALT [Catalytic activity/Vol] 88 U/L High <47 [facility] Serum or plasma albumin kevin urement (mass/volume)Ordered By: Nati Alston on 02-01-2025 Albumin [Mass/Vol] 3.8 g/dL 3.4-4.8 [facility] Serum or plasma albumin/glob ulin mass ratioOrdered By: Nati Alston on 02-01-2025 Albumin/Globulin [Mass ratio] 1.0 {ratio} 0.9-2.4 [facility] Serum or plasma alkaline axel sphatase measurementOrdered By: Nati Gamaliel on 02-01-2025 ALP [Catalytic activity/Vol] 124 U/L 40-129 [facility] Serum or plasma calcium kevin urement (mass/volume)Ordered By: Nati Alston on 02-01-2025 Calcium [Mass/Vol] 9.2 mg/dL 7.6-11.0 [facility] Serum or plasma cholesterol in HDL measurement (mass/volume)Ordered By: Nati Alston on 02-01-2025 Cholesterol in HDL [Mass/Vol] 38 mg/dL Low >40 [facility] Comment on above: National Cholesterol Education Program (NCEP) guidelines:<40 mg/dL: Low HDL-cholesterol (major risk factor for CHD)>= 60 mg/dL: High HDL-cholesterol (negative risk factor for CHD)HDL-cholesterol is affected by a number of factors, e.g. smoking, exercise, hormones, sex and age. Serum or plasma cholesterol measurement (mass/volume)Ordered By: Nati Alston on 02-01-2025 Cholesterol [Mass/Vol] 146 mg/dL <201 [facility] Comment on above: Cholesterol level, D esirable <200 mg/dLBorderline high cholesterol 200-239 mg/dLHigh cholesterol >=240 mg/dLRecommendations of the NCEP Adult Treatment Panel for the following risk-cutoff thresholds for the [place] population. Serum or plasma urea nitroge n measurement (mass/volume)Ordered By: Nati Alston on 02-01-2025 Urea nitrogen [Mass/Vol] 13 mg/dL 4-19 [facility] Sodium levelOrdered By: Juan Alston on 02-01-2025 Sodium [Moles/Vol] 138 mmol/L 133-145 [facility] TSH DL <= 0.005 mIU/L QnOrde red By: Nati Alston on 02-01-2025 Thyroid Stimulating Hormone (TSH) 1.140 uIU/mL 0.300-4.200 [facility] TSH Qn 1.140 uIU/mL 0.300-4.200 [facility] Thyroid Stim Hormone (TSH)on 02-01-2025 TSH 1.140 uIU/mL Normal 0.300-4.200 [facility] Comment on above: Performed By: #### L 501.9520, L500.4100, L500.4050 ####[facility] [address] [place], [address] TSH 1.140 uIU/mL Normal 0.300-4.200 [facility] Comment on above: Order Comment: will reorder Result Comment: will reorder Performed By: #### L 500.4050, L501.9520, L100.0500, L500.4100 ####[facility] [address] [place], [address] Total proteinOrdered By: Eleni Alston on 02-01-2025 Protein [Mass/Vol] 7.5 g/dL 5.9-8.4 [facility] Triglycerides measurementOrd ered By: Nati Alston on 02-01-2025 Triglyceride [Mass/Vol] 135 mg/dL <199 [facility] Comment on above: The drugs N-Acetylcy steine and Metamizole may falsely depress this assay. Normal range: <150 mg/dLBorderline High: 150-199 mg/dLHigh: 200-499 mg/dLVery High: >500 mg/dL White blood cell (WBC) count Ordered By: Nati Alston on 02-01-2025 WBC (Bld) [#/Vol] 7.2 10*3/uL 4.4-11.0 [facility] 12 Lead EKG performed by [facility] on 01-30-2025 12 Lead EKG performed by [facility] [address] [place] [address] 12 Lead EKG performed by [facility] 01/30/25832 MR#: [id number] Acct: [id number] Name: RAISA ESTRADA Rep #: [id number] : 1965 59 From: Nati Alston MD Attending Dr: Dr. Nati Alston MD Status: DEP AMB Ordering Dr: Nati Alston MD Date: 01/30/25 Location: [facility] Sex: M C Admitted: BMS/12 Lead EKG performed by [facility] ECG Report Interpretation ---Sinus Rhythm -Left axis -anterior fascicular block. ABNORMAL Electronically signed on 03/28/2025 at 13:[address] Nati Alston [employer] Version [id number] 03/28/25 1332 Date Nati Alston MD CC: No Primary Care Physician Date Dictated: 01/30/25832 Date Transcribed: 01/30/25832 Upsetter: KENNETH Signed Normal [facility] Cardiology Visit Reporton Cardiology Visit Report [facility] [address] [place] [address] OFFICE VISIT Date of Service: 01/30/25 MR#: [id number] Acct: [id number] Name: RAISA ESTRADA Rep #: [id number] : 1965 Provider: Dr. Nati Alston MD Age/Sex: 59/M Location: [facility] Status: Signed HPI HPI History of Present Illness Details: This gentleman describes a past medical history significant for coronary artery disease. According to him, he has had percutaneous intervention done with 2 stents to his coronary arteries in 2018 at [facility]. 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 Normal [facility] Absolute lymphocyte counton 08-03-2022 Lymphocytes Auto (Unsp spec) [#/Vol] 2.55 10*3/uL 0.83-4.51 [facility] Work Phone: Basophil percentageon 2021 Basophil percentage 0-5 SEEN /hpf 0-5 [facility] Work Phone: Basophils/100 WBC (Bld) 0.6 % 0-1 [facility] Work Phone: Chloride [Moles/Vol] 105 mmol/L 98-107 [facility] Work Phone: Eosinophils/100 WBC (Bld) 0.7 % 0-5 [facility] Work Phone: Glucose [Mass/Vol] 108 mg/dL 74-106 [facility] Work Phone: Comment on above: Fasting Glucose resu lt from 100 to 125 mg/dL suggests IMPAIRED HOMEOSTASIS per A.D.A. criteria. Neutrophils (Bld) [#/Vol] 6.5 10*3/uL 2.0-7.7 [facility] Work Phone: Neutrophils/100 WBC (Bld) 66.2 % 47-70 [facility] Work Phone: Potassium [Moles/Vol] 3.8 mmol/L 3.5-5.1 [facility] Work Phone: Sodium [Moles/Vol] 139 mmol/L 136-145 [facility] Work Phone: WBC (Bld) [#/Vol] 9.9 10*3/uL 4.4-11.0 [facility] Work Phone: Bilirubin Test strip Ql (U)o n 08-03-2022 Bilirubin Ql (U) Negative Negative [facility] Work Phone: Blood erythrocytes count (nu mber/volume)on 08-03-2022 RBC (Bld) [#/Vol] 5.43 10*6/uL 4.6-6.2 [facility] Work Phone: Blood hemoglobin measurement (mass/volume)on 08-03-2022 Hemoglobin (Bld) [Mass/Vol] 16.9 g/dL 13.0-16.5 [facility] Work Phone: Blood lymphocytes/100 leukoc yteson 08-03-2022 Lymphocytes/100 WBC (Bld) 25.9 % 19-41 [facility] Work Phone: Blood monocytes/100 leukocyt eson 08-03-2022 Monocytes/100 WBC (Bld) 6.2 % 0-10 [facility] Work Phone: [phone] Blood platelet mean volumeon 08-03-2022 Platelet mean volume (Bld) [Entitic vol] 9.6 fL 6.2-12.0 [facility] Work Phone: [phone] Determination of erythrocyte mean corpuscular volume (MCV)on 08-03-2022 MCV (RBC) [Entitic vol] 91.7 fL 80-94 [facility] Work Phone: [phone] Hematocrit Auto (Bld) [Volum e fraction]on 08-03-2022 Hematocrit (Bld) [Volume fraction] 49.8 % 40-54 [facility] Work Phone: [phone] Ketones Test strip Ql (U)on 08-03-2022 Ketones Ql (U) Negative Negative [facility] Work Phone: [phone] Laboratory - Chemistry and C hemistry - challengeon 08-03-2022 CO2 [Moles/Vol] 30.0 mmol/L 21.0-32.0 [facility] Work Phone: [phone] Urea nitrogen/Creatinine [Mass ratio] 8.6 mg/mg 10-20 [facility] Work Phone: [phone] Laboratory - Hematology and Cell countson 08-03-2022 Erythrocyte distribution width (RBC) [Entitic vol] 41.9 fL 35.1-43.9 [facility] Work Phone: [phone] Erythrocyte distribution width (RBC) [Ratio] 12.4 % 11.6-14.6 [facility] Work Phone: [phone] Immature granulocytes/100 WBC (Bld) 0.400 % 0.0-0.9 [facility] Work Phone: [phone] Comment on above: IG% - Immature Granu locytes (promyelocytes, myelocytes and metamyelocytes) > 1% indicates that a LEFT SHIFT is Present. MCH (RBC) [Entitic mass] 31.1 pg 27.0-32.0 [facility] Work Phone: [phone] Nucleated RBC/100 WBC (Bld) [Ratio] 0 % 0-5 [facility] Work Phone: MCHC Auto (RBC) [Mass/Vol]on 08-03-2022 MCHC (RBC) [Mass/Vol] 33.9 g/dL 32-36 [facility] Work Phone: Mucus LM Ql (Urine sed)on Mucus Ql (Urine sed) 0 SEEN /hpf [facility] Work Phone: [phone] Nitrite Test strip Ql (U)on 08-03-2022 Nitrite Ql (U) Negative Negative [facility] Work Phone: No Panel Informationon 08-03 Estimated Creatinine Clearance Calc 85.52 ml/min [facility] Work Phone: Estimated GFR (MDRD) Amer 107 mL/min >60 [facility] Work Phone: Comment on above: GFR Calc Estimated GFR (MDRD) Non-Af Amer 88 mL/min >60 [facility] Work Phone: Comment on above: Non- GFR Calc Platelets bldon 08-03-2022 Platelets (Bld) [#/Vol] 262 10*3/uL 150-450 [facility] Work Phone: Protein Test strip Ql (U)on 08-03-2022 Protein Ql (U) Negative Negative [facility] Work Phone: [phone] Serum or plasma calcium kevin urement (mass/volume)on 08-03-2022 Calcium [Mass/Vol] 9.1 mg/dL 8.5-10.1 [facility] Work Phone: [phone] Serum or plasma creatinine m easurement (mass/volume)on 08-03-2022 Creatinine [Mass/Vol] 0.93 mg/dL 0.70-1.30 [facility] Work Phone: Comment on above: The validity of the calculated GFR & GFRAA in patients over 70 years has not been determined. Clinical correlation is essential. Serum or plasma urea nitroge n measurement (mass/volume)on 08-03-2022 Urea nitrogen [Mass/Vol] 8 mg/dL 7-18 [facility] Work Phone: Squamous epithelial cells de tection in urine sediment by light microscopyon 08-03-2022 Epithelial cells.squamous LM Ql (Urine sed) 0-5 SEEN /hpf 0-5 [facility] Work Phone: Thin prep Papanicolaou smear with manual screeningon 08-03-2022 Thin prep Papanicolaou smear with manual screening 4 5-15 [facility] Work Phone: Urine blood detectionon RBC Ql (U) Negative Negative [facility] Work Phone: RBC Ql (U) 0 SEEN /hpf 0-5 [facility] Work Phone: Urine clarityon 08-03-2022 Clarity (U) Clear Clear [facility] Work Phone: Urine color determinationon 08-03-2022 Color (U) Yellow Yellow [facility] Work Phone: Urine glucose detectionon Glucose Ql (U) Normal mg/dl Normal [facility] Work Phone: Urine leukocyte esterase det ection by dipstickon 08-03-2022 Leukocyte esterase Test strip Ql (U) Negative Negative [facility] Work Phone: Urine pHon 08-03-2022 pH (U) 7.0 [pH] 5.0 - 8.0 [facility] Work Phone: Urine sediment bacteria coun t by microscopy (number/high power field)on 08-03-2022 Bacteria LM.HPF (Urine sed) [#/Area] 0 /[HPF] None Seen [facility] Work Phone: Urine specific gravity measu rementon 08-03-2022 Specific gravity (U) [Rel density] 1.010 1.002-1.030 [facility] Work Phone: [phone] Urobilinogen Auto test strip Ql (U)on 08-03-2022 Urobilinogen Ql (U) Normal mg/dl Normal [facility] Work Phone: .Auto Diffon 08-01-2022 Basophil, Absolute 0.1 10 3/mcL Normal 0.0-0.2 [facility] ([place]) Comment on above: Performed By: #### B MP, GFR #### [address] [address] Basophils/100 WBC (Bld) 0.8 % Normal 0.0-2.5 A [facility] ([place]) Comment on above: Performed By: #### B MP, GFR #### [address] [address] Eosinophil, Absolute 0.2 10 3/mcL Normal 0.0-0.4 [facility] ([place]) Comment on above: Performed By: #### B MP, GFR #### [address] [address] Eosinophils/100 WBC (Bld) 1.6 % Normal 0.0-7.0 [facility] ([place]) Comment on above: Performed By: #### B MP, GFR #### [address] [address] Lymphocyte, Absolute 2.2 10 3/mcL Normal 0.8-3.9 [facility] ([place]) Comment on above: Performed By: #### B MP, GFR #### [address] [address] Lymphocytes/100 WBC (Bld) 21.8 % Normal 10.0-50.0 [facility] ([place]) Comment on above: Performed By: #### B MP, GFR #### [address] [address] Monocyte, Absolute 0.9 10 3/mcL Normal 0.2-1.0 [facility] ([place]) Comment on above: Performed By: #### B MP, GFR #### [address] [address] Monocytes/100 WBC (Bld) 9.2 % Normal 1.7-13.0 A [facility] ([place]) Comment on above: Performed By: #### B MP, GFR #### [address] [address] Neutrophils/100 WBC (Bld) 66.6 % Normal 37.0-80.0 [facility] ([place]) Comment on above: Performed By: #### B MP, GFR #### Marlee [address] [address] .GFRon 08-01-2022 GFR 90 ml/min/1.73sqm Normal [facility] ([place]) Comment on above: Result Comment: GFR Population [...] Performed By: #### B MP, GFR #### [address] [address] GFR Non- 74 ml/min/1.73sqm Normal [facility] ([place]) Comment on above: Result Comment: GFR Population [...] Performed By: #### B MP, GFR #### [address] [address] .MDWon 08-01-2022 Monocyte Distribution Width 20.30 High 0.00-20.00 [facility] ([place]) Comment on above: Result Comment: For adults in ED, MDW>20.0 may be associated with a higher risk of sepsis during the first 12hrs of hospital admission Performed By: #### B MP, GFR #### [address] [address] .NEUABSon 08-01-2022 Neutrophil, Absolute 6.7 10 3/mcL High 2.9-6.2 [facility] ([place]) Comment on above: Performed By: #### B MP, GFR #### [address] [address] BMPon 08-01-2022 BUN/Creatinine Ratio 14 ratio Normal 7-27 [facility] ([place]) Comment on above: Performed By: #### B MP, GFR #### [address] [address] Calcium [Mass/Vol] 8.5 mg/dL Normal 8.4-10.2 [facility] ([place]) Comment on above: Performed By: #### B MP, GFR #### [address] [address] Chloride [Moles/Vol] 103 mmol/L Normal 98-107 [facility] ([place]) Comment on above: Performed By: #### B MP, GFR #### [address] [address] CO2 [Moles/Vol] 27 mmol/L Normal 22-29 [facility] ([place]) Comment on above: Performed By: #### B MP, GFR #### [address] [address] Creatinine [Mass/Vol] 1.03 mg/dL Normal 0.70-1.30 [facility] ([place]) Comment on above: Performed By: #### B MP, GFR #### [address] [address] Electrolyte Balance 10.0 mEq/L Normal 4.0-15.0 [facility] ([place]) Comment on above: Performed By: #### B MP, GFR #### [address] [address] Glucose [Mass/Vol] 102 mg/dL Normal 70-105 [facility] ([place]) Comment on above: Performed By: #### B MP, GFR #### [address] [address] Potassium [Moles/Vol] 4.1 mmol/L Normal 3.5-5.1 [facility] ([place]) Comment on above: Performed By: #### B MP, GFR #### [address] [address] Sodium [Moles/Vol] 140 mmol/L Normal 136-145 [facility] ([place]) Comment on above: Performed By: #### B MP, GFR #### [address] [address] Urea nitrogen [Mass/Vol] 14 mg/dL Normal 7-18 [facility] ([place]) Comment on above: Performed By: #### B MP, GFR #### [address] [address] CBCon 08-01-2022 Erythrocyte distribution width (RBC) [Ratio] 13.4 % Normal 11.5-14.5 [facility] ([place]) Comment on above: Performed By: #### B MP, GFR #### [address] [address] Hematocrit (Bld) [Volume fraction] 43.3 % Normal 42.0-52.0 [facility] ([place]) Comment on above: Performed By: #### B MP, GFR #### [address] [address] Hgb 15.1 G/dL Normal 14.0-18.0 [facility] ([place]) Comment on above: Performed By: #### B MP, GFR #### [address] [address] MCH (RBC) [Entitic mass] 31.6 pg High 27.0-31.2 [facility] ([place]) Comment on above: Performed By: #### B MP, GFR #### Marlee [address] [address] MCHC 34.8 G/dL Normal 31.8-35.4 [facility] ([place]) Comment on above: Performed By: #### B MP, GFR #### Marlee [address] [address] MCV (RBC) [Entitic vol] 90.8 fL Normal 80.0-94.0 A [facility] ([place]) Comment on above: Performed By: #### B MP, GFR #### [address] [address] Platelet 246 10 3/mcL Normal 130-400 [facility] ([place]) Comment on above: Performed By: #### B MP, GFR #### Marlee [address] [address] Platelet mean volume (Bld) [Entitic vol] 7.3 fL Low 7.4-10.4 [facility] ([place]) Comment on above: Performed By: #### B MP, GFR #### [address] [address] RBC 4.77 10 6/mcL Normal 4.04-6.13 [facility] ([place]) Comment on above: Performed By: #### B MP, GFR #### Marlee [address] [address] WBC 10.0 10 3/mcL Normal 4.6-10.8 [facility] ([place]) Comment on above: Performed By: #### B MP, GFR #### [address] [address] LABORATORYOrdered By: Tiera Rehman on 08-01-2022 Basophil, [...] AO Chemistry S GFR Non- 74 ml/min/1.73sqm Invalid Interpretation Code AO Chemistry S US SCROTUM CONTENTSon 2021 US SCROTUM CONTENTS ORIGINAL EXAMINATION: ULTRASOUND OF THE SCROTUM/TESTICLES WITH COLOR DOPPLER FLOW [id number]/1/2022 2:53 pm Scrotal Ultrasound with Duplex Doppler [...] 08/01/2022 3:22:15 PM Ordering Provider: JANELLE QUACH [facility] ([place]) Absolute lymphocyte counton 07-31-2022 Lymphocytes Auto (Unsp spec) [#/Vol] 4.83 10*3/uL 0.83-4.51 [facility] Work Phone: Basophil percentageon 2021 Basophils/100 WBC (Bld) 0.7 % 0-1 [facility] Work Phone: Chloride [Moles/Vol] 103 mmol/L 98-107 [facility]: Eosinophils/100 WBC (Bld) 3.0 % 0-5 [facility] Work Phone: Glucose [Mass/Vol] 84 mg/dL 74-106 [facility] Work Phone: Neutrophils (Bld) [#/Vol] 4.8 10*3/uL 2.0-7.7 [facility] Work Phone: Neutrophils/100 WBC (Bld) 44.4 % 47-70 [facility] Work Phone: Potassium [Moles/Vol] 3.9 mmol/L 3.5-5.1 [facility] Work Phone: Sodium [Moles/Vol] 140 mmol/L 136-145 [facility] Work Phone: WBC (Bld) [#/Vol] 10.8 10*3/uL 4.4-11.0 [facility] Work Phone: [phone] Basophil percentage 0 SEEN /hpf 0-[address] [facility] Work Phone: [phone] Bilirubin Test strip Ql (U)o n 07-31-2022 Bilirubin Ql (U) Negative Negative [facility] Work Phone: Blood erythrocytes count (nu mber/volume)on 07-31-2022 RBC (Bld) [#/Vol] 4.96 10*6/uL 4.6-6.2 [facility] Work [facility]: Blood hemoglobin measurement (mass/volume)on 07-31-2022 Hemoglobin (Bld) [Mass/Vol] 15.6 g/dL 13.0-16.5 [facility] Work Phone: Blood lymphocytes/100 leukoc yteson 07-31-2022 Lymphocytes/100 WBC (Bld) 44.6 % 19-41 [facility] Work Phone: [phone] Blood monocytes/100 leukocyt eson 07-31-2022 Monocytes/100 WBC (Bld) 6.9 % 0-10 [facility] Work Phone: Blood platelet mean volumeon 07-31-2022 Platelet mean volume (Bld) [Entitic vol] 9.4 fL 6.2-12.0 [facility] Work Phone: Determination of erythrocyte mean corpuscular volume (MCV)on 07-31-2022 MCV (RBC) [Entitic vol] 91.9 fL 80-94 [facility] Work Phone: Hematocrit Auto (Bld) [Volum e fraction]on 07-31-2022 Hematocrit (Bld) [Volume fraction] 45.6 % 40-54 [facility] Work Phone: [phone] Ketones Test strip Ql (U)on 07-31-2022 Ketones Ql (U) Negative Negative [facility] Work Phone: [phone] Laboratory - Chemistry and C hemistry - challengeon 07-31-2022 CO2 [Moles/Vol] 31.0 mmol/L 21.0-32.0 [facility] Work Phone: [phone] Urea nitrogen/Creatinine [Mass ratio] 7.8 mg/mg 10-20 [facility] Work Phone: [phone] Laboratory - Hematology and Cell countson 07-31-2022 Erythrocyte distribution width (RBC) [Entitic vol] 42.6 fL 35.1-43.9 [facility] Work Phone: [phone] Erythrocyte distribution width (RBC) [Ratio] 12.6 % 11.6-14.6 [facility] Work Phone: [phone] Immature granulocytes/100 WBC (Bld) 0.400 % 0.0-0.9 [facility] Work Phone: [phone] Comment on above: IG% - Immature Granu locytes (promyelocytes, myelocytes and metamyelocytes) > 1% indicates that a LEFT SHIFT is Present. MCH (RBC) [Entitic mass] 31.5 pg 27.0-32.0 [facility] Work Phone: [phone] Nucleated RBC/100 WBC (Bld) [Ratio] 0 % 0-5 [facility] Work Phone: [phone] MCHC Auto (RBC) [Mass/Vol]on 07-31-2022 MCHC (RBC) [Mass/Vol] 34.2 g/dL 32-36 [facility] Work Phone: [phone] Mucus LM Ql (Urine sed)on Mucus Ql (Urine sed) 0 SEEN /hpf [facility] Work Phone: [phone] Nitrite Test strip Ql (U)on 07-31-2022 Nitrite Ql (U) Negative Negative [facility] Work Phone: [phone] Panel Informationon 07-31 Estimated Creatinine Clearance Calc 88.38 ml/min [facility] Work Phone: Estimated GFR (MDRD) Amer 111 mL/min >60 [facility] Work Phone: Comment on above: GFR Calc Estimated GFR (MDRD) Non-Af Amer 92 mL/min >60 [facility] Work Phone: Comment on above: Non- GFR Calc Platelets bldon 07-31-2022 Platelets (Bld) [#/Vol] 313 10*3/uL 150-450 [facility] Work Phone: Protein Test strip Ql (U)on 07-31-2022 Protein Ql (U) Negative Negative [facility] Work Phone: [phone] Serum or plasma calcium kevin urement (mass/volume)on 07-31-2022 Calcium [Mass/Vol] 8.9 mg/dL 8.5-10.1 [facility] Work Phone: [phone] Serum or plasma creatinine m easurement (mass/volume)on 07-31-2022 Creatinine [Mass/Vol] 0.90 mg/dL 0.70-1.30 [facility] Work Phone: Comment on above: The validity of the calculated GFR & GFRAA in patients over 70 years has not been determined. Clinical correlation is essential. Serum or plasma urea nitroge n measurement (mass/volume)on 07-31-2022 Urea nitrogen [Mass/Vol] 7 mg/dL 7-18 [facility] Work Phone: [phone] Squamous epithelial cells de tection in urine sediment by light microscopyon 07-31-2022 Epithelial cells.squamous LM Ql (Urine sed) 0-5 SEEN /hpf 0-5 [facility] Work Phone: [phone] Thin prep Papanicolaou smear with manual screeningon 07-31-2022 Thin prep Papanicolaou smear with manual screening 6 5-15 [facility] Work Phone: [phone] Urine blood detectionon 07-04 RBC Ql (U) Negative Negative [facility] Work Phone: RBC Ql (U) 0 SEEN /hpf 0-5 [facility] Work Phone: Urine clarityon 07-31-2022 Clarity (U) Clear Clear [facility] Work Phone: Urine color determinationon 07-31-2022 Color (U) Straw Yellow [facility] Work Phone: Urine glucose detectionon Glucose Ql (U) Normal mg/dl Normal [facility] Work Phone: Urine leukocyte esterase det ection by dipstickon 07-31-2022 Leukocyte esterase Test strip Ql (U) Negative Negative [facility] Work Phone: Urine pHon 07-31-2022 pH (U) 6.5 [pH] 5.0 - 8.0 [facility] Work Phone: Urine sediment bacteria coun t by microscopy (number/high power field)on 07-31-2022 Bacteria LM.HPF (Urine sed) [#/Area] RARE /hpf None Seen [facility] Work Phone: Urine specific gravity measu rementon 07-31-2022 Specific gravity (U) [Rel density] 1.010 1.002-1.030 [facility] Work Phone: Urobilinogen Auto test strip Ql (U)on 07-31-2022 Urobilinogen Ql (U) Normal mg/dl Normal [facility] Work Phone: [id number] 09-24-2020 COVID19 SEE SEPARATE REPORT [facility] Comment on above: Result Comment: SPEC IMEN SENT TO A MISCELLANEOUS LAB SEE SCANNED RESULTS FOR TESTING FACILITY INFORMATION [id number] 09-10-2020 COVID19 SEE SEPARATE REPORT [facility] Comment on above: Result Comment: SPEC IMEN SENT TO A MISCELLANEOUS LAB SEE SCANNED RESULTS FOR TESTING FACILITY INFORMATION EMERGENCY REPORTon 8 EMERGENCY REPORT [facility] EMERGENCY ROOM REPORT NAME ACCOUNT SEX AGE ADMIT DISCHARGE PT MED. RECORD# NUMBER DATE DATE TYPE SEAN, [id number] M 53 04/27/18 04/27/18 3 CHRISTINE Mittal [id number] ROOM: ER DATE OF : 1965 DICTATING [...] have a family physician. He has a management instructor, Dr. Grigsby, at [place]. DIAGNOSIS: PLAN/DISPOSITION: He will be discharged in stable condition. Dictated By: Marta Echevarria DO 05/06/18 21:44 JOB #: [id number] Transcribed By: ezio 05/06/18 21:56 Electronically signed by: LUIS FELIPE Echevarria D.O. 05/07/18 23:38 Page 2 of 2 CHRISTINE ESTRDAA Emergency Room Report Normal [facility] CBCon 04-27-2018 Basophils Auto #/vol (Bld) 0.00 x10EE3/UL Normal 0.00 - 0.10 [facility] Comment on above: Performed By: #### 2 [id number] ####[facility],[address] [place], [place] [address] Basophils/100 WBC Auto (Bld) 0.2 % Normal 0.0 - 2.0 [facility] Comment on above: Performed By: #### 2 74145 ####[facility],[address] [place] [address] Blood morphology N/A Normal [facility] Comment on above: Result Comment: {CD] Performed By: #### 2 20012 ####[facility],[address] [place], [place] [id number] CBC Normal [facility] Comment on above: Result Comment: CBC- COMPLETE BLOOD COUNT Performed By: #### 2 57480 ####[facility],[address] [place], [place] [id number] Eosinophils 0.30 x10EE3/UL Normal 0.00 - 0.50 [facility] Comment on above: Performed By: #### 2 84278 ####[facility],[address] [place] [address] Eosinophils/100 leukocytes 4.0 % Normal 0.0 - 7.0 [facility] Comment on above: Performed By: #### 2 77269 ####[facility],[address] [place] [address] Erythrocyte distribution width Auto Ratio (RBC) 13.6 % Normal 12.0 - 15.6 [facility] Comment on above: Performed By: #### 2 78158 ####[facility],[address] [place] [address] Erythrocytes (RBC) 4.58 x 10EE6/UL Normal 4.50 - 6.00 [facility] Comment on above: Performed By: #### 2 [address]3541 ####[place] [address] Hematocrit (HCT) 41.0 % Normal 40.0 - 52.0 [facility] Comment on above: Performed By: #### 2 51742 ####[place] [address] Hemoglobin mass conc (Bld) 14.3 g/dL Normal 13.0 - 17.5 [facility] Comment on above: Performed By: #### 2 93515 ####[place] [address] Lymphocytes 2.40 x10EE3/UL Normal 0.80 - 2.80 [facility] Comment on above: Performed By: #### 2 61594 ####[place] [address] Lymphocytes/100 leukocytes 34.0 % Normal 20.0 - 45.0 [facility] Comment on above: Performed By: #### 2 84107 ####[place] [address] MANUAL DIFF N/A Normal [facility] Comment on above: Performed By: #### 2 32098 ####[place] [address] MCH 31 pg Normal 27 - 33 [facility] Comment on above: Performed By: #### 2 54773 ####[facility],[address] [place] [address] MCHC mass conc (RBC) 35 X10 3 Normal 32 - 36 [facility] Comment on above: Performed By: #### 2 63610 ####[facility],[address] [place] [address] MCV 90 fL Normal 81 - 98 [facility] Comment on above: Performed By: #### 2 88760 ####[facility],[address] [place] [address] Monocytes 0.80 x10EE3/UL Normal 0.20 - 1.00 [facility] Comment on above: Performed By: #### 2 40732 ####[facility],[address] [place] [address] MONOS % 11.4 % High 0.0 - 10.0 [facility] Comment on above: Performed By: #### 2 84974 ####[facility],[address] [place] [address] Neutrophils 3.60 x10EE3/UL Normal 1.50 - 7.10 [facility] Comment on above: Performed By: #### 2 92193 ####[facility],[address] [place] [address] Neutrophils/100 WBC Auto (Bld) 50.4 % Normal 46.0 - 76.0 [facility] Comment on above: Performed By: #### 2 63452 ####[facility],[address] [place] [address] Platelet mean volume (PMV) 7.8 fL Normal 6.4 - 10.5 [facility] Comment on above: Result Comment: AUTO MATED DIFFERENTIAL Performed By: #### 2 62704 ####[facility],[address] [place] [address] Platelets 254 x10EE3/UL Normal 150 - 450 [facility] Comment on above: Performed By: #### 2 86036 ####[facility],[address] [place] [address] WBC (Leukocytes) 7.2 x 10EE3/UL Normal 4.5 - 10.8 [facility] Comment on above: Performed By: #### 2 21650 ####[facility],[address] [place] [address] CHEST 1 VIEWon 04-27-2018 CHEST 1 VIEW [facility] [address] [place] [address] Patient: CHRISTINE ESTRADA Phone#: : 1965 Age: 53 Gender: M Pt. Type: ER Account: [id number] Location: [facility] Ordering: MARTA ECHEVARRIA Exam Date: 04/27/2018/10:21 Family Phys: NO DOCTOR Charge Code: 228762 Physician: [place] Order #: [id number] DLP Dose#: PROCEDURE: X-RAY CHEST 1 VIEW [...] Nicolas MD on 04/27/2018 at 10:50 Normal [facility] CMP with eGFRon 04-27-2018 Age 53 years Normal [facility] Comment on above: Performed By: #### 2 10369 ####[facility],[address] [place] [address] Albumin 4.1 g/dL Normal 3.4 - 4.8 [facility] Comment on above: Performed By: #### 2 98629 ####[facility],[address] [place] [address] Albumin/Globulin Ratio 1.1 {ratio} Normal 0.9 - 1.6 [facility] Comment on above: Performed By: #### 2 14300 ####[facility],[address] [place] [address] ALK PHOS 106 U/L Normal 38 - 126 [facility] Comment on above: Performed By: #### 2 85842 ####[facility],[address] [place] [address] ALT/SGPT 68 U/L High 10 - 40 [facility] Comment on above: Performed By: #### 2 47892 ####[facility],[address] [place] [address] Anion gap 4 mmol/L Low 10 - 20 [facility] Comment on above: Performed By: #### 2 01916 ####[facility],[address] [place] [address] AST/SGOT 60 U/L High 13 - 39 [facility] Comment on above: Performed By: #### 2 [id number] ####[facility],[address] [place] [address] 68863 B/C RATIO 14 ratio Normal 0 - 30 [facility] Comment on above: Performed By: #### 2 86292 ####[facility],[address] [place] [address] 63885 Bilirubin (total) 0.4 mg/dL Normal 0.0 - 1.5 [facility] Comment on above: Performed By: #### 2 57169 ####[facility],[address] [place] [address] 35303 Calcium 9.7 mg/dL Normal 8.6 - 10.2 [facility] Comment on above: Performed By: #### 2 04677 ####[facility],[address] [place] [address] 70111 Chloride 106 mmol/L Normal 98 - 107 [facility] Comment on above: Performed By: #### 2 35275 ####[facility],[address] [place] [address] 56997 CO2 28.9 mmol/L Normal 21.0 - 31.0 [facility] Comment on above: Performed By: #### 2 31327 ####[facility],[address] [place] [address] 01879 Creatinine 0.9 mg/dL Normal 0.7 - 1.3 [facility] Comment on above: Performed By: #### 2 56628 ####[facility],[address] [place] [address] 42832 eGFR (non-black) mL/min/{1.73_m2} Normal 60 - 999 [facility] Comment on above: Result Comment: ACCO RDING TO THE NATIONAL KIDNEY DISEASE EDUCATION PROGRAM(NKDE), A NORMAL eGFRIS A VALUE GREATER THAN OR EQUAL TO 60 ML/MIN/1.73 SQ METERS.CHRONIC KIDNEY DISEASE: <60mL/MIN/1.73 SQ METERSKIDNEY FAILURE: <15mL/MIN/1.73 SQ METERSTHIS TEST SHOULD ONLY BE USED FOR PATIENTS 18 YEARS OF AGE AND OLDER. Performed By: #### 2 97059 ####[facility],[address] [place] [address] 33870 eGFR (non-black) Normal [facility] Comment on above: Result Comment: COMP REHENSIVE METABOLIC PANEL Performed By: #### 2 93658 ####[facility],[address] [place] [address] 90962 Globulin 3.6 g/dL Normal 1.5 - 3.8 [facility] Comment on above: Performed By: #### 2 92250 ####[facility],[address] [place] [address] 01439 Glucose mass conc 123 mg/dL High 74 - 106 [facility] Comment on above: Performed By: #### 2 53772 ####[facility],[address] [place] [address] 95285 Potassium molar conc 4.0 mmol/L Normal 3.5 - 5.1 [facility] Comment on above: Performed By: #### 2 70570 ####[facility],[address] [place], [place] [id number] Protein 7.7 g/dL Normal 6.4 - 8.3 [facility] Comment on above: Performed By: #### 2 14520 ####[facility],[address] [place] [address] 82614 Sodium 135 mmol/L Low 136 - 145 [facility] Comment on above: Performed By: #### 2 43295 ####[facility],[address] [place], [place] [id number] Urea nitrogen 13 mg/dL Normal 6 - 20 [facility] Comment on above: Performed By: #### 2 02374 ####[facility],[address] [place] [address] CHEST (PE PROTOCOL)on [place] [address] Patient: CHRISTINE ESTRADA Phone#: : 1965 Age: 53 Gender: M Pt. Type: ER Account: [id number] Location: [facility] Ordering: MARTA ECHEVARRIA Exam Date: 04/27/2018/11:16 Family Phys: NO DOCTOR Charge Code: 807762 Physician: [place] Order #: [id number] DLP Dose#: [id number] PROCEDURE: CT CHEST WITH [...] 53 Gender: M Pt. Type: ER Account: [id number] Location: [facility] Ordering: MARTA ECHEVARRIA Exam Date: 04/27/2018/11:16 Family Phys: NO DOCTOR Charge Code: 497653 Physician: [place] Order #: [id number] DLP Dose#: [id number] 1. No pulmonary embolism or acute pulmonary parenchymal abnormality. 2. Hiatal hernia. 3. Indeterminate right adrenal nodule. Dictated by: Stefania Nicolas MD on 04/27/2018 at 12:06 Approved by: Stefania Nicolas MD on 04/27/2018 at 12:06 Normal [facility] D-DIMER, QUANTITATIVEon 04-02 D-DIMER QUANT 505 ng/ml High 0 - 230 [facility] Comment on above: Performed By: #### 2 71349 ####[facility],[address] [place] [address] D-DIMER, QUANTITATIVE Normal [facility] Comment on above: Result Comment: ELEONORA T D-DIMER Performed By: #### 2 33045 ####[facility],[address] [place] [address] 69085 MAGNESIUMon 04-27-2018 Magnesium 1.8 mg/dL Normal 1.6 - 2.6 [facility] Comment on above: Performed By: #### 2 42512 ####[facility],[address] [place] [address] 79008 TROPONINon 04-27-2018 Troponin I.cardiac mass conc ng/mL Normal 0.00 - 0.05 [facility] Comment on above: Result Comment: Elev [...] as heterophile antibodies). Performed By: #### 2 74158 ####[facility],[address] [place] [address] 41666 Vital Signs Date Time Vital Sign Value Performing Clinician Facility 08-16-2025 07:45-0400 Body temperature 97.6 [degF] Dr. Shaquille Yung MD Work Phone: [facility] 08-16-2025 07:45-0400 Diastolic blood pressure 88 mm[Hg] Dr. Shaquille Yung MD Work Phone: [facility] 08-16-2025 07:45-0400 Heart rate 50 /min Dr. Shaquille Yung MD Work Phone: [facility] 08-16-2025 07:45-0400 Respiratory rate 17 /min Dr. Shaquille Yung MD Work Phone: [facility] 08-16-2025 07:45-0400 SaO2% (BldA) [Mass fraction] 98 % Dr. Shaquille Yung MD Work Phone: [facility] 08-16-2025 07:45-0400 Systolic blood pressure 157 mm[Hg] Dr. Shaquille Yung MD Work Phone: [facility] 08-16-2025 06:00-0400 Body mass index (BMI) [Ratio] 25.3 kg/m2 Dr. Shaquille Yung MD Work Phone: [facility] 08-16-2025 06:00-0400 Body weight 77.[address] Shaquille Yung MD Work Phone: [facility] 08-15-2025 14:43-0400 Body height 175.[address] Shaquille Yung MD Work Phone: [facility] 04-15-2025 23:04-0400 Body temperature 98.1 [degF] No Primary Care Physician [facility] 04-15-2025 23:04-0400 Diastolic blood pressure 78 mm[Hg] No Primary Care Physician [facility] 04-15-2025 23:04-0400 Heart rate 67 /min No Primary Care Physician [facility] 04-15-2025 23:04-0400 Respiratory rate 16 /min No Primary Care Physician [facility] 04-15-2025 23:04-0400 SaO2% (BldA) [Mass fraction] 100 % No Primary Care Physician [facility] 04-15-2025 23:04-0400 Systolic blood pressure 153 mm[Hg] No Primary Care Physician [facility] 04-15-2025 19:28-0400 Body height 175.26 cm No Primary Care Physician [facility] 04-15-2025 19:28-0400 Body mass index (BMI) [Ratio] 26.3 kg/m2 No Primary Care Physician [facility] 04-15-2025 19:28-0400 Body weight 80.96 kg No Primary Care Physician [facility] 01-30-2025 08:32-0400 Body height 175.26 cm No Primary Care Physician [facility] 01-30-2025 08:32-0400 Body mass index (BMI) [Ratio] 29.9 kg/m2 No Primary Care Physician [facility] 01-30-2025 08:32-0400 Body weight 92.07 kg No Primary Care Physician [facility] 01-30-2025 08:32-0400 Diastolic blood pressure 75 mm[Hg] No Primary Care Physician [facility] 01-30-2025 08:32-0400 Heart rate 63 /min No Primary Care Physician [facility] 01-30-2025 08:32-0400 Respiratory rate 18 /min No Primary Care Physician [facility] 01-30-2025 08:32-0400 SaO2% (BldA) [Mass fraction] 98 % No Primary Care Physician [facility] 01-30-2025 08:32-0400 Systolic blood pressure 125 mm[Hg] No Primary Care Physician [facility] 02-23-2024 14:54-0400 Body temperature 96 [degF] [facility] 02-23-2024 14:54-0400 Diastolic blood pressure 89 mm[Hg] [facility] 02-23-2024 14:54-0400 Heart rate 59 /min [facility] 02-23-2024 14:54-0400 Respiratory rate 14 /min [facility] 02-23-2024 14:54-0400 SaO2% (BldA) [Mass fraction] 100 % [facility] 02-23-2024 14:54-0400 Systolic blood pressure 174 mm[Hg] [facility] 02-23-2024 12:33-0400 Body height 175.26 cm [facility] 02-23-2024 12:33-0400 Body mass index (BMI) [Ratio] 23.3 kg/m2 [facility] 02-23-2024 12:33-0400 Body weight 71.66 kg [facility] 08-03-2022 14:57-0400 Diastolic blood pressure 102 mm[Hg] [facility] Work Phone: 08-03-2022 14:57-0400 Heart rate 91 /min [facility] Work Phone: 08-03-2022 14:57-0400 Respiratory rate 15 /min [facility] Work Phone: 08-03-2022 14:57-0400 SaO2% (BldA) [Mass fraction] 99 % [facility] Work Phone: 08-03-2022 14:57-0400 Systolic blood pressure 162 mm[Hg] [facility] Work Phone: 08-03-2022 12:30-0400 Body height 175.26 cm [facility] Work Phone: 08-03-2022 12:30-0400 Body mass index (BMI) [Ratio] 27.1 kg/m2 [facility] Work Phone: 08-03-2022 12:30-0400 Body temperature 97.9 [degF] [facility] Work Phone: 08-03-2022 12:30-0400 Body weight 83.4 kg [facility] Work Phone: 08-01-2022 12:58-0400 Body temperature 97.52 [degF] JANELLE QUACH MD [facility] 08-01-2022 12:58-0400 Diastolic blood pressure 79 mm[Hg] JANELLE QUACH MD [facility] 08-01-2022 12:58-0400 Heart rate 61 /min JANELLE QUACH MD [facility] 08-01-2022 12:58-0400 Respiratory rate 16 /min JANELLE QUACH MD [facility] 08-01-2022 12:58-0400 Systolic blood pressure 171 mm[Hg] JANELLE QUACH MD [facility] 07-31-2022 21:57-0400 Body height 175.26 cm [facility] Work Phone: 07-31-2022 21:57-0400 Body mass index (BMI) [Ratio] 28 kg/m2 [facility] Work Phone: 07-31-2022 21:57-0400 Body temperature 97 [degF] [facility] Work Phone: 07-31-2022 21:57-0400 Body weight 86.18 kg [facility] Work Phone: 07-31-2022 21:57-0400 Diastolic blood pressure 75 mm[Hg] [facility] Work Phone: 07-31-2022 21:57-0400 Heart rate 79 /min [facility] Work Phone: 07-31-2022 21:57-0400 Respiratory rate 15 /min [facility] Work Phone: 07-31-2022 21:57-0400 SaO2% (BldA) [Mass fraction] 96 % [facility] Work Phone: 07-31-2022 21:57-0400 Systolic blood pressure 114 mm[Hg] [facility] Work Phone: Encounters Encounter Date Encounter Type Care Provider Facility Start: 08-16-2025 Non-patient / Non-visit Dr. Antoinette Dukes MD -[facility] Work Phone: Start: 08-15-2025 Non-patient / Non-visit Dr. Antoinette Dukes MD -[facility] Work Phone: Start: 08-14-2025 ambulatory Belinda Hensley Facility:[facility] Start: 08-14-2025 End: 08-16-2025 Evaluation and management of inpatient Belinda Ayden Facility:[facility] Start: 04-15-2025 End: 04-15-2025 Emergency department patient visit No Primary Care Physician -Emergency Department Work Phone: Start: 03-08-2025 ambulatory Nati Gamaliel Facility:[facility] Start: 02-12-2025 Non-patient / Non-visit Arminda myers -[facility] Work Phone: Start: 02-12-2025 ambulatory Arminda Vyas y:[facility] Start: 02-01-2025 End: 02-01-2025 ambulatory No Primary Care Physician [facility] Work Phone: Start: 02-01-2025 End: 02-01-[address] Nati Alston MD -Laboratory Work Phone: Start: 02-01-2025 End: 02-01-2025 ambulatory [facility] Facility:[facility] Start: 01-30-2025 End: 01-30-[address] Nati Alston MD -[facility] Work Phone: Start: 01-30-2025 End: 01-30-2025 ambulatory [facility] Facility[facility] Start: 02-23-2024 End: 02-23-2024 Emergency department patient visit [facility]-Emergency Department Work Phone: Start: 08-04-2022 ambulatory Alice Fernandes RN [facility] Start: 08-04-2022 Patient encounter procedure Alice Fernandes RN NURSE PARTS IDENTIFICATION TECHNICIAN Comment on above: Referral Request Start: 08-03-2022 End: 08-03-2022 Emergency department patient visit [facility]-Emergency Department Start: 08-01-2022 End: 08-01-2022 Emergency department patient visit JANELLE QUACH MD Facility:[facility] Start: 08-01-2022 End: 08-01-2022 Emergency department patient visit JANELLE QUACH MD [facility] Start: 07-31-2022 End: 07-31-2022 Emergency department patient visit [facility]-Emergency Department Start: 04-27-2018 End: 04-27-2018 Emergency department patient visit MARTA ECHEVARRIA [facility] Procedures Date Procedure Procedure Detail Performing Clinician Start: 08-15-[address] Shaquille Yung MD Work Phone: Start: 08-15-2025 Serum inorganic phosphate measurement Dr. Shaquille Yung MD Work Phone: Start: 08-14-2025 Methadone measuremen t, urine Dr. Shaquille Yung MD Work Phone: Start: 04-15-2025 Estimated creatinine clearance No Primary Care Physician Start: 01-30-2025 Evaluation of diagno stic study results No Primary Care Physician Start: 02-23-2024 CT of abdomen and pe lvis without contrast Start: 02-23-2024 CT of head without contrast Start: 07-31-2022 CT of abdomen and pe lvis without contrast Start: 05-11-2011 History of placement of stent for coronary artery disease History of coronary artery stent placement Dr. Nati Alston MD Placement of stent JANELLE FLETCHER MD Plan of Treatment Date Care Activity Detail Author Start: 08-16-2025 Patient discharge [facility] Start: 08-14-2025 Following clinical pathway protocol [facility] Start: 08-14-2025 Ambulation without limitation [facility] Start: 08-14-2025 Assessment of risk of venous thromboembolism [facility] Start: 08-14-2025 Catheterization of vein [facility] Start: 08-14-2025 Inhalation therapy procedure [facility] Start: 08-14-2025 Insertion of catheter into peripheral vein [facility] Start: 08-14-2025 Measuring intake and output [facility] Start: 08-14-2025 Providing care according to standard [facility] Start: 08-14-2025 Referral to service [facility] Start: 08-14-2025 [facility] Start: 08-14-2025 Admission procedure [facility] Start: 08-14-2025 Consultation [facility] Start: 08-14-2025 Patient referral to dietitian [facility] Start: 04-15-2025 [facility] Start: 04-15-2025 X-ray of knee, four or more views Knee 4 or More Views [facility] Start: 04-15-2025 XR Knee GE 4 Views [facility] Start: 01-30-2025 Evaluation of diagnostic study results 12 Lead EKG performed by B[facility] Start: 02-23-2024 [facility] Start: 02-23-2024 Consultation [facility] Bilirubin measuremen t, urine [facility] Hemoglobin [Presence ] in Urine [facility] Measurement of keton es in urine using dipstick [facility] Microscopic urinalysis [facility] Patient Education [facility] Work Phone: Patient referral [facility] Work Phone: pH of Urine [facility] Radionuclide imaging of perfusion of myocardium under exercise stress [facility] Specific gravity of Urine [facility] Urinalysis, blood, qualitative [facility] Urine dipstick for glucose [facility] Urine dipstick for leukocyte esterase [facility] Urine dipstick for nitrite [facility] Urine dipstick for protein [facility] Urine examination [facility] Urine microscopy: epithelial cells [facility] Urine Microscopy: wh ite cells [facility] Urobilinogen [Presen ce] in Urine [facility] Immunizations Immunization Date Immunization Notes Care Provider Fa sarity 04-15-2025 tetanus toxoid, redu win diphtheria toxoid, and acellular pertussis vaccine, adsorbed No Primary Care Physician [facility] Payers Date Payer Category Payer Self-pay 2020 Medicaid [employer] [place] [employer] [place] [employer] [id number] 2020-Present [phone] [address] [place] [address] Medicaid [id number] 2014 Unknown [id number] 1965 Unknown [id number] Unknown [employer] [id number] Unknown [id number] Unknown [id number] Unknown [id number] Unknown [id number] Unknown [id number] Unknown [id number] Unknown [id number] Unknown [id number] Unknown [id number] Unknown [id number] Social History Date Type Detail Facility Start: 07-31-2022 End: 02-23-2024 Tobacco smoking status NHIS Unknown if ever smoked [facility] Start: 1965 Sex Assigned At Male [facility] Tobacco smoking status [facility] Start: 1965 Sex Assigned At Not on file [facility] Start: 02-23-2024 End: 08-15-2025 Tobacco smoking status NHIS Smokes tobacco daily (finding) [facility] Start: 02-07-2025 Sex Male (finding) [facility] Sex Male [facility] Goals Date Patient Goal Desired Activity /State Functional Status Date Assessment Result Facility 08-16-2025 Functional status Ambulates [facility] Work Phone: 08-01-2022 Functional Status Independent [facility] Mental Status Date Assessment Result Facility 08-16-2025 Cognitive function Voice/Name [facility] Work Phone: 02-23-2024 Cognitive function Level Of Cons ciousness Awake;Alert;Appropriate;Follow s Commands [facility] Work Phone: 08-01-2022 Mental Status Orientation Oriented x 4 [facility] Clinical Notes 08-01-2022 to 08-16-2025 Note Date & Type Note Facility 08-16-2025 Progress note Note Date/Time August 16, 2025 11:23am [facility] Medical Records Department [address] [place] [address] Progress Note - Hospitalist 08/16/25 1048 MR#: [id number] Acct: [id number] Name: RAISA ESTRADA Rep #:[id number] 2 : 1965 60 From: Fredy bejarano MD PCP: Care Physician,No Primary Status :ADM IN Location: [place] [address] Subjective Subjective CIWA score of 1 Objective Data Objective Data Vital Signs: Vital Signs Temp Pulse Resp BP Pulse Ox O2 Del Method 97.6 F L 50 L 17 157/88 H 98 Room Air 08/16/25 07:45 08/16/25 07:45 08/16/25 07:45 08/16/25 07:45 08/16/25 07:45 08/16/25 07:45 Oxygen Delivery Method Room Air Weight: 171 lb 4.787 oz Body Mass Index (BMI) 25.3 Intake & Output: Intake and Output for Last 24 Hours 08/15/25 08/16/25 08/17/25 03:59 03:59 03:59 Intake Total 150 / 150 560 / 560 240 / 240 Balance 150 / 150 560 / 560 240 / 240 Lab / Micro Data 08/15/25 07:01 08/15/25 07:01 Physical Exam Narrative general: Alert, Oriented x3, Cooperative, No apparent distress HEENT: Atraumatic, PERRLA, EOMI, Normocephalic Oral: Moist Mucosa Neck: Supple, No JVD Lungs: Clear to auscultation, Normal air movement, No rhonchi, No wheeze, No rales Cardiovascular: Regular rate, Regular Rhythm, Normal S1, Normal S2, No murmurs Abdomen: Soft, Non Tender, Non-Distended, No Hepato-splenomegaly Extremities: No edema, Capillary Refill Less than 3 Seconds Skin: No rashes, No breakdown Musculoskeletal: No Tenderness to Palpation of Joints or Extremities Neurological: No focal neurological deficits, moves all extremities Psych/Mental Status: Normal Affect, Appropriate Assessment & Plan Assessment/Plan (1) Alcohol dependence with acute intoxication, continuous: (2) Transaminitis: PLAN: Plan 1. Alcohol abuse requesting detox with transaminitis/cannabis use/tobacco abuse ? Elevated LFTs due to alcohol use can follow as an outpatient ? Continue with the alcohol withdrawal protocol ? Will have him follow-up with 180 to develop a discharge plan ? Discussed cessation of cannabis and tobacco 2. Essential HTN/HLD/CAD status post stent ? Continue with his home medications ? Blood pressures stable ? Continue with aspirin DVT: Ambulation Charges/Coding Visit Charges Inpatient E&M: 61737 Subs Hosp L2 08/16/25 1123 <Electronically signed by Fredy Dukes MD> Cosigner Signature (if applicable): CC: ~ Signed [facility] Work Phone: 1(850) 227-899610-16-2025 Progress note [facility] Medical Records Department [address] [place] [address] Progress Note - Hospitalist 08/16/25 1048 MR#: [id number] Acct: [id number] Name: RAISA ESTRADA Rep #:[id number] 2 : 1965 60 From: Fredy bejarano MD PCP: Care Physician,No Primary Status :ADM IN Location: [place] [address] Subjective Subjective CIWA score of 1 Objective Data Objective Data Vital Signs: Vital Signs Temp Pulse Resp BP Pulse Ox O2 Del Method 97.6 F L 50 L 17 157/88 H 98 Room Air 08/16/25 07:45 08/16/25 07:45 08/16/25 07:45 08/16/25 07:45 08/16/25 07:45 08/16/25 07:45 Oxygen Delivery Method Room Air Weight: 171 lb 4.787 oz Body Mass Index (BMI) 25.3 Intake & Output: Intake and Output for Last 24 Hours 08/15/25 08/16/25 08/17/25 03:59 03:59 03:59 Intake Total 150 / 150 560 / 560 240 / 240 Balance 150 / 150 560 / 560 240 / 240 Lab / Micro Data 08/15/25 07:01 08/15/25 07:01 Physical Exam Narrative general: Alert, Oriented x3, Cooperative, No apparent distress HEENT: Atraumatic, PERRLA, EOMI, Normocephalic Oral: Moist Mucosa Neck: Supple, No JVD Lungs: Clear to auscultation, Normal air movement, No rhonchi, No wheeze, No rales Cardiovascular: Regular rate, Regular Rhythm, Normal S1, Normal S2, No murmurs Abdomen: Soft, Non Tender, Non-Distended, No Hepato-splenomegaly Extremities: No edema, Capillary Refill Less than 3 Seconds Skin: No rashes, No breakdown Musculoskeletal: No Tenderness to Palpation of Joints or Extremities Neurological: No focal neurological deficits, moves all extremities Psych/Mental Status: Normal Affect, Appropriate Assessment & Plan Assessment/Plan (1) Alcohol dependence with acute intoxication, continuous: (2) Transaminitis: PLAN: Plan 1. Alcohol abuse requesting detox with transaminitis/cannabis use/tobacco abuse ? Elevated LFTs due to alcohol use can follow as an outpatient ? Continue with the alcohol withdrawal protocol ? Will have him follow-up with 180 to develop a discharge plan ? Discussed cessation of cannabis and tobacco 2. Essential HTN/HLD/CAD status post stent ? Continue with his home medications ? Blood pressures stable ? Continue with aspirin DVT: Ambulation Charges/Coding Visit Charges Inpatient E&M: 24817 Subs Hosp L2 08/16/25 1123 Cosigner Signature (if applicable): CC: ~ Signed [facility]10-15-2025 Progress note Author Fredy Dukes [facility] Note Date/Time August 15, 2025 9 :45am [facility] Medical Records Department [address] [place] [address] Progress Note - Hospitalist 08/15/25 0942 MR#: [id number] Acct: [id number] Name: RAISA ESTRADA Rep #:[id number] 8 : 1965 60 From: Fredy bejarano MD PCP: Care Physician,No Primary Status :ADM IN Location: [place] [address] Subjective Subjective CIWA score of 2 Objective Data Objective Data Vital Signs: Vital Signs Temp Pulse Resp BP Pulse Ox O2 Del Method 98 F 54 L 16 140/89 H 98 Room Air 08/15/25 08:25 08/15/25 08:25 08/15/25 08:25 08/15/25 08:25 08/15/25 08:25 08/15/25 08:42 Oxygen Delivery Method Room Air Weight: 172 lb 6.424 oz Body Mass Index (BMI) 25.5 Intake & Output: Intake and Output for Last 24 Hours 08/14/25 08/15/25 08/16/25 03:59 03:59 03:59 Intake Total 150 / 150 200 / 200 Balance 150 / 150 200 / 200 Lab / Micro Data 08/15/25 07:01 08/15/25 07:01 Labs: Laboratory Results - last 24 hr 08/14/25 16:18: WBC 11.8 H, RBC 4.80, Hgb 15.7, Hct 43.9, MCV 91.5, MCH 32.7 H, MCHC 35.8, RDW Std Deviation 43.1, RDW Coeff of Saul 12.8, Plt Count 218, MPV 9.6, Immature Gran % (Auto) 0.400, Neut % (Auto) 44.8 L, Lymph % (Auto) 43.6 H, [place] % (Auto) 9.4, Eos % (Auto) 1.0, Baso % (Auto) 0.8, Absolute Neuts (auto) 5.3, Absolute Lymphs (auto) 5.14 H, Nucleated RBC % 0, Differential Comment SCANNED, Platelet Estimate ADEQUATE, PT 15.9 H, INR 1.3, Sodium 133, Potassium 3.8, Chloride 96 L, Carbon Dioxide 21.0, Anion Gap 16 H, BUN 5, Creatinine 0.75,Estim Creat Clear Calc 102.12, Est GFR (MDRD) Non-Af 102, BUN/Creatinine Ratio 7.0 L, Glucose 99, Calcium 8.9, Total Bilirubin 0.57, AST 80 H, ALT 54 H, Alkaline Phosphatase 88, Total Protein 7.8, Albumin 4.3, Globulin 3.4, Albumin/Globulin Ratio 1.3, Urine Opiates Screen NEGATIVE, U Buprenorphine Qual NEGATIVE, Ur Oxycodone Screen NEGATIVE, Urine Methadone Screen NEGATIVE, Urine Fentanyl Screen NEGATIVE, Ur Barbiturates Screen NEGATIVE, Ur Phencyclidine ScrnNEGATIVE, Ur Amphetamines Screen NEGATIVE, U Benzodiazepines Scrn NEGATIVE, Urine Cocaine Screen NEGATIVE, U Cannabinoids Screen PRESUMPTIVE POSITIVE, EthylAlcohol 248.0 H 08/15/25 07:01: WBC 7.1, RBC 4.91, Hgb 15.6, Hct 45.4, MCV 92.5, MCH 31.8, MCHC 34.4, RDW Std Deviation 44.0 H, RDW Coeff of Saul 12.9, Plt Count 188, MPV 10.0, Immature Gran % (Auto) 0.400, Neut % (Auto) 47.3, Lymph % (Auto) 37.5, [place] % (Auto) 11.4 H, Eos % (Auto) 2.0, Baso % (Auto) 1.4 H, Absolute Neuts (auto) 3.4,Absolute Lymphs (auto) 2.66, Nucleated RBC % 0, Sodium 136, Potassium 4.3, Chloride 102, Carbon Dioxide 25.2, Anion Gap 10, BUN 7, Creatinine 0.80, Estim Creat Clear Calc 95.74, Est GFR (MDRD) Non-Af 100, BUN/Creatinine Ratio 8.6 L, Glucose 109 H, Calcium 9.1, Phosphorus 3.4, Magnesium 2.0, Total Bilirubin 0.82, AST 81 H, ALT 50 H, Alkaline Phosphatase 78, Total Protein 7.3, Albumin 4.0, Globulin 3.3, Albumin/Globulin Ratio 1.2 Physical Exam Narrative general: Alert, Oriented x3, Cooperative, No apparent distress HEENT: Atraumatic, PERRLA, EOMI, Normocephalic Oral: Moist Mucosa Neck: Supple, No JVD Lungs: Clear to auscultation, Normal air movement, No rhonchi, No wheeze, No rales Cardiovascular: Regular rate, Regular Rhythm, Normal S1, Normal S2, No murmurs Abdomen: Soft, Non Tender, Non-Distended, No Hepato-splenomegaly Extremities: No edema, Capillary Refill Less than 3 Seconds Skin: No rashes, No breakdown Musculoskeletal: No Tenderness to Palpation of Joints or Extremities Neurological: No focal neurological deficits, moves all extremities Psych/Mental Status: Normal Affect, Appropriate Assessment & Plan Assessment/Plan (1) Alcohol dependence with acute intoxication, continuous: (2) Transaminitis: PLAN: Plan 1. Alcohol abuse requesting detox with transaminitis/cannabis use/tobacco abuse ? Elevated LFTs due to alcohol use can follow as an outpatient ? Continue with the alcohol withdrawal protocol ? Will have him follow-up with 180 to develop a discharge plan ? Discussed cessation of cannabis and tobacco 2. Essential HTN/HLD/CAD status post stent ? Continue with his home medications ? Blood pressures stable ? She was started on aspirin on this admission, stent was placed in 2010 DVT: Ambulation Charges/Coding Visit Charges Inpatient E&M: 63376 Subs Hosp L2 08/15/25 0945 <Electronically signed by Fredy Dukes MD> Cosigner Signature (if applicable): CC: ~ Signed [facility] Work Phone: 1(759) 710-493310-15-2025 Progress note [facility] Medical Records Department [address] [place] [address] Progress Note - Hospitalist 08/15/25 09 MR#: [id number] Acct: [id number] Name: RAISA ESTRADA Rep #:[id number] : 1965 60 From: Fredy bejarano MD PCP: Care Physician,No Primary Status :ADM IN Location: [place] [address] Subjective Subjective CIWA score of 2 Objective Data Objective Data Vital Signs: Vital Signs Temp Pulse Resp BP Pulse Ox O2 Del Method 98 F 54 L 16 140/89 H 98 Room Air 08/15/25 08:25 08/15/25 08:25 08/15/25 08:25 08/15/25 08:25 08/15/25 08:25 08/15/25 08:42 Oxygen Delivery Method Room Air Weight: 172 lb 6.424 oz Body Mass Index (BMI) 25.5 Intake & Output: Intake and Output for Last 24 Hours 08/14/25 08/15/25 08/16/25 03:59 03:59 03:59 Intake Total 150 / 150 200 / 200 Balance 150 / 150 200 / 200 Lab / Micro Data 08/15/25 07:01 08/15/25 07:01 Labs: Laboratory Results - last 24 hr 08/14/25 16:18: WBC 11.8 H, RBC 4.80, Hgb 15.7, Hct 43.9, MCV 91.5, MCH 32.7 H, MCHC 35.8, RDW Std Deviation 43.1, RDW Coeff of Saul 12.8, Plt Count 218, MPV 9.6, Immature Gran % (Auto) 0.400, Neut % (Auto) 44.8 L, Lymph % (Auto) 43.6 H, [place] % (Auto) 9.4, Eos % (Auto) 1.0, Baso % (Auto) 0.8, Absolute Neuts (auto) 5.3, Absolute Lymphs (auto) 5.14 H, Nucleated RBC % 0, Differential Comment SCANNED,Platelet Estimate ADEQUATE, PT 15.9 H, INR 1.3, Sodium 133, Potassium 3.8, Chloride 96 L, Carbon Dioxide 21.0, Anion Gap 16 H, BUN 5, Creatinine 0.75,Estim Creat Clear Calc 102.12, Est GFR (MDRD) Non-Af 102, BUN/Creatinine Ratio 7.0 L, Glucose 99, Calcium 8.9, Total Bilirubin 0.57, AST 80 H, ALT 54H, Alkaline Phosphatase 88, Total Protein 7.8, Albumin 4.3, Globulin 3.4, Albumin/Globulin Ratio 1.3, Urine Opiates Screen NEGATIVE, U Buprenorphine Qual NEGATIVE, Ur Oxycodone Screen NEGATIVE, UrineMethadone Screen NEGATIVE, Urine Fentanyl Screen NEGATIVE, Ur Barbiturates Screen NEGATIVE, Ur Phencyclidine ScrnNEGATIVE, Ur Amphetamines Screen NEGATIVE, U Benzodiazepines Scrn NEGATIVE, Urine Cocaine Screen NEGATIVE, U Cannabinoids Screen PRESUMPTIVE POSITIVE, EthylAlcohol 248.0 H 08/15/25 07:01: WBC 7.1, RBC 4.91, Hgb 15.6, Hct 45.4, MCV 92.5, MCH 31.8, MCHC 34.4, RDW Std Deviation 44.0 H, RDW Coeff of Saul 12.9, Plt Count 188, MPV 10.0, Immature Gran % (Auto) 0.400, Neut % (Auto) 47.3, Lymph % (Auto) 37.5, [place] % (Auto) 11.4 H, Eos % (Auto) 2.0, Baso % (Auto) 1.4 H, Absolute Neuts (auto) 3.4,Absolute Lymphs (auto) 2.66, Nucleated RBC % 0, Sodium 136, Potassium 4.3, Chloride 102, Carbon Dioxide 25.2, Anion Gap 10, BUN 7, Creatinine 0.80, Estim Creat Clear Calc 95.74, EstGFR (MDRD) Non-Af 100, BUN/Creatinine Ratio 8.6 L, Glucose 109 H, Calcium 9.1, Phosphorus 3.4, Magnesium 2.0, Total Bilirubin 0.82, AST 81 H, ALT 50 H, Alkaline Phosphatase 78, Total Protein 7.3, Albumin 4.0, Globulin 3.3, Albumin/Globulin Ratio 1.2 Physical Exam Narrative general: Alert, Oriented x3, Cooperative, No apparent distress HEENT: Atraumatic, PERRLA, EOMI, Normocephalic Oral: Moist Mucosa Neck: Supple, No JVD Lungs: Clear to auscultation, Normal air movement, No rhonchi, No wheeze, No rales Cardiovascular: Regular rate, Regular Rhythm, Normal S1, Normal S2, No murmurs Abdomen: Soft, Non Tender, Non-Distended, No Hepato-splenomegaly Extremities: No edema, Capillary Refill Less than 3 Seconds Skin: No rashes, No breakdown Musculoskeletal: No Tenderness to Palpation of Joints or Extremities Neurological: No focal neurological deficits, moves all extremities Psych/Mental Status: Normal Affect, Appropriate Assessment & Plan Assessment/Plan (1) Alcohol dependence with acute intoxication, continuous: (2) Transaminitis: PLAN: Plan 1. Alcohol abuse requesting detox with transaminitis/cannabis use/tobacco abuse ? Elevated LFTs due to alcohol use can follow as an outpatient ? Continue with the alcohol withdrawal protocol ? Will have him follow-up with 180 to develop a discharge plan ? Discussed cessation of cannabis and tobacco 2. Essential HTN/HLD/CAD status post stent ? Continue with his home medications ? Blood pressures stable ? She was started on aspirin on this admission, stent was placed in 2010 DVT: Ambulation Charges/Coding Visit Charges Inpatient E&M: 88629 Subs Hosp L2 08/15/25 0945 Cosigner Signature (if applicable): CC: ~ Signed [facility]10-14-2025 History and physical note Author Belinda Hensley [facility] Note Date/Time August 14, 2025 9 :09pm [facility] Medical Records Department [address] [place] [address] H&P Exam - Hospitalist 08/14/25 1822 MR#: [id number] Acct: [id number] Name: RAISA ESTRADA Rep #:[id number] : 1965 60 From: Belinda Hensley DO PCP: Care Physician,No Primary Status :ADM [place] [facility] [place] HPI - General General Date of Admission: 08/14/25 Date of Service: 08/14/25 Chief Complaint: Alcohol detox HPI Narrative RAISA ESTRADA, is a 60 M who presented to the emergency department on 08/14/2025 requesting detox from alcohol. Patient states has been a longtime drinker but over the past couple years he has been drinking pretty excessively at least a 12pack of beer daily. He states he has tremors in the morning and drinks to take care of his tremors. He is currently unemployed. He states he had STEMI x 2 previously and is on disability for this. He does smoke but declines nicotine patch. He also smokes a considerable amount of marijuana. He has never been through alcohol detox before. Complains of some mild tremors at this time. Hislast drink was just before arrival. Vital signs on presentation Vital signs on presentation showed temperature of 97.9, heart rate 80, blood pressure 130/103, respiratory rate 18 and pulse ox was 98% room air. CBC showeda mild leukocytosis with a white count of 11.8 but was otherwise unremarkable. He does have a mild lymphocytosis. Coags were essentially unremarkable. Chemistry panel was essentially unremarkable. LFTs were mildly elevated with anAST of 80 and a ALT of 54 bilirubin was normal. Toxicology screen was positive for cannabinoids and his alcohol level was 248. He will be admitted for expected greater than 2 midnights for alcohol detox. Inthe emergency department he was given IV fluids and phenobarb. [facility] Medical History History of ST elevation myocardial infarction (STEMI) (05/11/11) Anxiety and depression Atherosclerotic heart disease of [place] coronary artery without angina pectoris Essential hypertension Hyperlipidemia COPD (chronic obstructive pulmonary disease) Tobacco abuse Home Medications ?Medication ?Instructions ?Recorded ?Last Taken ?Type NK 08/14/25 Unknown History Allergy/AdvReac Type Severity Reaction Status Date / Time No Known Allergies Allergy Verified 08/14/25 16:09 Family History Other Heart disease Hypertension Surgical History History of appendectomy History of coronary artery stent placement (05/11/11) Social History (Updated 08/14/25 @ 21:[address] Belinda Hensley DO) household members: significant other Smoking Status: Current every day smoker tobacco type: cigarettes alcohol intake: current alcohol intake frequency: 3 or more drinks per day Alcohol type: beer substance use type: marijuana ROS Constitutional Constitutional: Denies anorexia, change in weight, chills, fatigue, fever(s), malaise, night sweats, weakness or other Eyes Eyes: Denies blurry vision, change in eye color, change in vision, discharge from eye(s), double vision, erythema, eye pain, loss of vision or other ENT HEENT: Denies abnormal hearing, dysphagia, ear pain, epistaxis, headache(s), hearing loss, nasal congestion, nasal discharge, post nasal drip, sinus pressure, sore throat or other Cardiovascular Cardiovascular: Denies chest pain, claudication, dyspnea on exertion, edema, lightheadedness, orthopnea, palpitations, paroxysmal nocturnal dyspnea, rapid heart rate, syncope or other Respiratory/Chest Respiratory/Chest: Denies cough, dyspnea, excessive phlegm production, hemoptysis, productive cough, shortness of breath at rest, shortness of breath with exertion, wheezing or other Gastrointestinal Gastrointestinal: Denies abdominal pain, coffee ground emesis, constipation, diarrhea, dyspepsia, hematemesis, hematochezia, loose stools, melena, nausea, vomiting or other Genitourinary Genitourinary: Denies burning urination, difficulty urinating, dysuria, hematuria, nocturia, urinary frequency, urinary hesitancy, urinary incontinence,urinary urgency or other Musculoskeletal Musculoskeletal: Denies arthralgias, back pain, joint pain, joint stiffness, joint swelling, myalgias, neck pain or other Neurologic Neurologic: Reports tremor(s); Denies abnormal gait, abnormal speech, confusion,disequilibrium, dizziness, focal weakness, headache(s), numbness, paresthesias, seizure-like activity, seizures, syncope, tingling or other Psychiatric Psychiatric: Denies anxiety, depression, homicidal ideation, suicidal ideation or other Endocrine Endocrinology: Denies change in body appearance, cold intolerance, excessive sweating, heat intolerance, polydipsia, polyuria or other Hematologic/Lymphatic Hematologic/Lymphatic: Denies anemia, easy bleeding, easy bruising, lymphadenopathy or other Allergic/Immunologic Allergic/Immunologic: Denies rhinitis, hives, eczemia, asthma or other Vital Signs Vital Signs Vital Signs: 08/14/25 16:07 08/14/25 16:44 08/14/25 17:07 Temperature 97.9 F 97.9 F Temperature Source Oral Temporal Pulse Rate 80 80 63 Respiratory Rate 18 18 15 Blood Pressure 130/103 H 130/103 H 103/64 Blood Pressure Mean 112 112 77 Blood Pressure Source Monitor Blood Pressure Position Semi-Fowlers Blood Pressure Location Right Arm Pulse Ox 98 98 97 Oxygen Delivery Method Room Air Room Air Room Air Weight Weight: 82.962 kg Body Mass Index (BMI) 27.0 Physical Exam Const alert, oriented x3, no apparent distress, average body habitus and well nourished; Negative for healthy appearing Constitutional Narrative: Upper middle-aged, white male, sitting up in bed, appears older than stated age,appears comfortable currently nontoxic General Appearance: cooperative HEENT normocephalic, head/scalp atraumatic, hearing grossly normal bilaterally and moist oral mucous membranes HEENT Narrative: Edentulous, Mallampati is 2, no thrush Resp normal respiratory effort, no retractions, no use of accessory muscles and clearto auscultation bilaterally Resp Narrative: Diminished but clear Auscultation: Negative for crackles, rhonchi or wheezes Cardio regular rate, regular rhythm, S1 normal heart sound, S2 normal heart sound, no murmurs, no rub, no gallops and no clicks GI normal to inspection, nondistended, normoactive bowel sounds, soft to palpation and non-tender Extremity no clubbing, cyanosis or edema Extremity Narrative: Pedal pulses are 1+, radial pulses are 2+ Neuro moves all extremities and no focal motor deficits Neuro Narrative: Mild fine tremor Speech: speech normal Psych Psych Narrative: Affect is flat the patient interacts appropriately Results Lab / Micro Data 08/14/25 16:18 08/14/25 16:18 Labs: Laboratory Results - last 24 hr 08/14/25 16:18: WBC 11.8 H, RBC 4.80, Hgb 15.7, Hct 43.9, MCV 91.5, MCH 32.7 H, MCHC 35.8, RDW Std Deviation 43.1, RDW Coeff of Saul 12.8, Plt Count 218, MPV 9.6, Immature Gran % (Auto) 0.400, Neut % (Auto) 44.8 L, Lymph % (Auto) 43.6 H, [place] % (Auto) 9.4, Eos % (Auto) 1.0, Baso % (Auto) 0.8, Absolute Neuts (auto) 5.3, Absolute Lymphs (auto) 5.14 H, Nucleated RBC % 0, Differential Comment SCANNED, Platelet Estimate ADEQUATE, PT 15.9 H, INR 1.3, Sodium 133, Potassium 3.8, Chloride 96 L, Carbon Dioxide 21.0, Anion Gap 16 H, BUN 5, Creatinine 0.75,Estim Creat Clear Calc 102.12, Est GFR (MDRD) Non-Af 102, BUN/Creatinine Ratio 7.0 L, Glucose 99, Calcium 8.9, Total Bilirubin 0.57, AST 80 H, ALT 54 H, Alkaline Phosphatase 88, Total Protein 7.8, Albumin 4.3, Globulin 3.4, Albumin/Globulin Ratio 1.3, Urine Opiates Screen NEGATIVE, U Buprenorphine Qual NEGATIVE, Ur Oxycodone Screen NEGATIVE, Urine Methadone Screen NEGATIVE, Urine Fentanyl Screen NEGATIVE, Ur Barbiturates Screen NEGATIVE, Ur Phencyclidine ScrnNEGATIVE, Ur Amphetamines Screen NEGATIVE, U Benzodiazepines Scrn NEGATIVE, Urine Cocaine Screen NEGATIVE, U Cannabinoids Screen PRESUMPTIVE POSITIVE, EthylAlcohol 248.0 H Assessment & Plan Assessment/Plan (1) Cannabis use, uncomplicated: (2) Alcohol dependence with acute intoxication, continuous: (3) Admitted to alcohol detoxification center: (4) Transaminitis: (5) Intoxication: PLAN: Plan Alcohol abuse with acute intoxication requesting detox - Last drink was just prior to arrival - Drinks about a 12 pack of beer daily - Start phenobarbital taper - Thiamine and folate - Supportive medication for assistance with managing withdrawal symptoms - Case management consultation for assistance with discharge planning - 180 consultation for assistance with discharge planning Transaminitis - Consistent with alcohol abuse - Mild - Should trend down with cessation - No need for consistent follow-up Cannabis abuse - Recommend cessation CAD/HPL/essential hypertension - Patient is noncompliant with home medication regiment - Will start aspirin 81 mg daily - Recently saw [facility] and continue to recommend ongoing outpatient follow-up - No acute issues at this time - Monitor blood pressure Tobacco abuse - Recommend cessation - Patch offered and patient declined DVT prophylaxis - Low risk - Encouraged frequent and early ambulation CODE STATUS - Full code Charges/Coding Visit Charges Inpatient E&M: 80618 Init Hosp L2 08/14/252108 <Electronically signed by Belinda Hensley DO> Cosigner Signature (if applicable): CC: Dr. Belinda Hensley DO; No Primary Care Physician~ Signed [facility] Work Phone: [phone]) 816-440310-14-2025 History and physical note [facility] Medical Records Department [address] [place] [address] H&P Exam - Hospitalist 08/14/25 1822 MR#: [id number] Acct: [id number] Name: RAISA ESTRADA Rep #:[id number] : 1965 60 From: Belinda Hensley DO PCP: Care Physician,No Primary Status :ADM [place] [facility] [id number] HPI - General General Date of Admission: 08/14/25 Date of Service: 08/14/25 Chief Complaint: Alcohol detox HPI Narrative RAISA ESTRADA, is a 60 M who presented to the emergency department on 08/14/2025 requesting detox from alcohol. Patient states has been a longtime drinker but over the past couple years he has been drinking pretty excessively at least a 12pack of beer daily. He states he has tremors in the morning and drinks to take care of his tremors. He is currently unemployed. He states he had STEMI x 2 previously and is on disability for this. He does smoke but declines nicotine patch. He also smokes a considerable amount of marijuana. He has never been through alcohol detox before. Complains of some mild tremors at this time. Hislast drink was just before arrival. Vital signs on presentation Vital signs on presentation showed temperature of 97.9, heart rate 80, blood pressure 130/103, respiratory rate 18 and pulse ox was 98% room air. CBC showeda mild leukocytosis with a white count of 11.8 but was otherwise unremarkable. He does have a mild lymphocytosis. Coags were essentially unremarkable. Chemistry panel was essentially unremarkable. LFTs were mildly elevated with anAST of 80 cornelius ALT of 54 bilirubin was normal. Toxicology screen was positive for cannabinoids and his alcohol level was 248. He will be admitted for expected greater than 2 midnights for alcohol detox. Inthe emergency department he was given IV fluids and phenobarb. [facility] Medical History History of ST elevation myocardial infarction (STEMI) (05/11/11) Anxiety and depression Atherosclerotic heart disease of [place] coronary artery without angina pectoris Essential hypertension Hyperlipidemia COPD (chronic obstructive pulmonary disease) Tobacco abuse Home Medications ?Medication ?Instructions ?Recorded ?Last Taken ?Type NK 08/14/25 Unknown History Allergy/AdvReac Type Severity Reaction Status Date / Time No Known Allergies Allergy Verified 08/14/25 16:09 Family History Other Heart disease Hypertension Surgical History History of appendectomy History of coronary artery stent placement (05/11/11) Social History (Updated 08/14/25 @ 21:[address] Belinda Hensley DO) household members: significant other Smoking Status: Current every day smoker tobacco type: cigarettes alcohol intake: current alcohol intake frequency: 3 or more drinks per day Alcohol type: beer substance use type: marijuana ROS Constitutional Constitutional: Denies anorexia, change in weight, chills, fatigue, fever(s), malaise, night sweats, weakness or other Eyes Eyes: Denies blurry vision, change in eye color, change in vision, discharge from eye(s), double vision, erythema, eye pain, loss of vision or other ENT HEENT: Denies abnormal hearing, dysphagia, ear pain, epistaxis, headache(s), hearing loss, nasal congestion, nasal discharge, post nasal drip, sinus pressure, sore throat or other Cardiovascular Cardiovascular: Denies chest pain, claudication, dyspnea on exertion, edema, lightheadedness, orthopnea, palpitations, paroxysmal nocturnal dyspnea, rapid heart rate, syncope or other Respiratory/Chest Respiratory/Chest: Denies cough, dyspnea, excessive phlegm production, hemoptysis, productive cough, shortness of breath at rest, shortness of breath with exertion, wheezing or other Gastrointestinal Gastrointestinal: Denies abdominal pain, coffee ground emesis, constipation, diarrhea, dyspepsia, hematemesis, hematochezia, loose stools, melena, nausea, vomiting or other Genitourinary Genitourinary: Denies burning urination, difficulty urinating, dysuria, hematuria, nocturia, urinary frequency, urinary hesitancy, urinary incontinence,urinary urgency or other Musculoskeletal Musculoskeletal: Denies arthralgias, back pain, joint pain, joint stiffness, joint swelling, myalgias, neck pain or other Neurologic Neurologic: Reports tremor(s); Denies abnormal gait, abnormal speech, confusion,disequilibrium, dizziness, focal weakness, headache(s), numbness, paresthesias, seizure-like activity, seizures, syncope, tingling or other Psychiatric Psychiatric: Denies anxiety, depression, homicidal ideation, suicidal ideation or other Endocrine Endocrinology: Denies change in body appearance, cold intolerance, excessive sweating, heat intolerance, polydipsia, polyuria or other Hematologic/Lymphatic Hematologic/Lymphatic: Denies anemia, easy bleeding, easy bruising, lymphadenopathy or other Allergic/Immunologic Allergic/Immunologic: Denies rhinitis, hives, eczemia, asthma or other Vital Signs Vital Signs Vital Signs: 08/14/25 16:07 08/14/25 16:44 08/14/25 17:07 Temperature 97.9 F 97.9 F Temperature Source Oral Temporal Pulse Rate 80 80 63 Respiratory Rate 18 18 15 Blood Pressure 130/103 H 130/103 H 103/64 Blood Pressure Mean 112 112 77 Blood Pressure Source Monitor Blood Pressure Position Semi-Fowlers Blood Pressure Location Right Arm Pulse Ox 98 98 97 Oxygen Delivery Method Room Air Room Air Room Air Weight Weight: 82.962 kg Body Mass Index (BMI) 27.0 Physical Exam Const alert, oriented x3, no apparent distress, average body habitus and well nourished; Negative for healthy appearing Constitutional Narrative: Upper middle-aged, white male, sitting up in bed, appears older than stated age,appears comfortablecurrently nontoxic General Appearance: cooperative HEENT normocephalic, head/scalp atraumatic, hearing grossly normal bilaterally and moist oral mucous membranes HEENT Narrative: Edentulous, Mallampati is 2, no thrush Resp normal respiratory effort, no retractions, no use of accessory muscles and clearto auscultation bilaterally Resp Narrative: Diminished but clear Auscultation: Negative for crackles, rhonchi or wheezes Cardio regular rate, regular rhythm, S1 normal heart sound, S2 normal heart sound, no murmurs, no rub, no gallops and no clicks GI normal to inspection, nondistended, normoactive bowel sounds, soft to palpation and non-tender Extremity no clubbing, cyanosis or edema Extremity Narrative: Pedal pulses are 1+, radial pulses are 2+ Neuro moves all extremities and no focal motor deficits Neuro Narrative: Mild fine tremor Speech: speech normal Psych Psych Narrative: Affect is flat the patient interacts appropriately Results Lab / Micro Data 08/14/25 16:18 08/14/25 16:18 Labs: Laboratory Results - last 24 hr 08/14/25 16:18: WBC 11.8 H, RBC 4.80, Hgb 15.7, Hct 43.9, MCV 91.5, MCH 32.7 H, MCHC 35.8, RDW Std Deviation 43.1, RDW Coeff of Saul 12.8, Plt Count 218, MPV 9.6, Immature Gran % (Auto) 0.400, Neut % (Auto) 44.8 L, Lymph % (Auto) 43.6 H, Chugach % (Auto) 9.4, Eos % (Auto) 1.0, Baso % (Auto) 0.8, Absolute Neuts (auto) 5.3, Absolute Lymphs (auto) 5.14 H, Nucleated RBC % 0, Differential Comment SCANNED,Platelet Estimate ADEQUATE, PT 15.9 H, INR 1.3, Sodium 133, Potassium 3.8, Chloride 96 L, Carbon Dioxide 21.0, Anion Gap 16 H, BUN 5, Creatinine 0.75,Estim Creat Clear Calc 102.12, Est GFR (MDRD) Non-Af 102, BUN/Creatinine Ratio 7.0 L, Glucose 99, Calcium 8.9, Total Bilirubin 0.57, AST 80 H, ALT 54H, Alkaline Phosphatase 88, Total Protein 7.8, Albumin 4.3, Globulin 3.4, Albumin/Globulin Ratio 1.3, Urine Opiates Screen NEGATIVE, U Buprenorphine Qual NEGATIVE, Ur Oxycodone Screen NEGATIVE, UrineMethadone Screen NEGATIVE, Urine Fentanyl Screen NEGATIVE, Ur Barbiturates Screen NEGATIVE, Ur Phencyclidine ScrnNEGATIVE, Ur Amphetamines Screen NEGATIVE, U Benzodiazepines Scrn NEGATIVE, Urine Cocaine Screen NEGATIVE, U Cannabinoids Screen PRESUMPTIVE POSITIVE, EthylAlcohol 248.0 H Assessment & Plan Assessment/Plan (1) Cannabis use, uncomplicated: (2) Alcohol dependence with acute intoxication, continuous: (3) Admitted to alcohol detoxification center: (4) Transaminitis: (5) Intoxication: PLAN: Plan Alcohol abuse with acute intoxication requesting detox - Last drink was just prior to arrival - Drinks about a 12 pack of beer daily - Start phenobarbital taper - Thiamine and folate - Supportive medication for assistance with managing withdrawal symptoms - Case management consultation for assistance with discharge planning - 180 consultation for assistance with discharge planning Transaminitis - Consistent with alcohol abuse - Mild - Should trend down with cessation - No need for consistent follow-up Cannabis abuse - Recommend cessation CAD/HPL/essential hypertension - Patient is noncompliant with home medication regiment - Will start aspirin 81 mg daily - Recently saw [facility] and continue to recommend ongoing outpatient follow-up - No acute issues at this time - Monitor blood pressure Tobacco abuse - Recommend cessation - Patch offered and patient declined DVT prophylaxis - Low risk - Encouraged frequent and early ambulation CODE STATUS - Full code Charges/Coding Visit Charges Inpatient E&M: 19969 Init Hosp L2 08/14/252108 Cosigner Signature (if applicable): CC: Dr. Belinda Hensley, DO; No Primary Care Physician~ Signed [facility]10-14-2025 Evaluation note* Diagnosis Onset Date Resolution Status Admit Date Admitted to alcohol detoxification center acute August 142024 6:24pm Alcohol dependence with acut e intoxication, continuous acute August 14, 2025 6:24pm Cannabis use, uncomplicated acute August 14, 2025 6:24pm Intoxication acute August 6:24pm Transaminitis acute August 6:24pm [facility] Work Phone: 1(643) 505-550310-14-2025 Discharge summary Author Shaquille Yung [facility] Note Date/Time August 14, 2025 5 :27pm [facility] Medical Records Department [address] [place] [address] Emergency Department Summary 08/14/25 MR#: [id number] Acct: [id number] Name: RAISA ESTRADA Rep #:[id number] 6 : 1965 60 From: Shaquille Yung MD PCP: Care Physician,No Primary Status :REG ER Location: ED HPI History of Present Illness Chief Complaint: ETOH Intox Informant: patient Narrative Narrative: Patient is a 60-year-old male with a history of CAD and polysubstance use presenting for assistance with alcohol detoxification. - Reports daily alcohol consumption, starting at 4587-1865 each morning; typically consumes a 6-pack of Budweiser Ice - Last consumed alcohol today prior to arrival. - Experiences tremors in the mornings. - Denies use of liquor, methamphetamines, cocaine, or crack. - Reports feeling weak and fatigued. Typically feels shaky in the mornings. - Denies hematemesis, melena, or hemorrhoids. - Has not been taking cardiac medications for several years due to homelessness and difficulty managing multiple prescriptions. - Has 4 coronary stents placed by Dr. Grigsby in [place], [place]; denies history of CABG. - Denies chest pain or dyspnea. [facility] Medical History History of ST elevation myocardial infarction (STEMI) (05/11/11) Anxiety and depression Atherosclerotic heart disease of [place] coronary artery without angina pectoris Essential hypertension Hyperlipidemia COPD (chronic obstructive pulmonary disease) Tobacco abuse Home Medications ?Medication ?Instructions ?Recorded ?Last Taken ?Type NK 08/14/25 Unknown History Allergy/AdvReac Type Severity Reaction Status Date / Time No Known Allergies Allergy Verified 08/14/25 16:09 Family History Other Heart disease Hypertension Surgical History History of appendectomy History of coronary artery stent placement (05/11/11) Social History household members: significant other Smoking Status: Current every day smoker tobacco type: cigarettes alcohol intake: current substance use type: does not use ROS ROS ED Constitutional Constitutional ED: Denies chills or fever(s) Eyes Eyes: Denies change in vision or diplopia ENT ENT ED: Denies rhinorrhea or sore throat Cardiovascular Cardiovascular: Denies chest pain or palpitations Respiratory/Chest Respiratory/Chest: Denies cough or dyspnea Gastrointestinal Gastrointestinal: Denies abdominal pain, diarrhea, nausea or vomiting Genitourinary Genitourinary ED: Denies dysuria or hematuria Musculoskeletal Musculoskeletal: Denies back pain or neck pain Integumentary Denies abscess or rash Neurologic Neurologic: Denies headache(s), paresthesias or weakness Psychiatric Psychiatric: Reports anxiety; Denies suicidal thoughts EXAM Physical Exam Const Vital Signs: 08/14/25 16:07 08/14/25 16:44 Temperature 97.9 F 97.9 F Temperature Source Oral Temporal Pulse Rate 80 80 Respiratory Rate 18 18 Blood Pressure 130/103 H 130/103 H Blood Pressure Mean 112 112 Blood Pressure Source Monitor Blood Pressure Position Semi-Fowlers Blood Pressure Location Right Arm Pulse Ox 98 98 Oxygen Delivery Method Room Air Room Air Positive well nourished and well developed Constitutional Narrative: Pleasantly intoxicated. Ambulatory. General Appearance ED: well developed and NAD HEENT Reports moist mucous membranes normocephalic and atraumatic Eyes PERRL and EOMs intact bilaterally Neck full ROM and supple Resp normal respiratory effort and clear to auscultation bilaterally Cardio regular rate, regular rhythm and no murmurs GI non-tender and non-distended Auscultation: normoactive bowel sounds Palpation: soft Back/Spine no CVA tenderness General Back: other FROM Extremity normal to inspection General Extremety ED: Negative for edema, pulses abnormal or tenderness General Extremity: Negative for edema or pulses abnormal Neuro oriented x3, CN's II-XII intact bilaterally and no sensory deficits noted Sensorium / Orientation: awake and alert Motor Exam: strength 5/5 throughout Skin no rashes or lesions noted and no wounds MDM MDM MDM Narrative Medical decision making narrative: Assessment: The patient is a 60-year-old male with PMH of coronary artery disease status post four stents presenting for assistance with alcohol cessation/detox. He reports daily beer consumption beginning early each morning with morning shakes and intense cravings, last drink shortly before arrival; denies chest pain, GI bleeding, or other acute complaints. Labs show mild AST/ALT elevation consistent with chronic alcohol use, normal PT/INR, ethanol level 248, urine drug screen positive only for THC. Vital signs are stable and he appears anxious but clinically sober enough for interview. Given the clinicalpicture and lab results, uncomplicated alcohol dependence with acute intoxication is the primary diagnosis; no evidence of withdrawal complications or acute cardiac issues. He states he dumped all of his medications in a dumpster due to being homeless couple years ago, and is interested in getting back on his medications so that he does not have any further heart issues. Gavehim an aspirin here today while he was waiting for admission as well. Plan: - Administered phenobarbital for cravings/anxiolysis in ED - Accepted for inpatient medical detox under hospitalist service - Discussed risks/benefits and patient agrees to admission for supervised withdrawal Diagnostics: - Labs: mild elevation AST/ALT; PT/INR normal; ethanol level 248; urine drug screen positive for THC, otherwise negative Consultations: - Hospitalist consulted for admission; agreed to accept patient for inpatient detox Diagnoses: Alcohol dependence, uncomplicated; Cannabis use, uncomplicated; Alcohol use Lab Data Attestation: I reviewed the patient's lab results. Labs: Laboratory Results - last 24 hr 08/14/25 16:18 WBC 11.8 H RBC 4.80 Hgb 15.7 Hct 43.9 MCV 91.5 MCH 32.7 H MCHC 35.8 RDW Std Deviation 43.1 RDW Coeff of Saul 12.8 Plt Count 218 MPV 9.6 Immature Gran % (Auto) 0.400 Neut % (Auto) 44.8 L Lymph % (Auto) 43.6 H Chugach % (Auto) 9.4 Eos % (Auto) 1.0 Baso % (Auto) 0.8 Absolute Neuts (auto) 5.3 Absolute Lymphs (auto) 5.14 H Nucleated RBC % 0 Sodium 133 Potassium 3.8 Chloride 96 L Carbon Dioxide 21.0 Anion Gap 16 H BUN 5 Creatinine 0.75 Estim Creat Clear Calc 102.12 Est GFR (MDRD) Non-Af 102 BUN/Creatinine Ratio 7.0 L Glucose 99 Calcium 8.9 Total Bilirubin 0.57 AST 80 H ALT 54 H Alkaline Phosphatase 88 Total Protein 7.8 Albumin 4.3 Globulin 3.4 Albumin/Globulin Ratio 1.3 Urine Opiates Screen NEGATIVE U Buprenorphine Qual NEGATIVE Ur Oxycodone Screen NEGATIVE Urine Methadone Screen NEGATIVE Urine Fentanyl Screen NEGATIVE Ur Barbiturates Screen NEGATIVE Ur Phencyclidine Scrn NEGATIVE Ur Amphetamines Screen NEGATIVE U Benzodiazepines Scrn NEGATIVE Urine Cocaine Screen NEGATIVE U Cannabinoids Screen PRESUMPTIVE POSITIVE Ethyl Alcohol 248.0 H Management Discussion w/another healthcare provider: Hospitalist Discharge Plan Dx/Rx/DC Orders Clinical Impression: Alcohol dependence with acute intoxication, continuous, Cannabis use, uncomplicated, Noncompliance with medication regimen, History of coronary arterystent placement, Atherosclerotic heart disease of [place] coronary artery withoutangina pectoris Disposition Disposition: Acute Care Hospital [facility] What to do if you have Problems For any increased pain, shortness of breath, bleeding, nausea or vomiting, chestpain, or any unexpected problems, contact your Primary Care Provider. Call [facility] ([phone]) or report to the closest Emergency Room. Call 911 if necessary. 08/14/25 1727 <Electronically signed by Shaquille Yung MD> Cosigner Signature (if applicable): CC: No Primary Care Physician ~ Signed [facility] Work Phone: 1(540) 238-766810-14-2025 Discharge summary [facility] Medical Records Department [address] [place] [address] Emergency Department Summary 08/14/25 MR#: [id number] Acct: [id number] Name: RAISA ESTRADA Rep #:[id number] 6 : 1965 60 From: Shaquille Yung MD PCP: Care Physician,No Primary Status :REG ER Location: ED HPI History of Present Illness Chief Complaint: ETOH Intox Informant: patient Narrative Narrative: Patient is a 60-year-old male with a history of CAD and polysubstance use presenting for assistancewith alcohol detoxification. - Reports daily alcohol consumption, starting at 9100-2873 each morning; typically consumes a 6-pack of Budweiser Ice - Last consumed alcohol today prior to arrival. - Experiences tremors in the mornings. - Denies use of liquor, methamphetamines, cocaine, or crack. - Reports feeling weak and fatigued. Typically feels shaky in the mornings. - Denies hematemesis, melena, or hemorrhoids. - Has not been taking cardiac medications for several years due to homelessness and difficulty managing multiple prescriptions. - Has 4 coronary stents placed by Dr. Grigsby in [place], [place]; denies history of CABG. - Denies chest pain or dyspnea. [facility] Medical History History of ST elevation myocardial infarction (STEMI) (05/11/11) Anxiety and depression Atherosclerotic heart disease of [place] coronary artery without angina pectoris Essential hypertension Hyperlipidemia COPD (chronic obstructive pulmonary disease) Tobacco abuse Home Medications ?Medication ?Instructions ?Recorded ?Last Taken ?Type NK 08/14/25 Unknown History Allergy/AdvReac Type Severity Reaction Status Date / Time No Known Allergies Allergy Verified 08/14/25 16:09 Family History Other Heart disease Hypertension Surgical History History of appendectomy History of coronary artery stent placement (05/11/11) Social History household members: significant other Smoking Status: Current every day smoker tobacco type: cigarettes alcohol intake: current substance use type: does not use ROS ROS ED Constitutional Constitutional ED: Denies chills or fever(s) Eyes Eyes: Denies change in vision or diplopia ENT ENT ED: Denies rhinorrhea or sore throat Cardiovascular Cardiovascular: Denies chest pain or palpitations Respiratory/Chest Respiratory/Chest: Denies cough or dyspnea Gastrointestinal Gastrointestinal: Denies abdominal pain, diarrhea, nausea or vomiting Genitourinary Genitourinary ED: Denies dysuria or hematuria Musculoskeletal Musculoskeletal: Denies back pain or neck pain Integumentary Denies abscess or rash Neurologic Neurologic: Denies headache(s), paresthesias or weakness Psychiatric Psychiatric: Reports anxiety; Denies suicidal thoughts EXAM Physical Exam Const Vital Signs: 08/14/25 16:07 08/14/25 16:44 Temperature 97.9 F 97.9 F Temperature Source Oral Temporal Pulse Rate 80 80 Respiratory Rate 18 18 Blood Pressure 130/103 H 130/103 H Blood Pressure Mean 112 112 Blood Pressure Source Monitor Blood Pressure Position Semi-Fowlers Blood Pressure Location Right Arm Pulse Ox 98 98 Oxygen Delivery Method Room Air Room Air Positive well nourished and well developed Constitutional Narrative: Pleasantly intoxicated. Ambulatory. General Appearance ED: well developed and NAD HEENT Reports moist mucous membranes normocephalic and atraumatic Eyes PERRL and EOMs intact bilaterally Neck full ROM and supple Resp normal respiratory effort and clear to auscultation bilaterally Cardio regular rate, regular rhythm and no murmurs GI non-tender and non-distended Auscultation: normoactive bowel sounds Palpation: soft Back/Spine no CVA tenderness General Back: other FROM Extremity normal to inspection General Extremety ED: Negative for edema, pulses abnormal or tenderness General Extremity: Negative for edema or pulses abnormal Neuro oriented x3, CN's II-XII intact bilaterally and no sensory deficits noted Sensorium / Orientation: awake and alert Motor Exam: strength 5/5 throughout Skin no rashes or lesions noted and no wounds MDM MDM MDM Narrative Medical decision making narrative: Assessment: The patient is a 60-year-old male with PMH of coronary artery disease status post four stents presenting for assistance with alcohol cessation/detox. He reports daily beer consumption beginning early each morning with morning shakes and intense cravings, last drink shortly before arrival; denies chest pain, GI bleeding, or other acute complaints. Labs show mild AST/ALT elevation consistent with chronic alcohol use, normal PT/INR, ethanol level 248, urine drug screen positive only for THC. Vital signs are stable and he appears anxious but clinically sober enough for interview. Given the clinicalpicture and lab results, uncomplicated alcohol dependence with acute intoxication is the primary diagnosis; no evidence of withdrawal complications or acute cardiac issues. He states he dumped all of his medications in a dumpster due to being homeless couple years ago, and is interested in getting back on his medications so that he does not have any further heart issues. Gavehim an aspirin here today while he was waiting for admission as well. Plan: - Administered phenobarbital for cravings/anxiolysis in ED - Accepted for inpatient medical detox under hospitalist service - Discussed risks/benefits and patient agrees to admission for supervised withdrawal Diagnostics: - Labs: mild elevation AST/ALT; PT/INR normal; ethanol level 248; urine drug screen positive for THC, otherwise negative Consultations: - Hospitalist consulted for admission; agreed to accept patient for inpatient detox Diagnoses: Alcohol dependence, uncomplicated; Cannabis use, uncomplicated; Alcohol use Lab Data Attestation: I reviewed the patient's lab results. Labs: Laboratory Results - last 24 hr 08/14/25 16:18 WBC 11.8 H RBC 4.80 Hgb 15.7 Hct 43.9 MCV 91.5 MCH 32.7 H MCHC 35.8 RDW Std Deviation 43.1 RDW Coeff of Saul 12.8 Plt Count 218 MPV 9.6 Immature Gran % (Auto) 0.400 Neut % (Auto) 44.8 L Lymph % (Auto) 43.6 H [place] % (Auto) 9.4 Eos % (Auto) 1.0 Baso % (Auto) 0.8 Absolute Neuts (auto) 5.3 Absolute Lymphs (auto) 5.14 H Nucleated RBC % 0 Sodium 133 Potassium 3.8 Chloride 96 L Carbon Dioxide 21.0 Anion Gap 16 H BUN 5 Creatinine 0.75 Estim Creat Clear Calc 102.12 Est GFR (MDRD) Non-Af 102 BUN/Creatinine Ratio 7.0 L Glucose 99 Calcium 8.9 Total Bilirubin 0.57 AST 80 H ALT 54 H Alkaline Phosphatase 88 Total Protein 7.8 Albumin 4.3 Globulin 3.4 Albumin/Globulin Ratio 1.3 Urine Opiates Screen NEGATIVE U Buprenorphine Qual NEGATIVE Ur Oxycodone Screen NEGATIVE Urine Methadone Screen NEGATIVE Urine Fentanyl Screen NEGATIVE Ur Barbiturates Screen NEGATIVE Ur Phencyclidine Scrn NEGATIVE Ur Amphetamines Screen NEGATIVE U Benzodiazepines Scrn NEGATIVE Urine Cocaine Screen NEGATIVE U Cannabinoids Screen PRESUMPTIVE POSITIVE Ethyl Alcohol 248.0 H Management Discussion w/another healthcare provider: Hospitalist Discharge Plan Dx/Rx/DC Orders Clinical Impression: Alcohol dependence with acute intoxication, continuous, Cannabis use, uncomplicated, Noncompliance with medication regimen, History of coronary arterystent placement, Atherosclerotic heart disease of[place] coronary artery withoutangina pectoris Disposition Disposition: Acute Care Hospital [facility] What to do if you have Problems For any increased pain, shortness of breath, bleeding, nausea or vomiting, chestpain, or any unexpected problems, contact your Primary Care Provider. Call [facility] ([phone]) or report tothe closest Emergency Room. Call 911 if necessary. 08/14/25 1727 Cosigner Signature (if applicable): CC: No Primary Care Physician ~ Signed [facility]04-01-2025 Evaluation note* Diagnosis Onset Date Resolution Status Admit Date Coronary artery disease chronic A pril 2024 8:52am Dyspnea on exertion chronic January 30, 2025 8:52am Fatigue chronic January 30 8:52am History of coronary artery stent placement May 11, 2011 chronic January 30, 2025 8:52am Nicotine dependence chronic January 30, 2025 8:52am [facility] Work Phone: 1([phone]) 234-805010-04-2022 Miscellaneous Notes* Telephone Encounter - Alice Fernandes [...] [facility] for [facility] Discharge instructions Additional Instructions 1. Recommend [...] They do have a negative work-up at [facility] on July 31 and negative work-up at outside facility the cause of your pain is unknown. Because of the symptoms you are reported you were referred to a urologist.[facility] Work Phone: 1(847) 244-311110-01-2022 Hospital Discharge instructions Patient Education 08/01/2022 15:22:55 [...] foods again, start with small amounts of sduc-sn-ihuohi, low- fat foods. These include apple sauce, [...] increase stomach acid. Don't use aspirin or xylq-rxl-yefaqiu pain and fever medicines, if possible. This includes nonsteroidal anti-inflammatory drugs (NSAIDs). Lose excess weight. Finish eating at least 2 hours before you go to bed or lie down. Raise the head of your bed. 5410-6182 [employer]. [address] [place] [address], [place] [address]. All rights reserved. This information is not intended as a substitute for professional medical care. Always follow yourhealthcare professional's instructions. Follow Up Care 08/01/2022 12:39:59 With:MAEVE TURNER DO Address: [address] [place] [phone] When:2-4 days [facility] 10-01-2022 Note Discharge Instructions Thank you for allowing [facility] to assist you with your healthcare needs. The following is importantdischarge information regarding your hospital visit. Diagnosis from Today's Visit Abdominal pain Abdominal pain/groin pain What to Do Next Instructions from Your Care Team No qualifying data available. Post Acute Orders No qualifying data available. You Need to Schedule the Following Appointments Follow Up with MAEVE TURNER DO When Within 2-4 days Where: [address] [place] [address] [phone] Allergies NKA Medications Please ask your primary [...] foods again, start with small amounts of geyc-lc-izbdnn, low- fat foods. These include apple sauce, [...] increase stomach acid. Don't use aspirin or dluo-xft-wttimvk pain and fever medicines, if possible. This includes nonsteroidal anti-inflammatory drugs (NSAIDs). Lose excess weight. Finish eating at least 2 hours before you go to bed or lie down. Raise the head of your bed. 2572-3091 [employer]. [address] [place] [address], [place] [address]. All rights reserved. This information is not intended as a substitute for professional medical care. Always follow yourhealthcare professional's instructions. Additional Information VACCINATE! IT SAVES LIVES! Members of the community who have not yet received the COVID-19 vaccine and would like to receive it can visit one of [facility] vaccine clinics. There are many vaccine clinic locations within the [facility]. For locations and available times, please visit [email or web address]. It is important to note that some COVID mobile vaccine clinics are held outdoors and may be canceled in rainy orstormy conditions. To learn more about pediatric vaccinations (ages 5-11), we invite you to visit the [facility] webpage. [email or web address] learn more about the COVID-19 vaccine, we invite you to visit the [facility] website for a list of frequently asked questions. [email or web address] [facility] Patient Portal Access Instructions: Stay connected with your healthcare team and access your personal medical information anytime with the [facility] Patient Portal. If you would like a full copy of your medical records please contact the [facility] Medical Records Department Wednesday through Wednesday between 8a.m. and 4:30p.m. Please follow the directions below to access the portal: 1.Access the email account you provided upon registration to the hospital.2.Look for an invitation email from [facility].3.Open the email and access the invitation link: Accept Invitation to [facility]4.Fill in the required fairchild to create your account. Sign into [email or web address] with your username and password that you [...] you will allow to register on the [facility] Patient Portal for access to your information. You can also access the [facility] Patient Portal on the Design [employer] chris. Simply click on Health Records under [employer] and then click on the [employer] logo. HOW TO SAFELY DISPOSE OF PRESCRIPTION [...] Call your local pharmacy or go to [email or web address] to find one close to you.3.Make use of household items: Use cat litter or old coffee grounds to dispose medications if other options arenot available. Mix your drugs with these household products, seal them in an airtight container andthrow it into the garbage. Call [facility]: [phone] to be sure your drugs can be [...] aware that I should contact my doctor. Patient/Medical Underwriter Signature: Date/Time: Relationship to Patient: Witness Name/Signature: Date/Time: [facility]10-01-2022 Note ORIGINAL EXAMINATION: ULTRASOUND OF THE SCROTUM/TESTICLES WITH COLOR DOPPLER FLOW [id number]/1/2022 2:53 pm Scrotal Ultrasound with Duplex Doppler [...] Date: 08/01/2022 3:22:15 PM Ordering Provider: JANELLE QUAHC [facility]10-01-2022 Note ORIGINAL EXAMINATION: ULTRASOUND OF THE SCROTUM/TESTICLES WITH COLOR DOPPLER FLOW [id number]/1/2022 2:53 pm Scrotal Ultrasound with Duplex Doppler [...] Date: 08/01/2022 3:22:15 PM Ordering Provider: [facility]Con[facility] Plan note No data available for this section [facility] Evaluation noteNo assessment information available [facility] Work Phone: Evaluation note* Diagnosis Onset Date Resolution Status Admit Date Admitted to alcohol detoxification center acute August 142024 6:24pm Alcohol dependence with acut e intoxication, continuous acute August 14, 2025 6:24pm Cannabis use, uncomplicated acute August 14, 2025 6:24pm Intoxication acute August 6:24pm Transaminitis acute August 6:24pm [facility] Work Phone: History and physical note Author Belinda Hensley [facility] Note Date/Time August 14, 2025 9 :09pm [facility] Medical Records Department [address] [place] [address] H&P Exam - Hospitalist 08/14/25 1822 MR#: [id number] Acct: [id number] Name: RAISA ESTRADA Rep #:[id number] : 1965 60 From: Belinda Hensley DO PCP: Care Physician,No Primary Status :AD[place] [facility] [id number] HPI - General General Date of Admission: 08/14/25 Date of Service: 08/14/25 Chief Complaint: Alcohol detox HPI Narrative RAISA ESTRADA, is a 60 M who presented to the emergency department on 08/14/2025 requesting detox from alcohol. Patient states has been a longtime drinker but over the past couple years he has been drinking pretty excessively at least a 12pack of beer daily. He states he has tremors in the morning and drinks to take care of his tremors. He is currently unemployed. He states he had STEMI x 2 previously and is on disability for this. He does smoke but declines nicotine patch. He also smokes a considerable amount of marijuana. He has never been through alcohol detox before. Complains of some mild tremors at this time. Hislast drink was just before arrival. Vital signs on presentation Vital signs on presentation showed temperature of 97.9, heart rate 80, blood pressure 130/103, respiratory rate 18 and pulse ox was 98% room air. CBC showeda mild leukocytosis with a white count of 11.8 but was otherwise unremarkable. He does have a mild lymphocytosis. Coags were essentially unremarkable. Chemistry panel was essentially unremarkable. LFTs were mildly elevated with anAST of 80 and a ALT of 54 bilirubin was normal. Toxicology screen was positive for cannabinoids and his alcohol level was 248. He will be admitted for expected greater than 2 midnights for alcohol detox. Inthe emergency department he was given IV fluids and phenobarb. [facility] Medical History History of ST elevation myocardial infarction (STEMI) (05/11/11) Anxiety and depression Atherosclerotic heart disease of [place] coronary artery without angina pectoris Essential hypertension Hyperlipidemia COPD (chronic obstructive pulmonary disease) Tobacco abuse Home Medications ?Medication ?Instructions ?Recorded ?Last Taken ?Type NK 08/14/25 Unknown History Allergy/AdvReac Type Severity Reaction Status Date / Time No Known Allergies Allergy Verified 08/14/25 16:09 Family History Other Heart disease Hypertension Surgical History History of appendectomy History of coronary artery stent placement (05/11/11) Social History (Updated 08/14/25 @ 21:[address] Belinda Hensley DO) household members: significant other Smoking Status: Current every day smoker tobacco type: cigarettes alcohol intake: current alcohol intake frequency: 3 or more drinks per day Alcohol type: beer substance use type: marijuana ROS Constitutional Constitutional: Denies anorexia, change in weight, chills, fatigue, fever(s), malaise, night sweats, weakness or other Eyes Eyes: Denies blurry vision, change in eye color, change in vision, discharge from eye(s), double vision, erythema, eye pain, loss of vision or other ENT HEENT: Denies abnormal hearing, dysphagia, ear pain, epistaxis, headache(s), hearing loss, nasal congestion, nasal discharge, post nasal drip, sinus pressure, sore throat or other Cardiovascular Cardiovascular: Denies chest pain, claudication, dyspnea on exertion, edema, lightheadedness, orthopnea, palpitations, paroxysmal nocturnal dyspnea, rapid heart rate, syncope or other Respiratory/Chest Respiratory/Chest: Denies cough, dyspnea, excessive phlegm production, hemoptysis, productive cough, shortness of breath at rest, shortness of breath with exertion, wheezing or other Gastrointestinal Gastrointestinal: Denies abdominal pain, coffee ground emesis, constipation, diarrhea, dyspepsia, hematemesis, hematochezia, loose stools, melena, nausea, vomiting or other Genitourinary Genitourinary: Denies burning urination, difficulty urinating, dysuria, hematuria, nocturia, urinary frequency, urinary hesitancy, urinary incontinence,urinary urgency or other Musculoskeletal Musculoskeletal: Denies arthralgias, back pain, joint pain, joint stiffness, joint swelling, myalgias, neck pain or other Neurologic Neurologic: Reports tremor(s); Denies abnormal gait, abnormal speech, confusion,disequilibrium, dizziness, focal weakness, headache(s), numbness, paresthesias, seizure-like activity, seizures, syncope, tingling or other Psychiatric Psychiatric: Denies anxiety, depression, homicidal ideation, suicidal ideation or other Endocrine Endocrinology: Denies change in body appearance, cold intolerance, excessive sweating, heat intolerance, polydipsia, polyuria or other Hematologic/Lymphatic Hematologic/Lymphatic: Denies anemia, easy bleeding, easy bruising, lymphadenopathy or other Allergic/Immunologic Allergic/Immunologic: Denies rhinitis, hives, eczemia, asthma or other Vital Signs Vital Signs Vital Signs: 08/14/25 16:07 08/14/25 16:44 08/14/25 17:07 Temperature 97.9 F 97.9 F Temperature Source Oral Temporal Pulse Rate 80 80 63 Respiratory Rate 18 18 15 Blood Pressure 130/103 H 130/103 H 103/64 Blood Pressure Mean 112 112 77 Blood Pressure Source Monitor Blood Pressure Position Semi-Fowlers Blood Pressure Location Right Arm Pulse Ox 98 98 97 Oxygen Delivery Method Room Air Room Air Room Air Weight Weight: 82.962 kg Body Mass Index (BMI) 27.0 Physical Exam Const alert, oriented x3, no apparent distress, average body habitus and well nourished; Negative for healthy appearing Constitutional Narrative: Upper middle-aged, white male, sitting up in bed, appears older than stated age,appears comfortable currently nontoxic General Appearance: cooperative HEENT normocephalic, head/scalp atraumatic, hearing grossly normal bilaterally and moist oral mucous membranes HEENT Narrative: Edentulous, Mallampati is 2, no thrush Resp normal respiratory effort, no retractions, no use of accessory muscles and clearto auscultation bilaterally Resp Narrative: Diminished but clear Auscultation: Negative for crackles, rhonchi or wheezes Cardio regular rate, regular rhythm, S1 normal heart sound, S2 normal heart sound, no murmurs, no rub, no gallops and no clicks GI normal to inspection, nondistended, normoactive bowel sounds, soft to palpation and non-tender Extremity no clubbing, cyanosis or edema Extremity Narrative: Pedal pulses are 1+, radial pulses are 2+ Neuro moves all extremities and no focal motor deficits Neuro Narrative: Mild fine tremor Speech: speech normal Psych Psych Narrative: Affect is flat the patient interacts appropriately Results Lab / Micro Data 08/14/25 16:18 08/14/25 16:18 Labs: Laboratory Results - last 24 hr 08/14/25 16:18: WBC 11.8 H, RBC 4.80, Hgb 15.7, Hct 43.9, MCV 91.5, MCH 32.7 H, MCHC 35.8, RDW Std Deviation 43.1, RDW Coeff of Saul 12.8, Plt Count 218, MPV 9.6, Immature Gran % (Auto) 0.400, Neut % (Auto) 44.8 L, Lymph % (Auto) 43.6 H, [place] % (Auto) 9.4, Eos % (Auto) 1.0, Baso % (Auto) 0.8, Absolute Neuts (auto) 5.3, Absolute Lymphs (auto) 5.14 H, Nucleated RBC % 0, Differential Comment SCANNED, Platelet Estimate ADEQUATE, PT 15.9 H, INR 1.3, Sodium 133, Potassium 3.8, Chloride 96 L, Carbon Dioxide 21.0, Anion Gap 16 H, BUN 5, Creatinine 0.75,Estim Creat Clear Calc 102.12, Est GFR (MDRD) Non-Af 102, BUN/Creatinine Ratio 7.0 L, Glucose 99, Calcium 8.9, Total Bilirubin 0.57, AST 80 H, ALT 54 H, Alkaline Phosphatase 88, Total Protein 7.8, Albumin 4.3, Globulin 3.4, Albumin/Globulin Ratio 1.3, Urine Opiates Screen NEGATIVE, U Buprenorphine Qual NEGATIVE, Ur Oxycodone Screen NEGATIVE, Urine Methadone Screen NEGATIVE, Urine Fentanyl Screen NEGATIVE, Ur Barbiturates Screen NEGATIVE, Ur Phencyclidine ScrnNEGATIVE, Ur Amphetamines Screen NEGATIVE, U Benzodiazepines Scrn NEGATIVE, Urine Cocaine Screen NEGATIVE, U Cannabinoids Screen PRESUMPTIVE POSITIVE, EthylAlcohol 248.0 H Assessment & Plan Assessment/Plan (1) Cannabis use, uncomplicated: (2) Alcohol dependence with acute intoxication, continuous: (3) Admitted to alcohol detoxification center: (4) Transaminitis: (5) Intoxication: PLAN: Plan Alcohol abuse with acute intoxication requesting detox - Last drink was just prior to arrival - Drinks about a 12 pack of beer daily - Start phenobarbital taper - Thiamine and folate - Supportive medication for assistance with managing withdrawal symptoms - Case management consultation for assistance with discharge planning - 180 consultation for assistance with discharge planning Transaminitis - Consistent with alcohol abuse - Mild - Should trend down with cessation - No need for consistent follow-up Cannabis abuse - Recommend cessation CAD/HPL/essential hypertension - Patient is noncompliant with home medication regiment - Will start aspirin 81 mg daily - Recently saw [place] [facility] and continue to recommend ongoing outpatient follow-up - No acute issues at this time - Monitor blood pressure Tobacco abuse - Recommend cessation - Patch offered and patient declined DVT prophylaxis - Low risk - Encouraged frequent and early ambulation CODE STATUS - Full code Charges/Coding Visit Charges Inpatient E&M: 58605 Init Hosp L2 08/14/252108 <Electronically signed by Belinda Hensley DO> Cosigner Signature (if applicable): CC: Dr. Belinda Hensley DO; No Primary Care Physician~ Signed [facility] Work Phone: Hospital Discharge instructions Additional Instructions Social work has also given you information regarding local primary care physicians in the area that you can establish with for further care.[facility] Work Phone: Progress note Author Fredy Dukes [facility] Note Date/Time August 15, 2025 9 :45am [facility] Medical Records Department [address] [place] [address] Progress Note - Hospitalist 08/15/25941 MR#: [id number] Acct: [id number] Name: RAISA ESTRADA Rep #:[id number] : 1965 60 From: Fredy bejarano MD PCP: Care Physician,No Primary Status :ADM IN Location: [place] [address] Subjective Subjective CIWA score of 2 Objective Data Objective Data Vital Signs: Vital Signs Temp Pulse Resp BP Pulse Ox O2 Del Method 98 F 54 L 16 140/89 H 98 Room Air 08/15/25 08:25 08/15/25 08:25 08/15/25 08:25 08/15/25 08:25 08/15/25 08:25 08/15/25 08:42 Oxygen Delivery Method Room Air Weight: 172 lb 6.424 oz Body Mass Index (BMI) 25.5 Intake & Output: Intake and Output for Last 24 Hours 08/14/25 08/15/25 08/16/25 03:59 03:59 03:59 Intake Total 150 / 150 200 / 200 Balance 150 / 150 200 / 200 Lab / Micro Data 08/15/25 07:01 08/15/25 07:01 Labs: Laboratory Results - last 24 hr 08/14/25 16:18: WBC 11.8 H, RBC 4.80, Hgb 15.7, Hct 43.9, MCV 91.5, MCH 32.7 H, MCHC 35.8, RDW Std Deviation 43.1, RDW Coeff of Saul 12.8, Plt Count 218, MPV 9.6, Immature Gran % (Auto) 0.400, Neut % (Auto) 44.8 L, Lymph % (Auto) 43.6 H, [place] % (Auto) 9.4, Eos % (Auto) 1.0, Baso % (Auto) 0.8, Absolute Neuts (auto) 5.3, Absolute Lymphs (auto) 5.14 H, Nucleated RBC % 0, Differential Comment SCANNED, Platelet Estimate ADEQUATE, PT 15.9 H, INR 1.3, Sodium 133, Potassium 3.8, Chloride 96 L, Carbon Dioxide 21.0, Anion Gap 16 H, BUN 5, Creatinine 0.75,Estim Creat Clear Calc 102.12, Est GFR (MDRD) Non-Af 102, BUN/Creatinine Ratio 7.0 L, Glucose 99, Calcium 8.9, Total Bilirubin 0.57, AST 80 H, ALT 54 H, Alkaline Phosphatase 88, Total Protein 7.8, Albumin 4.3, Globulin 3.4, Albumin/Globulin Ratio 1.3, Urine Opiates Screen NEGATIVE, U Buprenorphine Qual NEGATIVE, Ur Oxycodone Screen NEGATIVE, Urine Methadone Screen NEGATIVE, Urine Fentanyl Screen NEGATIVE, Ur Barbiturates Screen NEGATIVE, Ur Phencyclidine ScrnNEGATIVE, Ur Amphetamines Screen NEGATIVE, U Benzodiazepines Scrn NEGATIVE, Urine Cocaine Screen NEGATIVE, U Cannabinoids Screen PRESUMPTIVE POSITIVE, EthylAlcohol 248.0 H 08/15/25 07:01: WBC 7.1, RBC 4.91, Hgb 15.6, Hct 45.4, MCV 92.5, MCH 31.8, MCHC 34.4, RDW Std Deviation 44.0 H, RDW Coeff of Saul 12.9, Plt Count 188, MPV 10.0, Immature Gran % (Auto) 0.400, Neut % (Auto) 47.3, Lymph % (Auto) 37.5, [place] % (Auto) 11.4 H, Eos % (Auto) 2.0, Baso % (Auto) 1.4 H, Absolute Neuts (auto) 3.4,Absolute Lymphs (auto) 2.66, Nucleated RBC % 0, Sodium 136, Potassium 4.3, Chloride 102, Carbon Dioxide 25.2, Anion Gap 10, BUN 7, Creatinine 0.80, Estim Creat Clear Calc 95.74, Est GFR (MDRD) Non-Af 100, BUN/Creatinine Ratio 8.6 L, Glucose 109 H, Calcium 9.1, Phosphorus 3.4, Magnesium 2.0, Total Bilirubin 0.82, AST 81 H, ALT 50 H, Alkaline Phosphatase 78, Total Protein 7.3, Albumin 4.0, Globulin 3.3, Albumin/Globulin Ratio 1.2 Physical Exam Narrative general: Alert, Oriented x3, Cooperative, No apparent distress HEENT: Atraumatic, PERRLA, EOMI, Normocephalic Oral: Moist Mucosa Neck: Supple, No JVD Lungs: Clear to auscultation, Normal air movement, No rhonchi, No wheeze, No rales Cardiovascular: Regular rate, Regular Rhythm, Normal S1, Normal S2, No murmurs Abdomen: Soft, Non Tender, Non-Distended, No Hepato-splenomegaly Extremities: No edema, Capillary Refill Less than 3 Seconds Skin: No rashes, No breakdown Musculoskeletal: No Tenderness to Palpation of Joints or Extremities Neurological: No focal neurological deficits, moves all extremities Psych/Mental Status: Normal Affect, Appropriate Assessment & Plan Assessment/Plan (1) Alcohol dependence with acute intoxication, continuous: (2) Transaminitis: PLAN: Plan 1. Alcohol abuse requesting detox with transaminitis/cannabis use/tobacco abuse ? Elevated LFTs due to alcohol use can follow as an outpatient ? Continue with the alcohol withdrawal protocol ? Will have him follow-up with 180 to develop a discharge plan ? Discussed cessation of cannabis and tobacco 2. Essential HTN/HLD/CAD status post stent ? Continue with his home medications ? Blood pressures stable ? She was started on aspirin on this admission, stent was placed in 2010 DVT: Ambulation Charges/Coding Visit Charges Inpatient E&M: 54144 Subs Hosp L2 08/15/25 0945 <Electronically signed by Fredy Dukes MD> Cosigner Signature (if applicable): CC: ~ Signed [facility] Work Phone: Progress note Author Fredy Dukes [facility] Note Date/Time August 16, 2025 1 1:23am [facility] Medical Records Department [address] [place] [id number] Progress Note - Hospitalist 08/16/25 1048 MR#: [id number] Acct: [id number] Name: RAISA ESTRADA Rep #:[id number] : 1965 60 From: Fredy bejarano MD PCP: Care Physician,No Primary Status :ADM IN Location: [place] [address] Subjective Subjective CIWA score of 1 Objective Data Objective Data Vital Signs: Vital Signs Temp Pulse Resp BP Pulse Ox O2 Del Method 97.6 F L 50 L 17 157/88 H 98 Room Air 08/16/25 07:45 08/16/25 07:45 08/16/25 07:45 08/16/25 07:45 08/16/25 07:45 08/16/25 07:45 Oxygen Delivery Method Room Air Weight: 171 lb 4.787 oz Body Mass Index (BMI) 25.3 Intake & Output: Intake and Output for Last 24 Hours 08/15/25 08/16/25 08/17/25 03:59 03:59 03:59 Intake Total 150 / 150 560 / 560 240 / 240 Balance 150 / 150 560 / 560 240 / 240 Lab / Micro Data 08/15/25 07:01 08/15/25 07:01 Physical Exam Narrative general: Alert, Oriented x3, Cooperative, No apparent distress HEENT: Atraumatic, PERRLA, EOMI, Normocephalic Oral: Moist Mucosa Neck: Supple, No JVD Lungs: Clear to auscultation, Normal air movement, No rhonchi, No wheeze, No rales Cardiovascular: Regular rate, Regular Rhythm, Normal S1, Normal S2, No murmurs Abdomen: Soft, Non Tender, Non-Distended, No Hepato-splenomegaly Extremities: No edema, Capillary Refill Less than 3 Seconds Skin: No rashes, No breakdown Musculoskeletal: No Tenderness to Palpation of Joints or Extremities Neurological: No focal neurological deficits, moves all extremities Psych/Mental Status: Normal Affect, Appropriate Assessment & Plan Assessment/Plan (1) Alcohol dependence with acute intoxication, continuous: (2) Transaminitis: PLAN: Plan 1. Alcohol abuse requesting detox with transaminitis/cannabis use/tobacco abuse ? Elevated LFTs due to alcohol use can follow as an outpatient ? Continue with the alcohol withdrawal protocol ? Will have him follow-up with 180 to develop a discharge plan ? Discussed cessation of cannabis and tobacco 2. Essential HTN/HLD/CAD status post stent ? Continue with his home medications ? Blood pressures stable ? Continue with aspirin DVT: Ambulation Charges/Coding Visit Charges Inpatient E&M: 10192 Subs Hosp L2 08/16/25 1123 <Electronically signed by Fredy Dukes MD> Cosigner Signature (if applicable): CC: ~ Signed [facility] Work Phone: Reason for referral (narrative)No reason for referral information availableWMem[facility] Work Phone: Summary Purpose Family History Relationship Condition Age at Onset Recorded Date/T ashish Not Specified Cardiac disease Unknown Hypertension Unknown Advance Directives Advance Directive Response Recorded Date/ Time Living Will No July 31, 2022 10:14pm Power of Farmworker Grain No July 10:14pm Advance Directive Response Recorded Date/ Time Living Will No August 03 12:33pm Power of Farmworker Grain No August 03 12:33pm Advance Directive Response Recorded Date/ Time Living Will No February 23, 2024 12:39pm Power of Farmworker Grain No February 22 12:39pm Advance Directive Response Recorded Date/ Time Do you have a Healthcare Power of Farmworker Grain? No April 15, 2025 7:34pm Advance Directive Response Recorded Date/ Time Do you have a Healthcare Power of Farmworker Grain? No August 14, 2025 7:24pm Chief Complaint and Reason for Visit Chief [...] Nicotine dependence January 30, 2025 8:52 am Chief Complaint Admit Date EST (SELF) January 30, 2025 8:52 am E ORDERS February 01, 2025 8:27 am Amb Documentation February 12, 2025 11: 03am knee injury April 15, 2025 7:27 pm Chief Complaint Admit Date ETOH DETOX August 14, 2025 6 :24pm ETOH DETOX August 15, 2025 9 :42am ETOH DETOX August 16, 2025 1 0:48am Reason for Visit Admit Date Admitted to alcohol detoxification cente r August 14, 2025 6:24pm Alcohol dependence with acute intoxicati on, continuous August 14, 2025 6:24pm Cannabis use, uncomplicated August 6:24pm Intoxication August 14, 2025 6 :24pm Transaminitis August 14, 2025 6 :24pm Additional Source Comments (unrecognized sect ion and content) No Status Records FoundNo Status Records FoundNo Status Records FoundNo Status Records Found INFORMATION SOURCE (unrecogn ized section and content) DATE CREATED AUTHOR 05/08/2018 [facility] DATE CREATED AUTHOR AUTHOR'S ORGANIZ ATION 10/08/2020 [facility] DATE CREATED AUTHOR AUTHOR'S ORGANIZ ATION 01/11/2023 [facility] ([place]) DATE CREATED AUTHOR AUTHOR'S ORGANIZ ATION 08/26/2025 [facility] Goals (unrecognized section and content) Goals may be documented in a n alternate section No data available for this sectionGoals may be documented in an alternate sectionGoals may be documented in an alternate sectionGoals may be documented in an alternate sectionGoals may be documented in an alternate section Care Team (unrecognized sect ion and content) Care Team Personnel Name: PHYSICIAN, NONE Position: Physician Member Role: Primary Care Physician Care Team Related Persons Name: CLARITZA SIERRA Source Comments (unrecognize d section and content) In the event this informatio n is protected by the Federal Confidentiality of Alcohol and Drug Abuse Patient Records regulations: The Federal rules restrict any use of the information to criminally investigate or prosecute any alcohol or drug abuse patient.[facility] Reason for Visit (unrecogniz ed section and content) Reason Comments Referral Request Care Teams (unrecognized sec tion and content) Team Status: Active Member Role Status Dates Dr. Dann Erickson MD Primary Care Provider Active Team Status: Inactive [...] February 01, 2025 End: February 01, 2025 Team Status: Active Member Role Status Dates No Primary Care Physician Primary Care Provider Active Start: February 12, 2025 Arminda Colby Attending Provider Active Start: February 12, 2025 Team Status: Inactive Member Role Status Dates Dr. Dann Erickson MD Primary Care Provider Active Start: April 15, 2025 End: April 15, 2025 Dr. Nilson La DO Emergency Provider Active Start: April 15, 2025 End: April 15, 2025 Team Status: Active Member Role Status Dates No Primary Care Physician Family Provider Active No Primary Care Physician Primary Care Provider Active Team Status: Inactive Member Role Status Dates No Primary Care Physician Primary Care Provider Active Dr. Kalina Piña MD Emergency Provider Active Team Status: Active Member Role Status Dates No Primary Care Physician Primary Care Provider Active Team Status: Active Member Role/Relationship Status Dates No Primary Care Physician Primary care physician Activ e Team Status: Inactive Member Role/Relationship Status Dates Dr. Shaquille Yung MD Emergency Depart ment Physician Active Start: August 14, 2025 End: August 16, 2025 No Primary Care Physician Primary care physician Activ e Start: August 14, 2025 End: August 16, 2025 Dr. Belinda Hensley DO Admitting physician Active Start: August 14, 2025 End: August 16, 2025 Dr. Belinda Hensley DO Nurse Practitioner Active S tart: August 14, 2025 End: August 16, 2025 Dr. Fredy Dukes MD Attending physician Active Start: August 14, 2025 End: August 16, 2025 Team Status: Active Member Role/Relationship Status Dates Dr. Shaquille Yung MD Emergency Depart ment Physician Active Start: August 15, 2025 No Primary Care Physician Primary care physician Activ e Start: August 15, 2025 Dr. Belinda Hensley DO Admitting physician Active Start: August 15, 2025 Dr. Belinda Hensley DO Nurse Practitioner Active S tart: August 15, 2025 Dr. Fredy Dukes MD Attending physician Active Start: August 15, 2025 Dr. Fredy Dukes MD Nurse Practitioner Active Start: August 15, 2025 Team Status: Active Member Role/Relationship Status Dates Dr. Shaquille Yung MD Emergency Depart ment Physician Active Start: August 16, 2025 No Primary Care Physician Primary care physician Activ e Start: August 16, 2025 Dr. Belinda Hensley DO Admitting physician Active Start: August 16, 2025 Dr. Belinda Hensley DO Nurse Practitioner Active S tart: August 16, 2025 Dr. Fredy Dukes MD Attending physician Active Start: August 16, 2025 Dr. Fredy Dukes MD Nurse Practitioner Active Start: August 16, 2025 FOR RECORDS PERTAINING TO PATIENTS WHO [...] BE BASED ON THE PRIMARY CLINICAL RECORDS. [facility] Penemarie K Murphy [facility]. provides no warranty or guarantee of the accuracy or completeness of information in this document.
== END 2025-10-16 22:35 | disposition left against medical advice (07) ==
LOC: ED 22:55
DX: Z53.21 Procedure and treatment not carried out due to patient leaving prior to being seen by health care provider (principal)

== ENCOUNTER 2025-10-17 09:29 | Emergency (ER) | payer MEDICAID, SELFPAY ==
[2025-10-17 09:29] VITALS: BP 141/95; PULSE 70; RESP 18; TEMP 36.4; O2SAT 99; BMI 26.7
[2025-10-17 09:32] VITALS: BP 141/95; PULSE 70; RESP 18; TEMP 36.4; O2SAT 99
--- NOTE | 2025-10-17 10:56 | EX.ED.DYSGE1 ---
HPI History of Present Illness Chief Complaint: Other, Pain/Inj Onset/Context/Timing Onset: Weeks (3) Context: Gradual Onset Timing: Continuous Quality: Burning Location: Left neck and postauricular area Worsened by: Nothing Relieved by: Hot shower Narrative Narrative: Patient presents with shingles pain that has been getting worse over the past 3 weeks. Patient was seen here twice for this. Patient was given prescription for analgesics and a prescription for gabapentin the second time he was here. Patient states he finished his course of antiviral medicines. Patient describes his pain as burning. Patient states it is over the left side of his neck and in the postauricular area. Patient states he gets better with a hot shower. Patient denies any nausea or vomiting. Patient admits to a mild headache. [facility] Medical History History of ST elevation myocardial infarction (STEMI) (05/11/11) Anxiety and depression Atherosclerotic heart disease of [place] coronary artery without angina pectoris Essential hypertension Hyperlipidemia COPD (chronic obstructive pulmonary disease) Tobacco abuse Home Medications ?Medication ?Instructions ?Recorded ?Last Taken ?Type aspirin 81 mg tablet,delayed 81 mg PO DAILY heart health 08/15/25 Unknown History release atorvastatin 20 mg tablet 20 mg PO DAILY cholesterol 08/15/25 Unknown History pantoprazole 20 mg tablet,delayed 20 mg PO DAILY gerd 08/15/25 Unknown History release oxycodone-acetaminophen 5 mg-325 1 tab PO Q6H PRN PRN Pain 3 days 09/24/25 Unknown Rx mg tablet #12 TABLETS prednisone 20 mg tablet 60 mg (3 x 20 mg) PO DAILY #15 09/24/25 Unknown Rx TABLETS valacyclovir 1 gram tablet 1,000 mg PO TID 7 days #21 tabs 09/24/25 Unknown Rx gabapentin 300 mg capsule 300 mg PO TID pain 7 days #21 caps 10/09/25 Unknown Rx prednisone 20 mg tablet See Rx Instructions .Route 10/09/25 Unknown Rx .COMPLEX #24 tabs valacyclovir 1 gram tablet 1,000 mg PO TID 7 days #21 tabs 10/09/25 Unknown Rx capsaicin 0.1 % topical cream 1 applic topical TID #42.5 grams 10/17/25 Unknown Rx hydrocodone-acetaminophen 5-325mg 1 tab PO Q6H PRN PRN Pain 3 days 10/17/25 Unknown Rx 5mg-325mg #10 TABLETS Allergy/AdvReac Type Severity Reaction Status Date / Time No Known Allergies Allergy Verified 10/17/25 09:31 Family History Other Heart disease Hypertension Family History no significant family his Surgical History History of appendectomy History of coronary artery stent placement (05/11/11) Social History household members: significant other Smoking Status: Current every day smoker tobacco type: cigarettes alcohol intake: current alcohol intake frequency: 3 or more drinks per day Alcohol type: beer substance use type: marijuana ROS ROS ED Constitutional Constitutional ED: Reports fever(s); Denies chills Eyes Eyes: Denies blurry vision or change in vision ENT ENT ED: Denies rhinorrhea or sore throat Cardiovascular Cardiovascular: Denies chest pain or palpitations Respiratory/Chest Respiratory/Chest: Denies cough or dyspnea Gastrointestinal Gastrointestinal: Denies nausea or vomiting Genitourinary Genitourinary ED: Denies dysuria or hematuria Musculoskeletal Musculoskeletal: Denies back pain or neck pain Integumentary Reports rash; Denies abscess Neurologic Neurologic: Reports headache(s); Denies weakness Allergic/Immunologic Allergic/Immunologic ED: Denies mouth swelling or urticaria EXAM Physical Exam Const Vital Signs: 10/17/25 09:29 10/17/25 09:32 10/17/25 09:43 Temperature 97.6 F L 97.6 F L Temperature Source Temporal Oral Pulse Rate 70 70 Respiratory Rate 18 18 Respiratory Effort Normal Non-Labored Respiratory Pattern Normal Blood Pressure 141/95 H 141/95 H Blood Pressure Mean 110 110 Pulse Ox 99 99 Oxygen Delivery Method Room Air Room Air Positive well nourished and well developed General Appearance ED: well developed and NAD HEENT Reports moist mucous membranes Neck supple and no JVD Neck Narrative: There is full range of motion of the cervical spine. There are no meningeal signs noted. Neuro oriented x3, CN's II-XII intact bilaterally and no sensory deficits noted Sensorium / Orientation: alert Motor Exam: strength 5/5 throughout Psych mental status grossly normal Skin Skin Narrative: There is a mildly erythematous rash over the left posterior neck and postauricular area. There are some excoriations noted over this area. There is no rash on the right. There are no pustules noted. MDM MDM MDM Narrative Medical decision making narrative: Patient was advised that this is postherpetic neuralgia. Patient was given a prescription for a short course of [place]. Patient was also given a prescription for capsaicin cream. Patient was given a referral for primary care physician for follow-up care in 5 to 7 days. Patient was advised that he needs a primary care physician especially since he has a history of coronary artery disease. Patient understands and is agreeable with the plan. All questions were answered. Discharge Plan Triage Chief Complaint: Other, Pain/Inj ED Provider: Nilson La Dx/Rx/DC Orders Clinical Impression: Postherpetic neuralgia, Tobacco abuse Instructions: ED Shingles (Herpes Zoster) Prescriptions: New hydrocodone-acetaminophen 5-325 mg tablet 1 tab PO Q6H PRN PRN (Reason: Pain) 3 Days Qty: 10 0RF capsaicin 0.1 % cream 1 applic topical TID Qty: 42.5 0RF Rx Instructions: do not wash area for at least 30 min after application No Action oxycodone-acetaminophen 5-325 mg tablet 1 tab PO Q6H PRN PRN (Reason: Pain) 3 Days Qty: 12 0RF prednisone 20 mg tablet 60 mg PO DAILY Qty: 15 0RF valacyclovir 1 gram tablet 1,000 mg PO TID 7 Days Qty: 21 0RF prednisone 20 mg tablet See Rx Instructions .ROUTE .COMPLEX Qty: 24 0RF Rx Instructions: 3 tabs p.o. daily x 4 days then 2 tabs p.o. daily x 4 days then 1 tab p.o. daily x 4 days gabapentin 300 mg capsule 300 mg PO TID 7 Days Qty: 21 0RF valacyclovir 1 gram tablet 1,000 mg PO TID 7 Days Qty: 21 0RF aspirin 81 mg tablet,delayed release (DR/EC) 81 mg PO DAILY atorvastatin 20 mg tablet 20 mg PO DAILY pantoprazole 20 mg tablet,delayed release (DR/EC) 20 mg PO DAILY Primary Care Provider: Care Physician,No Primary Referrals: Deepak Dai MD [Med Staff - Crystallography Teacher, Family Practice] - 5-7 Days Care Physician,No Primary [Primary Care Provider, Medical] Activity Restrictions/Additional Instructions: Make sure you wash your hands thoroughly after applying the cream. Do not touch your eyes after applying the cream. Print Language: [place] Disposition Disposition: Home, Self Care
[2025-10-17 11:22] VITALS: BP 141/95; PULSE 70; RESP 18; TEMP 36.4; O2SAT 99
[2025-10-17 11:26] VITALS: BP 141/95; PULSE 70; RESP 18; TEMP 36.4; O2SAT 99
--- OUTSIDE RECORDS SUMMARY | 2025-10-17 17:11 | XMS RPT_ITS | CCD ---
Author Organization [facility] Care Team Providers Care Seal Skinner Name Role Phone WALE, MARTA E Unavailable [...] Provider Dr. Nilson La DO Emergency Provider [phone] Dann Erickson Primary Care Unavailable Nilson La Attending Unavailable Belinda Hensley Consulting Unavailable Fredy Dukes Attending Unavailable Belinda Hensley Admitting Unavailable Care Physician, No Primary Primary Care Unava ilable GamalielNati Attending Unavailable Care Physician, No Primary Primary Care Unava ilable Care Physician, No Primary Referring Unava ilable Belinda Hensley Admitting Unavailable Fredy Dukes Attending Unavailable Belidna Hensley Consulting Unavailable Care Physician, No Primary [...] lower leg Cellulitis of right lower limb [id number] actuat albuterol 0.09 mg/actuat metered dose [...] Coronary atherosclerosis; Translations: [Atherosclerotic heart disease of [place] coronary artery without angina pectoris] Onset: 01-30-2025 [...] Auto (Unsp spec) [#/Vol] 2.66 10*3/uL 0.83-4.51 [facility] Absolute neutrophil countOrd ered By: Belinda Hensley on 08-15-2025 Neutrophils (Bld) [#/Vol] 3.4 10*3/uL 2.0-7.7 [facility] Anion gap in Serum or Plasma Ordered By: Belinda Hensley on 08-15-2025 Anion gap [Moles/Vol] 10 mmol/L 03-15 [facility] Automated lymphocyte count a s percentage of total leukocytesOrdered By: Belinda Hensley on 08-15-2025 Lymphocytes/100 WBC Auto (Unsp spec) 37.5 % [facility] BUN/creatinine ratioOrdered By: Belinda Hensley on 08-15-2025 Urea nitrogen/Creatinine [Mass ratio] 8.6 mg/mg Low - [facility] Basophil percentageOrdered B y: Belinda Hensley on 08-15-2025 Basophils/100 WBC (Bld) 1.4 % High 0-1 [facility] Bilirubin, totalOrdered By: Belinda Hensley on 08-15-2025 Bilirubin [Mass/Vol] 0.82 mg/dL 0.00-1.30 [facility] CBC W/Diff, Automatedon 08-01 Absolute Lymph 2.66 X10 3/uL Normal 0.83-4.51 [facility] Comment on above: Performed By: #### L 501.2300, L100.0100, L501.5200, L500.4050 #### [facility] [address] [place], [address] Absolute Neut 3.4 X10 3/uL Normal 2.0-7.7 [facility] Comment on above: Performed By: #### L 501.2300, L100.0100, L501.5200, L500.4050 #### [facility] [address] [place], [address] Basophils/100 WBC (Bld) 1.4 % High 0-1 [facility] Comment on above: Performed By: #### L 501.2300, L100.0100, L501.5200, L500.4050 #### [facility] [address] [place], [address] Eosinophils/100 WBC (Bld) 2.0 % Normal 0-5 [facility] Comment on above: Performed By: #### L 501.2300, L100.0100, L501.5200, L500.4050 #### [facility] [address] [place], [address] Erythrocyte distribution width (RBC) [Ratio] 12.9 % Normal 11.6-14.6 [facility] Comment on above: Performed By: #### L 501.2300, L100.0100, L501.5200, L500.4050 #### [facility] [address] [place], [address] Hematocrit (Bld) [Volume fraction] 45.4 % Normal 40-54 [facility] Comment on above: Performed By: #### L 501.2300, L100.0100, L501.5200, L500.4050 #### [facility] [address] [place], [address] Hemoglobin (Bld) [Mass/Vol] 15.6 g/dL Normal 13.0-16.5 [facility] Comment on above: Performed By: #### L 501.2300, L100.0100, L501.5200, L500.4050 #### [facility] [address] [place], [address] IG% 0.400 Normal 0.0-0.9 [facility] Comment on above: Result Comment: IG% - Immature Granulocytes (promyelocytes, myelocytes and metamyelocytes) > 1% indicates that a LEFT SHIFT is Present. Performed By: #### L 501.2300, L100.0100, L501.5200, L500.4050 #### [facility] [address] [place], [address] Lymphocytes/100 WBC (Bld) 37.5 % Normal 19-41 [facility] Comment on above: Performed By: #### L 501.2300, L100.0100, L501.5200, L500.4050 #### [facility] [address] [place], [address] MCH (RBC) [Entitic mass] 31.8 pg Normal 27.0-32.0 [facility] Comment on above: Performed By: #### L 501.2300, L100.0100, L501.5200, L500.4050 #### [facility] [address] [place], [address] MCHC (RBC) [Mass/Vol] 34.4 g/dL Normal 32-36 [facility] Comment on above: Performed By: #### L 501.2300, L100.0100, L501.5200, L500.4050 #### [facility] [address] [place], [address] MCV (RBC) [Entitic vol] 92.5 fL Normal 80-94 [facility] Comment on above: Performed By: #### L 501.2300, L100.0100, L501.5200, L500.4050 #### [facility] [address] [place], [address] Monocytes/100 WBC (Bld) 11.4 % High 0-10 [facility] Comment on above: Performed By: #### L 501.2300, L100.0100, L501.5200, L500.4050 #### [facility] [address] [place], [address] Neutrophils/100 WBC (Bld) 47.3 % Normal 47-70 [facility] Comment on above: Performed By: #### L 501.2300, L100.0100, L501.5200, L500.4050 #### [facility] [address] [place], [address] Nucleated RBC (Bld) [#/Vol] 0 10*3/uL Normal 0-5 [facility] Comment on above: Performed By: #### L 501.2300, L100.0100, L501.5200, L500.4050 #### [facility] [address] [place], [address] Platelet mean volume (Bld) [Entitic vol] 10.0 fL Normal 6.2-12.0 [facility] Comment on above: Performed By: #### L 501.2300, L100.0100, L501.5200, L500.4050 #### [facility] [address] [place], [address] Platelets (Bld) [#/Vol] 188 10*3/uL Normal 150-450 [facility] Comment on above: Performed By: #### L 501.2300, L100.0100, L501.5200, L500.4050 #### [facility] [address] [place], [address] RBC (Bld) [#/Vol] 4.91 10*6/uL Normal 4.6-6.2 [facility] Comment on above: Performed By: #### L 501.2300, L100.0100, L501.5200, L500.4050 #### [facility] [address] [place], [address] RDW SD 44.0 fl High 35.1-43.9 [facility] Comment on above: Performed By: #### L 501.2300, L100.0100, L501.5200, L500.4050 #### [facility] [address] [place], [address] WBC (Bld) [#/Vol] 7.1 10*3/uL Normal 4.4-11.0 [facility] Comment on above: Performed By: #### L 501.2300, L100.0100, L501.5200, L500.4050 #### [facility] [address] [place], [address] Carbon dioxide, total [Moles /volume] in Central venous bloodOrdered By: Belinda Hensley on 08-15-2025 CO2 [Moles/Vol] 25.2 mmol/L 21.0-32.0 [facility] Chloride assayOrdered By: Bethany Hensley on 08-15-2025 Chloride [Moles/Vol] 102 mmol/L 98-108 [facility] Comprehensive Metabolic Prof ilon 08-15-2025 Albumin [Mass/Vol] 4.0 g/dL Normal 3.4-4.8 [facility] Comment on above: Performed By: #### L 501.2300, L100.0100, L501.5200, L500.4050 #### [facility] [address] [place], [address] Albumin/Globulin [Mass ratio] 1.2 {ratio} Normal 0.9-2.4 [facility] Comment on above: Performed By: #### L 501.2300, L100.0100, L501.5200, L500.4050 #### [facility] [address] [place], [address] ALK PHOS 78 U/L Normal 40-129 [facility] Comment on above: Performed By: #### L 501.2300, L100.0100, L501.5200, L500.4050 #### [facility] [address] [place], [address] ALT [Catalytic activity/Vol] 50 U/L High <=46 [facility] Comment on above: Performed By: #### L 501.2300, L100.0100, L501.5200, L500.4050 #### [facility] [address] [place], [address] AST [Catalytic activity/Vol] 81 U/L High <=37 [facility] Comment on above: Performed By: #### L 501.2300, L100.0100, L501.5200, L500.4050 #### [facility] [address] [place], [address] Bilirubin [Mass/Vol] 0.82 mg/dL Normal 0.00-1.30 [facility] Comment on above: Performed By: #### L 501.2300, L100.0100, L501.5200, L500.4050 #### [facility] [address] [place], [address] BUN/CRE 8.6 RATIO Low 10-20 [facility] Comment on above: Performed By: #### L 501.2300, L100.0100, L501.5200, L500.4050 #### [facility] [address] [place], [address] Calcium [Mass/Vol] 9.1 mg/dL Normal 7.6-11.0 [facility] Comment on above: Performed By: #### L 501.2300, L100.0100, L501.5200, L500.4050 #### [facility] [address] [place], [address] Chloride [Moles/Vol] 102 mmol/L Normal 98-108 [facility] Comment on above: Performed By: #### L 501.2300, L100.0100, L501.5200, L500.4050 #### [facility] [address] [place], [address] CO2 [Moles/Vol] 25.2 mmol/L Normal 21.0-32.0 [facility] Comment on above: Performed By: #### L 501.2300, L100.0100, L501.5200, L500.4050 #### [facility] [address] [place], [address] Creatinine [Mass/Vol] 0.80 mg/dL Normal 0.70-1.20 [facility] Comment on above: Performed By: #### L 501.2300, L100.0100, L501.5200, L500.4050 #### [facility] [address] [place], [address] ECRCL 95.74 ml/min Normal 50-250 [facility] Comment on above: Performed By: #### L 501.2300, L100.0100, L501.5200, L500.4050 #### [facility] [address] [place], [address] GAP 10 Normal 5-15 [facility] Comment on above: Performed By: #### L 501.2300, L100.0100, L501.5200, L500.4050 #### [facility] [address] [place], [address] GFR/1.73 sq M.predicted among non-blacks MDRD (S/P/Bld) [Vol rate/Area] 100 mL/min/{1.73_m2} Normal >60 [facility] Comment on above: Result Comment: mL/m in/1.73m2 CKD-EPI Creatinine Equation (2020) Performed By: #### L 501.2300, L100.0100, L501.5200, L500.4050 #### [facility] [address] [place], [address] Globulin (S) [Mass/Vol] 3.3 g/dL Normal 2.2-4.2 [facility] Comment on above: Performed By: #### L 501.2300, L100.0100, L501.5200, L500.4050 #### [facility] [address] [place], [address] Glucose [Mass/Vol] 109 mg/dL High 70-99 [facility] Comment on above: Performed By: #### L 501.2300, L100.0100, L501.5200, L500.4050 #### [facility] [address] [place], [address] Potassium [Moles/Vol] 4.3 mmol/L Normal 3.3-5.1 [facility] Comment on above: Performed By: #### L 501.2300, L100.0100, L501.5200, L500.4050 #### [facility] [address] [place], [address] Sodium [Moles/Vol] 136 mmol/L Normal 133-145 [facility] Comment on above: Performed By: #### L 501.2300, L100.0100, L501.5200, L500.4050 #### [facility] [address] [place], [address] T PROT 7.3 g/dL Normal 5.9-8.4 [facility] Comment on above: Performed By: #### L 501.2300, L100.0100, L501.5200, L500.4050 #### [facility] [address] [place], [address] Urea nitrogen [Mass/Vol] 7 mg/dL Normal 4-19 [facility] Comment on above: Performed By: #### L 501.2300, L100.0100, L501.5200, L500.4050 #### [facility] [address] [place], [address] Eosinophil percentageOrdered By: Belinda Hensley on 08-15-2025 Eosinophils/100 WBC (Bld) 2.0 % 0-5 [facility] Erythrocyte distribution wid th ratioOrdered By: Belinda Hensley on 08-15-2025 Erythrocyte distribution width (RBC) [Ratio] 12.9 % 11.6-14.6 [facility] Erythrocyte distribution wid th standard deviationOrdered By: Belinda Hensley on 08-15-2025 Erythrocyte distribution width (RBC) [Ratio] 44.0 fl High 35.1-43.9 [facility] Glomerular filtration rate ( GFR) estimation/1.73 sq m using serum, plasma, or whole bOrdered By: Belinda Hensley on 08-15-2025 GFR/1.73 sq M.predicted among non-blacks MDRD (S/P/Bld) [Vol rate/Area] 100 mL/min/{1.73_m2} >60 [facility] Comment on above: mL/min/1.73m2 CKD-EP I Creatinine Equation (2020) Hematocrit Auto (Bld) [Volum e fraction]Ordered By: Belinda Hensley on 08-15-2025 Hematocrit (Bld) [Volume fraction] 45.4 % 40-54 [facility] Hemoglobin measurementOrdere d By: Belinda Hensley on 08-15-2025 Hemoglobin (Bld) [Mass/Vol] 15.6 g/dL 13.0-16.5 [facility] Immature granulocytes/100 WB C Auto (Bld)Ordered By: Belinda Hensley on 08-15-2025 Immature granulocytes/100 WBC (Bld) 0.400 % 0.0-0.9 [facility] Comment on above: IG% - Immature Granu locytes (promyelocytes, myelocytes and metamyelocytes) > 1% indicates that a LEFT SHIFT is Present. Laboratory - Chemistry and C hemistry - challengeOrdered By: Belinda Hensley on 08-15-2025 AST [Catalytic activity/Vol] 81 U/L High <38 [facility] MCV (mean corpuscular volume ) determinationOrdered By: Belinda Hensley on 08-15-2025 MCV (RBC) [Entitic vol] 92.5 fL 80-94 [facility] Magnesiumon 08-15-2025 Magnesium [Mass/Vol] 2.0 mg/dL Normal 1.5-2.2 [facility] Comment on above: Performed By: #### L 501.2300, L100.0100, L501.5200, L500.4050 #### [facility] [address] [place] [address], [address] Magnesium measurement (mass/ volume)Ordered By: Belinda Hensley on 08-15-2025 Magnesium (Unsp spec) [Mass/Vol] 2.0 mg/dL 1.5-2.2 [facility] Mean corpuscular hemoglobin (MCH) determinationOrdered By: Belinda Hensley on 08-15-2025 MCH (RBC) [Entitic mass] 31.8 pg 27.0-32.0 [facility] Mean corpuscular hemoglobin concentration (MCHC) determinationOrdered By: Belinda Hensley on 08-15-2025 MCHC (RBC) [Mass/Vol] 34.4 g/dL 32-36 [facility] Mean platelet volume determi nationOrdered By: Belinda Hensley on 08-15-2025 Platelet mean volume (Bld) [Entitic vol] 10.0 fL 6.2-12.0 [facility] Monocyte percentageOrdered B y: Belinda Hensley on 08-15-2025 Monocytes/100 WBC (Bld) 11.4 % High 0-10 [facility] Neutrophil percentageOrdered By: Belinda Hensley on 08-15-2025 Neutrophils/100 WBC (Bld) 47.3 % 47-70 [facility] Nucleated red blood cell per centageOrdered By: Belinda Hensley on 08-15-2025 Nucleated RBC/100 WBC (Bld) [Ratio] 0 % 0-5 [facility] Phosphoruson 08-15-2025 Phosphate [Mass/Vol] 3.4 mg/dL Normal 2.7-4.5 [facility] Comment on above: Performed By: #### L 501.2300, L100.0100, L501.5200, L500.4050 #### [facility] [address] [place] [address]. [place], [address] Platelet countOrdered By: Bethany Hensley on 08-15-2025 Platelets (Bld) [#/Vol] 188 10*3/uL 150-450 [facility] Potassium measurement (mass/ volume)Ordered By: Belinda Hensley on 08-15-2025 Potassium (Unsp spec) [Mass/Vol] 4.3 mmol/L 3.3-5.1 [facility] RBC Auto (Bld) [#/Vol]Ordere d By: Belinda Hensley on 08-15-2025 RBC (Bld) [#/Vol] 4.91 10*6/uL 4.6-6.2 [facility] Serum creatinine measurement (mass/volume)Ordered By: Belinda Hensley on 08-15-2025 Creatinine [Mass/Vol] 0.80 mg/dL 0.70-1.20 [facility] Serum globulin measurementOr dered By: Belinda Hensley on 08-15-2025 Globulin (S) [Mass/Vol] 3.3 g/dL 2.2-4.2 [facility] Serum glucose measurement (m ass/volume)Ordered By: Belinda Hensley on 08-15-2025 Glucose [Mass/Vol] 109 mg/dL High 70-99 [facility] Serum or plasma alanine rincon otransferase (ALT) measurementOrdered By: Belinda Hensley on 08-15-2025 ALT [Catalytic activity/Vol] 50 U/L High <47 [facility] Serum or plasma albumin kevin urement (mass/volume)Ordered By: Belinda Hensley on 08-15-2025 Albumin [Mass/Vol] 4.0 g/dL 3.4-4.8 [facility] Serum or plasma albumin/glob ulin mass ratioOrdered By: Belinda Hensley on 08-15-2025 Albumin/Globulin [Mass ratio] 1.2 {ratio} 0.9-2.4 [facility] Serum or plasma alkaline axel sphatase measurementOrdered By: Belinda Hensley on 08-15-2025 ALP [Catalytic activity/Vol] 78 U/L 40-129 [facility] Serum or plasma calcium kevin urement (mass/volume)Ordered By: Belinda Hensley on 08-15-2025 Calcium [Mass/Vol] 9.1 mg/dL 7.6-11.0 [facility] Serum or plasma urea nitroge n measurement (mass/volume)Ordered By: Belinda Hensley on 08-15-2025 Urea nitrogen [Mass/Vol] 7 mg/dL 4-19 [facility] Sodium levelOrdered By: Hali Hensley on 08-15-2025 Sodium [Moles/Vol] 136 mmol/L 133-145 [facility] Total proteinOrdered By: Tanika Hensley on 08-15-2025 Protein [Mass/Vol] 7.3 g/dL 5.9-8.4 [facility] White blood cell (WBC) count Ordered By: Belinda Hensley on 08-15-2025 WBC (Bld) [#/Vol] 7.1 10*3/uL 4.4-11.0 [facility] Alcohol, Blood (Medical)-Ser umon 08-14-2025 SERUM ETOH 248.0 mg/dL High <=10.0 [facility] Comment on above: Result Comment: This test is for medical purposes only. The legal definition of intoxication varies according to local law. Performed By: #### L 500.4050, L100.0100, L501.9100, L505.5000, L300.3900 ####[facility] [address] [place], [place], [id number] Amphetamine detection with 1 000 ng/mL as cutoffOrdered By: Shaquille Yung on 08-14-2025 Amphetamines Screen method >1000 ng/mL Ql (U) Negative < 200 ng/mL [facility] Blood manual differential co mment interpretation (narrative result)Ordered By: Shaquille Yung on 08-14-2025 Manual differential comment [place]i (Bld) [Interp] SCANNED [facility] CBC W/Diff, Automatedon 08-01 PLT EST ADEQUATE Normal ADEQ [facility] Comment on above: Performed By: #### L 500.4050, L100.0100, L501.9100, L505.5000, L300.3900 ####[facility] [address] [place], [place], [id number] SMEAR COMMENT SCANNED Normal [facility] Comment on above: Performed By: #### L 500.4050, L100.0100, L501.9100, L505.5000, L300.3900 ####[facility] [address] [place], [address] Comprehensive Metabolic Prof ilon 08-14-2025 Albumin [Mass/Vol] 4.3 g/dL Normal 3.4-4.8 [facility] Comment on above: Performed By: #### L 500.4050, L100.0100, L501.9100, L505.5000, L300.3900 ####[facility] [address] [place], [address] Albumin/Globulin [Mass ratio] 1.3 {ratio} Normal 0.9-2.4 [facility] Comment on above: Performed By: #### L 500.4050, L100.0100, L501.9100, L505.5000, L300.3900 ####[facility] [address] [place], [address] ALK PHOS 88 U/L Normal 40-129 [facility] Comment on above: Performed By: #### L 500.4050, L100.0100, L501.9100, L505.5000, L300.3900 ####[facility] [address] [place], [address] ALT [Catalytic activity/Vol] 54 U/L High <=46 [facility] Comment on above: Performed By: #### L 500.4050, L100.0100, L501.9100, L505.5000, L300.3900 ####[facility] [address] [place], [address] AST [Catalytic activity/Vol] 80 U/L High <=37 [facility] Comment on above: Performed By: #### L 500.4050, L100.0100, L501.9100, L505.5000, L300.3900 ####[facility] [address] [place], [address] Bilirubin [Mass/Vol] 0.57 mg/dL Normal 0.00-1.30 [facility] Comment on above: Performed By: #### L 500.4050, L100.0100, L501.9100, L505.5000, L300.3900 ####[facility] [address] [place], [address] BUN/CRE 7.0 RATIO Low 10-20 [facility] Comment on above: Performed By: #### L 500.4050, L100.0100, L501.9100, L505.5000, L300.3900 ####[facility] [address] [place], [address] Calcium [Mass/Vol] 8.9 mg/dL Normal 7.6-11.0 [facility] Comment on above: Performed By: #### L 500.4050, L100.0100, L501.9100, L505.5000, L300.3900 ####[facility] [address] [place], [address] Chloride [Moles/Vol] 96 mmol/L Low 98-108 [facility] Comment on above: Performed By: #### L 500.4050, L100.0100, L501.9100, L505.5000, L300.3900 ####[facility] [address] [place], [address] CO2 [Moles/Vol] 21.0 mmol/L Normal 21.0-32.0 [facility] Comment on above: Performed By: #### L 500.4050, L100.0100, L501.9100, L505.5000, L300.3900 ####[facility] [address] [place], [address] Creatinine [Mass/Vol] 0.75 mg/dL Normal 0.70-1.20 [facility] Comment on above: Performed By: #### L 500.4050, L100.0100, L501.9100, L505.5000, L300.3900 ####[facility] [address] [place], [address] ECRCL 102.12 ml/min Normal 50-250 [facility] Comment on above: Performed By: #### L 500.4050, L100.0100, L501.9100, L505.5000, L300.3900 ####[facility] [address] [place], [address] GAP 16 High 5-15 [facility] Comment on above: Performed By: #### L 500.4050, L100.0100, L501.9100, L505.5000, L300.3900 ####[facility] [address] [place], [address] GFR/1.73 sq M.predicted among non-blacks MDRD (S/P/Bld) [Vol rate/Area] 102 mL/min/{1.73_m2} Normal >60 [facility] Comment on above: Result Comment: mL/m in/1.73m2 CKD-EPI Creatinine Equation (2020) Performed By: #### L 500.4050, L100.0100, L501.9100, L505.5000, L300.3900 ####[facility] [address] [place], [address] Globulin (S) [Mass/Vol] 3.4 g/dL Normal 2.2-4.2 [facility] Comment on above: Performed By: #### L 500.4050, L100.0100, L501.9100, L505.5000, L300.3900 ####[facility] [address] [place], [address] Glucose [Mass/Vol] 99 mg/dL Normal 70-99 [facility] Comment on above: Performed By: #### L 500.4050, L100.0100, L501.9100, L505.5000, L300.3900 ####[facility] [address] [place], [address] Potassium [Moles/Vol] 3.8 mmol/L Normal 3.3-5.1 [facility] Comment on above: Performed By: #### L 500.4050, L100.0100, L501.9100, L505.5000, L300.3900 ####[facility] [address] [place], [address] Sodium [Moles/Vol] 133 mmol/L Normal 133-145 [facility] Comment on above: Performed By: #### L 500.4050, L100.0100, L501.9100, L505.5000, L300.3900 ####[facility] [address] [place], [address] T PROT 7.8 g/dL Normal 5.9-8.4 [facility] Comment on above: Performed By: #### L 500.4050, L100.0100, L501.9100, L505.5000, L300.3900 ####[facility] [address] [place], [address] Urea nitrogen [Mass/Vol] 5 mg/dL Normal 4-19 [facility] Comment on above: Performed By: #### L 500.4050, L100.0100, L501.9100, L505.5000, L300.3900 ####[facility] [address] [place], [address] Emergency Department Summary on 08-14-2025 Emergency Department Summary [facility] Medical Records Department [address] [place] [address] Emergency Department Summary 08/14/25 MR#: [id number] Acct: [id number] Name: RAISA ESTRADA Rep #: [id number] : 1965 60 From: Shaquille Yung MD PCP: Care Physician,No Primary Status:REG ER Location: ED HPI History of Present Illness Chief Complaint: ETOH Intox Informant: patient Narrative Narrative: Patient is a 60-year-old male with a history of CAD and polysubstance use presenting for assistance with alcohol detoxification. - Reports daily alcohol consumption, starting at 1761-1823 each morning; typically consumes a 6-pack of [...] coronary stents placed by Dr. Grigsby in [place], [place]; denies history of CABG. - Denies chest pain or dyspnea. [facility] Medical History History of ST elevation myocardial infarction (STEMI) (05/11/11) Anxiety and depression Atherosclerotic heart disease of [place] coronary artery without angina pectoris Essential hypertension [...] Labs show (more content not included)... Normal [facility] H AND P Exam - Hospitaliston 08-14-2025 H&P Exam - Hospitalist [facility] Medical Records Department [address] [place] [address] H P Exam - Hospitalist 08/14/25 1822 MR#: [id number] Acct: [id number] Name: RAISA ESTRADA Rep #: [id number] : 1965 60 From: Belinda Hensley DO PCP: Care Physician,No Primary Status:ADM IN Location: [facility] [id number] HPI - General General Date of Admission: [...] he was given IV fluids and phenobarb. [facility] Medical History History of ST elevation myocardial infarction (STEMI) (05/11/11) Anxiety and depression Atherosclerotic heart disease of [place] coronary artery without angina pectoris Essential hypertension [...] polydipsia, polyuria (more content not included)... Normal [facility] International normalized rat io (INR) calculationOrdered By: Shaquille Yung on 08-14-2025 INR Coag (Bld) [Relative time] 1.3 {INR} [facility] No Panel InformationOrdered By: Shaquille Yung on 08-14-2025 Urine Buprenorphine Qualitative Negative < 200 ng/mL [facility] Urine Oxycodone Screen Negative < 100 ng/mL [facility] Platelet estimateOrdered By: Shaquille Yung on 08-14-2025 Platelets LM Ql (Bld) ADEQUATE ADEQ [facility] Prothrombin Time w/INRon INR Coag (PPP) [Relative time] 1.3 {INR} Normal [facility] Comment on above: Performed By: #### L 500.4050, L100.0100, L501.9100, L505.5000, L300.3900 ####[facility] [address] [place], [address] PT Coag (PPP) [Time] 15.9 s High 11.7-14.9 [facility] Comment on above: Performed By: #### L 500.4050, L100.0100, L501.9100, L505.5000, L300.3900 ####[facility] [address] [place], [address] Prothrombin timeOrdered By: Shaquille Yung on 08-14-2025 PT Coag (PPP) [Time] 15.9 s High 11.7-14.9 [facility] Quantitative urine opiates m easurementOrdered By: Shaquille Yung on 08-14-2025 Opiates Ql (U) Negative < 300 ng/mL [facility] Screening urine fentanyl gianna surementOrdered By: Shaquille Yung on 08-14-2025 fentaNYL Screen Ql (U) Negative <5 ng/mL [facility] Comment on above: CONFIRMATORY TESTING FOR ALL [...] 08-14-2025 Ethanol [Mass/Vol] 248.0 mg/dL High <10.1 [facility] Comment on above: This test is for med ical purposes only. The legal definition of intoxication varies according to local law. Urine Drug Screen (VISTA)on 08-14-2025 AMPHETAMINES Negative Normal <1000 ng/mL [facility] Comment on above: Performed By: #### L 500.4050, L100.0100, L501.9100, L505.5000, L300.3900 ####[facility] [address] [place], [address] BARBITIURATES Negative Normal < 200 ng/mL [facility] Comment on above: Performed By: #### L 500.4050, L100.0100, L501.9100, L505.5000, L300.3900 ####[facility] [address] [place], [place], [phone] BENZODIAZIPINE Negative Normal < 200 ng/mL [facility] Comment on above: Performed By: #### L 500.4050, L100.0100, L501.9100, L505.5000, L300.3900 ####[facility] [address] [place], [place], [phone] BUP Ur Drug Scr Negative Normal < 200 ng/mL [facility] Comment on above: Performed By: #### L 500.4050, L100.0100, L501.9100, L505.5000, L300.3900 ####[facility] [address] [place], [place], [phone] COCAINE Negative Normal < 300 ng/mL [facility] Comment on above: Performed By: #### L 500.4050, L100.0100, L501.9100, L505.5000, L300.3900 ####[facility] [address] [place], [place], [phone] Fentanyl Negative Normal <5 ng/mL [facility] Comment on above: Result Comment: CONF [...] #### L 500.4050, L100.0100, L501.9100, L505.5000, L300.3900 ####[facility] [address] [place] [address] METHADONE Negative Normal < 300 ng/mL [facility] Comment on above: Performed By: #### L 500.4050, L100.0100, L501.9100, L505.5000, L300.3900 ####[facility] [address] [place] [address] OPIATES Negative Normal < 300 ng/mL [facility] Comment on above: Performed By: #### L 500.4050, L100.0100, L501.9100, L505.5000, L300.3900 ####[facility] [address] [place] [address] OXYCODONE Negative Normal < 100 ng/mL [facility] Comment on above: Performed By: #### L 500.4050, L100.0100, L501.9100, L505.5000, L300.3900 ####[facility] [address] [place] [address] PCP Negative Normal < 25 ng/mL [facility] Comment on above: Performed By: #### L 500.4050, L100.0100, L501.9100, L505.5000, L300.3900 ####[facility] [address] [place] [address] THC Positive Normal < 50 ng/mL [facility] Comment on above: Result Comment: If c onfirmation testing is needed, a separate order will be required to send out testing to the reference laboratory. Performed By: #### L 500.4050, L100.0100, L501.9100, L505.5000, L300.3900 ####[facility] [address] [place], [address] Urine benzodiazepine levelOr dered By: Shaquille Yung on 08-14-2025 Benzodiazepines Ql (U) Negative < 200 ng/mL [facility] Urine cocaine levelOrdered B y: Shaquille Yung on 08-14-2025 Cocaine Ql (U) Negative < 300 ng/mL [facility] Urine jysaa-1-gpgzvfgdywpoqx abinol (THC) measurementOrdered By: Shaquille Yung on 08-14-2025 Cannabinoids Screen Ql (U) Positive < 50 ng/mL [facility] Comment on above: If confirmation test ing is needed, a separate order will be required to send out testing to the reference laboratory. Urine phencyclidine (PCP) de tectionOrdered By: Shaquille Yung on 08-14-2025 Phencyclidine Ql (U) Negative < 25 ng/mL [facility] Absolute lymphocyte countOrd ered By: Nilson La on 04-15-2025 Lymphocytes Auto (Unsp spec) [#/Vol] 3.03 10*3/uL 0.83-4.51 [facility] Absolute neutrophil countOrd ered By: Nilson La on 04-15-2025 Neutrophils (Bld) [#/Vol] 6.9 10*3/uL 2.0-7.7 [facility] Activated partial thrombopla stin time (aPTT) in platelet poor plasma by coagulation aOrdered By: Nilson La on 04-15-2025 aPTT Coag (PPP) [Time] 28.4 s 24.1-36.2 [facility] Anion gap in Serum or Plasma Ordered By: Nilson La on 04-15-2025 Anion gap [Moles/Vol] 14 mmol/L 03-15 [facility] Automated lymphocyte count a s percentage of total leukocytesOrdered By: Nilson La on 04-15-2025 Lymphocytes/100 WBC Auto (Unsp spec) 26.4 % 19-41 [facility] BUN/creatinine ratioOrdered By: Nilson La on 04-15-2025 Urea nitrogen/Creatinine [Mass ratio] 10.4 mg/mg 08-20 [facility] Basic Metabolic Profile (BMP )on 04-15-2025 BUN/CRE 10.4 RATIO Normal 08-20 [facility] Comment on above: Performed By: #### L 300.4310, L100.0100, L300.3900, L500.2500, L503.6005 ####[facility] [address] [place], [address] Calcium [Mass/Vol] 8.9 mg/dL Normal 7.6-11.0 [facility] Comment on above: Performed By: #### L 300.4310, L100.0100, L300.3900, L500.2500, L503.6005 ####[facility] [address] [place], [address] Chloride [Moles/Vol] 97 mmol/L Low 98-108 [facility] Comment on above: Performed By: #### L 300.4310, L100.0100, L300.3900, L500.2500, L503.6005 ####[facility] [address] [place], [address] CO2 [Moles/Vol] 21.5 mmol/L Normal 21.0-32.0 [facility] Comment on above: Performed By: #### L 300.4310, L100.0100, L300.3900, L500.2500, L503.6005 ####[facility] [address] [place], [address] Creatinine [Mass/Vol] 0.76 mg/dL Normal 0.70-1.20 [facility] Comment on above: Performed By: #### L 300.4310, L100.0100, L300.3900, L500.2500, L503.6005 ####[facility] [address] [place], [address] ECRCL 102.07 ml/min Normal 50-250 [facility] Comment on above: Performed By: #### L 300.4310, L100.0100, L300.3900, L500.2500, L503.6005 ####[facility] [address] [place], [address] GAP 14 Normal 5-15 [facility] Comment on above: Performed By: #### L 300.4310, L100.0100, L300.3900, L500.2500, L503.6005 ####[facility] [address] [place], [address] GFR/1.73 sq M.predicted among non-blacks MDRD (S/P/Bld) [Vol rate/Area] 102 mL/min/{1.73_m2} Normal >60 [facility] Comment on above: Result Comment: mL/m in/1.73m2 CKD-EPI Creatinine Equation (2020) Performed By: #### L 300.4310, L100.0100, L300.3900, L500.2500, L503.6005 ####[facility] [address] [place], [address] Glucose [Mass/Vol] 84 mg/dL Normal 70-99 [facility] Comment on above: Performed By: #### L 300.4310, L100.0100, L300.3900, L500.2500, L503.6005 ####[facility] [address] [place], [address] Potassium [Moles/Vol] 4.3 mmol/L Normal 3.3-5.1 [facility] Comment on above: Performed By: #### L 300.4310, L100.0100, L300.3900, L500.2500, L503.6005 ####[facility] [address] [place], [address] Sodium [Moles/Vol] 132 mmol/L Low 133-145 [facility] Comment on above: Performed By: #### L 300.4310, L100.0100, L300.3900, L500.2500, L503.6005 ####[facility] [address] [place], [address] Urea nitrogen [Mass/Vol] 8 mg/dL Normal 4-19 [facility] Comment on above: Performed By: #### L 300.4310, L100.0100, L300.3900, L500.2500, L503.6005 ####[facility] [address] [place], [address] Basophil percentageOrdered B y: Nilson La on 04-15-2025 Basophils/100 WBC (Bld) 0.6 % 0-1 [facility] CBC W/Diff, Automatedon 04-01 Absolute Lymph 3.03 X10 3/uL Normal 0.83-4.51 [facility] Comment on above: Performed By: #### L 300.4310, L100.0100, L300.3900, L500.2500, L503.6005 ####[facility] [address] [place], [address] Absolute Neut 6.9 X10 3/uL Normal 2.0-7.7 [facility] Comment on above: Performed By: #### L 300.4310, L100.0100, L300.3900, L500.2500, L503.6005 ####[facility] [address] [place], [address] Basophils/100 WBC (Bld) 0.6 % Normal 0-1 [facility] Comment on above: Performed By: #### L 300.4310, L100.0100, L300.3900, L500.2500, L503.6005 ####[facility] [address] [place], [address] Eosinophils/100 WBC (Bld) 2.0 % Normal 0-5 [facility] Comment on above: Performed By: #### L 300.4310, L100.0100, L300.3900, L500.2500, L503.6005 ####[facility] [address] [place], [address] Erythrocyte distribution width (RBC) [Ratio] 13.2 % Normal 11.6-14.6 [facility] Comment on above: Performed By: #### L 300.4310, L100.0100, L300.3900, L500.2500, L503.6005 ####[facility] [address] [place], [address] Hematocrit (Bld) [Volume fraction] 41.7 % Normal 40-54 [facility] Comment on above: Performed By: #### L 300.4310, L100.0100, L300.3900, L500.2500, L503.6005 ####[facility] [address] [place], [address] Hemoglobin (Bld) [Mass/Vol] 14.5 g/dL Normal 13.0-16.5 [facility] Comment on above: Performed By: #### L 300.4310, L100.0100, L300.3900, L500.2500, L503.6005 ####[facility] [address] [place], [address] IG% 0.300 Normal 0.0-0.9 [facility] Comment on above: Result Comment: IG% - Immature Granulocytes (promyelocytes, myelocytes and metamyelocytes) > 1% indicates that a LEFT SHIFT is Present. Performed By: #### L 300.4310, L100.0100, L300.3900, L500.2500, L503.6005 ####[facility] [address] [place], [address] Lymphocytes/100 WBC (Bld) 26.4 % Normal 19-41 [facility] Comment on above: Performed By: #### L 300.4310, L100.0100, L300.3900, L500.2500, L503.6005 ####[facility] [address] [place], [address] MCH (RBC) [Entitic mass] 31.7 pg Normal 27.0-32.0 [facility] Comment on above: Performed By: #### L 300.4310, L100.0100, L300.3900, L500.2500, L503.6005 ####[facility] [address] [place], [address] MCHC (RBC) [Mass/Vol] 34.8 g/dL Normal 32-36 [facility] Comment on above: Performed By: #### L 300.4310, L100.0100, L300.3900, L500.2500, L503.6005 ####[facility] [address] [place], [address] MCV (RBC) [Entitic vol] 91.0 fL Normal 80-94 [facility] Comment on above: Performed By: #### L 300.4310, L100.0100, L300.3900, L500.2500, L503.6005 ####[facility] [address] [place], [address] Monocytes/100 WBC (Bld) 10.9 % High 0-10 [facility] Comment on above: Performed By: #### L 300.4310, L100.0100, L300.3900, L500.2500, L503.6005 ####[facility] [address] [place], [address] Neutrophils/100 WBC (Bld) 59.8 % Normal 47-70 [facility] Comment on above: Performed By: #### L 300.4310, L100.0100, L300.3900, L500.2500, L503.6005 ####[facility] [address] [place], [address] Nucleated RBC (Bld) [#/Vol] 0 10*3/uL Normal 0-5 [facility] Comment on above: Performed By: #### L 300.4310, L100.0100, L300.3900, L500.2500, L503.6005 ####[facility] [address] [place], [address] Platelet mean volume (Bld) [Entitic vol] 9.7 fL Normal 6.2-12.0 [facility] Comment on above: Performed By: #### L 300.4310, L100.0100, L300.3900, L500.2500, L503.6005 ####[facility] [address] [place], [address] Platelets (Bld) [#/Vol] 214 10*3/uL Normal 150-450 [facility] Comment on above: Performed By: #### L 300.4310, L100.0100, L300.3900, L500.2500, L503.6005 ####[facility] [address] [place], [address] RBC (Bld) [#/Vol] 4.58 10*6/uL Low 4.6-6.2 [facility] Comment on above: Performed By: #### L 300.4310, L100.0100, L300.3900, L500.2500, L503.6005 ####[facility] [address] [place], [address] RDW SD 44.2 fl High 35.1-43.9 [facility] Comment on above: Performed By: #### L 300.4310, L100.0100, L300.3900, L500.2500, L503.6005 ####[facility] [address] [place], [address] WBC (Bld) [#/Vol] 11.5 10*3/uL High 4.4-11.0 [facility] Comment on above: Performed By: #### L 300.4310, L100.0100, L300.3900, L500.2500, L503.6005 ####[facility] [address] [facility] [place], [address] Carbon dioxide, total [Moles /volume] in Central venous bloodOrdered By: Nilson La on 04-15-2025 CO2 [Moles/Vol] 21.5 mmol/L 21.0-32.0 [facility] Chloride assayOrdered By: Haroon La on 04-15-2025 Chloride [Moles/Vol] 97 mmol/L Low 98-108 [facility] Emergency Department Summary on 04-15-2025 Emergency Department Summary [facility] Medical Records Department [address] [place] [address] Emergency Department Summary 04/15/25 MR#: [id number] Acct: [id number] Name: RAISA ESTRADA Rep #: [id number] : 1965 59 From: Nilson La DO [...] Parasthesia or Weakness Narrative Tetanus Immunization: Unknown [facility] Medical History History of ST elevation myocardial infarction (STEMI) (05/11/11) Anxiety and depression Atherosclerotic heart disease of [place] coronary artery without angina pectoris Essential hypertension [...] 5/5 bilater (more content not included)... Normal [facility] Eosinophil percentageOrdered By: Nilson La on 04-15-2025 Eosinophils/100 WBC (Bld) 2.0 % 0-5 [facility] Erythrocyte distribution wid th ratioOrdered By: Nilson La on 04-15-2025 Erythrocyte distribution width (RBC) [Ratio] 13.2 % 11.6-14.6 [facility] Erythrocyte distribution wid th standard deviationOrdered By: Nilson La on 04-15-2025 Erythrocyte distribution width (RBC) [Ratio] 44.2 fl High 35.1-43.9 [facility] Glomerular filtration rate ( GFR) estimation/1.73 sq m using serum, plasma, or whole bOrdered By: Nilson La on 04-15-2025 GFR/1.73 sq M.predicted among non-blacks MDRD (S/P/Bld) [Vol rate/Area] 102 mL/min/{1.73_m2} >60 [facility] Comment on above: mL/min/1.73m2 CKD-EP I Creatinine Equation (2020) Hematocrit Auto (Bld) [Volum e fraction]Ordered By: Nilson La on 04-15-2025 Hematocrit (Bld) [Volume fraction] 41.7 % 40-54 [facility] Hemoglobin measurementOrdere d By: Nilson La on 04-15-2025 Hemoglobin (Bld) [Mass/Vol] 14.5 g/dL 13.0-16.5 [facility] Immature granulocytes/100 WB C Auto (Bld)Ordered By: Nilson La on 04-15-2025 Immature granulocytes/100 WBC (Bld) 0.300 % 0.0-0.9 [facility] Comment on above: IG% - Immature Granu locytes (promyelocytes, myelocytes and metamyelocytes) > 1% indicates that a LEFT SHIFT is Present. International normalized rat io (INR) calculationOrdered By: Nilson La on 04-15-2025 INR Coag (Bld) [Relative time] 1.1 {INR} [facility] Knee 4 or More Viewson 04-15 Knee 4 or More Views [facility] Imaging Services [address] [place] [address] Knee 4 or More Views MR#: [id number] Acct: [id number] Name: RAISA ESTRADA Rep #: [id number] : 1965 M 59 From: Matt valadez MD PCP: Dr. Dann Erickson MD Status: DEP ER Study: Knee 4 or More Views Date of Exam: 04/15/25 Exam# [id number] Ordering Dr: Nilson La DO PROCEDURE: KNEE [...] No evidence for acute abnormality. Reading Location: [place] [address] CC: Dr. Dann Erickson MD; Dr. Nilson La DO Finish Carpenter: Signed Normal [facility] Lactic Acidon 04-15-2025 Lactate [Moles/Vol] 1.7 mmol/L Normal 0.0-2.0 [facility] Comment on above: Order Comment: Y Performed By: #### L 300.4310, L100.0100, L300.3900, L500.2500, L503.6005 ####[facility] [address] [place], [address] Lactic acid measurementOrder ed By: Nilson La on 04-15-2025 Lactate [Moles/Vol] 1.7 mmol/L 0.0-2.0 [facility] MCV (mean corpuscular volume ) determinationOrdered By: Nilson La on 04-15-2025 MCV (RBC) [Entitic vol] 91.0 fL 80-94 [facility] Mean corpuscular hemoglobin (MCH) determinationOrdered By: Nilson La on 04-15-2025 MCH (RBC) [Entitic mass] 31.7 pg 27.0-32.0 [facility] Mean corpuscular hemoglobin concentration (MCHC) determinationOrdered By: Nilson La on 04-15-2025 MCHC (RBC) [Mass/Vol] 34.8 g/dL 32-36 [facility] Mean platelet volume determi nationOrdered By: Nilson La on 04-15-2025 Platelet mean volume (Bld) [Entitic vol] 9.7 fL 6.2-12.0 [facility] Monocyte percentageOrdered B y: Nilson La on 04-15-2025 Monocytes/100 WBC (Bld) 10.9 % High 0-10 [facility] Neutrophil percentageOrdered By: Nilson La on 04-15-2025 Neutrophils/100 WBC (Bld) 59.8 % 47-70 [facility] Nucleated red blood cell per centageOrdered By: Nilson La on 04-15-2025 Nucleated RBC/100 WBC (Bld) [Ratio] 0 % 0-5 [facility] Partial Thromboplast Timeon 04-15-2025 aPTT Coag (Bld) [Time] 28.4 s Normal 24.1-36.2 [facility] Comment on above: Performed By: #### L 300.4310, L100.0100, L300.3900, L500.2500, L503.6005 ####[facility] [address] [place], [address] Platelet countOrdered By: Haroon La on 04-15-2025 Platelets (Bld) [#/Vol] 214 10*3/uL 150-450 [facility] Potassium measurement (mass/ volume)Ordered By: Nilson La on 04-15-2025 Potassium (Unsp spec) [Mass/Vol] 4.3 mmol/L 3.3-5.1 [facility] Prothrombin Time w/INRon INR Coag (PPP) [Relative time] 1.1 {INR} Normal [facility] Comment on above: Performed By: #### L 300.4310, L100.0100, L300.3900, L500.2500, L503.6005 ####[facility] [address] [place], [address] PT Coag (PPP) [Time] 14.1 s Normal 11.7-14.9 [facility] Comment on above: Performed By: #### L 300.4310, L100.0100, L300.3900, L500.2500, L503.6005 ####[facility] [address] [place], [address] Prothrombin timeOrdered By: Nilson La on 04-15-2025 PT Coag (PPP) [Time] 14.1 s 11.7-14.9 [facility] RBC Auto (Bld) [#/Vol]Ordere d By: Nilson La on 04-15-2025 RBC (Bld) [#/Vol] 4.58 10*6/uL Low 4.6-6.2 [facility] Serum creatinine measurement (mass/volume)Ordered By: Nilson La on 04-15-2025 Creatinine [Mass/Vol] 0.76 mg/dL 0.70-1.20 [facility] Serum glucose measurement (m ass/volume)Ordered By: Nilson La on 04-15-2025 Glucose [Mass/Vol] 84 mg/dL 70-99 [facility] Serum or plasma calcium kevin urement (mass/volume)Ordered By: Nilson La on 04-15-2025 Calcium [Mass/Vol] 8.9 mg/dL 7.6-11.0 [facility] Serum or plasma urea nitroge n measurement (mass/volume)Ordered By: Nilson La on 04-15-2025 Urea nitrogen [Mass/Vol] 8 mg/dL 4-19 [facility] Sodium levelOrdered By: Nilson La on 04-15-2025 Sodium [Moles/Vol] 132 mmol/L Low 133-145 [facility] White blood cell (WBC) count Ordered By: Nilson La on 04-15-2025 WBC (Bld) [#/Vol] 11.5 10*3/uL High 4.4-11.0 [facility] Anion gap in Serum or Plasma Ordered By: Nati Alston on 02-01-2025 Anion gap [Moles/Vol] 12 mmol/L 5-15 [facility] BUN/creatinine ratioOrdered By: Nati Alston on 02-01-2025 Urea nitrogen/Creatinine [Mass ratio] 14.6 mg/mg 10-20 [facility] Bilirubin, totalOrdered By: Nati Alston on 02-01-2025 Bilirubin [Mass/Vol] 0.49 mg/dL 0.00-1.30 [facility] CBC-Complete Blood Cnt No Di ffon 02-01-2025 Erythrocyte distribution width (RBC) [Ratio] 12.6 % Normal 11.6-14.6 [facility] Comment on above: Performed By: #### L 500.4050, L501.9520, L100.0500, L500.4100 #### [facility] [address] [place], [address] Hematocrit (Bld) [Volume fraction] 43.8 % Normal 40-54 [facility] Comment on above: Performed By: #### L 500.4050, L501.9520, L100.0500, L500.4100 #### [facility] [address] [place], [address] Hemoglobin (Bld) [Mass/Vol] 15.7 g/dL Normal 13.0-16.5 [facility] Comment on above: Performed By: #### L 500.4050, L501.9520, L100.0500, L500.4100 #### [facility] [address] [place], [address] MCH (RBC) [Entitic mass] 31.7 pg Normal 27.0-32.0 [facility] Comment on above: Performed By: #### L 500.4050, L501.9520, L100.0500, L500.4100 #### [facility] [address] [place], [address] MCHC (RBC) [Mass/Vol] 35.8 g/dL Normal 32-36 [facility] Comment on above: Performed By: #### L 500.4050, L501.9520, L100.0500, L500.4100 #### [facility] [address] [place], [address] MCV (RBC) [Entitic vol] 88.3 fL Normal 80-94 [facility] Comment on above: Performed By: #### L 500.4050, L501.9520, L100.0500, L500.4100 #### [facility] [address] [place], [address] Platelet mean volume (Bld) [Entitic vol] 9.9 fL Normal 6.2-12.0 [facility] Comment on above: Performed By: #### L 500.4050, L501.9520, L100.0500, L500.4100 #### [facility] [address] [place], [address] Platelets (Bld) [#/Vol] 196 10*3/uL Normal 150-450 [facility] Comment on above: Performed By: #### L 500.4050, L501.9520, L100.0500, L500.4100 #### [facility] [address] [place], [address] RBC (Bld) [#/Vol] 4.96 10*6/uL Normal 4.6-6.2 [facility] Comment on above: Performed By: #### L 500.4050, L501.9520, L100.0500, L500.4100 #### [facility] [address] [place], [address] RDW SD 40.8 fl Normal 35.1-43.9 [facility] Comment on above: Performed By: #### L 500.4050, L501.9520, L100.0500, L500.4100 #### [facility] [address] [place], [address] WBC (Bld) [#/Vol] 7.2 10*3/uL Normal 4.4-11.0 [facility] Comment on above: Performed By: #### L 500.4050, L501.9520, L100.0500, L500.4100 #### [facility] [address] [place], [address] Calculated very low density lipoprotein (VLDL) cholesterol measurementOrdered By: Nati Alston on 02-01-2025 Calculated very low density lipoprotein (VLDL) cholesterol measurement 27 mg/dL 5-40 [facility] VLDL Cholesterol 27 mg/dL -40 [facility] Carbon dioxide, total [Moles /volume] in Central venous bloodOrdered By: Nati Alston on 02-01-2025 CO2 [Moles/Vol] 21.8 mmol/L 21.0-32.0 [facility] Chloride assayOrdered By: Kenneth Alston on 02-01-2025 Chloride [Moles/Vol] 104 mmol/L 98-108 [facility] Comprehensive Metabolic Prof ilon 02-01-2025 Albumin [Mass/Vol] 3.8 g/dL Normal 3.4-4.8 [facility] Comment on above: Performed By: #### L 501.9520, L500.4100, L500.4050 ####[facility] [address] [place], [address] Albumin/Globulin [Mass ratio] 1.0 {ratio} Normal 0.9-2.4 [facility] Comment on above: Performed By: #### L 501.9520, L500.4100, L500.4050 ####[facility] [address] [place], [address] ALK PHOS 124 U/L Normal 40-129 [facility] Comment on above: Performed By: #### L 501.9520, L500.4100, L500.4050 ####[facility] [address] [place], [address] ALT [Catalytic activity/Vol] 88 U/L High <=46 [facility] Comment on above: Performed By: #### L 501.9520, L500.4100, L500.4050 ####[facility] [address] [place], [address] AST [Catalytic activity/Vol] 76 U/L High <=37 [facility] Comment on above: Performed By: #### L 501.9520, L500.4100, L500.4050 ####[facility] [address] [place], [address] Bilirubin [Mass/Vol] 0.49 mg/dL Normal 0.00-1.30 [facility] Comment on above: Performed By: #### L 501.9520, L500.4100, L500.4050 ####[facility] [address] [place], [address] BUN/CRE 14.6 RATIO Normal 10-20 [facility] Comment on above: Performed By: #### L 501.9520, L500.4100, L500.4050 ####[facility] [address] [place], [address] Calcium [Mass/Vol] 9.2 mg/dL Normal 7.6-11.0 [facility] Comment on above: Performed By: #### L 501.9520, L500.4100, L500.4050 ####[facility] [address] [place], [address] Chloride [Moles/Vol] 104 mmol/L Normal 98-108 [facility] Comment on above: Performed By: #### L 501.9520, L500.4100, L500.4050 ####[facility] [address] [place], [address] CO2 [Moles/Vol] 21.8 mmol/L Normal 21.0-32.0 [facility] Comment on above: Performed By: #### L 501.9520, L500.4100, L500.4050 ####[facility] [address] [place], [address] Creatinine [Mass/Vol] 0.89 mg/dL Normal 0.70-1.20 [facility] Comment on above: Performed By: #### L 501.9520, L500.4100, L500.4050 ####[facility] [address] [place], [address] GAP 12 Normal 5-15 [facility] Comment on above: Performed By: #### L 501.9520, L500.4100, L500.4050 ####[facility] [address] [place], [address] GFR/1.73 sq M.predicted among non-blacks MDRD (S/P/Bld) [Vol rate/Area] 97 mL/min/{1.73_m2} Normal >60 [facility] Comment on above: Result Comment: mL/m in/1.73m2 CKD-EPI Creatinine Equation (2020) Performed By: #### L 501.9520, L500.4100, L500.4050 ####[facility] [address] [place], [address] Globulin (S) [Mass/Vol] 3.7 g/dL Normal 2.2-4.2 [facility] Comment on above: Performed By: #### L 501.9520, L500.4100, L500.4050 ####[facility] [address] [place], [address] Glucose [Mass/Vol] 124 mg/dL High 70-99 [facility] Comment on above: Performed By: #### L 501.9520, L500.4100, L500.4050 ####[facility] [address] [place], [address] Potassium [Moles/Vol] 4.3 mmol/L Normal 3.3-5.1 [facility] Comment on above: Performed By: #### L 501.9520, L500.4100, L500.4050 ####[facility] [address] [place], [address] Sodium [Moles/Vol] 138 mmol/L Normal 133-145 [facility] Comment on above: Performed By: #### L 501.9520, L500.4100, L500.4050 ####[facility] [address] [place], [address] T PROT 7.5 g/dL Normal 5.9-8.4 [facility] Comment on above: Performed By: #### L 501.9520, L500.4100, L500.4050 ####[facility] [address] [place], [address] Urea nitrogen [Mass/Vol] 13 mg/dL Normal 4-19 [facility] Comment on above: Performed By: #### L 501.9520, L500.4100, L500.4050 ####[facility] [address] [place], [address] Albumin [Mass/Vol] 3.8 g/dL Normal 3.4-4.8 [facility] Comment on above: Result Comment: will reorder Performed By: #### L 500.4050, L501.9520, L100.0500, L500.4100 #### [facility] [address] [place], [address] Albumin/Globulin [Mass ratio] 1.0 {ratio} Normal 0.9-2.4 [facility] Comment on above: Result Comment: will reorder Performed By: #### L 500.4050, L501.9520, L100.0500, L500.4100 #### [facility] [address] [place], [address] ALK PHOS 124 U/L Normal 40-129 [facility] Comment on above: Result Comment: will reorder Performed By: #### L 500.4050, L501.9520, L100.0500, L500.4100 #### [facility] [address] [place], [address] ALT [Catalytic activity/Vol] 89 U/L High <=46 [facility] Comment on above: Result Comment: will reorder Performed By: #### L 500.4050, L501.9520, L100.0500, L500.4100 #### [facility] [address] [place], [address] AST [Catalytic activity/Vol] 74 U/L High <=37 [facility] Comment on above: Result Comment: will reorder Performed By: #### L 500.4050, L501.9520, L100.0500, L500.4100 #### [facility] [address] [place], [address] Bilirubin [Mass/Vol] 0.44 mg/dL Normal 0.00-1.30 [facility] Comment on above: Result Comment: will reorder Performed By: #### L 500.4050, L501.9520, L100.0500, L500.4100 #### [facility] [address] [place], [address] BUN/CRE 14.8 RATIO Normal 10-20 [facility] Comment on above: Result Comment: will reorder Performed By: #### L 500.4050, L501.9520, L100.0500, L500.4100 #### [facility] [address] [place], [address] Calcium [Mass/Vol] 9.0 mg/dL Normal 7.6-11.0 [facility] Comment on above: Result Comment: will reorder Performed By: #### L 500.4050, L501.9520, L100.0500, L500.4100 #### [facility] [address] [place], [address] Chloride [Moles/Vol] 104 mmol/L Normal 98-108 [facility] Comment on above: Result Comment: will reorder Performed By: #### L 500.4050, L501.9520, L100.0500, L500.4100 #### [facility] [address] [place], [address] CO2 [Moles/Vol] 24.7 mmol/L Normal 21.0-32.0 [facility] Comment on above: Result Comment: will reorder Performed By: #### L 500.4050, L501.9520, L100.0500, L500.4100 #### [facility] [address] [place], [address] Creatinine [Mass/Vol] 0.87 mg/dL Normal 0.70-1.20 [facility] Comment on above: Result Comment: will reorder Performed By: #### L 500.4050, L501.9520, L100.0500, L500.4100 #### [facility] [address] [place], [address] GAP 9 Normal 5-15 [facility] Comment on above: Result Comment: will reorder Performed By: #### L 500.4050, L501.9520, L100.0500, L500.4100 #### [facility] [address] [place], [address] GFR/1.73 sq M.predicted among non-blacks MDRD (S/P/Bld) [Vol rate/Area] 98 mL/min/{1.73_m2} Normal >60 [facility] Comment on above: Result Comment: will reorder mL/min/1.73m2 CKD-EPI Creatinine Equation (2020) Performed By: #### L 500.4050, L501.9520, L100.0500, L500.4100 #### [facility] [address] [place], [address] Globulin (S) [Mass/Vol] 3.7 g/dL Normal 2.2-4.2 [facility] Comment on above: Result Comment: will reorder Performed By: #### L 500.4050, L501.9520, L100.0500, L500.4100 #### [facility] [address] [place], [address] Glucose [Mass/Vol] 126 mg/dL High 70-99 [facility] Comment on above: Result Comment: will reorder Performed By: #### L 500.4050, L501.9520, L100.0500, L500.4100 #### [facility] [address] [place], [address] Potassium [Moles/Vol] 4.3 mmol/L Normal 3.3-5.1 [facility] Comment on above: Result Comment: will reorder Performed By: #### L 500.4050, L501.9520, L100.0500, L500.4100 #### [facility] [address] [place], [address] Sodium [Moles/Vol] 138 mmol/L Normal 133-145 [facility] Comment on above: Result Comment: will reorder Performed By: #### L 500.4050, L501.9520, L100.0500, L500.4100 #### [facility] [address] [place], [address] T PROT 7.5 g/dL Normal 5.9-8.4 [facility] Comment on above: Result Comment: will reorder Performed By: #### L 500.4050, L501.9520, L100.0500, L500.4100 #### [facility] [address] [place], [address] Urea nitrogen [Mass/Vol] 13 mg/dL Normal 4-19 [facility] Comment on above: Result Comment: will reorder Performed By: #### L 500.4050, L501.9520, L100.0500, L500.4100 #### [facility] [address] [place], [address] Erythrocyte distribution wid th (RBC) [Ratio]Ordered By: Nati Alston on 02-01-2025 Erythrocyte distribution width (RBC) [Entitic vol] 40.8 fL 35.1-43.9 [facility] Erythrocyte distribution wid th ratioOrdered By: Nati Alston on 02-01-2025 Erythrocyte distribution width (RBC) [Ratio] 12.6 % 11.6-14.6 [facility] Erythrocyte distribution wid th standard deviationOrdered By: Nati Alston on 02-01-2025 Erythrocyte distribution width (RBC) [Ratio] 40.8 fl 35.1-43.9 [facility] GFR/1.73 sq M.predicted donovan g non-blacks MDRD (S/P/Bld) [Vol rate/Area]Ordered By: Nati Alston on 02-01-2025 Estimated GFR (MDRD) Non-Af Amer 97 >60 [facility] Comment on above: mL/min/1.73m2 CKD-EP I Creatinine Equation (2020) Glomerular filtration rate ( GFR) estimation/1.73 sq m using serum, plasma, or whole bOrdered By: Nati Alston on 02-01-2025 GFR/1.73 sq M.predicted among non-blacks MDRD (S/P/Bld) [Vol rate/Area] 97 mL/min/{1.73_m2} >60 [facility] Comment on above: mL/min/1.73m2 CKD-EP I Creatinine Equation (2020) Hematocrit Auto (Bld) [Volum e fraction]Ordered By: Nati Alston on 02-01-2025 Hematocrit (Bld) [Volume fraction] 43.8 % 40-54 [facility] Hemoglobin measurementOrdere d By: Nati Alston on 02-01-2025 Hemoglobin (Bld) [Mass/Vol] 15.7 g/dL 13.0-16.5 [facility] LDL calc ser/plasOrdered By: Nati Alston on 02-01-2025 Cholesterol in LDL [Mass/Vol] 81 mg/dL [facility] Comment on above: Shurrkghfa=763-876 m g/dL & Higher Uawi=036 mg/dL or greater LDL Cholesterol, Calculated 81 mg/dL [facility] Comment on above: Lttpgaytbq=726-863 m g/dL & Higher Zyyd=403 mg/dL or greater Laboratory - Chemistry and C hemistry - challengeOrdered By: Nati Alston on 02-01-2025 AST [Catalytic activity/Vol] 76 U/L High <38 [facility] Lipid Profileon 02-01-2025 CHOL:HDL 3.86 Normal [facility] Comment on above: Performed By: #### L 501.9520, L500.4100, L500.4050 ####[facility] [address] [place], [address] Cholesterol [Mass/Vol] 146 mg/dL Normal <=200 [facility] Comment on above: Result Comment: Chol esterol level, Desirable <200 mg/dL Borderline high cholesterol 200-239 mg/dL High cholesterol >=240 mg/dL Recommendations of the NCEP Adult Treatment Panel for the following risk-cutoff thresholds for the [place] population. Performed By: #### L 501.9520, L500.4100, L500.4050 ####[facility] [address] [place], [address] Cholesterol in HDL [Mass/Vol] 38 mg/dL Low [facility] Comment on above: Result Comment: Nessa onal Cholesterol Education Program (NCEP) guidelines: <40 mg/dL: Low HDL-cholesterol (major risk factor for CHD) >= 60 mg/dL: High HDL-cholesterol (negative risk factor for CHD) HDL-cholesterol is affected by a number of factors, e.g. smoking, exercise, hormones, sex and age. Performed By: #### L 501.9520, L500.4100, L500.4050 ####[facility] [address] [place], [address] Cholesterol in LDL [Mass/Vol] 81 mg/dL Normal [facility] Comment on above: Result Comment: Bord wrscho=227-010 mg/dL Higher Cvpj=261 mg/dL or greater Performed By: #### L 501.9520, L500.4100, L500.4050 ####[facility] [address] [place], [address] Cholesterol in VLDL [Mass/Vol] 27 mg/dL Normal 5-40 [facility] Comment on above: Performed By: #### L 501.9520, L500.4100, L500.4050 ####[facility] [address] [place], [address] Triglyceride [Mass/Vol] 135 mg/dL Normal [facility] Comment on above: Result Comment: The drugs N-Acetylcysteine and Metamizole may falsely depress this assay. Normal range: <150 mg/dL Borderline High: 150-199 mg/dL High: 200-499 mg/dL Very High: >500 mg/dL Performed By: #### L 501.9520, L500.4100, L500.4050 ####[facility] [address] [place], [address] CHOL:HDL 3.76 Normal [facility] Comment on above: Result Comment: will reorder Performed By: #### L 500.4050, L501.9520, L100.0500, L500.4100 ####[facility] [address] [place], [address] Cholesterol [Mass/Vol] 146 mg/dL Normal <=200 [facility] Comment on above: Result Comment: will reorder Cholesterol level, Desirable <200 mg/dL Borderline high cholesterol 200-239 mg/dL High cholesterol >=240 mg/dL Recommendations of the NCEP Adult Treatment Panel for the following risk-cutoff thresholds for the [place] population. Performed By: #### L 500.4050, L501.9520, L100.0500, L500.4100 ####[facility] [address] [place], [address] Cholesterol in HDL [Mass/Vol] 39 mg/dL Low [facility] Comment on above: Result Comment: will reorder National Cholesterol Education Program (NCEP) guidelines: <40 mg/dL: Low HDL-cholesterol (major risk factor for CHD) >= 60 mg/dL: High HDL-cholesterol (negative risk factor for CHD) HDL-cholesterol is affected by a number of factors, e.g. smoking, exercise, hormones, sex and age. Performed By: #### L 500.4050, L501.9520, L100.0500, L500.4100 ####[facility] [address] [place], [address] Cholesterol in LDL [Mass/Vol] 81 mg/dL Normal [facility] Comment on above: Result Comment: will reorder Frteqwdcml=492-330 mg/dL Higher Npbz=376 mg/dL or greater Performed By: #### L 500.4050, L501.9520, L100.0500, L500.4100 ####[facility] [address] [place], [address] Cholesterol in VLDL [Mass/Vol] 26 mg/dL Normal 5-40 [facility] Comment on above: Result Comment: will reorder Performed By: #### L 500.4050, L501.9520, L100.0500, L500.4100 ####[facility] [address] [place], [address] Triglyceride [Mass/Vol] 131 mg/dL Normal [facility] Comment on above: Result Comment: will reorder The drugs N-Acetylcysteine and Metamizole may falsely depress this assay. Normal range: <150 mg/dL Borderline High: 150-199 mg/dL High: 200-499 mg/dL Very High: >500 mg/dL Performed By: #### L 500.4050, L501.9520, L100.0500, L500.4100 ####[facility] [address] [place], [address] MCV (mean corpuscular volume ) determinationOrdered By: Nati Alston on 02-01-2025 MCV (RBC) [Entitic vol] 88.3 fL 80-94 [facility] Mean corpuscular hemoglobin (MCH) determinationOrdered By: Nati Alston on 02-01-2025 MCH (RBC) [Entitic mass] 31.7 pg 27.0-32.0 [facility] Mean corpuscular hemoglobin concentration (MCHC) determinationOrdered By: Nati Alston on 02-01-2025 MCHC (RBC) [Mass/Vol] 35.8 g/dL 32-36 [facility] Mean platelet volume determi nationOrdered By: Nati Alston on 02-01-2025 Platelet mean volume (Bld) [Entitic vol] 9.9 fL 6.2-12.0 [facility] Platelet countOrdered By: Kenneth Alston on 02-01-2025 Platelets (Bld) [#/Vol] 196 10*3/uL 150-450 [facility] Potassium (Unsp spec) [Mass/ Vol]Ordered By: Nati Alston on 02-01-2025 Potassium [Moles/Vol] 4.3 mmol/L 3.3-5.1 [facility] Potassium measurement (mass/ volume)Ordered By: Nati Alston on 02-01-2025 Potassium (Unsp spec) [Mass/Vol] 4.3 mmol/L 3.3-5.1 [facility] RBC Auto (Bld) [#/Vol]Ordere d By: Nati Alston on 02-01-2025 RBC (Bld) [#/Vol] 4.96 10*6/uL 4.6-6.2 [facility] Screening total cholesterol/ high density lipoprotein (HDL) cholesterol ratioOrdered By: Nati Alston on 02-01-2025 Cholesterol.total/Belinda sterol in HDL [Mass ratio] 3.86 {ratio} [facility] Serum creatinine measurement (mass/volume)Ordered By: Nati Alston on 02-01-2025 Creatinine [Mass/Vol] 0.89 mg/dL 0.70-1.20 [facility] Serum globulin measurementOr dered By: Nati Alston on 02-01-2025 Globulin (S) [Mass/Vol] 3.7 g/dL 2.2-4.2 [facility] Serum glucose measurement (m ass/volume)Ordered By: Nati Alston on 02-01-2025 Glucose [Mass/Vol] 124 mg/dL High 70-99 [facility] Serum or plasma alanine rincon otransferase (ALT) measurementOrdered By: Nati Alston on 02-01-2025 ALT [Catalytic activity/Vol] 88 U/L High <47 [facility] Serum or plasma albumin kevin urement (mass/volume)Ordered By: Nati Alston on 02-01-2025 Albumin [Mass/Vol] 3.8 g/dL 3.4-4.8 [facility] Serum or plasma albumin/glob ulin mass ratioOrdered By: Nati Alston on 02-01-2025 Albumin/Globulin [Mass ratio] 1.0 {ratio} 0.9-2.4 [facility] Serum or plasma alkaline axel sphatase measurementOrdered By: Nati Gamaliel on 02-01-2025 ALP [Catalytic activity/Vol] 124 U/L 40-129 [facility] Serum or plasma calcium kevin urement (mass/volume)Ordered By: Nati Alston on 02-01-2025 Calcium [Mass/Vol] 9.2 mg/dL 7.6-11.0 [facility] Serum or plasma cholesterol in HDL measurement (mass/volume)Ordered By: Nati Alston on 02-01-2025 Cholesterol in HDL [Mass/Vol] 38 mg/dL Low >40 [facility] Comment on above: National Cholesterol Education Program (NCEP) guidelines:<40 mg/dL: Low HDL-cholesterol (major risk factor for CHD)>= 60 mg/dL: High HDL-cholesterol (negative risk factor for CHD)HDL-cholesterol is affected by a number of factors, e.g. smoking, exercise, hormones, sex and age. Serum or plasma cholesterol measurement (mass/volume)Ordered By: Nati Alston on 02-01-2025 Cholesterol [Mass/Vol] 146 mg/dL <201 [facility] Comment on above: Cholesterol level, D esirable <200 mg/dLBorderline high cholesterol 200-239 mg/dLHigh cholesterol >=240 mg/dLRecommendations of the NCEP Adult Treatment Panel for the following risk-cutoff thresholds for the [place] population. Serum or plasma urea nitroge n measurement (mass/volume)Ordered By: Nati Alston on 02-01-2025 Urea nitrogen [Mass/Vol] 13 mg/dL 4-19 [facility] Sodium levelOrdered By: Juan Alston on 02-01-2025 Sodium [Moles/Vol] 138 mmol/L 133-145 [facility] TSH DL <= 0.005 mIU/L QnOrde red By: Nati Alston on 02-01-2025 Thyroid Stimulating Hormone (TSH) 1.140 uIU/mL 0.300-4.200 [facility] TSH Qn 1.140 uIU/mL 0.300-4.200 [facility] Thyroid Stim Hormone (TSH)on 02-01-2025 TSH 1.140 uIU/mL Normal 0.300-4.200 [facility] Comment on above: Performed By: #### L 501.9520, L500.4100, L500.4050 ####[facility] [address] [place], [address] TSH 1.140 uIU/mL Normal 0.300-4.200 [facility] Comment on above: Order Comment: will reorder Result Comment: will reorder Performed By: #### L 500.4050, L501.9520, L100.0500, L500.4100 ####[facility] [address] [place], [address] Total proteinOrdered By: Eleni Alston on 02-01-2025 Protein [Mass/Vol] 7.5 g/dL 5.9-8.4 [facility] Triglycerides measurementOrd ered By: Nati Alston on 02-01-2025 Triglyceride [Mass/Vol] 135 mg/dL <199 [facility] Comment on above: The drugs N-Acetylcy steine and Metamizole may falsely depress this assay. Normal range: <150 mg/dLBorderline High: 150-199 mg/dLHigh: 200-499 mg/dLVery High: >500 mg/dL White blood cell (WBC) count Ordered By: Nati Alston on 02-01-2025 WBC (Bld) [#/Vol] 7.2 10*3/uL 4.4-11.0 [facility] 12 Lead EKG performed by [facility] [place] [place] on 01-30-2025 12 Lead EKG performed by [facility] [address] [place] [address] 12 Lead EKG performed by [facility] [place] [place] 01/30/25832 MR#: [id number] Acct: [id number] Name: RAISA ESTRADA Rep #: [id number] : 1965 59 From: Nati Alston MD Attending Dr: Dr. Nati Alston MD Status: DEP AMB Ordering Dr: Nati Alston MD Date: 01/30/25 Location: [facility] [place] [place] Sex: M C Admitted: BMS/12 Lead EKG performed by [facility] [place] [place] ECG Report Interpretation ---Sinus Rhythm -Left axis -anterior fascicular block. ABNORMAL Electronically signed on 03/28/2025 at 13:[address] Nati Alston [employer] Software Version [id number] 03/28/25 1332 Date Nati Alston MD CC: No Primary Care Physician Date Dictated: 01/30/25832 Date Transcribed: 01/30/25832 Finish Carpenter: KENNETH Signed Normal [facility] Cardiology Visit Reporton Cardiology Visit Report [facility] [address] [place] [address] OFFICE VISIT Date of Service: 01/30/25 MR#: [id number] Acct: [id number] Name: RAISA ESTRADA Rep #: [id number] : 1965 Provider: Dr. Nati Alston MD Age/Sex: 59/M Location: [facility] [place] [place] Status: Signed HPI HPI History of Present Illness Details: This gentleman describes a past medical history significant for coronary artery disease. According to him, he has had percutaneous intervention done with 2 stents to his coronary arteries in 2018 at [facility]. He has not followed up with [...] room air Intake Visit Reasons: EST (SELF) Breadman Required: No Accompanied by: Other Allergies No Known Allergies Allergy (Verified 01/30/25 09:05) Have you fallen in the past year?: No PFSH Medical History Anxiety and depression Atherosclerotic heart disease of [place] coronary artery without angina pectoris COPD (chronic [...] exercise str (more content not included)... Normal [facility] Absolute lymphocyte counton 08-03-2022 Lymphocytes Auto (Unsp spec) [#/Vol] 2.55 10*3/uL 0.83-4.51 [facility] Work Phone: Basophil percentageon 2021 Basophil percentage 0-5 SEEN /hpf 0-5 [facility] Work Phone: Basophils/100 WBC (Bld) 0.6 % 0-1 [facility] Work Phone: Chloride [Moles/Vol] 105 mmol/L 98-107 [facility] Work Phone: Eosinophils/100 WBC (Bld) 0.7 % 0-5 [facility] Work Phone: Glucose [Mass/Vol] 108 mg/dL 74-106 [facility] Work Phone: Comment on above: Fasting Glucose resu lt from 100 to 125 mg/dL suggests IMPAIRED HOMEOSTASIS per A.D.A. criteria. Neutrophils (Bld) [#/Vol] 6.5 10*3/uL 2.0-7.7 [facility] Work Phone: Neutrophils/100 WBC (Bld) 66.2 % 47-70 [facility] Work Phone: Potassium [Moles/Vol] 3.8 mmol/L 3.5-5.1 [facility] Work Phone: Sodium [Moles/Vol] 139 mmol/L 136-145 [facility] Work Phone: WBC (Bld) [#/Vol] 9.9 10*3/uL 4.4-11.0 [facility] Work Phone: Bilirubin Test strip Ql (U)o n 08-03-2022 Bilirubin Ql (U) Negative Negative [facility] Work Phone: Blood erythrocytes count (nu mber/volume)on 08-03-2022 RBC (Bld) [#/Vol] 5.43 10*6/uL 4.6-6.2 [facility] Work Phone: Blood hemoglobin measurement (mass/volume)on 08-03-2022 Hemoglobin (Bld) [Mass/Vol] 16.9 g/dL 13.0-16.5 [facility] Work Phone: Blood lymphocytes/100 leukoc yteson 08-03-2022 Lymphocytes/100 WBC (Bld) 25.9 % 19-41 [facility] Work Phone: Blood monocytes/100 leukocyt eson 08-03-2022 Monocytes/100 WBC (Bld) 6.2 % 0-10 [facility] Work Phone: [phone] Blood platelet mean volumeon 08-03-2022 Platelet mean volume (Bld) [Entitic vol] 9.6 fL 6.2-12.0 [facility] Work Phone: [phone] Determination of erythrocyte mean corpuscular volume (MCV)on 08-03-2022 MCV (RBC) [Entitic vol] 91.7 fL 80-94 [facility] Work Phone: [phone] Hematocrit Auto (Bld) [Volum e fraction]on 08-03-2022 Hematocrit (Bld) [Volume fraction] 49.8 % 40-54 [facility] Work Phone: [phone] Ketones Test strip Ql (U)on 08-03-2022 Ketones Ql (U) Negative Negative [facility] Work Phone: [phone] Laboratory - Chemistry and C hemistry - challengeon 08-03-2022 CO2 [Moles/Vol] 30.0 mmol/L 21.0-32.0 [facility] Work Phone: [phone] Urea nitrogen/Creatinine [Mass ratio] 8.6 mg/mg 10-20 [facility] Work Phone: [phone] Laboratory - Hematology and Cell countson 08-03-2022 Erythrocyte distribution width (RBC) [Entitic vol] 41.9 fL 35.1-43.9 [facility] Work Phone: [phone] Erythrocyte distribution width (RBC) [Ratio] 12.4 % 11.6-14.6 [facility] Work Phone: [phone] Immature granulocytes/100 WBC (Bld) 0.400 % 0.0-0.9 [facility] Work Phone: [phone] Comment on above: IG% - Immature Granu locytes (promyelocytes, myelocytes and metamyelocytes) > 1% indicates that a LEFT SHIFT is Present. MCH (RBC) [Entitic mass] 31.1 pg 27.0-32.0 [facility] Work Phone: [phone] Nucleated RBC/100 WBC (Bld) [Ratio] 0 % 0-5 [facility] Work Phone: MCHC Auto (RBC) [Mass/Vol]on 08-03-2022 MCHC (RBC) [Mass/Vol] 33.9 g/dL 32-36 [facility] Work Phone: Mucus LM Ql (Urine sed)on Mucus Ql (Urine sed) 0 SEEN /hpf [facility] Work Phone: [phone] Nitrite Test strip Ql (U)on 08-03-2022 Nitrite Ql (U) Negative Negative [facility] Work Phone: No Panel Informationon 08-03 Estimated Creatinine Clearance Calc 85.52 ml/min [facility] Work Phone: Estimated GFR (MDRD) Amer 107 mL/min >60 [facility] Work Phone: Comment on above: GFR Calc Estimated GFR (MDRD) Non-Af Amer 88 mL/min >60 [facility] Work Phone: Comment on above: Non- GFR Calc Platelets bldon 08-03-2022 Platelets (Bld) [#/Vol] 262 10*3/uL 150-450 [facility] Work Phone: Protein Test strip Ql (U)on 08-03-2022 Protein Ql (U) Negative Negative [facility] Work Phone: [phone] Serum or plasma calcium kevin urement (mass/volume)on 08-03-2022 Calcium [Mass/Vol] 9.1 mg/dL 8.5-10.1 [facility] Work Phone: [phone] Serum or plasma creatinine m easurement (mass/volume)on 08-03-2022 Creatinine [Mass/Vol] 0.93 mg/dL 0.70-1.30 [facility] Work Phone: Comment on above: The validity of the calculated GFR & GFRAA in patients over 70 years has not been determined. Clinical correlation is essential. Serum or plasma urea nitroge n measurement (mass/volume)on 08-03-2022 Urea nitrogen [Mass/Vol] 8 mg/dL 7-18 [facility] Work Phone: Squamous epithelial cells de tection in urine sediment by light microscopyon 08-03-2022 Epithelial cells.squamous LM Ql (Urine sed) 0-5 SEEN /hpf 0-5 [facility] Work Phone: Thin prep Papanicolaou smear with manual screeningon 08-03-2022 Thin prep Papanicolaou smear with manual screening 4 5-15 [facility] Work Phone: Urine blood detectionon RBC Ql (U) Negative Negative [facility] Work Phone: RBC Ql (U) 0 SEEN /hpf 0-5 [facility] Work Phone: Urine clarityon 08-03-2022 Clarity (U) Clear Clear [facility] Work Phone: Urine color determinationon 08-03-2022 Color (U) Yellow Yellow [facility] Work Phone: Urine glucose detectionon Glucose Ql (U) Normal mg/dl Normal [facility] Work Phone: Urine leukocyte esterase det ection by dipstickon 08-03-2022 Leukocyte esterase Test strip Ql (U) Negative Negative [facility] Work Phone: Urine pHon 08-03-2022 pH (U) 7.0 [pH] 5.0 - 8.0 [facility] Work Phone: Urine sediment bacteria coun t by microscopy (number/high power field)on 08-03-2022 Bacteria LM.HPF (Urine sed) [#/Area] 0 /[HPF] None Seen [facility] Work Phone: Urine specific gravity measu rementon 08-03-2022 Specific gravity (U) [Rel density] 1.010 1.002-1.030 [facility] Work Phone: [phone] Urobilinogen Auto test strip Ql (U)on 08-03-2022 Urobilinogen Ql (U) Normal mg/dl Normal [facility] Work Phone: .Auto Diffon 08-01-2022 Basophil, Absolute 0.1 10 3/mcL Normal 0.0-0.2 [facility] ([place]) Comment on above: Performed By: #### B MP, GFR #### [address] [address] Basophils/100 WBC (Bld) 0.8 % Normal 0.0-2.5 [facility] ([place]) Comment on above: Performed By: #### B MP, GFR #### [address] [address] Eosinophil, Absolute 0.2 10 3/mcL Normal 0.0-0.4 [facility] ([place]) Comment on above: Performed By: #### B MP, GFR #### [address] [address] Eosinophils/100 WBC (Bld) 1.6 % Normal 0.0-7.0 [facility] ([place] Comment on above: Performed By: #### B MP, GFR #### [address] [address] Lymphocyte, Absolute 2.2 10 3/mcL Normal 0.8-3.9 [facility] ([place]) Comment on above: Performed By: #### B MP, GFR #### [address] [address] Lymphocytes/100 WBC (Bld) 21.8 % Normal 10.0-50.0 [facility] ([place] Comment on above: Performed By: #### B MP, GFR #### [address] [address] Monocyte, Absolute 0.9 10 3/mcL Normal 0.2-1.0 [facility] ([place]) Comment on above: Performed By: #### B MP, GFR #### [address] [address] Monocytes/100 WBC (Bld) 9.2 % Normal 1.7-13.0 [facility] ([place] Comment on above: Performed By: #### B MP, GFR #### [address] [address] Neutrophils/100 WBC (Bld) 66.6 % Normal 37.0-80.0 [facility] ([place] Comment on above: Performed By: #### B MP, GFR #### Marlee [address] [address] .GFRon 08-01-2022 GFR 90 ml/min/1.73sqm Normal [facility] ([place] Comment on above: Result Comment: GFR Population [...] Performed By: #### B MP, GFR #### [address] [address] GFR Non- 74 ml/min/1.73sqm Normal [facility] ([place] Comment on above: Result Comment: GFR Population [...] Performed By: #### B MP, GFR #### [address] [address] .MDWon 08-01-2022 Monocyte Distribution Width 20.30 High 0.00-20.00 [facility] ([place]) Comment on above: Result Comment: For adults in ED, MDW>20.0 may be associated with a higher risk of sepsis during the first 12hrs of hospital admission Performed By: #### B MP, GFR #### [address] [address] .NEUABSon 08-01-2022 Neutrophil, Absolute 6.7 10 3/mcL High 2.9-6.2 [facility] ([place]) Comment on above: Performed By: #### B MP, GFR #### [address] [address] BMPon 08-01-2022 BUN/Creatinine Ratio 14 ratio Normal 7-27 [facility] ([place] Comment on above: Performed By: #### B MP, GFR #### [address] [address] Calcium [Mass/Vol] 8.5 mg/dL Normal 8.4-10.2 [facility] ([place] Comment on above: Performed By: #### B MP, GFR #### [address] [address] Chloride [Moles/Vol] 103 mmol/L Normal 98-107 [facility] ([place] Comment on above: Performed By: #### B MP, GFR #### [address] [address] CO2 [Moles/Vol] 27 mmol/L Normal 22-29 [facility] ([place] Comment on above: Performed By: #### B MP, GFR #### [address] [address] Creatinine [Mass/Vol] 1.03 mg/dL Normal 0.70-1.30 [facility] ([place] Comment on above: Performed By: #### B MP, GFR #### [address] [address] Electrolyte Balance 10.0 mEq/L Normal 4.0-15.0 [facility] [place] Comment on above: Performed By: #### B MP, GFR #### [address] [address] Glucose [Mass/Vol] 102 mg/dL Normal 70-105 [facility] ([place] Comment on above: Performed By: #### B MP, GFR #### [address] [address] Potassium [Moles/Vol] 4.1 mmol/L Normal 3.5-5.1 [facility] ([place] Comment on above: Performed By: #### B MP, GFR #### [address] [address] Sodium [Moles/Vol] 140 mmol/L Normal 136-145 [facility] ([place] Comment on above: Performed By: #### B MP, GFR #### [address] [address] Urea nitrogen [Mass/Vol] 14 mg/dL Normal 7-18 [facility] ([place] Comment on above: Performed By: #### B MP, GFR #### [address] [address] CBCon 08-01-2022 Erythrocyte distribution width (RBC) [Ratio] 13.4 % Normal 11.5-14.5 [facility] ([place] Comment on above: Performed By: #### B MP, GFR #### [address] [address] Hematocrit (Bld) [Volume fraction] 43.3 % Normal 42.0-52.0 [facility] ([place] Comment on above: Performed By: #### B MP, GFR #### [address] [address] Hgb 15.1 G/dL Normal 14.0-18.0 [facility] ([place] Comment on above: Performed By: #### B MP, GFR #### [address] [address] MCH (RBC) [Entitic mass] 31.6 pg High 27.0-31.2 [facility] ([place] Comment on above: Performed By: #### B MP, GFR #### Marlee [address] [address] MCHC 34.8 G/dL Normal 31.8-35.4 [facility] ([place] Comment on above: Performed By: #### B MP, GFR #### Marlee [address] [address] MCV (RBC) [Entitic vol] 90.8 fL Normal 80.0-94.0 [facility] ([place]) Comment on above: Performed By: #### B MP, GFR #### [address] [address] Platelet 246 10 3/mcL Normal 130-400 [facility] ([place] Comment on above: Performed By: #### B MP, GFR #### Marlee [address] [address] Platelet mean volume (Bld) [Entitic vol] 7.3 fL Low 7.4-10.4 [facility] ([place] Comment on above: Performed By: #### B MP, GFR #### [address] [address] RBC 4.77 10 6/mcL Normal 4.04-6.13 [facility] ([place] Comment on above: Performed By: #### B MP, GFR #### Marlee [address] [address] WBC 10.0 10 3/mcL Normal 4.6-10.8 [facility] ([place] Comment on above: Performed By: #### B MP, GFR #### [address] [address] LABORATORYOrdered By: Tiera Rehman on 08-01-2022 Basophil, [...] OF THE SCROTUM/TESTICLES WITH COLOR DOPPLER FLOW [id number]/1/2022 2:53 pm Scrotal Ultrasound with Duplex Doppler [...] 3:22:15 PM Ordering Provider: JANELLE QUACH [facility] ([place] Absolute lymphocyte counton 07-31-2022 Lymphocytes Auto (Unsp spec) [#/Vol] 4.83 10*3/uL 0.83-4.51 [facility] Work Phone: Basophil percentageon 2021 Basophils/100 WBC (Bld) 0.7 % 0-1 [facility] Work Phone: Chloride [Moles/Vol] 103 mmol/L 98-107 [facility] Work [facility]: Eosinophils/100 WBC (Bld) 3.0 % 0-5 [facility] Work Phone: Glucose [Mass/Vol] 84 mg/dL 74-106 [facility] Work Phone: Neutrophils (Bld) [#/Vol] 4.8 10*3/uL 2.0-7.7 [facility] Work Phone: Neutrophils/100 WBC (Bld) 44.4 % 47-70 [facility] Work Phone: Potassium [Moles/Vol] 3.9 mmol/L 3.5-5.1 [facility] Work Phone: Sodium [Moles/Vol] 140 mmol/L 136-145 [facility] Work Phone: WBC (Bld) [#/Vol] 10.8 10*3/uL 4.4-11.0 [facility] Work Phone: [phone] Basophil percentage 0 SEEN /hpf 0-[address] [facility] [address] [facility] Work Phone: [phone] Bilirubin Test strip Ql (U)o n 07-31-2022 Bilirubin Ql (U) Negative Negative [facility] Work Phone: Blood erythrocytes count (nu mber/volume)on 07-31-2022 RBC (Bld) [#/Vol] 4.96 10*6/uL 4.6-6.2 [facility] Work [facility]: Blood hemoglobin measurement (mass/volume)on 07-31-2022 Hemoglobin (Bld) [Mass/Vol] 15.6 g/dL 13.0-16.5 [facility] Work Phone: Blood lymphocytes/100 leukoc yteson 07-31-2022 Lymphocytes/100 WBC (Bld) 44.6 % 19-41 [facility] Work Phone: [phone] Blood monocytes/100 leukocyt eson 07-31-2022 Monocytes/100 WBC (Bld) 6.9 % 0-10 [facility] Work Phone: Blood platelet mean volumeon 07-31-2022 Platelet mean volume (Bld) [Entitic vol] 9.4 fL 6.2-12.0 [facility] Work Phone: Determination of erythrocyte mean corpuscular volume (MCV)on 07-31-2022 MCV (RBC) [Entitic vol] 91.9 fL 80-94 [facility] Work Phone: Hematocrit Auto (Bld) [Volum e fraction]on 07-31-2022 Hematocrit (Bld) [Volume fraction] 45.6 % 40-54 [facility] Work Phone: [phone] Ketones Test strip Ql (U)on 07-31-2022 Ketones Ql (U) Negative Negative [facility] Work Phone: [phone] Laboratory - Chemistry and C hemistry - challengeon 07-31-2022 CO2 [Moles/Vol] 31.0 mmol/L 21.0-32.0 [facility] Work Phone: [phone] Urea nitrogen/Creatinine [Mass ratio] 7.8 mg/mg 10-20 [facility] Work Phone: [phone] Laboratory - Hematology and Cell countson 07-31-2022 Erythrocyte distribution width (RBC) [Entitic vol] 42.6 fL 35.1-43.9 [facility] Work Phone: [phone] Erythrocyte distribution width (RBC) [Ratio] 12.6 % 11.6-14.6 [facility] Work Phone: [phone] Immature granulocytes/100 WBC (Bld) 0.400 % 0.0-0.9 [facility] Work Phone: [phone] Comment on above: IG% - Immature Granu locytes (promyelocytes, myelocytes and metamyelocytes) > 1% indicates that a LEFT SHIFT is Present. MCH (RBC) [Entitic mass] 31.5 pg 27.0-32.0 [facility] Work Phone: [phone] Nucleated RBC/100 WBC (Bld) [Ratio] 0 % 0-5 [facility] Work Phone: [phone] MCHC Auto (RBC) [Mass/Vol]on 07-31-2022 MCHC (RBC) [Mass/Vol] 34.2 g/dL 32-36 [facility] Work Phone: [phone] Mucus LM Ql (Urine sed)on Mucus Ql (Urine sed) 0 SEEN /hpf [facility] Work Phone: [phone] Nitrite Test strip Ql (U)on 07-31-2022 Nitrite Ql (U) Negative Negative [facility] Work Phone: [phone] No Panel Informationon 07-31 Estimated Creatinine Clearance Calc 88.38 ml/min [facility] Work Phone: Estimated GFR (MDRD) Amer 111 mL/min >60 [facility] Work Phone: Comment on above: GFR Calc Estimated GFR (MDRD) Non-Af Amer 92 mL/min >60 [facility] Work Phone: Comment on above: Non- GFR Calc Platelets bldon 07-31-2022 Platelets (Bld) [#/Vol] 313 10*3/uL 150-450 [facility] Work Phone: Protein Test strip Ql (U)on 07-31-2022 Protein Ql (U) Negative Negative [facility] Work Phone: [phone] Serum or plasma calcium kevin urement (mass/volume)on 07-31-2022 Calcium [Mass/Vol] 8.9 mg/dL 8.5-10.1 [facility] Work Phone: [phone] Serum or plasma creatinine m easurement (mass/volume)on 07-31-2022 Creatinine [Mass/Vol] 0.90 mg/dL 0.70-1.30 [facility] Work Phone: Comment on above: The validity of the calculated GFR & GFRAA in patients over 70 years has not been determined. Clinical correlation is essential. Serum or plasma urea nitroge n measurement (mass/volume)on 07-31-2022 Urea nitrogen [Mass/Vol] 7 mg/dL 7-18 [facility] Work Phone: [phone] Squamous epithelial cells de tection in urine sediment by light microscopyon 07-31-2022 Epithelial cells.squamous LM Ql (Urine sed) 0-5 SEEN /hpf 0-5 [facility] Work Phone: [phone] Thin prep Papanicolaou smear with manual screeningon 07-31-2022 Thin prep Papanicolaou smear with manual screening 6 5-15 [facility] Work Phone: [phone] Urine blood detectionon 07-04 RBC Ql (U) Negative Negative [facility] Work Phone: RBC Ql (U) 0 SEEN /hpf 0-5 [facility] Work Phone: Urine clarityon 07-31-2022 Clarity (U) Clear Clear [facility] Work Phone: Urine color determinationon 07-31-2022 Color (U) Straw Yellow [facility] Work Phone: Urine glucose detectionon Glucose Ql (U) Normal mg/dl Normal [facility] Work Phone: Urine leukocyte esterase det ection by dipstickon 07-31-2022 Leukocyte esterase Test strip Ql (U) Negative Negative [facility] Work Phone: Urine pHon 07-31-2022 pH (U) 6.5 [pH] 5.0 - 8.0 [facility] Work Phone: Urine sediment bacteria coun t by microscopy (number/high power field)on 07-31-2022 Bacteria LM.HPF (Urine sed) [#/Area] RARE /hpf None Seen [facility] Work Phone: Urine specific gravity measu rementon 07-31-2022 Specific gravity (U) [Rel density] 1.010 1.002-1.030 [facility] Work Phone: Urobilinogen Auto test strip Ql (U)on 07-31-2022 Urobilinogen Ql (U) Normal mg/dl Normal [facility] Work Phone: [id number] 09-24-2020 COVID19 SEE SEPARATE REPORT [facility] Comment on above: Result Comment: SPEC IMEN SENT TO A MISCELLANEOUS LAB SEE SCANNED RESULTS FOR TESTING FACILITY INFORMATION [id number] 09-10-2020 COVID19 SEE SEPARATE REPORT [facility] Comment on above: Result Comment: SPEC IMEN SENT TO A MISCELLANEOUS LAB SEE SCANNED RESULTS FOR TESTING FACILITY INFORMATION EMERGENCY REPORTon 8 EMERGENCY REPORT [facility] EMERGENCY ROOM REPORT NAME ACCOUNT SEX AGE ADMIT DISCHARGE PT MED. RECORD# NUMBER DATE DATE TYPE SEAN, [id number] M 53 04/27/18 04/27/18 3 CHRISTINE Mittal [id number] ROOM: ER DATE OF : 1965 DICTATING [...] have a family physician. He has a manager battery, Dr. Grigsby, at [place]. DIAGNOSIS: PLAN/DISPOSITION: He will be discharged in stable condition. Dictated By: Marta Echevarria DO 05/06/18 21:44 JOB #: [id number] Transcribed By: ezio 05/06/18 21:56 Electronically signed by: LUIS FELIPE Echevarria D.O. 05/07/18 23:38 Page 2 of 2 CHRISTINE ESTRADA Emergency Room Report Normal [facility] CBCon 04-27-2018 Basophils Auto #/vol (Bld) 0.00 x10EE3/UL Normal 0.00 - 0.10 [facility] Comment on above: Performed By: #### 2 [id number] ####[facility],[address] [place], [place] [id number] Basophils/100 WBC Auto (Bld) 0.2 % Normal 0.0 - 2.0 [facility] Comment on above: Performed By: #### 2 [id number] ####[facility],[address] [place] [address] Blood morphology N/A Normal [facility] Comment on above: Result Comment: {CD] Performed By: #### 2 [id number] ####[facility],[address] [place], [place] [id number] CBC Normal [facility] Comment on above: Result Comment: CBC- COMPLETE BLOOD COUNT Performed By: #### 2 [id number] ####[facility],[address] [place], [place] [id number] Eosinophils 0.30 x10EE3/UL Normal 0.00 - 0.50 [facility] Comment on above: Performed By: #### 2 65191 ####[facility],[address] [place] [address] Eosinophils/100 leukocytes 4.0 % Normal 0.0 - 7.0 [facility] Comment on above: Performed By: #### 2 24150 ####[facility],[address] [place] [address] Erythrocyte distribution width Auto Ratio (RBC) 13.6 % Normal 12.0 - 15.6 [facility] Comment on above: Performed By: #### 2 [id number] ####[facility],[address] [place] [address] Erythrocytes (RBC) 4.58 x 10EE6/UL Normal 4.50 - 6.00 [facility] Comment on above: Performed By: #### 2 28968 ####[place] [address] Hematocrit (HCT) 41.0 % Normal 40.0 - 52.0 [facility] Comment on above: Performed By: #### 2 39470 ####[place] [address] Hemoglobin mass conc (Bld) 14.3 g/dL Normal 13.0 - 17.5 [facility] Comment on above: Performed By: #### 2 [address]3762 ####[place] [address] Lymphocytes 2.40 x10EE3/UL Normal 0.80 - 2.80 [facility] Comment on above: Performed By: #### 2 [address] ####[place] [address] Lymphocytes/100 leukocytes 34.0 % Normal 20.0 - 45.0 [facility] Comment on above: Performed By: #### 2 [id number] ####[place] [address] MANUAL DIFF N/A Normal [facility] Comment on above: Performed By: #### 2 95888 ####[place] [address] MCH 31 pg Normal 27 - 33 [facility] Comment on above: Performed By: #### 2 76096 ####[facility],[address] [place] [address] 70514 MCHC mass conc (RBC) 35 X10 3 Normal 32 - 36 [facility] Comment on above: Performed By: #### 2 65556 ####[facility],[address] [place] [address] 85118 MCV 90 fL Normal 81 - 98 [facility] Comment on above: Performed By: #### 2 43201 ####[facility],[address] [place] [address] 64795 Monocytes 0.80 x10EE3/UL Normal 0.20 - 1.00 [facility] Comment on above: Performed By: #### 2 95260 ####[facility],[address] [place] [address] 25640 MONOS % 11.4 % High 0.0 - 10.0 [facility] Comment on above: Performed By: #### 2 67603 ####[facility],[address] [place] [address] 46324 Neutrophils 3.60 x10EE3/UL Normal 1.50 - 7.10 [facility] Comment on above: Performed By: #### 2 44536 ####[facility],[address] [place] [address] 72600 Neutrophils/100 WBC Auto (Bld) 50.4 % Normal 46.0 - 76.0 [facility] Comment on above: Performed By: #### 2 99647 ####[facility],[address] [place] [address] 83208 Platelet mean volume (PMV) 7.8 fL Normal 6.4 - 10.5 [facility] Comment on above: Result Comment: AUTO MATED DIFFERENTIAL Performed By: #### 2 25050 ####[facility],[address] [place] [address] 51301 Platelets 254 x10EE3/UL Normal 150 - 450 [facility] Comment on above: Performed By: #### 2 86631 ####[facility],[address] [place] [address] 32957 WBC (Leukocytes) 7.2 x 10EE3/UL Normal 4.5 - 10.8 [facility] Comment on above: Performed By: #### 2 49538 ####[facility],[address] [place] [address] 07323 CHEST 1 VIEWon 04-27-2018 CHEST 1 VIEW [facility] [address] [place] [address] Patient: CHRISTINE ESTRADA Phone#: : 1965 Age: 53 Gender: M Pt. Type: ER Account: [id number] Location: [facility] Ordering: MARTA ECHEVARRIA Exam Date: 04/27/2018/10:21 Family Phys: NO DOCTOR Charge Code: [id number] Physician: [place] Order #: [id number] DLP Dose#: PROCEDURE: X-RAY CHEST 1 VIEW [...] on 04/27/2018 at 10:50 Normal [facility] CMP with eGFRon 04-27-2018 Age 53 years Normal [facility] Comment on above: Performed By: #### 2 52396 ####[facility],[address] [place] [address] 11227 Albumin 4.1 g/dL Normal 3.4 - 4.8 [facility] Comment on above: Performed By: #### 2 17653 ####[facility],[address] [place] [address] 18244 Albumin/Globulin Ratio 1.1 {ratio} Normal 0.9 - 1.6 [facility] Comment on above: Performed By: #### 2 58109 ####[facility],[address] [place] [address] 98327 ALK PHOS 106 U/L Normal 38 - 126 [facility] Comment on above: Performed By: #### 2 41816 ####[facility],[address] [place] [address] 65079 ALT/SGPT 68 U/L High 10 - 40 [facility] Comment on above: Performed By: #### 2 48299 ####[facility],[address] [place] [address] 38507 Anion gap 4 mmol/L Low 10 - 20 [facility] Comment on above: Performed By: #### 2 45944 ####[facility],[address] [place] [address] 68288 AST/SGOT 60 U/L High 13 - 39 [facility] Comment on above: Performed By: #### 2 78292 ####[facility],[address] [place] [address] 84899 B/C RATIO 14 ratio Normal 0 - 30 [facility] Comment on above: Performed By: #### 2 86857 ####[facility],[address] [place] [address] 30512 Bilirubin (total) 0.4 mg/dL Normal 0.0 - 1.5 [facility] Comment on above: Performed By: #### 2 61410 ####[facility],[address] [place] [address] 18767 Calcium 9.7 mg/dL Normal 8.6 - 10.2 [facility] Comment on above: Performed By: #### 2 42032 ####[facility],[address] [place] [address] 68511 Chloride 106 mmol/L Normal 98 - 107 [facility] Comment on above: Performed By: #### 2 39110 ####[facility],[address] [place] [address] 46985 CO2 28.9 mmol/L Normal 21.0 - 31.0 [facility] Comment on above: Performed By: #### 2 25848 ####[facility],[address] [place] [address] 94230 Creatinine 0.9 mg/dL Normal 0.7 - 1.3 [facility] Comment on above: Performed By: #### 2 85672 ####[facility],[address] [place] [address] 91353 eGFR (non-black) mL/min/{1.73_m2} Normal 60 - 999 [facility] Comment on above: Result Comment: ACCO RDING TO THE NATIONAL KIDNEY DISEASE EDUCATION PROGRAM(NKDE), A NORMAL eGFRIS A VALUE GREATER THAN OR EQUAL TO 60 ML/MIN/1.73 SQ METERS.CHRONIC KIDNEY DISEASE: <60mL/MIN/1.73 SQ METERSKIDNEY FAILURE: <15mL/MIN/1.73 SQ METERSTHIS TEST SHOULD ONLY BE USED FOR PATIENTS 18 YEARS OF AGE AND OLDER. Performed By: #### 2 85854 ####[facility],[address] [place] [address] 59550 eGFR (non-black) Normal [facility] Comment on above: Result Comment: COMP REHENSIVE METABOLIC PANEL Performed By: #### 2 81191 ####[facility],[address] [place] [address] 45278 Globulin 3.6 g/dL Normal 1.5 - 3.8 [facility] Comment on above: Performed By: #### 2 11684 ####[facility],[address] [place] [address] 75326 Glucose mass conc 123 mg/dL High 74 - 106 [facility] Comment on above: Performed By: #### 2 40513 ####[facility],[address] [place] [address] 84756 Potassium molar conc 4.0 mmol/L Normal 3.5 - 5.1 [facility] Comment on above: Performed By: #### 2 01948 ####[facility],[address] [place], [place] [address] Protein 7.7 g/dL Normal 6.4 - 8.3 [facility] Comment on above: Performed By: #### 2 88762 ####[facility],[address] [place] [address] 39588 Sodium 135 mmol/L Low 136 - 145 [facility] Comment on above: Performed By: #### 2 69468 ####[facility],[address] [place], [place] [address] Urea nitrogen 13 mg/dL Normal 6 - 20 [facility] Comment on above: Performed By: #### 2 03731 ####[facility],[address] [place] [address] CHEST (PE PROTOCOL)on [place] [address] Patient: CHRISTINE ESTRADA Phone#: : 1965 Age: 53 Gender: M Pt. Type: ER Account: [id number] Location: [facility] Ordering: MARTA ECHEVARRIA Exam Date: 04/27/2018/11:16 Family Phys: NO DOCTOR Charge Code: [id number] Physician: [place] Order #: [id number] DLP Dose#: 8.60 PROCEDURE: CT CHEST WITH [...] 53 Gender: M Pt. Type: ER Account: [id number] Location: [facility] Ordering: MARTA ECHEVARRIA Exam Date: 04/27/2018/11:16 Family Phys: NO DOCTOR Charge Code: [id number] Physician: [place] Order #: [id number] DLP Dose#: 8.60 1. No pulmonary embolism or acute pulmonary parenchymal abnormality. 2. Hiatal hernia. 3. Indeterminate right adrenal nodule. Dictated by: Stefania Nicolas MD on 04/27/2018 at 12:06 Approved by: Stefania Nicolas MD on 04/27/2018 at 12:06 Normal [facility] D-DIMER, QUANTITATIVEon 04-02 D-DIMER QUANT 505 ng/ml High 0 - 230 [facility] Comment on above: Performed By: #### 2 84210 ####[facility],[address] [place] [address] D-DIMER, QUANTITATIVE Normal [facility] Comment on above: Result Comment: ELEONORA T D-DIMER Performed By: #### 2 72786 ####[facility],[address] [place] [address] 98594 MAGNESIUMon 04-27-2018 Magnesium 1.8 mg/dL Normal 1.6 - 2.6 [facility] Comment on above: Performed By: #### 2 45212 ####[facility],[address] [place] [address] 26149 TROPONINon 04-27-2018 Troponin I.cardiac mass conc ng/mL Normal 0.00 - 0.05 [facility] Comment on above: Result Comment: Elev ated [...] as heterophile antibodies). Performed By: #### 2 29867 ####[facility],[address] [place] [address] 48411 Vital Signs Date Time Vital Sign Value Performing Clinician Facility 08-16-2025 07:45-0400 Body temperature 97.6 [degF] Dr. Shaquille Yung MD Work Phone: [facility] 08-16-2025 07:45-0400 Diastolic blood pressure 88 mm[Hg] Dr. Shaquille Yung MD Work Phone: [facility] 08-16-2025 07:45-0400 Heart rate 50 /min Dr. Shaquille Yung MD Work Phone: [facility] 08-16-2025 07:45-0400 Respiratory rate 17 /min Dr. Shaquille Yung MD Work Phone: [facility] 08-16-2025 07:45-0400 SaO2% (BldA) [Mass fraction] 98 % Dr. Shaquille Yung MD Work Phone: [facility] 08-16-2025 07:45-0400 Systolic blood pressure 157 mm[Hg] Dr. Shaquille Yung MD Work Phone: [facility] 08-16-2025 06:00-0400 Body mass index (BMI) [Ratio] 25.3 kg/m2 Dr. Shaquille Yung MD Work Phone: [facility] 08-16-2025 06:00-0400 Body weight 77.[address] Shaquille Yung MD Work Phone: [facility] 08-15-2025 14:43-0400 Body height 175.[address] Shaquille Yung MD Work Phone: [facility] 04-15-2025 23:04-0400 Body temperature 98.1 [degF] No Primary Care Physician [facility] 04-15-2025 23:04-0400 Diastolic blood pressure 78 mm[Hg] No Primary Care Physician [facility] 04-15-2025 23:04-0400 Heart rate 67 /min No Primary Care Physician [facility] 04-15-2025 23:04-0400 Respiratory rate 16 /min No Primary Care Physician [facility] 04-15-2025 23:04-0400 SaO2% (BldA) [Mass fraction] 100 % No Primary Care Physician [facility] 04-15-2025 23:04-0400 Systolic blood pressure 153 mm[Hg] No Primary Care Physician [facility] 04-15-2025 19:28-0400 Body height 175.26 cm No Primary Care Physician [facility] 04-15-2025 19:28-0400 Body mass index (BMI) [Ratio] 26.3 kg/m2 No Primary Care Physician [facility] 04-15-2025 19:28-0400 Body weight 80.96 kg No Primary Care Physician [facility] 01-30-2025 08:32-0400 Body height 175.26 cm No Primary Care Physician [facility] 01-30-2025 08:32-0400 Body mass index (BMI) [Ratio] 29.9 kg/m2 No Primary Care Physician [facility] 01-30-2025 08:32-0400 Body weight 92.07 kg No Primary Care Physician [facility] 01-30-2025 08:32-0400 Diastolic blood pressure 75 mm[Hg] No Primary Care Physician [facility] 01-30-2025 08:32-0400 Heart rate 63 /min No Primary Care Physician [facility] 01-30-2025 08:32-0400 Respiratory rate 18 /min No Primary Care Physician [facility] 01-30-2025 08:32-0400 SaO2% (BldA) [Mass fraction] 98 % No Primary Care Physician [facility] 01-30-2025 08:32-0400 Systolic blood pressure 125 mm[Hg] No Primary Care Physician [facility] 02-23-2024 14:54-0400 Body temperature 96 [degF] [facility] 02-23-2024 14:54-0400 Diastolic blood pressure 89 mm[Hg] [facility] 02-23-2024 14:54-0400 Heart rate 59 /min [facility] 02-23-2024 14:54-0400 Respiratory rate 14 /min [facility] 02-23-2024 14:54-0400 SaO2% (BldA) [Mass fraction] 100 % [facility] 02-23-2024 14:54-0400 Systolic blood pressure 174 mm[Hg] [facility] 02-23-2024 12:33-0400 Body height 175.26 cm [facility] 02-23-2024 12:33-0400 Body mass index (BMI) [Ratio] 23.3 kg/m2 [facility] 02-23-2024 12:33-0400 Body weight 71.66 kg [facility] 08-03-2022 14:57-0400 Diastolic blood pressure 102 mm[Hg] [facility] Work Phone: 08-03-2022 14:57-0400 Heart rate 91 /min [facility] Work Phone: 08-03-2022 14:57-0400 Respiratory rate 15 /min [facility] Work Phone: 08-03-2022 14:57-0400 SaO2% (BldA) [Mass fraction] 99 % [facility] Work Phone: 08-03-2022 14:57-0400 Systolic blood pressure 162 mm[Hg] [facility] Work Phone: 08-03-2022 12:30-0400 Body height 175.26 cm [facility] Work Phone: 08-03-2022 12:30-0400 Body mass index (BMI) [Ratio] 27.1 kg/m2 [facility] Work Phone: 08-03-2022 12:30-0400 Body temperature 97.9 [degF] [facility] Work Phone: 08-03-2022 12:30-0400 Body weight 83.4 kg [facility] Work Phone: 08-01-2022 12:58-0400 Body temperature 97.52 [degF] JANELLE QUACH MD [facility] 08-01-2022 12:58-0400 Diastolic blood pressure 79 mm[Hg] JANELLE QUACH MD [facility] 08-01-2022 12:58-0400 Heart rate 61 /min JANELLE QUACH MD [facility] 08-01-2022 12:58-0400 Respiratory rate 16 /min JANELLE QUACH MD [facility] 08-01-2022 12:58-0400 Systolic blood pressure 171 mm[Hg] JANELLE QUACH MD [facility] 07-31-2022 21:57-0400 Body height 175.26 cm [facility] Work Phone: 07-31-2022 21:57-0400 Body mass index (BMI) [Ratio] 28 kg/m2 [facility] Work Phone: 07-31-2022 21:57-0400 Body temperature 97 [degF] [facility] Work Phone: 07-31-2022 21:57-0400 Body weight 86.18 kg [facility] Work Phone: 07-31-2022 21:57-0400 Diastolic blood pressure 75 mm[Hg] [facility] Work Phone: 07-31-2022 21:57-0400 Heart rate 79 /min [facility] Work Phone: 07-31-2022 21:57-0400 Respiratory rate 15 /min [facility] Work Phone: 07-31-2022 21:57-0400 SaO2% (BldA) [Mass fraction] 96 % [facility] Work Phone: 07-31-2022 21:57-0400 Systolic blood pressure 114 mm[Hg] [facility] Work Phone: Encounters Encounter Date Encounter Type Care Provider Facility Start: 08-16-2025 Non-patient / Non-visit Dr. Antoinette Dukes MD -[facility] Work Phone: Start: 08-15-2025 Non-patient / Non-visit Dr. Antoinette Dukes MD -[facility] Work Phone: Start: 08-14-2025 ambulatory Belinda Hensley Facility:[facility] Start: 08-14-2025 End: 08-16-2025 Evaluation and management of inpatient Belinda Ayden Facility:[facility] Start: 04-15-2025 End: 04-15-2025 Emergency department patient visit No Primary Care Physician -Emergency Department Work Phone: Start: 03-08-2025 ambulatory Nati Gamaliel Facility:[facility] Start: 02-12-2025 Non-patient / Non-visit Arminda myers -[facility] Work Phone: Start: 02-12-2025 ambulatory Arminda Vyas y:[facility] Start: 02-01-2025 End: 02-01-2025 ambulatory No Primary Care Physician [facility] Work Phone: Start: 02-01-2025 End: 02-01-[address] Nati Alston MD -Laboratory Work Phone: Start: 02-01-2025 End: 02-01-2025 ambulatory [facility] Facility:[facility] Start: 01-30-2025 End: 01-30-[address] Nati Alston MD -[facility] Work Phone: Start: 01-30-2025 End: 01-30-2025 ambulatory [facility] Facility:[facility] [place] [place] Start: 02-23-2024 End: 02-23-2024 Emergency department patient visit [facility]-Emergency Department Work Phone: Start: 08-04-2022 ambulatory Alice Fernandes RN [facility] Start: 08-04-2022 Patient encounter procedure Alice Fernandes RN NURSE REGISTERED DENTAL ASSISTANT RDA Comment on above: Referral Request Start: 08-03-2022 End: 08-03-2022 Emergency department patient visit [facility]-Emergency Department Start: 08-01-2022 End: 08-01-2022 Emergency department patient visit JANELLE QUACH MD Facility:[facility] Start: 08-01-2022 End: 08-01-2022 Emergency department patient visit JANELLE QUACH MD [facility] Start: 07-31-2022 End: 07-31-2022 Emergency department patient visit [facility]-Emergency Department Start: 04-27-2018 End: 04-27-2018 Emergency department patient visit MARTA ECHEVARRIA [facility] Procedures Date Procedure Procedure Detail Performing Clinician Start: 08-15-[address] hSaquille Yung MD Work Phone: Start: 08-15-2025 Serum [...] Activity Detail Author Start: 08-16-2025 Patient discharge [facility] Start: 08-14-2025 Following clinical pathway protocol [facility] Start: 08-14-2025 Ambulation without limitation [facility] Start: 08-14-2025 Assessment of risk of venous thromboembolism [facility] Start: 08-14-2025 Catheterization of vein [facility] Start: 08-14-2025 Inhalation therapy procedure [facility] Start: 08-14-2025 Insertion of catheter into peripheral vein [facility] Start: 08-14-2025 Measuring intake and output [facility] Start: 08-14-2025 Providing care according to standard [facility] Start: 08-14-2025 Referral to service [facility] Start: 08-14-2025 [facility] Start: 08-14-2025 Admission procedure [facility] Start: 08-14-2025 Consultation [facility] Start: 08-14-2025 Patient referral to dietitian [facility] Start: 04-15-2025 [facility] Start: 04-15-2025 X-ray of knee, four or more views Knee 4 or More Views [facility] Start: 04-15-2025 XR Knee GE 4 Views [facility] Start: 01-30-2025 Evaluation of diagnostic study results 12 Lead EKG performed by BMS [facility] Start: 02-23-2024 [facility] Start: 02-23-2024 Consultation [facility] Bilirubin measuremen t, urine [facility] Hemoglobin [Presence ] in Urine [facility] Measurement of keton es in urine using dipstick [facility] Microscopic urinalysis [facility] Patient Education [facility] Work Phone: Patient referral [facility] Work Phone: pH of Urine [facility] Radionuclide imaging of perfusion of myocardium under exercise stress [facility] Specific gravity of Urine [facility] Urinalysis, blood, qualitative [facility] Urine dipstick for glucose [facility] Urine dipstick for leukocyte esterase [facility] Urine dipstick for nitrite [facility] Urine dipstick for protein [facility] Urine examination [facility] Urine microscopy: epithelial cells [facility] Urine Microscopy: wh ite cells [facility] Urobilinogen [Presen ce] in Urine [facility] US Heart [facility] Immunizations Immunization Date Immunization Notes Care Provider Fa sarity 04-15-2025 tetanus toxoid, redu win diphtheria toxoid, and acellular pertussis vaccine, adsorbed No Primary Care Physician [facility] Payers Date Payer Category Payer Self-pay 2020 Medicaid [employer] [place] [employer] [place] [id number] 2020-Present [phone] [address] [place] [address] Medicaid [id number] 2014 Unknown [id number] 1965 Unknown [id number] Unknown [facility] [id number] Unknown [id number] Unknown [id number] Unknown [id number] Unknown [id number] Unknown [id number] Unknown [id number] Unknown [id number] Unknown [id number] Unknown [id number] Unknown [id number] Social History Date Type Detail Facility Start: 07-31-2022 End: 02-23-2024 Tobacco smoking status NHIS Unknown if ever smoked [facility] Start: 1965 Sex Assigned At Male [facility] Tobacco smoking status [facility] Start: 1965 Sex Assigned At Not on file [facility] Start: 02-23-2024 End: 08-15-2025 Tobacco smoking status NHIS Smokes tobacco daily (finding) [facility] Start: 02-07-2025 Sex Male (finding) [facility] Sex Male [facility] Goals Date Patient Goal Desired Activity /State Functional Status Date Assessment Result Facility 08-16-2025 Functional status Ambulates [facility] Work Phone: 08-01-2022 Functional Status Independent [facility] Mental Status Date Assessment Result Facility 08-16-2025 Cognitive function Voice/Name [facility] Work Phone: 02-23-2024 Cognitive function Level Of Cons ciousness Awake;Alert;Appropriate;Follow s Commands [facility] Work Phone: 08-01-2022 Mental Status Orientation Oriented x 4 [facility] Clinical Notes 08-01-2022 to 08-16-2025 Note Date & Type Note Facility 08-16-2025 Progress note Note Date/Time August 16, 2025 11:23am [facility] Medical Records Department [address] [place] [address] Progress Note - Hospitalist 08/16/25 1048 MR#: [id number] Acct: [id number] Name: RAISA ESTRADA Rep #:[id number] 2 : 1965 60 From: Fredy bejarano MD PCP: Care Physician,No Primary Status :ADM IN Location: [place] [address] Subjective Subjective CIWA score of 1 Objective [...] DVT: Ambulation Charges/Coding Visit Charges Inpatient E&M: 39902 Subs Hosp L2 08/16/25 1123 <Electronically signed by Fredy Dukes MD> Cosigner Signature (if applicable): CC: ~ Signed [facility] Work Phone: [phone] Progress note [facility] Medical Records Department [address] [place] [address] Progress Note - Hospitalist 08/16/25 1048 MR#: [id number] Acct: [id number] Name: RAISA ESTRADA Rep #:[id number] : 1965 60 From: Fredy bejarano MD PCP: Care Physician,No Primary Status :ADM IN Location: [place] [address] Subjective Subjective CIWA score of 1 Objective [...] DVT: Ambulation Charges/Coding Visit Charges Inpatient E&M: 35744 Subs Hosp L2 08/16/25 1123 Cosigner Signature (if applicable): CC: ~ Signed [facility]10-15-2025 Progress note Author Fredy Dukes [facility] Note Date/Time August 15, 2025 9 :45am [facility] Medical Records Department [address] [place] [address] Progress Note - Hospitalist 08/15/25 0942 MR#: [id number] Acct: [id number] Name: RAISA ESTRADA Rep #:[id number] : 1965 60 From: Fredy bejarano MD PCP: Care Physician,No Primary Status :ADM IN Location: [place] [address] Subjective Subjective CIWA score of 2 Objective [...] 44.8 L, Lymph % (Auto) 43.6 H, Edmunds % (Auto) 9.4, Eos % (Auto) 1.0, [...] Std Deviation 44.0 H, RDW Coeff of Salu 12.9, Plt Count 188, MPV 10.0, Immature Gran % (Auto) 0.400, Neut % (Auto) 47.3, Lymph % (Auto) 37.5, Edmunds % (Auto) 11.4 H, Eos % (Auto) [...] DVT: Ambulation Charges/Coding Visit Charges Inpatient E&M: 18058 Subs Hosp L2 08/15/25 0945 <Electronically signed by Fredy Dukes MD> Cosigner Signature (if applicable): CC: ~ Signed [facility] Work Phone: 1(363) 990-367410-15-2025 Progress note [facility] Medical Records Department [address] [place] [address] Progress Note - Hospitalist 08/15/25 09 MR#: [id number] Acct: [id number] Name: RAISA ESTRADA Rep #:[id number] 8 : 1965 60 From: Fredy bejarano MD PCP: Care Physician,No Primary Status :ADM IN Location: [place] [address] Subjective Subjective CIWA score of 2 Objective [...] 44.8 L, Lymph % (Auto) 43.6 H, Edmunds % (Auto) 9.4, Eos % (Auto) 1.0, [...] % (Auto) 47.3, Lymph % (Auto) 37.5, Edmunds % (Auto) 11.4 H, Eos % (Auto) [...] DVT: Ambulation Charges/Coding Visit Charges Inpatient E&M: 08265 Subs Hosp L2 08/15/25 0945 Cosigner Signature (if applicable): CC: ~ Signed [facility]10-14-2025 History and physical note Author Belinda Hensley [facility] Note Date/Time August 14, 2025 9 :09pm [facility] Medical Records Department [address] [place] [address] H&P Exam - Hospitalist 08/14/25 1822 MR#: [id number] Acct: [id number] Name: RAISA ESTRADA Rep #:[id number] : 1965 60 From: Belinda Hensley DO PCP: Care Physician,No Primary Status :ADM IN Location: [facility] UV449-0 HPI - General General Date of Admission: [...] he was given IV fluids and phenobarb. [facility] Medical History History of ST elevation myocardial infarction (STEMI) (05/11/11) Anxiety and depression Atherosclerotic heart disease of [place] coronary artery without angina pectoris Essential hypertension [...] 44.8 L, Lymph % (Auto) 43.6 H, Edmunds % (Auto) 9.4, Eos % (Auto) 1.0, [...] Full code Charges/Coding Visit Charges Inpatient E&M: 25327 Init Hosp L2 08/14/252108 <Electronically signed by Belinda Hensley DO> Cosigner Signature (if applicable): CC: Dr. Belinda Hensley DO; No Primary Care Physician~ Signed [facility] Work Phone: 1(147) 703-288110-14-2025 History and physical note [facility] Medical Records Department [address] [place] [address] H&P Exam - Hospitalist 08/14/25 1822 MR#: [id number] Acct: [id number] Name: RAISA ESTRADA Rep #:[id number] 4 : 1965 60 From: Belinda Hensley DO PCP: Care Physician,No Primary Status :ADM IN Location: [facility] NW616-3 HPI - General General Date of Admission: [...] he was given IV fluids and phenobarb. [facility] Medical History History of ST elevation myocardial infarction (STEMI) (05/11/11) Anxiety and depression Atherosclerotic heart disease of [place] coronary artery without angina pectoris Essential hypertension [...] 44.8 L, Lymph % (Auto) 43.6 H, Edmunds % (Auto) 9.4, Eos % (Auto) 1.0, [...] aspirin 81 mg daily - Recently saw [place] [facility] and continue to recommend ongoing outpatient follow-up - No acute issues at this time - Monitor blood pressure Tobacco abuse - Recommend cessation - Patch offered and patient declined DVT prophylaxis - Low risk - Encouraged frequent and early ambulation CODE STATUS - Full code Charges/Coding Visit Charges Inpatient E&M: 95364 Init Hosp L2 08/14/252108 Cosigner Signature (if applicable): CC: Dr. Belinda Hensley, DO; No Primary Care Physician~ Signed [facility]10-14-2025 Evaluation note* Diagnosis Onset Date Resolution Status Admit Date Admitted to alcohol detoxification center acute August 142024 6:24pm Alcohol dependence with acut e intoxication, continuous acute August 14, 2025 6:24pm Cannabis use, uncomplicated acute August 14, 2025 6:24pm Intoxication acute August 6:24pm Transaminitis acute August 6:24pm [facility] Work Phone: 1(987) 623-584310-14-2025 Discharge summary Author Shaquille Yung [facility] Note Date/Time August 14, 2025 5 :27pm [facility] Medical Records Department [address] [place] [address] Emergency Department Summary 08/14/25 MR#: [id number] Acct: [id number] Name: RAISA ESTRADA Rep #:[id number] : 1965 60 From: Shaquille Yung MD PCP: Care Physician,No Primary Status :REG ER Location: ED HPI History of Present Illness Chief Complaint: ETOH Intox Informant: patient Narrative Narrative: Patient is a 60-year-old male with a history of CAD and polysubstance use presenting for assistance with alcohol detoxification. - Reports daily alcohol consumption, starting at 4364-0791 each morning; typically consumes a 6-pack of [...] coronary stents placed by Dr. Grigsby in [place], [place]; denies history of CABG. - Denies chest pain or dyspnea. [facility] Medical History History of ST elevation myocardial infarction (STEMI) (05/11/11) Anxiety and depression Atherosclerotic heart disease of [place] coronary artery without angina pectoris Essential hypertension [...] 44.8 L Lymph % (Auto) 43.6 H Edmunds % (Auto) 9.4 Eos % (Auto) 1.0 [...] coronary arterystent placement, Atherosclerotic heart disease of [place] coronary artery withoutangina pectoris Disposition Disposition: Acute Care Hospital [facility] What to do if you have Problems For any increased pain, shortness of breath, bleeding, nausea or vomiting, chestpain, or any unexpected problems, contact your Primary Care Provider. Call [facility] ([phone]) or report to the closest Emergency Room. Call 911 if necessary. 08/14/25 1727 <Electronically signed by Shaquille Yung MD> Cosigner Signature (if applicable): CC: No Primary Care Physician ~ Signed [facility] Work Phone: 1(900) 353-153410-14-2025 Discharge summary [facility] Medical Records Department [address] [place] [address] Emergency Department Summary 08/14/25 MR#: [id number] Acct: [id number] Name: RAISA ESTRADA Rep #:[id number] : 1965 60 From: Shaquille Yung MD PCP: Care Physician,No Primary Status :REG ER Location: ED HPI History of Present Illness Chief Complaint: ETOH Intox Informant: patient Narrative Narrative: Patient is a 60-year-old male with a history of CAD and polysubstance use presenting for assistancewith alcohol detoxification. - Reports daily alcohol consumption, starting at 3953-3616 each morning; typically consumes a 6-pack of [...] coronary stents placed by Dr. Grigsby in [place], [place]; denies history of CABG. - Denies chest pain or dyspnea. [facility] Medical History History of ST elevation myocardial infarction (STEMI) (05/11/11) Anxiety and depression Atherosclerotic heart disease of [place] coronary artery without angina pectoris Essential hypertension [...] 44.8 L Lymph % (Auto) 43.6 H Edmunds % (Auto) 9.4 Eos % (Auto) 1.0 [...] withoutangina pectoris Disposition Disposition: Acute Care Hospital [facility] What to do if you have Problems For any increased pain, shortness of breath, bleeding, nausea or vomiting, chestpain, or any unexpected problems, contact your Primary Care Provider. Call [facility] ([phone]) or report tothe closest Emergency Room. Call 911 if necessary. 08/14/25 1727 Cosigner Signature (if applicable): CC: No Primary Care Physician ~ Signed [facility]04-01-2025 Evaluation note* Diagnosis Onset Date Resolution Status Admit Date Coronary artery disease chronic A pril 2024 8:52am Dyspnea on exertion chronic January 30, 2025 8:52am Fatigue chronic January 30 8:52am History of coronary artery stent placement May 11, 2011 chronic January 30, 2025 8:52am Nicotine dependence chronic January 30, 2025 8:52am [facility] Work Phone: 1([phone] 945-620010-04-2022 Miscellaneous Notes* Telephone Encounter - Alice Fernandes [...] appointment center for [facility] Discharge instructions Additional Instructions 1. [...] They do have a negative work-up at [facility] on July 31 and negative work-up at outside facility the cause of your pain is unknown. Because of the symptoms you are reported you were referred to a urologist.[facility] Work Phone: [phone] 378-753710-01-2022 Hospital Discharge instructions Patient Education 08/01/2022 15:22:55 [...] foods again, start with small amounts of cfrd-dx-wlqglc, low- fat foods. These include apple sauce, [...] increase stomach acid. Don't use aspirin or nlra-qut-bvegukw pain and fever medicines, if possible. This includes nonsteroidal anti-inflammatory drugs (NSAIDs). Lose excess weight. Finish eating at least 2 hours before you go to bed or lie down. Raise the head of your bed. [phone] [employer]. [address] [place] [address], [place] [address]. All rights reserved. This information is not intended as a substitute for professional medical care. Always follow yourhealthcare professional's instructions. Follow Up Care 08/01/2022 12:39:59 With:MAEVE TURNER DO Address: [address] [place] [phone] When:2-4 days [facility] 10-01-2022 Note Discharge Instructions Thank you for allowing [facility] to assist you with your healthcare needs. [...] DO When Within 2-4 days Where: [address] [place] [address] [phone] Allergies NKA Medications Please ask your primary [...] foods again, start with small amounts of pasa-ps-rvdlug, low- fat foods. These include apple sauce, [...] increase stomach acid. Don't use aspirin or ujhe-qhf-akjcezs pain and fever medicines, if possible. This includes nonsteroidal anti-inflammatory drugs (NSAIDs). Lose excess weight. Finish eating at least 2 hours before you go to bed or lie down. Raise the head of your bed. 4642-1489 [employer]. [address] [place] [address], [place] [address]. All rights reserved. This information is not intended as a substitute for professional medical care. Always follow yourhealthcare professional's instructions. Additional Information VACCINATE! IT SAVES LIVES! Members of the community who have not yet received the COVID-19 vaccine and would like to receive it can visit one of [facility] vaccine clinics. There are many vaccine clinic locations within the [facility]. For locations and available times, please visit [email or web address]. It is important to note that some COVID mobile vaccine clinics are held outdoors and may be canceled in rainy orstormy conditions. To learn more about pediatric vaccinations (ages 5-11), we invite you to visit the [facility] webpage. [email or web address]/[email or web address]-[email or web address]-[email or web address] stions.htmlTo learn more about the COVID-19 vaccine, we invite you to visit the [facility] website for a list of frequently asked questions. [email or web address]/[email or web address]-Jrsyvwb-Dukknqkuno _[email or web address]-Questions.pdf [facility] Patient Portal Access Instructions: Stay connected with your healthcare team and access your personal medical information anytime with the [facility] Patient Portal. If you would like a full copy of your medical records please contact the [facility] Medical Records Department Wednesday through Wednesday between 8a.m. and 4:30p.m. Please follow the directions below to access the portal: 1.Access the email account you provided upon registration to the hospital.2.Look for an invitation email from [facility].3.Open the email and access the invitation link: Accept Invitation to [facility]4.Fill in the required fairchild to create your account. Sign into [email or web address] with your username and password that you [...] you will allow to register on the [facility] Patient Portal for access to your information. You can also access the [facility] Patient Portal on the [employer] chris. Simply click on Health Records under [employer] and then click on the [employer] logo. HOW TO SAFELY DISPOSE OF PRESCRIPTION [...] Call your local pharmacy or go to [email or web address]/[email or web address] to find one close to you.3.Make use of household items: Use cat litter or old coffee grounds to dispose medications if other options arenot available. Mix your drugs with these household products, seal them in an airtight container andthrow it into the garbage. Call [facility]: [phone] to be sure your drugs can be [...] aware that I should contact my doctor. Patient/Grid Molder Signature: Date/Time: Relationship to Patient: Witness Name/Signature: Date/Time: [facility]10-01-2022 Note ORIGINAL EXAMINATION: ULTRASOUND OF THE SCROTUM/TESTICLES WITH COLOR DOPPLER FLOW JMUMCASMRV66/1/2022 2:53 pm Scrotal Ultrasound with Duplex Doppler [...] 08/01/2022 3:22:15 PM Ordering Provider: JANELLE QUACH [facility]10-01-2022 Note ORIGINAL EXAMINATION: ULTRASOUND OF THE SCROTUM/TESTICLES WITH COLOR DOPPLER FLOW ISZIAPLPQM59/1/2022 2:53 pm Scrotal Ultrasound with Duplex Doppler [...] Date: 08/01/2022 3:22:15 PM Ordering Provider: [facility] note No data available for this section [facility] Evaluation noteNo assessment information available [facility] Work Phone: Evaluation note* Diagnosis Onset Date Resolution Status Admit Date Admitted to alcohol detoxification center acute August 142024 6:24pm Alcohol dependence with acut e intoxication, continuous acute August 14, 2025 6:24pm Cannabis use, uncomplicated acute August 14, 2025 6:24pm Intoxication acute August 6:24pm Transaminitis acute August 6:24pm [facility] Work Phone: History and physical note Author Belinda Hensley [facility] Note Date/Time August 14, 2025 9 :09pm [facility] Medical Records Department [address] [place] [address] H&P Exam - Hospitalist 08/14/25 1822 MR#: [id number] Acct: [id number] Name: RAISA ESTRADA Rep #:[id number] : 1965 60 From: Belinda Hensley DO PCP: Care Physician,No Primary Status :ADM IN Location: [facility] SA997-3 HPI - General General Date of Admission: [...] he was given IV fluids and phenobarb. [facility] Medical History History of ST elevation myocardial infarction (STEMI) (05/11/11) Anxiety and depression Atherosclerotic heart disease of [place] coronary artery without angina pectoris Essential hypertension [...] 44.8 L, Lymph % (Auto) 43.6 H, Edmunds % (Auto) 9.4, Eos % (Auto) 1.0, [...] aspirin 81 mg daily - Recently saw [place] [facility] and continue to recommend ongoing outpatient follow-up - No acute issues at this time - Monitor blood pressure Tobacco abuse - Recommend cessation - Patch offered and patient declined DVT prophylaxis - Low risk - Encouraged frequent and early ambulation CODE STATUS - Full code Charges/Coding Visit Charges Inpatient E&M: 69078 Init Hosp L2 08/14/252108 <Electronically signed by Belinda Hensley DO> Cosigner Signature (if applicable): CC: Dr. Belinda Hensley DO; No Primary Care Physician~ Signed [facility] Work Phone: Hospital Discharge instructions Additional Instructions Social work has also given you information regarding local primary care physicians in the area that you can establish with for further care.[facility] Work Phone: Progress note Author Fredy Dukes [facility] Note Date/Time August 15, 2025 9 :45am [facility] Medical Records Department [address] [place] [address] Progress Note - Hospitalist 08/15/25941 MR#: [id number] Acct: [id number] Name: RAISA ESTRADA Rep #:[id number] : 1965 60 From: Fredy bejarano MD PCP: Care Physician,No Primary Status :ADM IN Location: [place] [address] Subjective Subjective CIWA score of 2 Objective [...] 44.8 L, Lymph % (Auto) 43.6 H, Edmunds % (Auto) 9.4, Eos % (Auto) 1.0, [...] % (Auto) 47.3, Lymph % (Auto) 37.5, Edmunds % (Auto) 11.4 H, Eos % (Auto) [...] DVT: Ambulation Charges/Coding Visit Charges Inpatient E&M: 64971 Subs Hosp L2 08/15/25 0945 <Electronically signed by Fredy Dukes MD> Cosigner Signature (if applicable): CC: ~ Signed [facility] Work Phone: Progress note Author Fredy Dukes [facility] Note Date/Time August 16, 2025 1 1:23am [facility] Medical Records Department [address] [place] [address] Progress Note - Hospitalist 08/16/25 1048 MR#: [id number] Acct: [id number] Name: RAISA ESTRADA Rep #:[id number] 2 : 1965 60 From: Fredy bejarano MD PCP: Care Physician,No Primary Status :ADM IN Location: [place] [address] Subjective Subjective CIWA score of 1 Objective [...] DVT: Ambulation Charges/Coding Visit Charges Inpatient E&M: 95945 Subs Hosp L2 08/16/25 1123 <Electronically signed by Fredy Dukes MD> Cosigner Signature (if applicable): CC: ~ Signed [facility] Work Phone: Reason for referral (narrative)No reason for referral information availableWKindred Hospital [facility] Work Phone: Summary Purpose Family History Relationship Condition Age at Onset Recorded Date/T ashish Not Specified Cardiac disease Unknown Hypertension Unknown Advance Directives Advance Directive Response Recorded Date/ Time Living Will No July 31, 2022 10:14pm Power of Day Care Supervisor No July 10:14pm Advance Directive Response Recorded Date/ Time Living Will No August 03 12:33pm Power of Day Care Supervisor No August 03 12:33pm Advance Directive Response Recorded Date/ Time Living Will No February 23, 2024 12:39pm Power of Day Care Supervisor No February 22 12:39pm Advance Directive Response Recorded Date/ Time Do you have a Healthcare Power of Day Care Supervisor? No April 15, 2025 7:34pm Advance Directive Response Recorded Date/ Time Do you have a Healthcare Power of Day Care Supervisor? No August 14, 2025 7:24pm Chief Complaint [...] section and content) DATE CREATED AUTHOR 05/08/2018 [facility] DATE CREATED AUTHOR AUTHOR'S ORGANIZ ATION 10/08/2020 [facility] DATE CREATED AUTHOR AUTHOR'S ORGANIZ ATION 01/11/2023 [facility] ([place]) DATE CREATED AUTHOR AUTHOR'S ORGANIZ ATION 08/26/2025 [facility] Goals (unrecognized section and content) Goals [...] or prosecute any alcohol or drug abuse patient.[facility] Reason for Visit (unrecogniz ed section [...] BE BASED ON THE PRIMARY CLINICAL RECORDS. [facility] [employer] [facility]. provides no warranty or guarantee of the accuracy or completeness of information in this document.
== END 2025-10-17 11:26 | disposition home or self-care (01) ==
PROVIDERS: Emergency Provider Emergency Medicine; Visit Provider Emergency Medicine
DX: B02.29 Other postherpetic nervous system involvement (principal); J44.9 Chronic obstructive pulmonary disease, unspecified; I25.10 Atherosclerotic heart disease of native coronary artery without angina pectoris; E78.5 Hyperlipidemia, unspecified; I25.2 Old myocardial infarction; F17.210 Nicotine dependence, cigarettes, uncomplicated
CPT/HCPCS: 99283; A4216